=== PATIENT | female | born 1945 | race Caucasian/White ===

== ENCOUNTER 2021-10-28 10:14 | Emergency (ER) | payer MEDICARE, SELFPAY ==
[2021-10-28] VITALS (8 sets, daily range): BP systolic 158–197; BP diastolic 69–95; PULSE 65–74; RESP 10–20; TEMP 36.6; O2SAT 95–100
--- NOTE | ~2021-10-28 | XR_ITS ---
EXAMINATION: XR chest 2V DATE: 10/28/2021 11:00 INDICATION: Lower limb edema TECHNIQUE: AP and lateral views of the chest are obtained. COMPARISON: 07/24/2018 FINDINGS: There are possible nodules in the right mid and upper lung zones. There is no pleural effus ion or pneumothorax. The cardiomediastinal silhouette is normal. There is moderate thoracic spondylos is. Surgical clips in the right upper quadrant are likely from prior cholecystectomy. There are parti ally imaged changes of anterior fusion in the cervical spine as well as surgical clips noted in the l eft neck. IMPRESSION: 1. Possible nodules of the right mid and upper lung zones. Follow-up with nonemergent CT of the chest is recommended. Reviewed, dictated and finalized at location A. IMPRESSION: 1. Possible nodules of the right mid and upper lung zones. Follow-up with nonem ergent CT of the chest is recommended.
--- NOTE | ~2021-10-28 | US_ITS ---
EXAMINATION: US venous doppler [facility] DATE: 10/28/2021 12:26 INDICATION: Bilateral lower limb edema TECHNIQUE: Gomes scale images without and with compression and Doppler images of the bilateral lower e xtremity veins were obtained. COMPARISON: None FINDINGS: The right common femoral vein, profunda femoral vein, femoral vein, popliteal vein, peroneal trunk, p osterior tibial veins, and greater saphenous vein are patent. The left common femoral vein, profunda femoral vein, femoral vein, popliteal vein, peroneal trunk, po sterior tibial veins, and greater saphenous vein are patent. IMPRESSION: 1. Patent bilateral lower extremity veins. No evidence of deep venous thrombosis. Reviewed, dictated and finalized at location A. IMPRESSION: 1. Patent bilateral lower extremity veins. No evidence of deep venous thrombosi s.
--- NOTE | 2021-10-28 10:34 | ECG_ITS ---
Measurements Intervals [place] Rate: 67 P: 22 IL: 172 QRS: 20 QRSD: 81 T: 36 QT: 405 QTc: 430 Interpretive Statements SINUS RHYTHM BASELINE ARTIFACT NOTED POOR R-WAVE PROGRESSION NONDIAGNOSTIC INFERIOR Q-WAVES COMPARED TO ECG 07/24/2018 20:25:44 NO SIGNIFICANT CHANGES Electronically Signed On 10-29-2021 7:12:21 CDT by Kt Beckett M.D.
--- NOTE | 2021-10-28 10:36 | ED.GENADULT ---
HPI - General Adult General Chief complaint: Extremity Injury, Lower <BING Bhakta Last Filed: 10/28/21 19:38> Stated complaint: bilateral lower extremity swelling <BING Bhakta Last Filed: 10/28/21 19:38> Time Seen by Provider: 10/28/21 10:23 <BING Bhakta Last Filed: 10/28/21 19:38> Source: patient <BING Bhakta Last Filed: 10/28/21 19:38> Mode of arrival: EMS <BING Bhakta Last Filed: 10/28/21 19:38> Limitations: no limitations <BING Bhakta Last Filed: 10/28/21 19:38> History of Present Illness HPI narrative: Patient is a 76 y/o female who presents to the ED via EMS with c/o lower extremity swelling. Patient reports she has had increased swelling in her BLE and feet for the past 1 week. Her granddaughter lives with her and thought she needed to come to the ED today. Patient does report diffuse nonspecific pain in her lower extremities associated with the swelling. She does take Lasix 20 mg. She is supposed to take this twice daily, but states she often only takes it once a day because it causes her to urinate frequently. She has missed several second doses over the last week and has not taken anything Lasix today. Patient denies any known history of heart failure. 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 Patient does have chronic WALLACE, but she denies any worsening of this over the last week. She denies any recent fevers, chills, cough, congestion, rhinorrhea, chest pain, abdominal pain, N/V, dysuria, hematuria. <BING Bhakta Last Filed: 10/28/21 19:38> Related Data Allergies/adverse reactions: Allergies Allergy/AdvReac Type Severity Reaction Status Date / Time gabapentin AdvReac Unknown Verified 10/28/21 10:28 latex AdvReac Hives Verified 10/28/21 10:28 <BING Bhakta Last Filed: 10/28/21 19:38> Review of Systems Review of Systems: CONSTITUTIONAL: Denies fever, chills. CARDIOVASCULAR: Reports BLE edema. Denies chest pain. RESPIRATORY: Reports chronic WALLACE. Denies cough. GASTROINTESTINAL: Denies abdominal pain, nausea, vomiting. GENITOURINARY: Denies dysuria or hematuria. SKIN: Denies rash or itching. MUSCULOSKELETAL: Reports diffuse BLE pain. Denies back pain. NEUROLOGIC: Denies numbness, tingling, or weakness. fevers, chills, cough, congestion, rhinorrhea, chest pain, abdominal pain, N/V, dysuria, hematuria. <Fátima Gore PA-C - Last Filed: 10/28/21 19:38> All systems reviewed & are unremarkable except as noted in HPI and below <Fátima Gore PA-C - Last Filed: 10/28/21 19:38> [facility] Past Medical History Medical History: Medical History (Updated 10/29/21 @ 00:00 by Kerri Stephen) Anxiety Arthritis Diabetes mellitus GERD (gastroesophageal reflux disease) Gout Hyperlipidemia Hypertension <Fátima Gore PA-C - Last Filed: 10/28/21 19:38> Surgical History Surgical History: Surgical History (Updated 10/28/21 @ 19:29 by Fátima Gore PA-C) Hx of cholecystectomy <Fátima Gore PA-C - Last Filed: 10/28/21 19:38> Social History Social History: Social History (Updated 10/28/21 @ 19:29 by Fátima Gore PA-C) Smoking status: Never smoker <Fátima Gore PA-C - Last Filed: 10/28/21 19:38> Exam Narrative: GENERAL: Well appearing, obese, non-toxic, in no acute distress. HEAD: Normocephalic, atraumatic. NECK: Supple. No adenopathy, no masses. RESPIRATORY: Airway patent, respirations nonlabored. Clear to auscultation bilaterally, no rales, rhonchi, wheezing. CARDIOVASCULAR: Regular rate and rhythm without murmurs, rubs, or gallops. Peripheral pulses 2+ and equal bilaterally, easily palpable. ABDOMINAL: Soft, nontender, nondistended, no hepatosplenomegaly. Normoactive BS. MUSCULOSKELETAL: Moves all extremities. Strength/ROM intact without gross deformities. 1+ pitting edema to bilateral lower extremities. Does appear equal in nature. Nonspecific tenderness to pa
[2021-10-28 10:44] LABS: Basophils Percent Auto 0.4 % (0.2-1.2); Eosinophils Absolute Auto 0.1 K/mm3 (0-0.3); Eosinophils Percent Auto 0.9 % (0-4.4); Hematocrit 36.4 % (37.0-47.0); Hemoglobin 10.9 g/dL (12.0-15.0); Immature Granulocyte Absolute 0.03 K/mm3 (0.00-0.031); Immature Granulocyte Percent A 0.3 % (0-0.5); Lymphocytes Absolute Auto 3.93 K/mm3 (0.9-3.2); Lymphocytes Percent Auto 42.6 % (18.3-44.2); Mean Corpuscular HGB Conc 29.9 g/dl (32-36); Mean Corpuscular Hemoglobin 26.7 pg (26-34); Mean Platelet Volume 10.1 fl (7.4-10.4); Monocytes Absolute Auto 0.6 K/mm3 (0.1-0.6); Monocytes Percent Auto 6.7 % (2.6-8.5); Neutrophils Absolute Auto 4.5 K/mm3 (1.3-6.7); Neutrophils Percent Auto 49.1 % (45.5-73.1); Platelet Count Result 292 k/mm3 (150-375); Red Blood Count 4.09 M/mm3 (4.2-5.4); Red Cell Distribution Width 17.2 % (11.5-14.5); White Blood Count 9.2 K/mm3 (4.5-10.0)
[2021-10-28 10:57] LABS: Alanine Aminotransferase 32 U/L (6-35); Albumin Level 3.8 g/dL (3.5-5.1); Alkaline Phosphatase 81 U/L (38-126); Anion Gap 5 mmol/L (8-16); Aspartate Amino Transferase 26 U/L (14-36); Bilirubin,Total 0.2 mg/dL (0.2-1.3); Blood Urea Nitrogen 18 mg/dL (7-17); Calcium 8.9 mg/dL (8.4-10.2); Carbon Dioxide 29 mmol/L (22-30); Chloride 104 mmol/L (98-107); Estimated CRCL calculation 78 ml/min; Estimated Glomerular Filt Rate > 60; Glucose 173 mg/dL (65-110); Potassium 4.1 mmol/L (3.4-5.0); Sodium 138 mmol/L (137-145)
[2021-10-28 11:03] LABS: Anisocytosis 1+ (NORMAL); Ovalocytes 1+ (NORMAL); Platelet Estimate Adequate (Adequate)
[2021-10-28 11:10] LABS: NT Pro B Type Natriuretic Pept 176 pg/mL (5-100); Troponin I < 0.012 ng/mL (0.000-0.034)
[2021-10-28 11:51] LABS: Appearance Urine Clear (Clear); Bilirubin Urine Negative (Negative); Blood Urine Negative (Negative); Color Urine Yellow (Yellow); Glucose Urine UA Trace mg/dL (Negative); Ketones Urine Negative (Negative); Leukocyte Esterase Ur Trace LEU/UL (Negative); Nitrate Urine Negative (Negative); Protein Urine Negative (Negative); Specific Grav Ur >= 1.030 (1.001-1.035); Urobilinogen Urine 0.2 mg/dL (<2.0); pH Urine 5.5 (5.0-9.0)
[2021-10-28 12:10] LABS: Mucus Urine Rare /lpf; RBC Urine 0-2 /hpf (0-2); Squamous Epithelial Cell Urine Rare /hpf (Few); WBC Urine 0-3 /hpf
[2021-10-28 12:34] LABS: Add Urine Microscopic? YES
== END 2021-10-28 13:57 | disposition home or self-care (01) ==
PROVIDERS: Physician Assistant; Emergency Provider Emergency Medicine
DX: R60.0 Localized edema (principal); R91.8 Other nonspecific abnormal finding of lung field; E11.9 Type 2 diabetes mellitus without complications; K21.9 Gastro-esophageal reflux disease without esophagitis; E78.5 Hyperlipidemia, unspecified; I10 Essential (primary) hypertension; M19.90 Unspecified osteoarthritis, unspecified site; M10.9 Gout, unspecified; R06.00 Dyspnea, unspecified; T50.1X6A Underdosing of loop [high-ceiling] diuretics, initial encounter; Z91.128 Patient's intentional underdosing of medication regimen for other reason
CPT/HCPCS: 36415; 71046; 80053; 81001; 83880; 84484; 85025; 93005; 93970; 99284

== ENCOUNTER 2023-04-19 17:11 | Observation (INO) | payer MEDICARE, SELFPAY ==
[2023-04-19] VITALS (7 sets, daily range): BP systolic 133–180; BP diastolic 60–94; PULSE 83–97; RESP 14–20; TEMP 36.7–36.9; O2SAT 89–100; BMI 27.4
--- NOTE | ~2023-04-19 | CT_ITS ---
EXAMINATION: CT cervical spine wo con DATE: 04/19/2023 19:38 INDICATION: fall, hit head TECHNIQUE: Computed tomography (CT) of the cervical spine was performed without intravenous contrast. Automated exposure control and iterative reconstruction technique were employed. The dose-length pro duct was 496.11 mGy-cm. COMPARISON: 07/24/2018. FINDINGS: Vertebral Body Alignment: Intact. 4 mm, grade 2 anterolisthesis at C7-T1. Craniocervical and atlantoaxial alignment: Moderate degenerative change. Alignment intact. Osseous structures/fracture: No evidence of a lytic or blastic process in the visualized spine. No e vidence of acute fracture. Uncomplicated appearing ACDF with interbody fusions spanning C3-C7. Cervical soft tissues: The paraspinal soft tissues planes are maintained. Degenerative changes: Multilevel facet arthropathy. Severe right neural foraminal narrowing at C7-T1. IMPRESSION: No acute fracture in the cervical spine. New 4 mm grade 2 anterolisthesis at C7-T1. This could be explained by degenerative changes, however t his region would be vulnerable to injury (just below the inferior aspect of the cervical hardware). C onsider conservative management and MRI of the cervical spine to exclude ligamentous/soft tissue inju ry. Reviewed, dictated and finalized at location K. ICAL PROCESS ENGINEER IMPRESSION: No acute fracture in the cervical spine. New 4 mm grade 2 anterolisthesis at C7-T1. This could be explained by degenerat maria esther changes, however this region would be vulnerable to injury (just below the inferior aspect of the cervical hardware). Consider conservative management and MRI of the cervical spine to exclude ligamentous/soft tissue injury.
--- NOTE | ~2023-04-19 | CT_ITS ---
EXAMINATION: CT brain wo con DATE: 04/19/2023 19:37 INDICATION: fall, hit head . TECHNIQUE: Computed tomography (CT) of the head was performed without intravenous contrast. The mA wa s adjusted according to patient size. Iterative reconstruction technique was employed. The dose-lengt h product was 681.00 mGy-cm. COMPARISON: 07/24/2018. FINDINGS: No acute intracranial hemorrhage or extra-axial fluid collection. No hydrocephalus, mass, or herniation. No acute ischemic infarct. Unremarkable dural venous sinus attenuation. No acute osseous abnormality. Mild left frontal mucosal thickening, the remaining aerated spaces are clear. Mild atrophy and chronic white matter change. Atherosclerotic intracranial calcification. Bilateral l ens replacements. IMPRESSION: No acute intracranial process. Reviewed, dictated and finalized at location K. RDS MANAGEMENT SPECIALIST
--- NOTE | ~2023-04-19 | CT_ITS ---
EXAMINATION: CT chest abdomen pelvis w con DATE: 04/19/2023 19:39 INDICATION: fall, pain to L ribs and L abdomen . TECHNIQUE: Computed tomography (CT) of the chest, abdomen, and pelvis was performed with 100 mL Omnip aque-350 intravenous contrast. Automated exposure control and iterative reconstruction technique were employed. The dose-length product was 1528.21 mGy-cm. COMPARISON: CT abdomen pelvis 07/24/2018 FINDINGS: CHEST: No thoracic aortic injury. Mild arch calcification. No mediastinal hematoma. No pericardial effusion. Mild coronary artery calcification. No acute lung injury. Senescent change and granulomatous calcifications. Minimal dependent atelectasi s. No pleural effusion or pneumothorax. ABDOMEN/PELVIS: No solid organ injury. No evidence of bowel or mesenteric injury. Moderate distal esophageal and gastric wall edema. Status post cholecystectomy. No free fluid or free air. No retroperitoneal hematoma. Pelvic contents are atraumatic. Mild bladder wall thickening and surrounding inflammatory change. Juan Miguel cified uterine fibroids. MUSCULOSKELETAL: Acute appearing fracture at the tip of the right 12th posterior rib. Angular deformities of the left anterolateral eighth and ninth ribs at the costochondral junction. Bilateral calcified breast implant s with evidence of intracapsular rupture. Mild acute-appearing anterior wedge deformity and superior endplate deformity at T3 and T4. Chronic a ppearing severe T12 and moderate L1 compression deformities, with vertebroplasty cement. IMPRESSION: Acute minimally displaced fracture at the tip of the right 12th posterior rib. Angular deformities of the left anterolateral eighth and ninth ribs at the costochondral junction, may also represent acute injury, correlate for point tenderness. Acute-appearing mild compression fractures at T3 and T4. Chronic appearing severe and moderate compression deformities at T12 and L1 respectively, with verteb roplasty cement. Given the lack of recent comparison studies, acute change cannot be excluded. Correl ate for pain/point tenderness. Bilateral calcified breast implants with intracapsular rupture. Moderate esophagitis/gastritis. Possible cystitis. Reviewed, dictated and finalized at location [facility] [employer] IMPRESSION: Acute minimally displaced fracture at the tip of the right 12th posterior rib. Angular deformities of the left anterolateral eighth and ninth ribs at the cost ochondral junction, may also represent acute injury, correlate for point tender ness. Acute-appearing mild compression fractures at T3 and T4. Chronic appearing severe and moderate compression deformities at T12 and L1 res pectively, with vertebroplasty cement. Given the lack of recent comparison stud ies, acute change cannot be excluded. Correlate for pain/point tenderness. Bilateral calcified breast implants with intracapsular rupture. Moderate esophagitis/gastritis. Possible cystitis.
--- NOTE | 2023-04-19 18:16 | ECG_ITS ---
Measurements Intervals [place] Rate: 78 P: 52 [place]: 155 QRS: 7 QRSD: 91 T: 19 QT: 399 QTc: 456 Interpretive Statements SINUS RHYTHM POOR R-WAVE PROGRESSION BORDERLINE ECG COMPARED TO ECG 10/28/2021 10:43:31 NO CHANGE Electronically Signed On 04-20-2023 9:00:20 PRODUCT DEVELOPMENT ECOLOGIST by Kt Beckett M.D.
--- NOTE | 2023-04-19 18:18 | ED.FALL ---
HPI - Fall General Chief Complaint: Fall Stated Complaint: L side pain s/p fall 4-5 days ago Time Seen by Provider: 04/19/23 17:39 History of Present Illness HPI Narrative: 77-year-old female with a history of diabetes, hypertension, hyperlipidemia, reports via EMS from home with her granddaughter at bedside with complaints of left-sided rib pain after fall that occurred 4 days ago. Patient states she was trying to transfer herself from her bed to her wheelchair when she slipped on the carpet and fell to the ground, landing on her left side. She is unsure if she hit her head or lost consciousness, however the granddaughter states that she the patient called for the granddaughter right after the fall and the patient was alert and oriented. The patient states she is having residual left-sided chest pain that hurts worse with laying flat and deep inspiration. She also reports associated dyspnea. Patient states she has acute on chronic neck pain since the fall. She took hydrocodone earlier today with some improvement in her pain. The patient lives at home with her granddaughter who is currently her arts manager, however they are working on getting the patient placed in a correction. She is wheelchair bound. Denies cough, congestion, fevers, nausea, vomiting or diarrhea, dysuria or hematuria. She does report urinary frequency and feels like she has to go to the bathroom but it is not able to empty her bladder. Related Data Allergies Allergy/AdvReac Type Severity Reaction Status Date / Time gabapentin AdvReac Shakiness Verified 04/19/23 17:24 Review of Systems Review of Systems: CONSTITUTIONAL: Denies fever, chills, or sweats. EYES: Denies visual changes, redness, or discharge. ENT: Denies rhinorrhea, congestion, sore throat, or otalgia. CARDIOVASCULAR: See HPI RESPIRATORY: See HPI GASTROINTESTINAL: Denies abdominal pain, nausea, vomiting, or diarrhea. GENITOURINARY: Denies dysuria or hematuria. SKIN: Denies rash or itching. MUSCULOSKELETAL: See HPI NEUROLOGIC: See HPI PSYCHIATRIC: Denies anxiety or depression. [facility] Past Medical History Medical History Anxiety Arthritis Diabetes mellitus GERD (gastroesophageal reflux disease) Gout Hyperlipidemia Hypertension Surgical History Surgical History Hx of cholecystectomy Social History Social History Smoking status: Never smoker Exam Narrative: GENERAL: Well-appearing, well-nourished, and in no acute distress. HEAD: Normocephalic, atraumatic. EYES: PERRLA and EOMI. ENT: Nares clear, no rhinorrhea or epistaxis. Mucous membranes moist. Bilateral TMs are ford nonbulging. No hemotympanum is. NECK: Midline cervical spinous tenderness without step-offs or deformities. No overlying skin changes. No nuchal rigidity. BACK: Generalized thoracic and lumbar spinous tenderness without step-offs or deformities, no overlying skin changes. CHEST: Clear to auscultation. No respiratory distress. Tenderness to the left lateral chest wall under the breast without crepitus, step-offs or deformities. No overlying ecchymosis rash. HEART: Regular rate and rhythm. No murmur heard. Normal peripheral pulses. ABDOMEN: Normoactive bowel sounds. Abdomen soft with tenderness in the left lower quadrant and suprapubic region. No guarding, rebound or rigidity. No overlying skin changes. No CVA tenderness. EXTREMITIES: Radial and DP pulses 2+. Full active and passive range of motion of all extremities without tenderness. 1+ pitting edema bilaterally. SKIN: Warm, dry, no rash. NEURO: No focal deficits. Alert and oriented x3. Patient moving all extremities spontaneously. No gross deficits. Course Vital Signs Vital signs: Vital Signs Temperature 98.1 F 04/19/23 17:13 Pulse Rate 88 04/19/23 17:13 Respirat
[2023-04-19] MEDS: MORPHINE SULFATE (*CRX) 2 MG/ML INJ IV PUSH ×2 (18:23→19:44)
[2023-04-19 18:38] LABS: Basophils Percent Auto 0.3 % (0.2-1.2); Eosinophils Absolute Auto 0.2 K/mm3 (0-0.3); Eosinophils Percent Auto 1.8 % (0-4.4); Hematocrit 34.5 % (37.0-47.0); Hemoglobin 10.4 g/dL (12.0-15.0); Immature Granulocyte Absolute 0.03 K/mm3 (0.00-0.031); Immature Granulocyte Percent A 0.3 % (0-0.5); Lymphocytes Absolute Auto 1.85 K/mm3 (0.9-3.2); Lymphocytes Percent Auto 15.9 % (18.3-44.2); Mean Corpuscular HGB Conc 30.1 g/dl (32-36); Mean Corpuscular Hemoglobin 26.3 pg (26-34); Mean Corpuscular Volume 87.1 fl (80-100); Mean Platelet Volume 9.9 fl (7.4-10.4); Monocytes Absolute Auto 0.9 K/mm3 (0.1-0.6); Monocytes Percent Auto 8.1 % (2.6-8.5); Neutrophils Absolute Auto 8.6 K/mm3 (1.3-6.7); Neutrophils Percent Auto 73.6 % (45.5-73.1); Platelet Count Result 247 k/mm3 (150-375); Red Blood Count 3.96 M/mm3 (4.2-5.4); White Blood Count 11.6 K/mm3 (4.5-10.0)
[2023-04-19 18:49] LABS: Prothrombin Time 13.4 Seconds (11.1-14.7)
[2023-04-19 18:50] LABS: Alanine Aminotransferase 19 U/L (6-35); Albumin Level 3.7 g/dL (3.5-5.1); Alkaline Phosphatase 81 U/L (38-126); Anion Gap 7 mmol/L (8-16); Aspartate Amino Transferase 41 U/L (14-36); Bilirubin,Total 0.4 mg/dL (0.2-1.3); Blood Urea Nitrogen 11 mg/dL (7-17); Carbon Dioxide 29 mmol/L (22-30); Chloride 103 mmol/L (98-107); Estimated CRCL calculation 74 ml/min; Estimated Glomerular Filt Rate > 60; Glucose 68 mg/dL (65-110); Lipase 30 U/L (23-300); Potassium 3.7 mmol/L (3.4-5.0); Sodium 139 mmol/L (137-145)
[2023-04-19 18:57] LABS: Appearance Urine Clear (Clear); Bacteria Urine None Seen /hpf; Bilirubin Urine Negative (Negative); Blood Urine Negative (Negative); Color Urine Yellow (Yellow); Glucose Urine UA Negative (Negative); Ketones Urine Trace mg/dL (Negative); Leukocyte Esterase Ur 1+ LEU/UL (Negative); Nitrate Urine Negative (Negative); Non Pathogenic Casts 0-2; Protein Urine Trace mg/dL (Negative); RBC Urine 0-2 /hpf (0-2); Specific Grav Ur 1.023 (1.001-1.035); Squamous Epithelial Cell Urine None seen /hpf (Few); WBC Urine 21-50 /hpf
[2023-04-19 18:59] LABS: NT Pro B Type Natriuretic Pept 153 pg/mL (19.9-100)
[2023-04-19 19:08] LABS: Add Urine Microscopic? YES
[2023-04-19 19:24] LABS: Troponin I < 0.012 ng/mL (0.000-0.034)
[2023-04-19] MEDS: HYDROmorphone HCL INJ (*CRX) 1 MG/ML SYR 0.5 MG IV PUSH (21:08)
--- NOTE | 2023-04-19 21:52 | ECG_ITS ---
Measurements Intervals [place] Rate: 93 P: 11 NJ: 169 QRS: -4 QRSD: 93 T: 5 QT: 376 QTc: 468 Interpretive Statements SINUS RHYTHM MODERATE VOLTAGE CRITERIA FOR LVH, CONSIDER NORMAL VARIANT [MEETS CRITERIA IN ONE OF: R(aVL), S(V1), R(V5), R(V5/V6)+S(V1)] CANNOT RULE OUT PREVIOUS iNFERIOR MYOCARDIAL INFARCTION , ABNORMAL ECG COMPARED TO ECG 04/19/2023 18:25:30 NO DIFFERENCE Electronically Signed On 04-20-2023 9:03:59 DITCH TENDER by Kt Beckett M.D.
[2023-04-19 22:14] LABS: Troponin I < 0.012 ng/mL (0.000-0.034)
--- NOTE | 2023-04-19 22:49 | PM.IMHP ---
H&P: HPI History of Present Illness Date/Time: 04/19/23 22:49 Chief Complaint: Left side pain after fall Narrative: 77-year-old female with a past medical history hyperlipidemia, gout, hypertension, insulin-dependent diabetes mellitus, chronic neck pain and GERD who presented to the ER with left side pain after fall 4-5 days ago. Pain has not improved despite taking Hitchcock at home. The patient reports that she has chronic pain. She reports that her pain in her back and hips and legs is always around 8/10 out of intensity. She reports that for 5 days ago she went to get up and transfer to her wheelchair and her bed is quite tall. She states that her feet slipped out from under when she was trying to put her shoes on. She some a landed between the wheelchair and her bed. She struck the back of her neck on the bed and she thinks that she struck her anterior chest on her wheelchair. The patient has chronic back pain and had a vertebroplasty in approximately January of T12 and L1. She reports that her biggest complaint now is chest discomfort that is reproducible to palpation. CT in the ER demonstrated right 12th posterior rib fracture and angular deformities of the anterior lateral 8th and 9th rib at the costochondral junction. On exam patient does have reproducible pain anterior the at the left 8 the night with ribs. She reports that this is the majority of her chest discomfort. Is worse with moving and deep breathing. She denies having significant cough. She does not use oxygen at home but does have a history of obstructive sleep apnea and is noncompliant with CPAP.. In the ER patient was reporting shortness of breath. Pulse ox when patient was reclined did drop to 89 %. She denies any significant cough or congestion. She has not had any change in bowel or bladder habits. She denies dysuria or hematuria. In the ER UA demonstrated 1+ esterase and 21-50 wbc's. He has chronic urinary frequency and urgency. She has some component of functional incontinence and has to wear pads home due to decreased mobility. She has history chronic constipation due to chronic narcotic use. She reports that she has been having difficulty getting to a lot of her doctor's appointment and has missed followups regarding her yearly eye exams and ancillary appointments. She has been following with her pain management doctor regularly to get her pain medications. The patient is noted to have significant tremor on exam. She states that her doctor has mention the possibility of Parkinson the past but states she has never had a full workup. The patient denies being on any antipsychotic medications but on review of her home med rec patient is on antipsychotics. Review of Systems Review of Systems: 12 systems were reviewed with pertinent positives and negatives per HPI. Except as documented in the HPI, all other systems were reviewed and are negative. [facility] Past Medical History Medical History (Updated 04/20/23 @ 04:07 by Marina Aparicio DO) Anxiety Arthritis Chronic neck pain with history of cervical spinal surgery Chronic pain disorder Diabetes mellitus Insulin-dependent Diabetic peripheral neuropathy GERD (gastroesophageal reflux disease) Gout Hepatitis C Hyperlipidemia Hypertension Obstructive sleep apnea Refuses CPAP TIA (transient ischemic attack) Surgical History Surgical History (Updated 04/20/23 @ 03:16 by Marina Aparicio DO) History of kyphoplasty (~12/2022) Hx of cholecystectomy Family History Family History Grandparent Acute myocardial infarction Father Acute myocardial infarction Parkinson disease Diabetes mellitus Mother Diabetes mellitus Lung cancer Sibling Diabetes mellitus Cirrhosis Social History Social History (Updated 04/20/23 @ 03:20 by Marina Aparicio DO) Social History: She lives in her own home. Her granddaughter lives with her and hel
--- NOTE | 2023-04-19 23:21 | ADMGEN ---
This patient, Oralia Epps, was admitted to Medical Room 342-01. Patient/family oriented to hospital policies and general routines including ID bracelet, bed and alarms, visiting hours, pain management, procedures, bathroom and other care routines, personal items, smoking policy, room service/diet, and visiting hours. Information on how to activate the Rapid Response Team has been discussed. Patient/Family are encouraged to report perceived risks to care and to ask questions if they do not understand what they are told or what they should do.
[2023-04-20] VITALS (13 sets, daily range): BP systolic 141–164; BP diastolic 55–85; PULSE 76–97; RESP 16; TEMP 36.2–37; O2SAT 93–99
[2023-04-20] MEDS: HYDROmorphone HCL INJ (*CRX) 1 MG/ML SYR 0.5 MG IV PUSH ×2 (01:33→08:52)
[2023-04-20] MEDS: oxyCODONE HCL (*CRX) 5 MG TAB IR PO ×3 (05:50→19:44)
[2023-04-20] MEDS: DEXTROSE 50% 25 GM/50 ML SYRINGE IV PUSH (08:48)
[2023-04-20 08:51] LABS: Glucose Point of Care 54 mg/dl (65-105)
[2023-04-20] MEDS: HYDROXYCHLOROQUINE SULFATE 200 MG TABLET PO ×2 (08:54→17:04)
[2023-04-20] MEDS: DULoxetine HCL 20 MG CAPSULE.DR 40 MG PO (08:54)
[2023-04-20] MEDS: CITALOPRAM HYDROBROMIDE 20 MG TABLET PO (08:54)
[2023-04-20] MEDS: CYANOCOBALAMIN 500 MCG TABLET BY MOUTH (08:54)
[2023-04-20] MEDS: ARIPiprazole 5 MG TABLET PO (08:55)
[2023-04-20] MEDS: MELOXICAM 7.5 MG TABLET PO (08:55)
[2023-04-20] MEDS: PRIMIDONE 50 MG TABLET PO ×3 (08:55→17:04)
[2023-04-20] MEDS: calcitrioL 0.25 MCG CAPSULE 0.5 MCG PO ×3 (08:55→17:05)
[2023-04-20] MEDS: lisinopriL 20 MG TABLET 40 MG PO ×2 (08:56→17:04)
[2023-04-20] MEDS: FOLIC ACID 1 MG TABLET PO (08:56)
[2023-04-20] MEDS: FUROSEMIDE 40 MG TABLET PO (08:56)
[2023-04-20] MEDS: PANTOPRAZOLE 40 MG TABLET PO ×2 (08:56→17:04)
[2023-04-20] MEDS: DICYCLOMINE HCL 10 MG CAPSULE PO ×3 (08:56→17:04)
[2023-04-20] MEDS: METOPROLOL TARTRATE 50 MG TAB PO ×2 (08:57→20:17)
[2023-04-20] MEDS: CALCITONIN NASAL 200 UNITS/SPRAY 3.7 ML BOTTLE 1 SPRAY NASAL (08:58)
[2023-04-20] MEDS: allopurinoL 300 MG TABLET PO (09:06)
[2023-04-20] MEDS: SUCRALFATE 1 GM TABLET PO ×3 (09:06→17:04)
[2023-04-20] MEDS: predniSONE 5 MG TABLET PO (09:06)
[2023-04-20 09:17] LABS: Glucose Point of Care 113 mg/dl (65-105)
--- NOTE | 2023-04-20 09:37 | PCOTNOTE ---
Attempted OT evaluation. Patient refuses at this time stating nausea and fatigue. Will follow.
--- NOTE | 2023-04-20 10:31 | PM.IMPN ---
Progress Note: A&P Assessment and Plan (1) Uncontrolled pain: Code(s): R52 - Pain, unspecified Status: Acute Assessment and Plan: Secondary to multiple rib fracture status post fall as well as acute compression fractures at T3 and T4 Pain management in place with oxycodone and Dilaudid as needed, will attempt to avoid IV pain medications and get patient on a regimen for discharge PT/OT (2) Fall: Qualifiers: Encounter type: initial encounter Qualified Code(s): W19.XXXA - Unspecified fall, initial encounter Code(s): W19.XXXA - Unspecified fall, initial encounter Status: Acute (3) Compression fracture: Status: Acute (4) Chronic pain disorder: Code(s): G89.4 - Chronic pain syndrome Status: Acute (5) Neck pain: Code(s): M54.2 - Cervicalgia Status: Acute (6) Dehydration: Code(s): E86.0 - Dehydration Status: Acute Assessment and Plan: Decrease Lasix, monitor fluid status closely (7) Fracture, ribs: Qualifiers: Encounter type: initial encounter Fracture type: closed Laterality: bilateral Qualified Code(s): S22.43XA - Multiple fractures of ribs, bilateral, initial encounter for closed fracture Code(s): S22.49XA - Multiple fractures of ribs, unspecified side, initial encounter for closed fracture Status: Acute (8) Abnormal urinalysis: Code(s): R82.90 - Unspecified abnormal findings in urine Status: Acute Assessment and Plan: Rocephin initiated 04/19, follow-up urine culture Plan DVT prophylaxis with SCDs GI prophylaxis not indicated Code status DNR Subjective Date/time seen: 04/20/23 10:31 Interval history: 77-year-old female with a past medical history hyperlipidemia, gout, hypertension, insulin-dependent diabetes mellitus, chronic neck pain and GERD who presented to the ER with left side pain after fall 4-5 days ago. No overnight events noted. No chest pain or shortness of breath. No nausea, vomiting or diarrhea. No fevers or chills. Still with rib pain. Review of Systems Review of Systems: 12 point review of systems was assessed and was negative except as noted in the HPI Exam Narrative: General: No acute distress, alert and oriented per baseline HEENT: Atraumatic, normocephalic, mucous membranes moist CV: Regular rate and rhythm, S1, S2 Lungs: Clear to auscultation bilaterally, no rales or crackles noted, no wheezes, good air entry Abdomen: Soft, nontender, nondistended Extremities: Normal to inspection Skin: No rashes noted, no lesions or wounds seen Psych: Euthymic, normal affect Objective Data Vital Signs Vital Signs: Vital Signs - 24 hr 04/19/23 17:13 04/19/23 17:36 04/19/23 19:05 Temperature 98.1 F Pulse Rate 88 83 Respiratory Rate 18 20 Blood Pressure 180/80 H 172/60 H Pulse Oximetry 100 98 95 Oxygen Delivery Room Air Room Air Oxygen Flow Rate 04/19/23 21:13 04/19/23 22:44 04/19/23 22:45 Temperature Pulse Rate 97 Respiratory Rate 14 Blood Pressure 178/94 H Pulse Oximetry 97 89 L 96 Oxygen Delivery Room Air Nasal Cannula Oxygen Flow Rate 2 04/19/23 22:45 04/20/23 00:11 04/19/23 23:30 Temperature 98.5 F Pulse Rate 89 87 Respiratory Rate 18 18 Blood Pressure 151/63 H 133/93 H Pulse Oximetry 95 97 96 Oxygen Delivery Nasal Cannula Oxygen Flow Rate 2 04/20/23 00:00 04/20/23 04:00 04/20/23 05:47 Temperature 98.6 F Pulse Rate 87 76 82 Respiratory Rate 16 Blood Pressure 164/55 H Pulse Oximetry 99 Oxygen Delivery Oxygen Flow Rate 04/20/23 08:47 04/20/23 08:57 Temperature Pulse Rate 94 Respiratory Rate Blood Pressure 153/57 H Pulse Oximetry Oxygen Delivery Oxygen Flow Rate Intake/Output Intake/Output: Intake & Output 04/17/23 04/18/23 04/19/23 04/20/23 23:59 23:59 23:59 23:59 Intake Total 50 200 Output Total 75 350
[2023-04-20 12:04] LABS: Glucose Point of Care 174 mg/dl (65-105)
[2023-04-20] MEDS: ONDANSETRON INJ 4 MG/2 ML VIAL IV PUSH ×2 (14:12→19:44)
[2023-04-20] MEDS: ATORVASTATIN 20 MG TABLET PO (17:09)
[2023-04-20 17:16] LABS: Glucose Point of Care 204 mg/dl (65-105)
[2023-04-20] MEDS: INSULIN ASPART (*BKC) 100 UNITS/ML SUB-Q ×2 (17:59→20:19)
[2023-04-20] MEDS: clonazePAM (*CRX) 0.5 MG TABLET PO (20:17)
[2023-04-21] VITALS (12 sets, daily range): BP systolic 121–151; BP diastolic 43–62; PULSE 70–91; RESP 16–18; TEMP 36.4–37; O2SAT 91–97
[2023-04-21] MEDS: oxyCODONE HCL (*CRX) 5 MG TAB IR PO ×4 (00:22→13:23)
[2023-04-21 05:54] LABS: Basophils Percent Auto 0.4 % (0.2-1.2); Eosinophils Absolute Auto 0.2 K/mm3 (0-0.3); Eosinophils Percent Auto 2.5 % (0-4.4); Hematocrit 32.4 % (37.0-47.0); Hemoglobin 9.7 g/dL (12.0-15.0); Immature Granulocyte Absolute 0.02 K/mm3 (0.00-0.031); Immature Granulocyte Percent A 0.3 % (0-0.5); Lymphocytes Absolute Auto 2.48 K/mm3 (0.9-3.2); Lymphocytes Percent Auto 36.8 % (18.3-44.2); Mean Corpuscular HGB Conc 29.9 g/dl (32-36); Mean Corpuscular Hemoglobin 26.4 pg (26-34); Mean Platelet Volume 10.7 fl (7.4-10.4); Monocytes Absolute Auto 0.8 K/mm3 (0.1-0.6); Monocytes Percent Auto 11.9 % (2.6-8.5); Neutrophils Absolute Auto 3.2 K/mm3 (1.3-6.7); Neutrophils Percent Auto 48.1 % (45.5-73.1); Platelet Count Result 244 k/mm3 (150-375); Red Blood Count 3.68 M/mm3 (4.2-5.4); Red Cell Distribution Width 17.2 % (11.5-14.5); White Blood Count 6.7 K/mm3 (4.5-10.0)
[2023-04-21 06:19] LABS: Glucose Point of Care 209 mg/dl (65-105)
[2023-04-21 06:33] LABS: Alanine Aminotransferase 14 U/L (6-35); Albumin Level 3.3 g/dL (3.5-5.1); Alkaline Phosphatase 71 U/L (38-126); Anion Gap 5 mmol/L (8-16); Aspartate Amino Transferase 24 U/L (14-36); Bilirubin,Total 0.3 mg/dL (0.2-1.3); Blood Urea Nitrogen 14 mg/dL (7-17); Carbon Dioxide 31 mmol/L (22-30); Chloride 99 mmol/L (98-107); Estimated CRCL calculation 50 ml/min; Estimated Glomerular Filt Rate > 60; Glucose 159 mg/dL (65-110); Potassium 3.2 mmol/L (3.4-5.0); Sodium 135 mmol/L (137-145)
[2023-04-21 09:19] LABS: Glucose Point of Care 154 mg/dl (65-105)
[2023-04-21] MEDS: calcitrioL 0.25 MCG CAPSULE 0.5 MCG PO ×3 (09:38→18:04)
[2023-04-21] MEDS: CYANOCOBALAMIN 500 MCG TABLET BY MOUTH (09:38)
[2023-04-21] MEDS: HYDROXYCHLOROQUINE SULFATE 200 MG TABLET PO ×2 (09:38→18:05)
[2023-04-21] MEDS: CITALOPRAM HYDROBROMIDE 20 MG TABLET PO (09:38)
[2023-04-21] MEDS: MELOXICAM 7.5 MG TABLET PO (09:38)
[2023-04-21] MEDS: predniSONE 5 MG TABLET PO (09:38)
[2023-04-21] MEDS: ARIPiprazole 5 MG TABLET PO (09:38)
[2023-04-21] MEDS: FOLIC ACID 1 MG TABLET PO (09:38)
[2023-04-21] MEDS: lisinopriL 20 MG TABLET 40 MG PO ×2 (09:38→18:05)
[2023-04-21] MEDS: DULoxetine HCL 20 MG CAPSULE.DR 40 MG PO (09:38)
[2023-04-21] MEDS: PANTOPRAZOLE 40 MG TABLET PO ×2 (09:38→18:05)
[2023-04-21] MEDS: DICYCLOMINE HCL 10 MG CAPSULE PO ×3 (09:38→18:05)
[2023-04-21] MEDS: allopurinoL 300 MG TABLET PO (09:39)
[2023-04-21] MEDS: METOPROLOL TARTRATE 50 MG TAB PO ×2 (09:39→21:11)
[2023-04-21] MEDS: CALCITONIN NASAL 200 UNITS/SPRAY 3.7 ML BOTTLE 1 SPRAY NASAL (09:39)
[2023-04-21] MEDS: SUCRALFATE 1 GM TABLET PO ×3 (09:39→18:05)
[2023-04-21] MEDS: PRIMIDONE 50 MG TABLET PO ×3 (09:39→18:05)
[2023-04-21] MEDS: FUROSEMIDE 40 MG TABLET PO (09:39)
[2023-04-21] MEDS: ONDANSETRON INJ 4 MG/2 ML VIAL IV PUSH ×2 (09:46→19:47)
[2023-04-21] MEDS: INSULIN GLARGINE (*BKC) 100 UNITS/ML 15 UNITS SUB-Q (09:47)
[2023-04-21 12:06] LABS: Glucose Point of Care 238 mg/dl (65-105)
[2023-04-21] MEDS: INSULIN ASPART (*BKC) 100 UNITS/ML SUB-Q (13:24)
--- NOTE | 2023-04-21 14:23 | PM.IMPN ---
Progress Note: A&P Assessment and Plan (1) Uncontrolled pain: Code(s): R52 - Pain, unspecified Status: Acute Assessment and Plan: Secondary to multiple rib fracture status post fall as well as acute compression fractures at T3 and T4 Pain management in place with oxycodone and Dilaudid as needed, will attempt to avoid IV pain medications and get patient on a regimen for discharge PT/OT 04/21: stable on oral oxycodone, d/c planning rehab soon (2) Fracture, ribs: Qualifiers: Encounter type: initial encounter Fracture type: closed Laterality: bilateral Qualified Code(s): S22.43XA - Multiple fractures of ribs, bilateral, initial encounter for closed fracture Code(s): S22.49XA - Multiple fractures of ribs, unspecified side, initial encounter for closed fracture Status: Acute Assessment and Plan: Pain controlled (3) Dehydration: Code(s): E86.0 - Dehydration Status: Acute Assessment and Plan: Decrease Lasix, monitor fluid status closely (4) Abnormal urinalysis: Code(s): R82.90 - Unspecified abnormal findings in urine Status: Acute Assessment and Plan: Rocephin initiated 04/19, follow-up urine culture 04/21: urine culture negative, abx d/c (5) Fall: Qualifiers: Encounter type: initial encounter Qualified Code(s): W19.XXXA - Unspecified fall, initial encounter Code(s): W19.XXXA - Unspecified fall, initial encounter Status: Acute (6) Compression fracture: Status: Acute (7) Chronic pain disorder: Code(s): G89.4 - Chronic pain syndrome Status: Acute (8) Neck pain: Code(s): M54.2 - Cervicalgia Status: Acute Plan DVT prophylaxis with SCDs GI prophylaxis not indicated Code status DNR Subjective Date/time seen: 04/21/23 14:23 Interval history: 77-year-old female with a past medical history hyperlipidemia, gout, hypertension, insulin-dependent diabetes mellitus, chronic neck pain and GERD who presented to the ER with left side pain after fall 4-5 days ago. No overnight events noted. No chest pain or shortness of breath. No nausea, vomiting or diarrhea. No fevers or chills. Still with rib pain, much improved. Admits to being constipated, requesting stool softener/laxative. Review of Systems Review of Systems: 12 point review of systems was assessed and was negative except as noted in the HPI Exam Narrative: General: No acute distress, alert and oriented per baseline HEENT: Atraumatic, normocephalic, mucous membranes moist CV: Regular rate and rhythm, S1, S2 Lungs: Clear to auscultation bilaterally, no rales or crackles noted, no wheezes, good air entry Abdomen: Soft, nontender, nondistended Extremities: Normal to inspection Skin: No rashes noted, no lesions or wounds seen Psych: Euthymic, normal affect Objective Data Vital Signs Vital Signs: Vital Signs - 24 hr 04/20/23 16:00 04/20/23 17:03 04/20/23 20:17 Temperature Pulse Rate 86 80 Respiratory Rate Blood Pressure Pulse Oximetry Oxygen Delivery Room Air Oxygen Flow Rate 04/20/23 22:00 04/20/23 20:00 04/20/23 20:00 Temperature 97.2 F L Pulse Rate 87 85 Respiratory Rate 16 Blood Pressure 153/72 H Pulse Oximetry 93 96 Oxygen Delivery Nasal Cannula Oxygen Flow Rate 1 04/21/23 00:00 04/21/23 04:00 04/21/23 06:00 Temperature 97.6 F Pulse Rate 79 73 70 Respiratory Rate 18 Blood Pressure 136/43 L Pulse Oximetry 97 Oxygen Delivery Oxygen Flow Rate 04/21/23 08:20 04/21/23 08:44 04/21/23 09:39 Temperature Pulse Rate 91 Respiratory Rate Blood Pressure 124/50 L Pulse Oximetry Oxygen Delivery Room Air Oxygen Flow Rate 04/21/23 08:00 Temperature Pulse Rate Respiratory Rate Blood Pressure Pulse Oximetry Oxygen Delivery Room Air Oxygen Flow Rate Intake/Output Intake/Output
[2023-04-21] MEDS: BISACODYL 5 MG TABLET EC 10 MG PO (14:26)
--- NOTE | 2023-04-21 14:28 | PM.DS ---
DS: Admitting Diagnosis Discharge Date 04/22/23 Admitting Diagnosis pain after fall DS: Discharge Diagnosis Discharge Diagnosis (1) Uncontrolled pain: Code(s): R52 - Pain, unspecified Status: Acute Assessment and Plan: Secondary to multiple rib fracture status post fall as well as acute compression fractures at T3 and T4 Pain management in place with oxycodone and Dilaudid as needed, will attempt to avoid IV pain medications and get patient on a regimen for discharge PT/OT 04/21: stable on oral oxycodone, d/c planning rehab soon (2) Fracture, ribs: Qualifiers: Encounter type: initial encounter Fracture type: closed Laterality: bilateral Qualified Code(s): S22.43XA - Multiple fractures of ribs, bilateral, initial encounter for closed fracture Code(s): S22.49XA - Multiple fractures of ribs, unspecified side, initial encounter for closed fracture Status: Acute Assessment and Plan: Pain controlled (3) Dehydration: Code(s): E86.0 - Dehydration Status: Acute Assessment and Plan: Decrease Lasix, monitor fluid status closely (4) Abnormal urinalysis: Code(s): R82.90 - Unspecified abnormal findings in urine Status: Acute Assessment and Plan: Rocephin initiated 04/19, follow-up urine culture 04/21: urine culture negative, abx d/c (5) Fall: Qualifiers: Encounter type: initial encounter Qualified Code(s): W19.XXXA - Unspecified fall, initial encounter Code(s): W19.XXXA - Unspecified fall, initial encounter Status: Acute (6) Compression fracture: Status: Acute (7) Chronic pain disorder: Code(s): G89.4 - Chronic pain syndrome Status: Acute (8) Neck pain: Code(s): M54.2 - Cervicalgia Status: Acute Plan DVT prophylaxis with SCDs GI prophylaxis not indicated Code status DNR DS: Summary Hospital Course Hospital Course: 77-year-old female with a past medical history hyperlipidemia, gout, hypertension, insulin-dependent diabetes mellitus, chronic neck pain and GERD who presented to the ER with left side pain after fall 4-5 days ago. Secondary to multiple rib fracture status post fall as well as acute compression fractures at T3 and T4 Pain management in place with oxycodone and Dilaudid as needed, will attempt to avoid IV pain medications and get patient on a regimen for discharge Patient also had difficulty with constipation, corrected with a bowel regimen. Please see above and med rec for details. Patient was discharged to rehab in stable condition with close outpatient follow-up. Time Spent with Patient Time attestation: Total time spent providing and/or coordinating discharge services: Exam Narrative: General: No acute distress, alert and oriented per baseline HEENT: Atraumatic, normocephalic, mucous membranes moist CV: Regular rate and rhythm, S1, S2 Lungs: Clear to auscultation bilaterally, no rales or crackles noted, no wheezes, good air entry Abdomen: Soft, nontender, nondistended Extremities: Normal to inspection Skin: No rashes noted, no lesions or wounds seen Psych: Euthymic, normal affect DS: Data Data Completed and Pending Labs on day of discharge: Labs from last 24 hours 04/21/23 04/21/23 04/21/23 12:01 09:11 05:20 WBC 6.7 RBC 3.68 L Hgb 9.7 L Hct 32.4 L MCV 88.0 MCH 26.4 MCHC 29.9 L RDW 17.2 H Plt Count 244 MPV 10.7 H Immature Gran % (Auto) 0.3 Neut % (Auto) 48.1 Lymph % (Auto) 36.8 Mchenry % (Auto) 11.9 H Eos % (Auto) 2.5 Baso % (Auto) 0.4 Lymph # (Auto) 2.48 Mchenry # (Auto) 0.8 H Eos # (Auto) 0.2 Baso # (Auto) 0.0 Abs Immat Gran (auto) 0.02 Absolute Neuts (auto) 3.2 Absolute Nucleated RBC 0.0 Nucleated RBC % 0.0 Sodium 135 L Potassium 3.2 L Chloride 99 Carbon Dioxide 31 H Anion Gap 5 L BUN 14 Creatinine 0.
[2023-04-21 17:00] LABS: Glucose Point of Care 174 mg/dl (65-105)
[2023-04-21] MEDS: ATORVASTATIN 20 MG TABLET PO (18:11)
[2023-04-21] MEDS: oxyCODONE HCL (*CRX) 5 MG TAB IR 10 MG PO (18:11)
[2023-04-21] MEDS: clonazePAM (*CRX) 0.5 MG TABLET PO (21:11)
[2023-04-21 21:27] LABS: Glucose Point of Care 197 mg/dl (65-105)
[2023-04-22] VITALS (7 sets, daily range): BP systolic 128–147; BP diastolic 47–60; PULSE 58–81; RESP 16; TEMP 36.7–37.1; O2SAT 93–99
[2023-04-22] MEDS: oxyCODONE HCL (*CRX) 5 MG TAB IR 10 MG PO ×3 (02:03→16:12)
[2023-04-22 05:57] LABS: Basophils Percent Auto 0.5 % (0.2-1.2); Eosinophils Absolute Auto 0.2 K/mm3 (0-0.3); Eosinophils Percent Auto 2.9 % (0-4.4); Hematocrit 33.7 % (37.0-47.0); Hemoglobin 10.1 g/dL (12.0-15.0); Immature Granulocyte Absolute 0.01 K/mm3 (0.00-0.031); Immature Granulocyte Percent A 0.2 % (0-0.5); Lymphocytes Absolute Auto 2.54 K/mm3 (0.9-3.2); Lymphocytes Percent Auto 40.8 % (18.3-44.2); Mean Corpuscular Hemoglobin 26.4 pg (26-34); Mean Platelet Volume 10.2 fl (7.4-10.4); Monocytes Absolute Auto 0.8 K/mm3 (0.1-0.6); Neutrophils Absolute Auto 2.7 K/mm3 (1.3-6.7); Neutrophils Percent Auto 43.6 % (45.5-73.1); Platelet Count Result 238 k/mm3 (150-375); Red Blood Count 3.83 M/mm3 (4.2-5.4); Red Cell Distribution Width 16.7 % (11.5-14.5); White Blood Count 6.2 K/mm3 (4.5-10.0)
[2023-04-22 06:02] LABS: Potassium 3.5 mmol/L (3.4-5.0)
[2023-04-22 06:05] LABS: Alanine Aminotransferase 14 U/L (6-35); Albumin Level 3.4 g/dL (3.5-5.1); Alkaline Phosphatase 68 U/L (38-126); Anion Gap 7 mmol/L (8-16); Aspartate Amino Transferase 24 U/L (14-36); Bilirubin,Total 0.3 mg/dL (0.2-1.3); Blood Urea Nitrogen 20 mg/dL (7-17); Calcium 10.2 mg/dL (8.4-10.2); Carbon Dioxide 29 mmol/L (22-30); Chloride 98 mmol/L (98-107); Estimated CRCL calculation 55 ml/min; Estimated Glomerular Filt Rate > 60; Glucose 142 mg/dL (65-110); Sodium 134 mmol/L (137-145)
[2023-04-22] MEDS: DULoxetine HCL 20 MG CAPSULE.DR 40 MG PO (08:10)
[2023-04-22] MEDS: ARIPiprazole 5 MG TABLET PO (08:11)
[2023-04-22] MEDS: HYDROXYCHLOROQUINE SULFATE 200 MG TABLET PO (08:11)
[2023-04-22] MEDS: PRIMIDONE 50 MG TABLET PO ×2 (08:11→12:05)
[2023-04-22] MEDS: PANTOPRAZOLE 40 MG TABLET PO (08:11)
[2023-04-22] MEDS: FUROSEMIDE 40 MG TABLET PO (08:11)
[2023-04-22] MEDS: allopurinoL 300 MG TABLET PO (08:11)
[2023-04-22] MEDS: calcitrioL 0.25 MCG CAPSULE 0.5 MCG PO ×2 (08:12→12:05)
[2023-04-22] MEDS: MELOXICAM 7.5 MG TABLET PO (08:12)
[2023-04-22] MEDS: SUCRALFATE 1 GM TABLET PO ×2 (08:12→12:05)
[2023-04-22] MEDS: FOLIC ACID 1 MG TABLET PO (08:12)
[2023-04-22] MEDS: DICYCLOMINE HCL 10 MG CAPSULE PO ×2 (08:12→12:05)
[2023-04-22] MEDS: CITALOPRAM HYDROBROMIDE 20 MG TABLET PO (08:12)
[2023-04-22] MEDS: CYANOCOBALAMIN 500 MCG TABLET BY MOUTH (08:12)
[2023-04-22] MEDS: lisinopriL 20 MG TABLET 40 MG PO (08:12)
[2023-04-22] MEDS: predniSONE 5 MG TABLET PO (08:12)
[2023-04-22] MEDS: METOPROLOL TARTRATE 50 MG TAB PO (08:13)
[2023-04-22] MEDS: CALCITONIN NASAL 200 UNITS/SPRAY 3.7 ML BOTTLE 1 SPRAY NASAL (08:13)
[2023-04-22] MEDS: DOCUSATE SODIUM 100 MG CAPSULE PO (08:23)
[2023-04-22 08:35] LABS: Glucose Point of Care 135 mg/dl (65-105)
[2023-04-22] MEDS: INSULIN GLARGINE (*BKC) 100 UNITS/ML 15 UNITS SUB-Q (09:41)
[2023-04-22] MEDS: BISACODYL 10 MG SUPPOSITORY RECTAL (11:30)
[2023-04-22] MEDS: polyethylene glycoL 3350 17 GM POWD.PACK PO (11:30)
[2023-04-22 11:52] LABS: Glucose Point of Care 230 mg/dl (65-105)
[2023-04-22] MEDS: INSULIN ASPART (*BKC) 100 UNITS/ML SUB-Q (12:07)
== END 2023-04-22 16:16 ==
LOC: ANHED 20:49 → ANH3MED 04-21 10:37
PROVIDERS: Admitting Provider Internal Medicine; Emergency Provider Physician Assistant; Visit Provider Student in an Organized Health Care Education/Training Program
DX: S22.43XA Multiple fractures of ribs, bilateral, initial encounter for closed fracture (principal); S22.030A Wedge compression fracture of third thoracic vertebra, initial encounter for closed fracture; S22.040A Wedge compression fracture of fourth thoracic vertebra, initial encounter for closed fracture; W19.XXXA Unspecified fall, initial encounter; Z99.3 Dependence on wheelchair; K59.00 Constipation, unspecified; R94.31 Abnormal electrocardiogram [ECG] [EKG]; R82.90 Unspecified abnormal findings in urine; G89.4 Chronic pain syndrome; M54.2 Cervicalgia; E86.0 Dehydration; E11.42 Type 2 diabetes mellitus with diabetic polyneuropathy; G47.33 Obstructive sleep apnea (adult) (pediatric); E11.9 Type 2 diabetes mellitus without complications; I10 Essential (primary) hypertension; K21.9 Gastro-esophageal reflux disease without esophagitis; M10.9 Gout, unspecified; E78.5 Hyperlipidemia, unspecified; F32.A Depression, unspecified; Z66 Do not resuscitate; Z86.19 Personal history of other infectious and parasitic diseases; Z86.73 Personal history of transient ischemic attack (TIA), and cerebral infarction without residual deficits; Z79.4 Long term (current) use of insulin; Z79.84 Long term (current) use of oral hypoglycemic drugs; Z79.82 Long term (current) use of aspirin; Z79.891 Long term (current) use of opiate analgesic; Z79.52 Long term (current) use of systemic steroids; Z79.899 Other long term (current) drug therapy
CPT/HCPCS: 36415; 70450; 71260; 72125; 74177; 80053; 81001; 82948; 83690; 83880; 84484; 85025; 85610; 85730; 87086; 93005; 96365; 96366; 96375; 96376; 97161; 97165; 97530; 99285; A9270; G0378; J0696; J1170; J1815; J2270; J2405; J7512; Q9967

== ENCOUNTER 2023-04-30 14:36 | Inpatient (IN) | payer MEDICARE, SELFPAY ==
[2023-04-30] VITALS (8 sets, daily range): BP systolic 108–175; BP diastolic 44–77; PULSE 61–68; RESP 16–20; TEMP 36.6–36.7; O2SAT 96–100; BMI 32.0
--- NOTE | ~2023-04-30 | CT_ITS ---
EXAMINATION: CT chest abdomen pelvis wo con DATE: 05/01/2023 11:25 INDICATION: Chest and abdominal pain, hypoxia, nausea and vomiting. TECHNIQUE: Computed tomography (CT) of the chest, abdomen, and pelvis was performed without intraveno us contrast. Automated exposure control and iterative reconstruction technique were employed. The dos e-length product was 1251.64 mGy-cm. COMPARISON: None FINDINGS: CHEST CT: Mild dependent atelectasis in both lungs. Calcified nodules in the right lower lobe along with calcif ied right hilar lymph nodes consistent with old granulomatous disease. No pneumonia, pulmonary edema, pleural effusion or pneumothorax. Heart size is normal. Small amount of atherosclerotic coronary art aaliyah calcific lesion. No pericardial effusion. Thoracic aorta is normal in caliber. No pathologically enlarged thoracic lymphadenopathy. Again seen are peripheral capsular calcifications associated bilat eral breast implants with bilateral intracapsular implant rupture. Partially visualized anterior plat e and screw fixation for cervical spinal fusion extending cephalad from C7 through the C5 and beyond the cephalad margin of the field of imaging. No interval change in a subacute appearing T3 and T4 com pression fractures, both with 20% anterior vertebral body height loss and sclerosis at the fracture l ine underlying the superior endplates of both vertebral bodies. There are multiple subacute and chron ic appearing left rib fractures. ABDOMEN/PELVIS CT: Numerous splenic calcific location consistent with old granulomatous disease. Cholecystectomy clips t he gallbladder fossa. Liver, bilateral adrenal glands and kidneys are normal. Mild fatty atrophy of t he pancreas with dystrophic calcification at the tail of the pancreas which could represent sequela o f chronic pancreatitis. There is mild scattered colonic diverticulosis without adjacent inflammatory change to suggest diverticulitis. Large amount stool scattered throughout the colon which could be s een with constipation. Small bowel and appendix are normal. Partially calcified uterine fibroid. Blad ene is normal. No pathologically enlarged abdominal or pelvic lymphadenopathy. Small focus of gas and fluid in the subcutaneous fat and second small focus of superficial subcutaneous fat in the anterior pelvic wall likely representing sites of recent subcutaneous injections. Stable appearance of T12 an d L1 burst fractures with change of prior vertebroplasty. IMPRESSION: 1. Mild dependent atelectasis in both lungs. No other acute cardiopulmonary disease. 2. Large amount of stool throughout the colon which could be seen with constipation. No other acute i ntra-abdominal/pelvic process. 3. Multiple subacute and chronic appearing left-sided rib fractures, subacute appearing T3 and T4 com pression fractures and vertebral plasties at chronic T12 and L1 burst fractures. 4. Bilateral breast implants, both with intracapsular rupture and peripheral capsular calcifications. 5. Calcified uterine fibroid. 6. Mild scattered diverticulosis. Reviewed, dictated and finalized at location A. E KID BUFFER IMPRESSION: 1. Mild dependent atelectasis in both lungs. No other acute cardiopulmonary dis ease. 2. Large amount of stool throughout the colon which could be seen with constipa tion. No other acute intra-abdominal/pelvic process. 3. Multiple subacute and chronic appearing left-sided rib fractures, subacute a ppearing T3 and T4 compression fractures and vertebral plasties at chronic T12 and L1 burst fractures. 4. Bilateral breast implants, both with intracapsular rupture and peripheral ca psular calcifications. 5. Calcified uterine fibroid. 6. Mild scattered diverticulosis.
--- NOTE | ~2023-04-30 | XR_ITS ---
EXAMINATION: XR chest 2V DATE: 04/30/2023 15:33 INDICATION: Shortness of breath TECHNIQUE: frontal and lateral views of the chest were obtained. COMPARISON: Chest radiograph dated 10/28/[address] dated 04/19/2023 FINDINGS: Patient is rotated slightly towards the left. Unchanged mild linear discoid atelectasis/scarring at t he lingula. No new airspace opacities, pulmonary edema, pleural effusion or pneumothorax. Heart size is within normal AP technique. OR calcifications at bilateral breast implants more prominent on the l eft. Instrumented anterior spinal fusion with anterior plate and screw fixation which appears to exte nd from C3 through C7. There are few tiny surgical clips at the left neck. IMPRESSION: 1. Mild linear discoid atelectasis/scarring at the lingula. No other acute cardiopulmonary disease. Reviewed, dictated and finalized at location A. TER IMPRESSION: 1. Mild linear discoid atelectasis/scarring at the lingula. No other acute card iopulmonary disease.
--- NOTE | ~2023-04-30 | CT_ITS ---
EXAMINATION: CT brain wo con DATE: 05/01/2023 11:24 INDICATION: Altered mentation. TECHNIQUE: Computed tomography (CT) of the head was performed without intravenous contrast. The mA wa s adjusted according to patient size. Iterative reconstruction technique was employed. The dose-lengt h product was 681.00 mGy-cm. COMPARISON: Head CT 04/19/2023 FINDINGS: There are scattered areas of low attenuation in the cerebral white matter. There is no intr acranial hemorrhage, acute infarction, or abnormal intracranial mass lesion. The ventricles are teo l in size. There is mild mucosal thickening in the paranasal sinuses. There are likely changes of ocu lar lens replacement surgeries. The mastoid air cells are normal. IMPRESSION: 1. Stable moderate nonspecific cerebral white matter disease, which likely represents chronic small v essel ischemic disease. Reviewed, dictated and finalized at location A. FORCED CONCRETE INSPECTOR IMPRESSION: 1. Stable moderate nonspecific cerebral white matter disease, which likely repr esents chronic small vessel ischemic disease.
--- NOTE | 2023-04-30 14:57 | ECG_ITS ---
Measurements Intervals [place] Rate: 68 P: 41 HI: 179 QRS: -1 QRSD: 110 T: -4 QT: 429 QTc: 457 Interpretive Statements SINUS RHYTHM WITH OCCASIONAL SUPRAVENTRICULAR PREMATURE COMPLEXES MODERATE VOLTAGE CRITERIA FOR LVH, CONSIDER NORMAL VARIANT [MEETS CRITERIA IN ONE OF: R(aVL), S(V1), R(V5), R(V5/V6)+S(V1)] INFERIOR MYOCARDIAL INFARCTION , PROBABLY OLD [40+ ms Q WAVE AND/OR ST/T ABNORMALITY IN II/aVF] COMPARED TO ECG 04/19/2023 22:00:17 NO SIGNIFICANT CHANGES Electronically Signed On 04-30-2023 21:08:34 DISPENSING LEAD by Reuben Chun M.D.
--- NOTE | 2023-04-30 15:02 | ED.GENADULT ---
HPI - General Adult General Chief complaint: Recheck/Abnormal Lab/Rx Stated complaint: AMS Time Seen by Provider: 04/30/23 14:44 History of Present Illness HPI narrative: Patient is a 77-year-old female who presents to the ER for evaluation from the [facility]. Patient has elevated calcium as well as the elevated bicarb level in the blood. Patient has been increasingly signs. She does awaken to minus stimuli and answer questions but does not seem to know much other than that she had abnormal lab values. She is currently rehabbing from a fall. Related Data Home Medications Medication Instructions Recorded Confirmed allopurinol 300 mg tablet 300 mg PO DAILY 04/19/23 04/30/23 alpha lipoic acid 200 mg capsule 200 mg PO DAILY 04/19/23 04/30/23 aripiprazole 5 mg tablet 5 mg PO DAILY 04/19/23 04/30/23 aspirin 325 mg tablet 325 mg PO Q4-6H PRN Pain 04/19/23 04/30/23 atorvastatin 20 mg tablet 20 mg PO DAILY 04/19/23 04/30/23 calcitonin (salmon) 200 1 spray intranasal (ALT) DAILY 04/19/23 04/30/23 unit/actuation nasal spray calcitriol 0.5 mcg capsule 0.5 mcg PO TID 04/19/23 04/30/23 cholestyramine-aspartame 4 gram 4 g PO DAILY 04/19/23 04/30/23 oral powder for susp in a packet citalopram 20 mg tablet 20 mg PO DAILY 04/19/23 04/30/23 clonazepam 0.5 mg tablet 0.5 mg PO HS 04/19/23 04/30/23 cyanocobalamin (vitamin B-12) 500 500 mcg sublingual DAILY 04/19/23 04/30/23 mcg sublingual tablet dicyclomine 10 mg capsule 10 mg PO TID 04/19/23 04/30/23 docusate sodium 100 mg capsule 100 mg PO DAILY PRN Constipation 04/19/23 04/30/23 duloxetine 20 mg capsule,delayed 40 mg PO DAILY 04/19/23 04/30/23 release folic acid 1 mg tablet 1 mg PO DAILY 04/19/23 04/30/23 furosemide 20 mg tablet 40 mg PO BID 04/19/23 04/30/23 hydroxychloroquine 200 mg tablet 200 mg PO BID 04/19/23 04/30/23 insulin degludec 100 unit/mL (3 18 unit subcut DAILY 04/19/23 04/30/23 mL) subcutaneous pen (Tresiba FlexTouch U-100 insulin) lisinopril 40 mg tablet 40 mg PO BID 04/19/23 04/30/23 meloxicam 7.5 mg tablet 7.5 mg PO DAILY 04/19/23 04/30/23 metformin 500 mg tablet,extended 500 mg PO BID 04/19/23 04/30/23 release 24 hr metoprolol tartrate 50 mg tablet 50 mg PO BID 04/19/23 04/30/23 omeprazole 40 mg capsule,delayed 40 mg PO DAILY 04/19/23 04/30/23 release prednisone 5 mg tablet 5 mg PO DAILY 04/19/23 04/30/23 primidone 50 mg tablet 50 mg PO TID 04/19/23 04/30/23 sucralfate 1 gram tablet 1 g PO TIDWM 04/19/23 04/30/23 ergocalciferol (vitamin D2) 1,250 1,250 mcg PO WEEKLY 04/20/23 04/30/23 mcg (50,000 unit) capsule Allergies Allergy/AdvReac Type Severity Reaction Status Date / Time gabapentin AdvReac Shakiness Verified 04/22/23 18:00 Review of Systems Review of Systems: ROS unobtainable: Yes unobtainable due to mental status PMFSH Past Medical History Medical History Anxiety Arthritis Chronic neck pain with history of cervical spinal surgery Chronic pain disorder Diabetes mellitus Insulin-dependent Diabetic peripheral neuropathy GERD (gastroesophageal reflux disease) Gout Hepatitis C Hyperlipidemia Hypertension Obstructive sleep apnea Refuses CPAP TIA (transient ischemic attack) Surgical History Surgical History History of augmentation of both breasts With bilateral ruptured implants noted on imaging 04/2023 History of kyphoplasty (~12/2022) Hx of cholecystectomy Family History Family History Grandparent Acute myocardial infarction Father Acute myocardial infarction Parkinson disease Diabetes mellitus Mother Diabetes mellitus Lung cancer Sibling Diabetes mellitus Cirrhosis Social History Social History Social History: She lives in her own home. Her granddaughter lives with her and helps provide c
[2023-04-30] MEDS: SODIUM CHLORIDE 0.9% IV 1,000 ML 999 ML IV CONT (15:07)
[2023-04-30 15:18] LABS: Basophils Absolute Auto 0.1 K/mm3 (0.0-0.1); Basophils Percent Auto 0.5 % (0.2-1.2); Eosinophils Absolute Auto 0.1 K/mm3 (0-0.3); Eosinophils Percent Auto 1.3 % (0-4.4); Hemoglobin 10.4 g/dL (12.0-15.0); Immature Granulocyte Absolute 0.04 K/mm3 (0.00-0.031); Immature Granulocyte Percent A 0.4 % (0-0.5); Lymphocytes Percent Auto 20.5 % (18.3-44.2); Mean Corpuscular HGB Conc 29.7 g/dl (32-36); Mean Corpuscular Hemoglobin 26.3 pg (26-34); Mean Corpuscular Volume 88.6 fl (80-100); Mean Platelet Volume 11.3 fl (7.4-10.4); Monocytes Percent Auto 9.2 % (2.6-8.5); Neutrophils Absolute Auto 7.3 K/mm3 (1.3-6.7); Neutrophils Percent Auto 68.1 % (45.5-73.1); Platelet Count Result 306 k/mm3 (150-375); Red Blood Count 3.95 M/mm3 (4.2-5.4); Red Cell Distribution Width 16.6 % (11.5-14.5); White Blood Count 10.7 K/mm3 (4.5-10.0)
--- NOTE | 2023-04-30 15:25 | PC.NURSE ---
Pt to XRAY via stretcher at this time.
[2023-04-30 15:26] LABS: Alveolar/Arterial O2 Gradient 36.4 mmHg; Base Excess ABG 7.4 mEq/l (+/-2.0); Carboxyhemoglobin 1.3 % THb (0-2.0); Fractional Inspired Oxygen 24 %; HCO3 ABG 32.4 mEq/l (22.0-26.0); Methemoglobin ABG 0.3 %THb (0-1.5); Oxygen Saturation ABG 95.9 % (95.0-100.0); Oxyhemoglobin 92.4 % THb (90.0-100.0); PCO2 ABG 47.7 mmHg (35.0-45.0); PO2 FiO2 Ratio Arterial Blood 3.25 %; Total Hemoglobin 10.7 g/dL (12.0-18.0)
[2023-04-30 15:28] LABS: Device NASAL CANNULA; Modified Allen's Test Pass; Site Drawn RIGHT RADIAL
[2023-04-30 15:28] LABS: Anisocytosis 1+ (NORMAL); Hypochromasia 1+ (NORMAL); Platelet Estimate Adequate (Adequate)
[2023-04-30 15:29] LABS: Ovalocytes 1+ (NORMAL); Schistocytes None Seen (NORMAL)
[2023-04-30 15:48] LABS: Alanine Aminotransferase 47 U/L (6-35); Alkaline Phosphatase 124 U/L (38-126); Anion Gap 10 mmol/L (8-16); Aspartate Amino Transferase 89 U/L (14-36); Bilirubin,Total 0.6 mg/dL (0.2-1.3); Blood Urea Nitrogen 54 mg/dL (7-17); Calcium 13.9 mg/dL (8.4-10.2); Carbon Dioxide 35 mmol/L (22-30); Chloride 88 mmol/L (98-107); Estimated CRCL calculation 23 ml/min; Estimated Glomerular Filt Rate 26; Glucose 118 mg/dL (65-110); Magnesium 1.5 mg/dL (1.6-2.3); Potassium 4.9 mmol/L (3.4-5.0); Sodium 133 mmol/L (137-145)
[2023-04-30 15:51] LABS: Prothrombin Time 13.4 Seconds (11.1-14.7)
[2023-04-30] MEDS: SODIUM CHLORIDE 0.9% IV 1,000 ML 125 ML IV CONT (17:30)
--- NOTE | 2023-04-30 18:49 | ECG_ITS ---
Measurements Intervals [place] Rate: 64 P: 155 VA: 192 QRS: 15 QRSD: 107 T: 3 QT: 311 QTc: 322 Interpretive Statements SINUS RHYTHM INFERIOR MYOCARDIAL INFARCTION , PROBABLY OLD [40+ ms Q WAVE AND/OR ST/T ABNORMALITY IN II/aVF] COMPARED TO ECG 04/30/2023 15:14:54 NO SIGNIFICANT CHANGES Electronically Signed On 04-30-2023 21:14:28 BURRING MACHINE OPERATOR by Reuben Chun M.D.
[2023-04-30] MEDS: ACETAMINOPHEN 325 MG TABLET 650 MG PO (19:02)
[2023-04-30] MEDS: CALCIUM CARBONATE (TUMS) 500 MG (200 MG ELEMENTAL) PO (19:02)
[2023-04-30 19:56] LABS: Troponin I < 0.012 ng/mL (0.000-0.034)
[2023-04-30] MEDS: PANTOPRAZOLE SODIUM IV 40 MG VIAL IV PUSH (22:06)
[2023-04-30] MEDS: HYDROcodone/acetaminophen (*CRX) 5-325 MG TABLET 1 TAB PO (22:13)
[2023-04-30 22:34] LABS: Troponin I < 0.012 ng/mL (0.000-0.034)
--- NOTE | 2023-04-30 22:47 | PM.IMHP ---
H&P: HPI History of Present Illness Date/Time: 04/30/23 22:47 Chief Complaint: nausea and vomiting Narrative: 77F w/ PMH TIA, sleep apnea refusing CPAP, HTN, HLD, NIDDM with neuropathy, GERD, hepatitis C, gout, anxiety, CKD presents with nausea, and altered mental status. She was recently admitted to [facility] on 04/19 with left sided pain after a fall. She was found to have right rib fractures. She was then transferred to [facility]. On the day of admission the patient noted to be nauseous, weak, and altered and transferred back to [facility]. In the ER she was found to have WBC of 10.7, metabolic alkalosis with an ROSALIND and calcium of 13.9. She was then admitted to the floor. The patient is a poor historian due to her current mental status. She reports nausea but no vomiting and generalized abdominal pain. She reports chest pain but cannot describe it. Review of Systems Review of Systems: All systems reviewed & are unremarkable except as noted in HPI and below (HPI) ROS unobtainable: Yes unobtainable due to mental status PMFSH Past Medical History Medical History Anxiety Arthritis Chronic neck pain with history of cervical spinal surgery Chronic pain disorder Diabetes mellitus Insulin-dependent Diabetic peripheral neuropathy GERD (gastroesophageal reflux disease) Gout Hepatitis C Hyperlipidemia Hypertension Obstructive sleep apnea Refuses CPAP TIA (transient ischemic attack) Surgical History Surgical History History of augmentation of both breasts With bilateral ruptured implants noted on imaging 04/2023 History of kyphoplasty (~12/2022) Hx of cholecystectomy Family History Family History Grandparent Acute myocardial infarction Father Acute myocardial infarction Parkinson disease Diabetes mellitus Mother Diabetes mellitus Lung cancer Sibling Diabetes mellitus Cirrhosis Social History Social History Social History: She lives in her own home. Her granddaughter lives with her and helps provide care. She had 2 sons but 1 is . The she ambulates via walker boot and stands to transfer. She denies any history of excessive alcohol use and only briefly smoked tobacco at a young age. She denies any drug history. Code status: DNR/DNI (per patient request) Surrogate decision maker: Son Years smoked: 3 Smoking status: Former smoker Alcohol intake: never Substance use: never Do You Feel Safe in your Home?: Yes Lack of Transportation: No Lack of Food: Sometimes True Current Housing: I Have Housing Concerned About Future Housing: No Difficulty Paying Gas/Electric Bills: No Difficulty Paying for Meds: No Currently Unemployed: No Education: High School Diploma/GED Difficulty w/ Childcare or Family Care: No Spiritual care concerns: No Meds Home Medications and Allergies Home Medications Medication Instructions Recorded Confirmed Type allopurinol 300 mg tablet 300 mg PO DAILY 04/19/23 04/30/23 History alpha lipoic acid 200 mg capsule 200 mg PO DAILY 04/19/23 04/30/23 History aripiprazole 5 mg tablet 5 mg PO DAILY 04/19/23 04/30/23 History aspirin 325 mg tablet 325 mg PO Q4-6H PRN Pain 04/19/23 04/30/23 History atorvastatin 20 mg tablet 20 mg PO DAILY 04/19/23 04/30/23 History calcitonin (salmon) 200 1 spray intranasal (ALT) DAILY 04/19/23 04/30/23 History unit/actuation nasal spray calcitriol 0.5 mcg capsule 0.5 mcg PO TID 04/19/23 04/30/23 History cholestyramine-aspartame 4 gram 4 g PO DAILY 04/19/23 04/30/23 History oral powder for susp in a packet citalopram 20 mg tablet 20 mg PO DAILY 04/19/23 04/30/23 History clonazepam 0.5 mg tablet 0.5 mg PO HS 04/19/23 04/30/23 History cyanocobalamin (vitamin B-12) 500 500 mcg sub
[2023-04-30 23:33] LABS: Basophils Percent Auto 0.5 % (0.2-1.2); Eosinophils Absolute Auto 0.2 K/mm3 (0-0.3); Eosinophils Percent Auto 1.8 % (0-4.4); Hemoglobin 8.2 g/dL (12.0-15.0); Immature Granulocyte Absolute 0.03 K/mm3 (0.00-0.031); Immature Granulocyte Percent A 0.3 % (0-0.5); Lymphocytes Percent Auto 29.3 % (18.3-44.2); Mean Corpuscular HGB Conc 30.4 g/dl (32-36); Mean Corpuscular Hemoglobin 26.5 pg (26-34); Mean Corpuscular Volume 87.4 fl (80-100); Mean Platelet Volume 11.2 fl (7.4-10.4); Monocytes Absolute Auto 0.8 K/mm3 (0.1-0.6); Monocytes Percent Auto 8.6 % (2.6-8.5); Neutrophils Absolute Auto 5.3 K/mm3 (1.3-6.7); Neutrophils Percent Auto 59.5 % (45.5-73.1); Platelet Count Result 246 k/mm3 (150-375); Red Blood Count 3.09 M/mm3 (4.2-5.4); Red Cell Distribution Width 16.4 % (11.5-14.5); White Blood Count 8.9 K/mm3 (4.5-10.0)
[2023-04-30 23:41] LABS: Lactic Acid Reflex 0.6 mmol/L (0.7-2.0)
[2023-04-30 23:42] LABS: Alanine Aminotransferase 45 U/L (6-35); Alkaline Phosphatase 111 U/L (38-126); Anion Gap 4 mmol/L (8-16); Aspartate Amino Transferase 74 U/L (14-36); Bilirubin,Total 0.4 mg/dL (0.2-1.3); Blood Urea Nitrogen 54 mg/dL (7-17); Calcium 12.2 mg/dL (8.4-10.2); Carbon Dioxide 33 mmol/L (22-30); Chloride 95 mmol/L (98-107); Estimated CRCL calculation 21 ml/min; Estimated Glomerular Filt Rate 23; Glucose 66 mg/dL (65-110); Lipase 28 U/L (23-300); Potassium 3.9 mmol/L (3.4-5.0); Sodium 132 mmol/L (137-145)
[2023-04-30 23:47] LABS: Acetaminophen 11 ug/mL (10-30); Ammonia < 9 umol/L (9-30); Ethanol < 10 mg/dL (<10)
[2023-04-30 23:49] LABS: Salicylate < 1.0 mg/dL (2-20)
[2023-04-30 23:51] LABS: NT Pro B Type Natriuretic Pept 52 pg/mL (19.9-100)
[2023-05-01] VITALS (12 sets, daily range): BP systolic 127–162; BP diastolic 45–56; PULSE 57–81; RESP 14–22; TEMP 36.2–37; O2SAT 93–99
[2023-05-01] MEDS: cefTRIAXone 2 GM/NS 100 ML 2 GM/100 ML BAG IVPB ×2 (00:25→23:04)
[2023-05-01 00:45] LABS: Procalcitonin 0.7 ng/mL
[2023-05-01 01:37] LABS: Glucose Point of Care 65 mg/dl (65-105)
[2023-05-01 01:37] LABS: Glucose Point of Care 75 mg/dl (65-105)
[2023-05-01] MEDS: SODIUM CHLORIDE 0.9% IV 1,000 ML 125 ML IV CONT ×3 (02:00→23:09)
[2023-05-01 02:44] LABS: Influenza A QL RT-PCR Negative (Negative); Influenza B QL RT-PCR Negative (Negative); RSV RNA, RT-PCR Negative (Negative); SARS-CoV-2 RNA PCR Negative (Negative)
[2023-05-01 06:02] LABS: Basophils Percent Auto 0.3 % (0.2-1.2); Eosinophils Absolute Auto 0.2 K/mm3 (0-0.3); Hematocrit 28.2 % (37.0-47.0); Hemoglobin 8.6 g/dL (12.0-15.0); Immature Granulocyte Absolute 0.02 K/mm3 (0.00-0.031); Immature Granulocyte Percent A 0.2 % (0-0.5); Lymphocytes Absolute Auto 2.38 K/mm3 (0.9-3.2); Lymphocytes Percent Auto 25.4 % (18.3-44.2); Mean Corpuscular HGB Conc 30.5 g/dl (32-36); Mean Corpuscular Hemoglobin 26.8 pg (26-34); Mean Corpuscular Volume 87.9 fl (80-100); Monocytes Absolute Auto 0.9 K/mm3 (0.1-0.6); Monocytes Percent Auto 9.4 % (2.6-8.5); Neutrophils Absolute Auto 5.9 K/mm3 (1.3-6.7); Neutrophils Percent Auto 62.7 % (45.5-73.1); Platelet Count Result 223 k/mm3 (150-375); Red Blood Count 3.21 M/mm3 (4.2-5.4); Red Cell Distribution Width 16.3 % (11.5-14.5); White Blood Count 9.4 K/mm3 (4.5-10.0)
[2023-05-01 06:19] LABS: Alanine Aminotransferase 61 U/L (6-35); Albumin Level 3.4 g/dL (3.5-5.1); Alkaline Phosphatase 119 U/L (38-126); Anion Gap 6 mmol/L (8-16); Aspartate Amino Transferase 103 U/L (14-36); Bilirubin,Total 0.6 mg/dL (0.2-1.3); Blood Urea Nitrogen 56 mg/dL (7-17); Calcium 11.6 mg/dL (8.4-10.2); Carbon Dioxide 32 mmol/L (22-30); Chloride 95 mmol/L (98-107); Estimated CRCL calculation 27 ml/min; Estimated Glomerular Filt Rate 31; Glucose 68 mg/dL (65-110); Magnesium 1.4 mg/dL (1.6-2.3); Potassium 4.1 mmol/L (3.4-5.0); Sodium 133 mmol/L (137-145)
[2023-05-01 08:10] LABS: Glucose Point of Care 64 mg/dl (65-105)
--- NOTE | 2023-05-01 08:16 | PM.IMPN ---
Progress Note: A&P Assessment and Plan (1) Hypercalcemia: Code(s): E83.52 - Hypercalcemia Status: Acute (2) Acute kidney injury: Code(s): N17.9 - Acute kidney failure, unspecified Status: Acute (3) Altered mental status: Code(s): R41.82 - Altered mental status, unspecified Status: Acute Plan 77F w/ PMH TIA, sleep apnea refusing CPAP, HTN, HLD, NIDDM with neuropathy, GERD, hepatitis C, gout, anxiety, CKD presents with nausea, and altered mental status. She was recently admitted to [facility] on 04/19 with left sided pain after a fall. She was found to have right rib fractures. She was then transferred to [facility]. On the day of admission the patient noted to be nauseous, weak, and altered and transferred back to [facility]. In the ER she was found to have WBC of 10.7, metabolic alkalosis with an ROSALIND and calcium of 13.9. She was then admitted to the floor. The patient is a poor historian due to her current mental status. She reports nausea but no vomiting and generalized abdominal pain. She reports chest pain but cannot describe it. Pt admitted on 04/30/23 # Altered mental status - CT head not done but recently was negative on 04/19, with worsening altered mental status and recent fall will recheck CT head which is pending. This came back as stable with no acute findings. Drugs of abuse screen pending, salicylates negative acetaminophen negative the thyroid alcohol negative ammonia negative UA negative for infection. Influenza RSV COVID negative. Hypercalcemia improving initial calcium was 13.9. Ongoing ROSALIND with creatinine up to 2.1 baseline around 0.6 also mildly hyperglycemic hold insulin. ABG with 7.45/47/78/32. Chest x-ray with mild linear discoid atelectasis/scarring at the lingula. No other acute cardiopulmonary disease. # nausea and abdominal pain - unclear etiology, viral PCR negative, lipase negative, CT abd and pelvis pending. protonix # hypoxia - documented to be on 2L nasal cannula but unclear if she actually desaturated. CXR w/o acute abnormalities. check CT chest which showed mild dependent atelectasis in both lungs with no acute cardiopulmonary disease. # Rosalind on CKD - likely due to dehydration. IVF, nephrology consulted. appreciate their notes. holding all home meds, restart as appropriate # hypercalcemia - could be causing her drowsiness. apparently bisphosphonates and calcitonin unavailable, recheck level now and re-assess treatment options continue IV hydration improving # chest pain - reported chest pain but could not describe it. EKG w/o acute ischemia and trop negative # leukocytosis - check pro adrián to help guide abx mgmt. UA is only mildly positive, treat with ceftriaxone prophylactically. check urine culture # constipation with large amount of stool throughout the colon with no acute intra abdominal or pelvic process. # metabolic alkalosis- likely 2/2 to acute nausea and vomiting? ctm. # full code # DVT prophylaxis: Scd's until CT head. Recent rib fracture with fall and compression fractures T3 and T4 CT chest abdomen pelvis on 04/19/2023 with acute minimally displaced fracture at the tip of her right 12th posterior rib. Angular deformities of the left anterolateral 8th and 9th ribs at the costochondral junction may also represent acute injury acute appearing mild compression fractures T3 at T4 chronic appearing severe and moderate compression deformities at T12 and L1 respectively with vertebroplasty cement. Given the lack of recent comparison studies acute change cannot be excluded. Correlate for pain/point tenderness. Bilateral calcified breast implants with intracapsular rupture. Subjective Date/time seen: 05/01/23 08:16 Interval history: Certified your female presents to the ER from [facility] we have due to elevated calcium and bicarb level and altered mental status. She was at [facility] really have after a fall for rehabilitation. Initial workup with WBC 10.7 metabolic laura
[2023-05-01 08:26] LABS: Glucose Point of Care 67 mg/dl (65-105)
[2023-05-01] MEDS: DEXTROSE 50% 25 GM/50 ML SYRINGE IV PUSH (08:31)
[2023-05-01 09:02] LABS: Glucose Point of Care 124 mg/dl (65-105)
[2023-05-01] MEDS: MAGNESIUM SULF 1 GM/D5W 100 ML 1 GM/100 ML BAG IVPB (09:54)
[2023-05-01] MEDS: PANTOPRAZOLE SODIUM IV 40 MG VIAL IV PUSH (09:54)
[2023-05-01 12:11] LABS: Glucose Point of Care 166 mg/dl (65-105)
[2023-05-01 14:24] LABS: Amphetamine Screen Urine Negative (Negative); Barbiturate Screen Urine Positive (Negative); Benzodiazepines Screen Urine Negative (Negative); Cannabinoid Screen Urine Negative (Negative); Cocaine Screen Urine Negative (Negative); Methadone Screen Urine Negative (Negative); Opiate Screen Urine Negative (Negative); Phencyclidine Screen Urine Negative (Negative)
[2023-05-01 14:26] LABS: Procalcitonin 0.6 ng/mL
[2023-05-01] MEDS: predniSONE 5 MG TABLET PO (14:33)
[2023-05-01] MEDS: ATORVASTATIN 20 MG TABLET PO (14:33)
[2023-05-01] MEDS: allopurinoL 300 MG TABLET PO (14:33)
[2023-05-01] MEDS: CYANOCOBALAMIN 500 MCG TABLET BY MOUTH (14:33)
[2023-05-01] MEDS: oxyCODONE HCL (*CRX) 5 MG TAB IR PO ×3 (14:33→23:05)
[2023-05-01] MEDS: CITALOPRAM HYDROBROMIDE 20 MG TABLET PO (14:33)
[2023-05-01] MEDS: CHOLESTYRAMINE LIGHT 4 GM POWD.PACK PO (14:34)
[2023-05-01] MEDS: FOLIC ACID 1 MG TABLET PO (14:34)
[2023-05-01 17:05] LABS: Glucose Point of Care 156 mg/dl (65-105)
[2023-05-01] MEDS: DULoxetine HCL 20 MG CAPSULE.DR 40 MG PO (17:58)
[2023-05-01] MEDS: HYDROXYCHLOROQUINE SULFATE 200 MG TABLET PO (17:59)
[2023-05-01] MEDS: DICYCLOMINE HCL 10 MG CAPSULE PO (17:59)
[2023-05-01] MEDS: ARIPiprazole 5 MG TABLET PO (17:59)
[2023-05-01] MEDS: METOPROLOL TARTRATE 50 MG TAB PO (17:59)
[2023-05-01] MEDS: SUCRALFATE 1 GM TABLET PO (17:59)
[2023-05-01] MEDS: PRIMIDONE 50 MG TABLET PO (17:59)
[2023-05-01] MEDS: polyethylene glycoL 3350 17 GM POWD.PACK PO (18:01)
[2023-05-01] MEDS: CALCITONIN NASAL 200 UNITS/SPRAY 3.7 ML BOTTLE 1 SPRAY NASAL (18:07)
[2023-05-01] MEDS: PANTOPRAZOLE 40 MG TABLET PO (20:36)
[2023-05-01] MEDS: ACETAMINOPHEN 325 MG TABLET 650 MG PO (20:36)
[2023-05-01] MEDS: INSULIN ASPART (*BKC) 100 UNITS/ML SUB-Q (20:36)
[2023-05-01 20:38] LABS: Glucose Point of Care 291 mg/dl (65-105)
[2023-05-02] VITALS (12 sets, daily range): BP systolic 135–145; BP diastolic 53–66; PULSE 57–69; RESP 16–24; TEMP 36.4–37.1; O2SAT 95–99
[2023-05-02 05:49] LABS: Basophils Percent Auto 0.4 % (0.2-1.2); Eosinophils Absolute Auto 0.2 K/mm3 (0-0.3); Eosinophils Percent Auto 3.1 % (0-4.4); Hematocrit 27.3 % (37.0-47.0); Hemoglobin 8.2 g/dL (12.0-15.0); Immature Granulocyte Absolute 0.02 K/mm3 (0.00-0.031); Immature Granulocyte Percent A 0.3 % (0-0.5); Lymphocytes Absolute Auto 1.99 K/mm3 (0.9-3.2); Lymphocytes Percent Auto 27.2 % (18.3-44.2); Mean Corpuscular Hemoglobin 26.8 pg (26-34); Mean Corpuscular Volume 89.2 fl (80-100); Mean Platelet Volume 11.8 fl (7.4-10.4); Monocytes Absolute Auto 0.7 K/mm3 (0.1-0.6); Monocytes Percent Auto 9.6 % (2.6-8.5); Neutrophils Absolute Auto 4.4 K/mm3 (1.3-6.7); Neutrophils Percent Auto 59.4 % (45.5-73.1); Platelet Count Result 225 k/mm3 (150-375); Red Blood Count 3.06 M/mm3 (4.2-5.4); Red Cell Distribution Width 16.6 % (11.5-14.5); White Blood Count 7.3 K/mm3 (4.5-10.0)
[2023-05-02 06:24] LABS: Alanine Aminotransferase 55 U/L (6-35); Alkaline Phosphatase 130 U/L (38-126); Anion Gap 1 mmol/L (8-16); Aspartate Amino Transferase 76 U/L (14-36); Bilirubin,Total 0.2 mg/dL (0.2-1.3); Blood Urea Nitrogen 27 mg/dL (7-17); Calcium 10.5 mg/dL (8.4-10.2); Carbon Dioxide 33 mmol/L (22-30); Chloride 104 mmol/L (98-107); Estimated CRCL calculation 46 ml/min; Estimated Glomerular Filt Rate > 60; Glucose 144 mg/dL (65-110); Magnesium 1.4 mg/dL (1.6-2.3); Potassium 4.2 mmol/L (3.4-5.0); Sodium 138 mmol/L (137-145)
[2023-05-02] MEDS: SUCRALFATE 1 GM TABLET PO ×3 (08:28→17:07)
[2023-05-02] MEDS: PANTOPRAZOLE 40 MG TABLET PO ×2 (08:28→20:57)
[2023-05-02] MEDS: oxyCODONE HCL (*CRX) 5 MG TAB IR PO ×2 (08:31→21:02)
[2023-05-02] MEDS: polyethylene glycoL 3350 17 GM POWD.PACK PO ×2 (08:35→17:07)
[2023-05-02] MEDS: predniSONE 5 MG TABLET PO (08:35)
[2023-05-02] MEDS: ATORVASTATIN 20 MG TABLET PO (08:36)
[2023-05-02] MEDS: allopurinoL 300 MG TABLET PO (08:36)
[2023-05-02] MEDS: CYANOCOBALAMIN 500 MCG TABLET BY MOUTH (08:36)
[2023-05-02] MEDS: CITALOPRAM HYDROBROMIDE 20 MG TABLET PO (08:36)
[2023-05-02] MEDS: CALCITONIN NASAL 200 UNITS/SPRAY 3.7 ML BOTTLE 1 SPRAY NASAL (08:36)
[2023-05-02] MEDS: DICYCLOMINE HCL 10 MG CAPSULE PO ×3 (08:36→19:04)
[2023-05-02] MEDS: HYDROXYCHLOROQUINE SULFATE 200 MG TABLET PO ×2 (08:36→17:07)
[2023-05-02] MEDS: DULoxetine HCL 20 MG CAPSULE.DR 40 MG PO (08:36)
[2023-05-02] MEDS: PRIMIDONE 50 MG TABLET PO ×3 (08:36→19:07)
[2023-05-02] MEDS: ARIPiprazole 5 MG TABLET PO (08:36)
[2023-05-02] MEDS: METOPROLOL TARTRATE 50 MG TAB PO ×2 (08:36→17:07)
[2023-05-02] MEDS: FOLIC ACID 1 MG TABLET PO (08:36)
[2023-05-02 08:51] LABS: Glucose Point of Care 101 mg/dl (65-105)
[2023-05-02 11:40] LABS: Glucose Point of Care 227 mg/dl (65-105)
[2023-05-02] MEDS: INSULIN ASPART (*BKC) 100 UNITS/ML SUB-Q ×2 (12:07→20:58)
--- NOTE | 2023-05-02 13:21 | PM.IMPN ---
Progress Note: A&P Assessment and Plan (1) Hypercalcemia: Code(s): E83.52 - Hypercalcemia Status: Acute (2) Acute kidney injury: Code(s): N17.9 - Acute kidney failure, unspecified Status: Acute (3) Altered mental status: Code(s): R41.82 - Altered mental status, unspecified Status: Acute Plan 77F w/ PMH TIA, sleep apnea refusing CPAP, HTN, HLD, NIDDM with neuropathy, GERD, hepatitis C, gout, anxiety, CKD presents with nausea, and altered mental status. She was recently admitted to [facility] on 04/19 with left sided pain after a fall. She was found to have right rib fractures. She was then transferred to [facility]. On the day of admission the patient noted to be nauseous, weak, and altered and transferred back to [facility]. In the ER she was found to have WBC of 10.7, metabolic alkalosis with an ROSALIND and calcium of 13.9. She was then admitted to the floor. The patient is a poor historian due to her current mental status. She reports nausea but no vomiting and generalized abdominal pain. She reports chest pain but cannot describe it. Pt admitted on 04/30/23 # Altered mental status - CT head not done but recently was negative on 04/19, with worsening altered mental status and recent fall will recheck CT head which came back as stable with no acute findings. Drugs of abuse screen pending, salicylates negative acetaminophen negative the thyroid alcohol negative ammonia negative UA negative for infection. Influenza RSV COVID negative. Hypercalcemia improving initial calcium was 13.9. Ongoing ROSALIND with creatinine up to 2.1 baseline around 0.6 also mildly hyperglycemic hold insulin. ABG with 7.45/47/78/32. Chest x-ray with mild linear discoid atelectasis/scarring at the lingula. No other acute cardiopulmonary disease. ROSALIND has resolved hypercalcemia resolving. # nausea and abdominal pain - unclear etiology, viral PCR negative, lipase negative, CT abd and pelvis reviewed. protonix # hypoxia - documented to be on 2L nasal cannula but unclear if she actually desaturated. CXR w/o acute abnormalities. check CT chest which showed mild dependent atelectasis in both lungs with no acute cardiopulmonary disease. # Rosalind on CKD - likely due to dehydration. IVF, nephrology consulted. appreciate their notes. holding all home meds, restart as appropriate # hypercalcemia - could be causing her drowsiness. apparently bisphosphonates and calcitonin unavailable, recheck level now and re-assess treatment options continue IV hydration improving. Will stop IV fluid today # chest pain - reported chest pain but could not describe it. EKG w/o acute ischemia and trop negative # leukocytosis -procalcitonin normal. UA is only mildly positive, treat with ceftriaxone prophylactically. Urine culture pending # constipation with large amount of stool throughout the colon with no acute intra abdominal or pelvic process. # metabolic alkalosis- likely 2/2 to acute nausea and vomiting? ctm. # full code # DVT prophylaxis: Scd's will switch to Lovenox Recent rib fracture with fall and compression fractures T3 and T4 CT chest abdomen pelvis on 04/19/2023 with acute minimally displaced fracture at the tip of her right 12th posterior rib. Angular deformities of the left anterolateral 8th and 9th ribs at the costochondral junction may also represent acute injury acute appearing mild compression fractures T3 at T4 chronic appearing severe and moderate compression deformities at T12 and L1 respectively with vertebroplasty cement. Given the lack of recent comparison studies acute change cannot be excluded. Correlate for pain/point tenderness. Bilateral calcified breast implants with intracapsular rupture. Subjective Date/time seen: 05/02/23 13:21 Interval history: More awake. Denies any new complaints. Labs reviewed. Review of Systems Review of Systems: All systems reviewed & are unremarkable except as noted in HPI and below (HPI) Exam Narrati
[2023-05-02 17:11] LABS: Glucose Point of Care 198 mg/dl (65-105)
[2023-05-02 19:51] LABS: Glucose Point of Care 234 mg/dl (65-105)
[2023-05-02] MEDS: cefTRIAXone 2 GM/NS 100 ML 2 GM/100 ML BAG IVPB (22:10)
[2023-05-03] VITALS (12 sets, daily range): BP systolic 141–160; BP diastolic 53–69; PULSE 58–68; RESP 15–18; TEMP 36.4–37; O2SAT 92–97
[2023-05-03] MEDS: oxyCODONE HCL (*CRX) 5 MG TAB IR PO ×5 (03:26→21:54)
[2023-05-03 05:55] LABS: Alanine Aminotransferase 64 U/L (6-35); Albumin Level 3.3 g/dL (3.5-5.1); Alkaline Phosphatase 181 U/L (38-126); Anion Gap 3 mmol/L (8-16); Aspartate Amino Transferase 92 U/L (14-36); Bilirubin,Total 0.2 mg/dL (0.2-1.3); Blood Urea Nitrogen 16 mg/dL (7-17); Calcium 10.3 mg/dL (8.4-10.2); Carbon Dioxide 33 mmol/L (22-30); Chloride 101 mmol/L (98-107); Estimated CRCL calculation 52 ml/min; Estimated Glomerular Filt Rate > 60; Glucose 146 mg/dL (65-110); Magnesium 1.1 mg/dL (1.6-2.3); Potassium 3.7 mmol/L (3.4-5.0); Sodium 137 mmol/L (137-145)
[2023-05-03 06:01] LABS: Basophils Percent Auto 0.5 % (0.2-1.2); Eosinophils Absolute Auto 0.2 K/mm3 (0-0.3); Eosinophils Percent Auto 2.6 % (0-4.4); Hematocrit 29.8 % (37.0-47.0); Hemoglobin 8.9 g/dL (12.0-15.0); Immature Granulocyte Absolute 0.02 K/mm3 (0.00-0.031); Immature Granulocyte Percent A 0.2 % (0-0.5); Lymphocytes Absolute Auto 2.94 K/mm3 (0.9-3.2); Lymphocytes Percent Auto 33.8 % (18.3-44.2); Mean Corpuscular HGB Conc 29.9 g/dl (32-36); Mean Corpuscular Hemoglobin 26.6 pg (26-34); Mean Platelet Volume 12.4 fl (7.4-10.4); Monocytes Absolute Auto 0.8 K/mm3 (0.1-0.6); Monocytes Percent Auto 9.1 % (2.6-8.5); Neutrophils Absolute Auto 4.7 K/mm3 (1.3-6.7); Neutrophils Percent Auto 53.8 % (45.5-73.1); Platelet Count Result 233 k/mm3 (150-375); Red Blood Count 3.35 M/mm3 (4.2-5.4); Red Cell Distribution Width 16.5 % (11.5-14.5); White Blood Count 8.7 K/mm3 (4.5-10.0)
[2023-05-03] MEDS: MAGNESIUM SULF 2 GM/WATER 50ML 2 GM/50 ML BAG IVPB (08:27)
[2023-05-03] MEDS: ENOXAPARIN 40 MG/0.4 ML SYRINGE SUB-Q (08:29)
[2023-05-03] MEDS: predniSONE 5 MG TABLET PO (08:29)
[2023-05-03] MEDS: allopurinoL 300 MG TABLET PO (08:29)
[2023-05-03] MEDS: SUCRALFATE 1 GM TABLET PO ×3 (08:29→17:32)
[2023-05-03] MEDS: ATORVASTATIN 20 MG TABLET PO (08:29)
[2023-05-03] MEDS: ARIPiprazole 5 MG TABLET PO (08:29)
[2023-05-03] MEDS: CITALOPRAM HYDROBROMIDE 20 MG TABLET PO (08:29)
[2023-05-03] MEDS: PANTOPRAZOLE 40 MG TABLET PO ×2 (08:29→21:54)
[2023-05-03] MEDS: DULoxetine HCL 20 MG CAPSULE.DR 40 MG PO (08:29)
[2023-05-03 08:30] LABS: Glucose Point of Care 155 mg/dl (65-105)
[2023-05-03] MEDS: CYANOCOBALAMIN 500 MCG TABLET BY MOUTH (08:30)
[2023-05-03] MEDS: HYDROXYCHLOROQUINE SULFATE 200 MG TABLET PO ×2 (08:30→17:32)
[2023-05-03] MEDS: DICYCLOMINE HCL 10 MG CAPSULE PO ×3 (08:30→17:32)
[2023-05-03] MEDS: PRIMIDONE 50 MG TABLET PO ×3 (08:30→17:33)
[2023-05-03] MEDS: FOLIC ACID 1 MG TABLET PO (08:30)
[2023-05-03] MEDS: CALCITONIN NASAL 200 UNITS/SPRAY 3.7 ML BOTTLE 1 SPRAY NASAL (08:33)
[2023-05-03] MEDS: METOPROLOL TARTRATE 50 MG TAB PO ×2 (08:33→17:33)
[2023-05-03 11:59] LABS: Glucose Point of Care 231 mg/dl (65-105)
[2023-05-03] MEDS: INSULIN ASPART (*BKC) 100 UNITS/ML SUB-Q ×2 (12:33→21:53)
--- NOTE | 2023-05-03 13:22 | PM.IMPN ---
Progress Note: A&P Assessment and Plan (1) Hypercalcemia: Code(s): E83.52 - Hypercalcemia Status: Acute (2) Acute kidney injury: Code(s): N17.9 - Acute kidney failure, unspecified Status: Acute (3) Altered mental status: Code(s): R41.82 - Altered mental status, unspecified Status: Acute Plan 77F w/ PMH TIA, sleep apnea refusing CPAP, HTN, HLD, NIDDM with neuropathy, GERD, hepatitis C, gout, anxiety, CKD presents with nausea, and altered mental status. She was recently admitted to [facility] on 04/19 with left sided pain after a fall. She was found to have right rib fractures. She was then transferred to [facility]. On the day of admission the patient noted to be nauseous, weak, and altered and transferred back to [facility]. In the ER she was found to have WBC of 10.7, metabolic alkalosis with an ROSALIND and calcium of 13.9. She was then admitted to the floor. The patient is a poor historian due to her current mental status. She reports nausea but no vomiting and generalized abdominal pain. She reports chest pain but cannot describe it. Pt admitted on 04/30/23 # Altered mental status - CT head not done but recently was negative on 04/19, with worsening altered mental status and recent fall will recheck CT head which came back as stable with no acute findings. Drugs of abuse screen pending, salicylates negative acetaminophen negative the thyroid alcohol negative ammonia negative UA negative for infection. Influenza RSV COVID negative. Hypercalcemia improving initial calcium was 13.9. Ongoing ROSALIND with creatinine up to 2.1 baseline around 0.6 also mildly hyperglycemic hold insulin. ABG with 7.45/47/78/32. Chest x-ray with mild linear discoid atelectasis/scarring at the lingula. No other acute cardiopulmonary disease. ROSALIND has resolved hypercalcemia resolving. # nausea and abdominal pain - unclear etiology, viral PCR negative, lipase negative, CT abd and pelvis reviewed. protonix # hypoxia - documented to be on 2L nasal cannula but unclear if she actually desaturated. CXR w/o acute abnormalities. check CT chest which showed mild dependent atelectasis in both lungs with no acute cardiopulmonary disease. # Rosalind on CKD - likely due to dehydration. IVF, nephrology consulted. appreciate their notes. holding all home meds, restart as appropriate # hypercalcemia - could be causing her drowsiness. apparently bisphosphonates and calcitonin unavailable, recheck level now and re-assess treatment options continue IV hydration improving. Will stop IV fluid today # chest pain - reported chest pain but could not describe it. EKG w/o acute ischemia and trop negative # leukocytosis -procalcitonin normal. UA is only mildly positive, treat with ceftriaxone prophylactically. Urine culture with mixed genital edelmira. Will stop ceftriaxone # constipation with large amount of stool throughout the colon with no acute intra abdominal or pelvic process. # metabolic alkalosis- likely 2/2 to acute nausea and vomiting? ctm. # full code # DVT prophylaxis: Scd's will switch to Lovenox Recent rib fracture with fall and compression fractures T3 and T4 CT chest abdomen pelvis on 04/19/2023 with acute minimally displaced fracture at the tip of her right 12th posterior rib. Angular deformities of the left anterolateral 8th and 9th ribs at the costochondral junction may also represent acute injury acute appearing mild compression fractures T3 at T4 chronic appearing severe and moderate compression deformities at T12 and L1 respectively with vertebroplasty cement. Given the lack of recent comparison studies acute change cannot be excluded. Correlate for pain/point tenderness. Bilateral calcified breast implants with intracapsular rupture. Subjective Date/time seen: 05/03/23 13:22 Interval history: No overnight events. Patient more alert and oriented. Work with therapy. Labs reviewed. Replace electrolytes. Review of Systems Review of Systems
[2023-05-03 17:03] LABS: Glucose Point of Care 178 mg/dl (65-105)
[2023-05-03 20:39] LABS: Glucose Point of Care 222 mg/dl (65-105)
[2023-05-04] VITALS (9 sets, daily range): BP systolic 118–152; BP diastolic 56–58; PULSE 60–70; RESP 12–18; TEMP 36.6–37.1; O2SAT 92–98
[2023-05-04] MEDS: oxyCODONE HCL (*CRX) 5 MG TAB IR PO ×4 (03:21→16:00)
[2023-05-04 06:09] LABS: Basophils Absolute Auto 0.1 K/mm3 (0.0-0.1); Basophils Percent Auto 0.6 % (0.2-1.2); Eosinophils Absolute Auto 0.2 K/mm3 (0-0.3); Eosinophils Percent Auto 2.2 % (0-4.4); Hematocrit 29.7 % (37.0-47.0); Hemoglobin 8.8 g/dL (12.0-15.0); Immature Granulocyte Absolute 0.03 K/mm3 (0.00-0.031); Immature Granulocyte Percent A 0.4 % (0-0.5); Lymphocytes Percent Auto 36.7 % (18.3-44.2); Mean Corpuscular HGB Conc 29.6 g/dl (32-36); Mean Corpuscular Volume 87.9 fl (80-100); Monocytes Absolute Auto 0.7 K/mm3 (0.1-0.6); Monocytes Percent Auto 8.3 % (2.6-8.5); Neutrophils Absolute Auto 4.2 K/mm3 (1.3-6.7); Neutrophils Percent Auto 51.8 % (45.5-73.1); Platelet Count Result 247 k/mm3 (150-375); Red Blood Count 3.38 M/mm3 (4.2-5.4); Red Cell Distribution Width 16.5 % (11.5-14.5); White Blood Count 8.2 K/mm3 (4.5-10.0)
[2023-05-04 06:21] LABS: Alanine Aminotransferase 74 U/L (6-35); Albumin Level 3.4 g/dL (3.5-5.1); Alkaline Phosphatase 198 U/L (38-126); Anion Gap 8 mmol/L (8-16); Aspartate Amino Transferase 86 U/L (14-36); Bilirubin,Total 0.2 mg/dL (0.2-1.3); Blood Urea Nitrogen 15 mg/dL (7-17); Carbon Dioxide 27 mmol/L (22-30); Chloride 101 mmol/L (98-107); Estimated CRCL calculation 58 ml/min; Estimated Glomerular Filt Rate > 60; Glucose 144 mg/dL (65-110); Magnesium 1.4 mg/dL (1.6-2.3); Potassium 3.4 mmol/L (3.4-5.0); Sodium 136 mmol/L (137-145)
[2023-05-04 07:59] LABS: Glucose Point of Care 156 mg/dl (65-105)
[2023-05-04] MEDS: predniSONE 5 MG TABLET PO (08:13)
[2023-05-04] MEDS: ENOXAPARIN 40 MG/0.4 ML SYRINGE SUB-Q (08:13)
[2023-05-04] MEDS: CITALOPRAM HYDROBROMIDE 20 MG TABLET PO (08:13)
[2023-05-04] MEDS: CYANOCOBALAMIN 500 MCG TABLET BY MOUTH (08:13)
[2023-05-04] MEDS: HYDROXYCHLOROQUINE SULFATE 200 MG TABLET PO ×2 (08:13→15:58)
[2023-05-04] MEDS: FOLIC ACID 1 MG TABLET PO (08:13)
[2023-05-04] MEDS: allopurinoL 300 MG TABLET PO (08:13)
[2023-05-04] MEDS: PRIMIDONE 50 MG TABLET PO ×3 (08:13→15:59)
[2023-05-04] MEDS: ATORVASTATIN 20 MG TABLET PO (08:13)
[2023-05-04] MEDS: SUCRALFATE 1 GM TABLET PO ×3 (08:14→15:58)
[2023-05-04] MEDS: PANTOPRAZOLE 40 MG TABLET PO (08:14)
[2023-05-04] MEDS: ARIPiprazole 5 MG TABLET PO (08:14)
[2023-05-04] MEDS: METOPROLOL TARTRATE 50 MG TAB PO ×2 (08:14→15:58)
[2023-05-04] MEDS: DICYCLOMINE HCL 10 MG CAPSULE PO ×3 (08:14→15:59)
[2023-05-04] MEDS: DULoxetine HCL 20 MG CAPSULE.DR 40 MG PO (08:14)
[2023-05-04] MEDS: MAGNESIUM SULF 2 GM/WATER 50ML 2 GM/50 ML BAG IVPB (09:48)
[2023-05-04] MEDS: CALCITONIN NASAL 200 UNITS/SPRAY 3.7 ML BOTTLE 1 SPRAY NASAL (09:48)
[2023-05-04] MEDS: POTASSIUM CHLORIDE 20 MEQ ER TABLET 40 MEQ PO (09:49)
[2023-05-04 11:51] LABS: Glucose Point of Care 349 mg/dl (65-105)
[2023-05-04] MEDS: INSULIN ASPART (*BKC) 100 UNITS/ML SUB-Q (12:16)
--- NOTE | 2023-05-04 13:28 | PM.DS ---
DS: Admitting Diagnosis Discharge Date 05/04/2023 Admitting Diagnosis Altered mental status DS: Discharge Diagnosis Discharge Diagnosis (1) Hypercalcemia: Code(s): E83.52 - Hypercalcemia Status: Acute (2) Acute kidney injury: Code(s): N17.9 - Acute kidney failure, unspecified Status: Acute (3) Altered mental status: Code(s): R41.82 - Altered mental status, unspecified Status: Acute DS: Summary Hospital Course Hospital Course: 77F w/ PMH TIA, sleep apnea refusing CPAP, HTN, HLD, NIDDM with neuropathy, GERD, hepatitis C, gout, anxiety, CKD presents with nausea, and altered mental status. She was recently admitted to [facility] on 04/19 with left sided pain after a fall. She was found to have right rib fractures. She was then transferred to [facility]. On the day of admission the patient noted to be nauseous, weak, and altered and transferred back to [facility]. In the ER she was found to have WBC of 10.7, metabolic alkalosis with an ROSALIND and calcium of 13.9. She was then admitted to the floor. The patient is a poor historian due to her current mental status. She reports nausea but no vomiting and generalized abdominal? pain. She reports chest pain but cannot describe it. Pt admitted on 04/30/23 # Altered mental status - CT head not done but recently was negative on 04/19, with worsening altered mental status and recent fall will recheck CT head which came back as stable with no acute findings.? Drugs of abuse screen positive for barbiturates, salicylates negative acetaminophen negative, alcohol negative ammonia negative UA negative for infection.? Influenza RSV COVID negative.? Hypercalcemia improving initial calcium was 13.9.? Ongoing ROSALIND with creatinine up to 2.1 baseline around 0.6 also mildly hypoglycemic hold insulin.? ABG with 7.45/47/78/32.? Chest x-ray with mild linear discoid atelectasis/scarring at the lingula.? No other acute cardiopulmonary disease.? ROSALIND resolved with hydration along with hypercalcemia. Improved mental status back to her baseline with treatment # nausea and abdominal pain - unclear etiology, viral PCR negative, lipase negative, CT abd and pelvis reviewed. protonix # hypoxia - documented to be on 2L nasal cannula but unclear if she actually desaturated. CXR w/o acute abnormalities. check CT chest which showed mild dependent atelectasis in both lungs with no acute cardiopulmonary disease. # Rosalind on CKD - likely due to dehydration. IVF.. holding all home meds, restart as appropriate. Will hold Lasix and lisinopril at discharge. Switch antihypertensive amlodipine. May plan to restart MARYAN inhibitor down the line # hypercalcemia - could be causing her drowsiness. apparently bisphosphonates and calcitonin unavailable, recheck level now and re-assess treatment options continue IV hydration improving.? Stop IV fluids. Lasix discontinued # chest pain - reported chest pain but could not describe it. EKG w/o acute ischemia and trop negative # leukocytosis -procalcitonin normal. UA is only mildly positive, treat with ceftriaxone prophylactically.? Urine culture with mixed genital edelmira.? Ceftriaxone. # constipation with large amount of stool throughout the colon with no acute intra abdominal or pelvic process. # metabolic alkalosis- likely 2/2 to acute nausea and vomiting? Continue to monitor this resolved # full code # DVT prophylaxis:? Scd's will switch to Lovenox Recent rib fracture with fall and compression fractures T3 and T4 CT chest abdomen pelvis on 04/19/2023 with acute minimally displaced fracture at the tip of her right 12th posterior rib.? Angular deformities of the left anterolateral 8th and 9th ribs at the costochondral junction may also represent acute injury acute appearing mild compression fractures T3 at T4 chronic appearing severe and moderate compression deformities at T12 and L1 respectively with vertebroplasty cement.? Given the lack of recent comparison studies acute change can
== END 2023-05-04 16:45 | DRG 683 ==
LOC: ANHED 18:10 → ANH2MED 18:16
PROVIDERS: General Practice; Student in an Organized Health Care Education/Training Program; Admitting Provider Family Medicine; Emergency Provider Emergency Medicine; Visit Provider Internal Medicine
DX: N17.9 Acute kidney failure, unspecified (principal); E87.3 Alkalosis; E83.52 Hypercalcemia; R09.02 Hypoxemia; Z20.822 Contact with and (suspected) exposure to COVID-19; E11.42 Type 2 diabetes mellitus with diabetic polyneuropathy; I12.9 Hypertensive chronic kidney disease with stage 1 through stage 4 chronic kidney disease, or unspecified chronic kidney disease; E11.22 Type 2 diabetes mellitus with diabetic chronic kidney disease; N18.9 Chronic kidney disease, unspecified; E78.5 Hyperlipidemia, unspecified; D72.829 Elevated white blood cell count, unspecified; R07.9 Chest pain, unspecified; G47.33 Obstructive sleep apnea (adult) (pediatric); K21.9 Gastro-esophageal reflux disease without esophagitis; K59.00 Constipation, unspecified; M19.90 Unspecified osteoarthritis, unspecified site; F41.8 Other specified anxiety disorders; Z86.73 Personal history of transient ischemic attack (TIA), and cerebral infarction without residual deficits; Z86.19 Personal history of other infectious and parasitic diseases; Z90.49 Acquired absence of other specified parts of digestive tract; Z98.82 Breast implant status; S22.42XG Multiple fractures of ribs, left side, subsequent encounter for fracture with delayed healing
CPT/HCPCS: 36415; 36600; 70450; 71046; 71250; 74176; 80053; 80307; 82140; 82375; 82805; 82948; 83050; 83605; 83690; 83735; 83880; 84145; 84484; 85025; 85610; 85730; 87086; 87088; 87637; 93005; 96361; 96374; 96375; 97110; 97116; 97161; 97165; 97530; 99285; A9270; C9113; G0378; J0696; J1650; J1815; J3475; J7030; J7512

== ENCOUNTER 2023-07-18 16:44 | Outpatient (CLI) | payer MEDICARE, SELFPAY ==
--- NOTE | ~2023-07-18 | MR_ITS ---
MRI of the cervical spine Clinical History: Osteoporosis, arm pain Technique: Axial T2-weighted and gradient images, and sagittal T1-weighted, T2-weighted, and STIR soy ges were acquired. Findings: No acute fracture seen. There is 5 mm anterolisthesis of C7 over T1. There is extensive ant erior fusion from C3 through C7. No suspicious bone marrow signal abnormality evident. At C2-C3, there is minimal disc bulge. No spinal canal stenosis, cord compression, or neural foramina l narrowing. At C3-C4, C4-C5, C5-C6, and C6-C7, there is no disc bulge or herniation. No spinal canal stenosis or cord compression at these levels. Neural foramina appear to be preserved. At C7-T1, listhesis and disc bulge/uncovering result in moderate spinal canal stenosis and cord compr ession focally at this level, with advanced bilateral neural foraminal narrowing at this level. No abnormal signal seen in the spinal cord. Paravertebral soft tissues are unremarkable. Impression: 5 mm anterolisthesis of C7 over T1. Listhesis and disc bulge/uncovering result in moderate spinal canal stenosis and cord compression at the C7-T1 level, with severe bilateral neural foraminal narrowing at this level. Extensive anterior fusion from C3 through C7. Reviewed, dictated and finalized at [facility]. Impression: 5 mm anterolisthesis of C7 over T1. Listhesis and disc bulge/uncovering result in moderate spinal canal stenosis an d cord compression at the C7-T1 level, with severe bilateral neural foraminal n arrowing at this level. Extensive anterior fusion from C3 through C7.
== END 2023-07-18 16:45 | disposition home or self-care (01) ==
LOC: ANHIMG 16:44
PROVIDERS: PCP Family Medicine
DX: M81.0 Age-related osteoporosis without current pathological fracture (principal); M43.13 Spondylolisthesis, cervicothoracic region; M48.02 Spinal stenosis, cervical region; M43.22 Fusion of spine, cervical region
CPT/HCPCS: 72141

== ENCOUNTER 2023-08-05 15:50 | Emergency (ER) | payer MEDICARE, SELFPAY ==
--- NOTE | ~2023-08-05 | XR_ITS ---
EXAM: XR shoulder RT min 2V DATE: 08/05/2023 18:27 HISTORY: right shoulder pain, fall in 2022 . COMPARISON: None available. FINDINGS: Decreased mineralization. No fracture or dislocation. No lytic or blastic lesion. Mild shin yarticular osteoarthritis. No erosion or periosteal change. Soft tissues within normal limits. IMPRESSION: No acute osseous finding in the right shoulder. Reviewed, dictated and finalized at location K.
[2023-08-05 15:51] VITALS: BP 149/76; PULSE 86; RESP 20; TEMP 36.9; O2SAT 97
--- NOTE | 2023-08-05 16:10 | ED.EXTPRO ---
HPI - Extremity Problem General Chief complaint: Extremity Injury, Upper Stated complaint: chronic neck and shoulder pain Related Data Home Medications Medication Instructions Recorded Confirmed allopurinol 300 mg tablet 300 mg PO DAILY 04/19/23 05/04/23 alpha lipoic acid 200 mg capsule 200 mg PO DAILY 04/19/23 05/04/23 aripiprazole 5 mg tablet 5 mg PO DAILY 04/19/23 05/04/23 atorvastatin 20 mg tablet 20 mg PO DAILY 04/19/23 05/04/23 calcitonin (salmon) 200 1 spray intranasal (ALT) DAILY 04/19/23 05/04/23 unit/actuation nasal spray cholestyramine-aspartame 4 gram 4 g PO DAILY 04/19/23 05/04/23 oral powder for susp in a packet citalopram 20 mg tablet 20 mg PO DAILY 04/19/23 05/04/23 clonazepam 0.5 mg tablet 0.5 mg PO HS 04/19/23 05/04/23 cyanocobalamin (vitamin B-12) 500 500 mcg sublingual DAILY 04/19/23 05/04/23 mcg sublingual tablet dicyclomine 10 mg capsule 10 mg PO TID 04/19/23 05/04/23 docusate sodium 100 mg capsule 100 mg PO DAILY PRN Constipation 04/19/23 05/04/23 duloxetine 20 mg capsule,delayed 40 mg PO DAILY 04/19/23 05/04/23 release folic acid 1 mg tablet 1 mg PO DAILY 04/19/23 05/04/23 hydroxychloroquine 200 mg tablet 200 mg PO BID 04/19/23 05/04/23 metformin 500 mg tablet,extended 500 mg PO BID 04/19/23 05/04/23 release 24 hr metoprolol tartrate 50 mg tablet 50 mg PO BID 04/19/23 05/04/23 omeprazole 40 mg capsule,delayed 40 mg PO DAILY 04/19/23 05/04/23 release primidone 50 mg tablet 50 mg PO TID 04/19/23 05/04/23 sucralfate 1 gram tablet 1 g PO TIDWM 04/19/23 05/04/23 ergocalciferol (vitamin D2) 1,250 1,250 mcg PO WEEKLY 04/20/23 05/04/23 mcg (50,000 unit) capsule Allergies Allergy/AdvReac Type Severity Reaction Status Date / Time gabapentin AdvReac Shakiness Verified 04/22/23 18:00 [facility] Past Medical History Medical History Anxiety Arthritis Chronic neck pain with history of cervical spinal surgery Chronic pain disorder Diabetes mellitus Insulin-dependent Diabetic peripheral neuropathy GERD (gastroesophageal reflux disease) Gout Hepatitis C Hyperlipidemia Hypertension Obstructive sleep apnea Refuses CPAP TIA (transient ischemic attack) Surgical History Surgical History History of augmentation of both breasts With bilateral ruptured implants noted on imaging 04/2023 History of kyphoplasty (~12/2022) Hx of cholecystectomy Family History Family History Grandparent Acute myocardial infarction Father Acute myocardial infarction Parkinson disease Diabetes mellitus Mother Diabetes mellitus Lung cancer Sibling Diabetes mellitus Cirrhosis Social History Social History Social History: She lives in her own home. Her granddaughter lives with her and helps provide care. She had 2 sons but 1 is . The she ambulates via walker boot and stands to transfer. She denies any history of excessive alcohol use and only briefly smoked tobacco at a young age. She denies any drug history. Code status: DNR/DNI (per patient request) Surrogate decision maker: Son Years smoked: 3 Smoking status: Former smoker Alcohol intake: never Substance use: never Substance use type: does not use Do You Feel Safe in your Home?: Yes Lack of Transportation: No Lack of Food: Sometimes True Current Housing: I Have Housing Concerned About Future Housing: No Difficulty Paying Gas/Electric Bills: No Difficulty Paying for Meds: No Currently Unemployed: No Education: High School Diploma/GED Difficulty w/ Childcare or Family Care: No Spiritual care concerns: No Course Vital Signs Vital signs: Vital Signs Temperature 36.9 C 08/05/23 15:51 Pulse Rate 86 08/05/23 15:51 Respiratory Rate 20 08/05/23 15:51 Blood
--- NOTE | 2023-08-05 18:00 | ED.UPPEXIN ---
HPI - Extremity Injury (Upper) General Chief Complaint: Extremity Injury, Upper Stated Complaint: chronic neck and shoulder pain Time Seen by Provider: 08/05/23 17:13 Source: patient Mode of arrival: ambulatory Limitations: no limitations History of Present Illness HPI narrative: This is a 77 year old female that presents to the ER for right shoulder and neck pain. Ongoing for several months. Reports worsening recently. No recent injuries. She had an MRI of her cervical spine for further evaluation ordered by her PCP. She is trying to get scheduled to see neurosurgery. Reports the pain radiates from her neck down into her hand. Reports decreased ROM due to pain. Denies weakness or numbness. Related Data Home Medications Medication Instructions Recorded Confirmed allopurinol 300 mg tablet 300 mg PO DAILY 04/19/23 05/04/23 alpha lipoic acid 200 mg capsule 200 mg PO DAILY 04/19/23 05/04/23 aripiprazole 5 mg tablet 5 mg PO DAILY 04/19/23 05/04/23 atorvastatin 20 mg tablet 20 mg PO DAILY 04/19/23 05/04/23 calcitonin (salmon) 200 1 spray intranasal (ALT) DAILY 04/19/23 05/04/23 unit/actuation nasal spray cholestyramine-aspartame 4 gram 4 g PO DAILY 04/19/23 05/04/23 oral powder for susp in a packet citalopram 20 mg tablet 20 mg PO DAILY 04/19/23 05/04/23 clonazepam 0.5 mg tablet 0.5 mg PO HS 04/19/23 05/04/23 cyanocobalamin (vitamin B-12) 500 500 mcg sublingual DAILY 04/19/23 05/04/23 mcg sublingual tablet dicyclomine 10 mg capsule 10 mg PO TID 04/19/23 05/04/23 docusate sodium 100 mg capsule 100 mg PO DAILY PRN Constipation 04/19/23 05/04/23 duloxetine 20 mg capsule,delayed 40 mg PO DAILY 04/19/23 05/04/23 release folic acid 1 mg tablet 1 mg PO DAILY 04/19/23 05/04/23 hydroxychloroquine 200 mg tablet 200 mg PO BID 04/19/23 05/04/23 metformin 500 mg tablet,extended 500 mg PO BID 04/19/23 05/04/23 release 24 hr metoprolol tartrate 50 mg tablet 50 mg PO BID 04/19/23 05/04/23 omeprazole 40 mg capsule,delayed 40 mg PO DAILY 04/19/23 05/04/23 release primidone 50 mg tablet 50 mg PO TID 04/19/23 05/04/23 sucralfate 1 gram tablet 1 g PO TIDWM 04/19/23 05/04/23 ergocalciferol (vitamin D2) 1,250 1,250 mcg PO WEEKLY 04/20/23 05/04/23 mcg (50,000 unit) capsule Allergies Allergy/AdvReac Type Severity Reaction Status Date / Time gabapentin AdvReac Shakiness Verified 04/22/23 18:00 Review of Systems Review of Systems: CONSTITUTIONAL: Denies fever SKIN: Denies rash MUSCULOSKELETAL: Reports joint pain, and myalgia. NEUROLOGIC: Denies numbness, or weakness. All systems reviewed & are unremarkable except as noted in HPI and below PMFSH Past Medical History Medical History Anxiety Arthritis Chronic neck pain with history of cervical spinal surgery Chronic pain disorder Diabetes mellitus Insulin-dependent Diabetic peripheral neuropathy GERD (gastroesophageal reflux disease) Gout Hepatitis C Hyperlipidemia Hypertension Obstructive sleep apnea Refuses CPAP TIA (transient ischemic attack) Surgical History Surgical History History of augmentation of both breasts With bilateral ruptured implants noted on imaging 04/2023 History of kyphoplasty (~12/2022) Hx of cholecystectomy Family History Family History Grandparent Acute myocardial infarction Father Acute myocardial infarction Parkinson disease Diabetes mellitus Mother Diabetes mellitus Lung cancer Sibling Diabetes mellitus Cirrhosis Social History Social History Social History: She lives in her own home. Her granddaughter lives with her and helps provide care. She had 2 sons but 1 is . The she ambulates via walker boot and stands to transfer. She denies any history of excessive alcohol use and only briefly sm
[2023-08-05] MEDS: HYDROcodone/acetaminophen (*CRX) 10-325 MG TABLET 1 TAB PO (18:07)
[2023-08-05] MEDS: ACETAMINOPHEN 325 MG TABLET 650 MG PO (18:07)
[2023-08-05] MEDS: KETOROLAC 30 MG/ML VIAL (*BKC) IM (18:08)
--- NOTE | 2023-08-05 19:09 | PC.NURSE ---
Report received from WILDER Kiser. Assumed care of patient at this time.
[2023-08-05 19:53] VITALS: BP 169/94; PULSE 86; RESP 17; TEMP 36.6; O2SAT 97
== END 2023-08-05 19:55 ==
PROVIDERS: Emergency Provider Physician Assistant; PCP Family Medicine
DX: M54.2 Cervicalgia (principal); M25.511 Pain in right shoulder; G89.29 Other chronic pain; I10 Essential (primary) hypertension; E11.42 Type 2 diabetes mellitus with diabetic polyneuropathy; E78.5 Hyperlipidemia, unspecified; K21.9 Gastro-esophageal reflux disease without esophagitis; G47.33 Obstructive sleep apnea (adult) (pediatric); M10.9 Gout, unspecified; M19.90 Unspecified osteoarthritis, unspecified site; F41.9 Anxiety disorder, unspecified; Z66 Do not resuscitate; Z86.73 Personal history of transient ischemic attack (TIA), and cerebral infarction without residual deficits; Z79.84 Long term (current) use of oral hypoglycemic drugs
CPT/HCPCS: 73030; 96372; 99283; A9270; J1885

== ENCOUNTER 2023-09-10 13:18 | Outpatient (CLI) | payer MEDICARE, SELFPAY ==
--- NOTE | ~2023-09-10 | CT_ITS ---
EXAMINATION: CT cervical spine wo con DATE: 09/10/2023 14:26 INDICATION: Cervical radiculopathy. TECHNIQUE: Computed tomography (CT) of the cervical spine was performed without intravenous contrast. Automated exposure control and iterative reconstruction technique were employed. The dose-length pro duct was 582.62 mGy-cm. COMPARISON: CT cervical spine 04/19/2023 FINDINGS: There is 4 mm anterolisthesis of C7 on T1. There are chronic compression fractures of T3 an d T4 vertebral bodies. There are changes of anterior fusion procedure from C3 to C7 with discectomies , healed interbody bone graft, and anterior plate and screws. There is severely decreased disc height at C7-T1. The following disc levels are specifically discussed: C2-C3: There is mild bilateral uncovertebral joint osteoarthritis. There is severe bilateral facet batsheva int osteoarthritis. There is mild bilateral neural foraminal stenosis. There is no central canal sten osis. C3-C4: There is mild left uncovertebral joint hypertrophy. There is no facet joint hypertrophy. There is no neural foraminal stenosis. There is no central canal stenosis. C4-C5: There is no uncovertebral joint hypertrophy. There is no facet joint hypertrophy. There is no neural foraminal stenosis. There is mild central canal stenosis. C5-C6: There is no uncovertebral joint hypertrophy. There is mild bilateral facet joint hypertrophy. There is mild bilateral neural foraminal stenosis. There is mild central canal stenosis. C6-C7: There is no uncovertebral joint hypertrophy. There is no facet joint hypertrophy. There is no neural foraminal stenosis. There is no central canal stenosis. C7-T1: There is no uncovertebral joint osteoarthritis. There is severe bilateral facet joint osteoart hritis. There is mild lateral neural foraminal stenosis. There is mild central canal stenosis. IMPRESSION: 1. Anterior fusion procedure from C3 to C7. 2. Moderate cervical spondylosis. Reviewed, dictated and finalized at location A.
== END 2023-09-10 13:19 | disposition home or self-care (01) ==
PROVIDERS: PCP Family Medicine
DX: M47.22 Other spondylosis with radiculopathy, cervical region (principal); Z98.1 Arthrodesis status
CPT/HCPCS: 72125

== ENCOUNTER 2023-09-24 10:33 | Outpatient (CLI) | payer MEDICARE, SELFPAY ==
--- NOTE | ~2023-09-24 | XR_ITS ---
XR cervical spine 4-5V DATE: 09/24/2023 11:23 INDICATION: Cervical radiculopathy TECHNIQUE: AP, open-mouth views. Lateral views in neutral, flexion and extension. COMPARISON: 09/10/2023 CT cervical spine FINDINGS: C1 and C2 are normally aligned and the odontoid process is intact. Status post anterior surgical fusion from C3 through C7 with anterior plate and AP directed screws th rough C3, C5, C6 and C7. No interval fracture or dislocation is evident. The 4 mm anterolisthesis demonstrated at C7-T1 on 09/10/2023 CT examination is not optimally demonstrat ed on this plain radiographic examination due to overlying shoulders. IMPRESSION: Status post anterior surgical fusion at C3-C7 Reviewed, dictated and finalized at location B.
== END 2023-09-24 10:34 | disposition home or self-care (01) ==
PROVIDERS: PCP Family Medicine
DX: M54.12 Radiculopathy, cervical region (principal); Z98.1 Arthrodesis status
CPT/HCPCS: 72050

== ENCOUNTER 2024-11-21 00:23 | Emergency (ER) | payer OTHER, SELFPAY ==
--- NOTE | ~2024-11-21 | CT_ITS ---
CT head without contrast Indication: Multiple falls COMPARISON: 05/01/2023 Technique: Serial scans were obtained through the brain without the administration of contrast. Dose reduction technique was used on this scan by utilizing automated exposure control and iterative recon struction technique. The dose-length product (DLP) was 681.00 mGy-cm. Findings: There is no evidence of intracranial hemorrhage, mass lesion, or acute infarct. The ventri cles and subarachnoid spaces are dilated, consistent with mild atrophy. Low attenuation regions are seen within the periventricular white matter bilaterally, likely representing changes from chronic mi crovascular ischemic disease. There is no evidence of edema, mass effect or midline shift. The visu alized paranasal sinuses and mastoid air cells are clear. Impression: No intracranial hemorrhage, mass, or acute infarct. Atrophy and chronic white matter changes, as above. Reviewed, dictated and finalized at location . Impression: No intracranial hemorrhage, mass, or acute infarct. Atrophy and chronic white matter changes, as above.
--- NOTE | ~2024-11-21 | XR_ITS ---
Left Knee Technique: AP, lateral, and sunrise views were obtained. Clinical History: Pain Findings: No fracture or dislocation is seen. Medial compartment hemiarthroplasty in place. Probable enchondroma the proximal tibia.. Soft tissues are unremarkable. No joint effusion is seen. Impression: No acute abnormality. Medial compartment arthroplasty. Probable proximal tibial enchondroma. Reviewed, dictated and finalized at location . Impression: No acute abnormality. Medial compartment arthroplasty. Probable proximal tibial enchondroma.
--- NOTE | ~2024-11-21 | XR_ITS ---
Right Knee Technique: AP, lateral, and oblique views were obtained. Clinical History: Pain Findings: No fracture or dislocation is seen. Osseous alignment is anatomic. There is moderate to adv anced degenerative change of the patellofemoral compartment. There is mild to moderate degenerative c hange of the lateral compartment. There is mild degenerative change of the medial compartment.. Soft tissues are unremarkable. No joint effusion is seen. Impression: Tricompartmental degenerative change, as detailed above. Reviewed, dictated and finalized at location M. Impression: Tricompartmental degenerative change, as detailed above.
[2024-11-21 00:26] VITALS: BP 152/100; PULSE 66; RESP 20; TEMP 36.6; O2SAT 98
--- OUTSIDE RECORDS SUMMARY | 2024-11-21 00:26 | XMS_ITS | Encounter Summary ---
Author Organization [facility] Address [address] [place] [address] Care Team Providers Care [employer] Teacher Name Role Phone Abhishek Chambers MD Primary Care Provider [phone] Reason for Visit * Reason Onset Date Comments Dizziness and syncope 10/02/2020 Spoke w/De nise at Dr. Rosendo Turner's ex./Going to Dr. Herson Turner Encounter Details Date Type Department Care Team (Late st Contact Info) Description 10/02/2020 Telephone [facility] Admitting [address] [place] [address] [place] [address] [address] Dizziness and syncope (Spoke w/Romina at Dr. Rosendo Turner's ex./Going to Dr. Herson Turner) Social History Tobacco Use Types Packs/Day Years Used Date Smoking Tobacco: Former Cigarettes Q uit: 1989 Smokeless Tobacco: Never Comments:quit in 1989 Alcohol Use Standard Drinks/Week Comments Not Currently 0 (1 standard drink = 0.6 oz pur e alcohol) Comments No Sex and Gender Information Value Date Recorded Sex Assigned at Not on file Legal Sex Female 11:01 PM CDT Gender Identity Not on file Sexual Orientation Not on file COVID-19 Exposure Response Date Recorded In the last month, have you been in contact with someone who was confirmed or suspected to have Coronavirus / COVID-19? No / Unsure 09/28/2020 9:58 AM CDT documented as of this encounter Plan of Treatment Upcoming Encounters Date Type Department Care Team (Late st Contact Info) Description 01/21/2025 10:50 AM CDT Office Visit [facility] - [id number] [place] [id number] [place] [address] [address] [place] [address] [place] [address] [facility] [address] [place] [address] documented as of this encounter Visit Diagnoses Not on filedocumented in this encounter Additional Health Concerns Infection Onset Date Last Indicated Resolved Time R/O GI Pathogen 01/27/2023 01/27/2023 01/29/2023 1 0:11 AM CDT documented as of this encounter Care Teams [employer] Teacher Relationship Specialty Start Date End Date Abhishek Chambers MD [address] [place] [address] PCP - General Family Practice 12/11/23 documented as of this encounter
--- OUTSIDE RECORDS SUMMARY | 2024-11-21 00:26 | XMS_ITS | Encounter Summary ---
Author Organization [facility] Address [address] [place] [address] Care Team Providers Care Endodontist Name Role Phone Abhishek Chambers MD Primary Care Provider [phone] Reason for Visit * Reason Onset Date Comments Dizziness and syncope 10/02/2020 Spoke w/De nise at Dr. hicks's ex./Going to dr. Weiss Encounter Details Date Type Department Care Team ([facility] Contact Info) Description 10/02/2020 [facility]phone [facility] Admitting [address] [place] [address] [place] [address] [facility] [address] [place] [address] Dizziness and syncope (Spoke w/Romina at Dr. bullock ex./Going to dr. Weiss) Social History Tobacco Use Types Packs/Day Years [...] Upcoming Encounters Date Type Department Care Team ([facility] Contact Info) Description 01/21/2025 10:50 AM CDT Office Visit [facility] - [address] [place] [address] [facility] [address] [place] [address] [place] [address] [facility] [address] [place] [address] documented as of this encounter Visit Diagnoses Not on filedocumented in this encounter Additional Health Concerns Infection Onset Date Last Indicated Resolved Time R/O GI Pathogen 01/27/2023 01/27/2023 01/29/2023 1 0:11 AM CDT documented as of this encounter Care Teams Endodontist Relationship Specialty Start Date End Date Abhishek Chambers MD [address] [place] [address] PCP - General Family Practice 12/11/23 documented as of this encounter
--- OUTSIDE RECORDS SUMMARY | 2024-11-21 00:26 | XMS_ITS ---
Author Organization [facility] Address [address] [place] [address] Care Team Providers Care Animal Killer Name Role Phone Mikie Hidalgo Primary Care Provider Laura Adames MD, Oralia Unavailable Unavailable Perez Cabezas Unavailable [phone] REASON FOR VISIT BACK PAIN Encounters Encounter Location Date Provider Diagnosis [facility] [address] [place] [address] 02/11/2024 Perez Cabezas Plan Of Treatment No Information Progress Notes * Oralia MORELAND LDOB:[birth year] (79 yo F)Acc No.[id number]:02/11/2024 Medication Refill Patient: Oralia FLANNERY Provider: Jose Cabezas MD :1945 A ge:78 Y S ex:Female Date:02/11/2024 Address:[address], [place], [place] Pcp:Mikie Hidalgo Subjective: * Chief Complaints: * 1 . BACK PAIN. * Medical History: Objective: * Vitals: Assessment: Plan: * Treatment: * * Electronic signature of Fabian Cabezas MD on 11/21/2024 at 12:25 AM CDT Sign off status: Pending * Provider: Jose Cabezas MD Date: 1 Generated for Livieri ng/Faxing/eTransmitting on: 0 11/21/2024 12:25 AM CDT
--- OUTSIDE RECORDS SUMMARY | 2024-11-21 00:26 | XMS_ITS | Encounter Summary ---
Author Organization [facility] Address [address] [place] [address] Care Team Providers Care Wide Area Network Systems Administrator Name Role Phone Abhishek Chambers MD Primary Care Provider [phone] Encounter Details Date Type Department Care Team (Late st Contact Info) Description 01/23/2024 Hospital Encounter [address] [address] Shahzad Ramirez MD [address] [place] [id number] Social History Tobacco Use Types Packs/Day Years [...] on file Sexual Orientation Not on file documented as of this encounter Plan of Treatment Upcoming Encounters Date Type Department Care Team (Late st Contact Info) Description 01/21/2025 10:50 AM CDT Office Visit [facility] - [id number] [place] [id number] [place] [address] [facility] [address] [place] [address] documented as of this encounter Visit Diagnoses Not on filedocumented in this encounter Additional Health Concerns Assessment Noted Time PHQ-9 Depression Total Score: 2 05/19/19 24 10:20 AM BUS CLEANER documented as of this encounter Care Teams Wide Area Network Systems Administrator Relationship Specialty Start Date End Date Abhishek Chambers MD [address] [place] [id number] PCP - General Family Practice 12/11/23 documented as of this encounter
--- OUTSIDE RECORDS SUMMARY | 2024-11-21 00:26 | XMS_ITS | Encounter Summary ---
Author Organization [facility] Address [address] [place] [address] Care Team Providers Care Circular Shear Operator Name Role Phone Abhishek Chambers MD Primary Care Provider [phone] Reason for Visit * Reason Onset Date Comments Hypoglycemia, Uncontrolled Diabetes 10/04/2020 Spoke w/ Dr. Salazar Encounter Details Date Type Department Care Team ([facility] Contact Info) Description 10/04/2020 [facility] [address] [place] [address] [place] [address] [address] Hypoglycemia, Uncontrolled Diabetes (Spoke w/ Dr. Salazar) Social History Tobacco Use Types Packs/Day Years [...] Encounters Date Type Department Care Team (Late Contact Info) Description 01/21/2025 10:50 AM CDT Office Visit [facility] Neurosurgery - [address] [facility] [address] [facility] [address] [place] [address] [place] [address] [facility] [address] [place] [address] documented as of this encounter Visit Diagnoses Not on filedocumented in this encounter Additional Health Concerns Infection Onset Date Last Indicated Resolved Time R/O GI Pathogen 01/27/2023 01/27/2023 01/29/2023 1 0:11 AM CDT documented as of this encounter Care Teams Circular Shear Operator Relationship Specialty Start Date End Date Abhishek Chambers MD [address] [place] [id number] PCP - General Family Practice 12/11/23 documented as of this encounter
--- OUTSIDE RECORDS SUMMARY | 2024-11-21 00:27 | XMS_ITS | Clinical Summary ---
Author Organization [facility] Address [address] [place] [address] Care Team Providers Care Growth Hacker Name Role Phone Abhishek Chambers MD Primary Care Provider [phone] Allergies Active Allergy Reactions Criticality Noted Date Comments Ezetimibe Other (See Comments) 01/14/2018 BP increased Gabapentin Confusion Low 01/14/2018 Medications Cholestyramine-Suc gage 4 gram Powder Take 4 Grams by mouth daily. Active aspirin (DESHAUN) 325 mg tablet Take 325 mg by mouth daily. Active ergocalciferol (VITAMIN D2) 50,000 unit capsule Take 50,000 Units by mouth every Friday. 08/01/19 22 Active metFORMIN (GLUCOPHAGE XR) 500 mg Extended Release 24 hour tablet Take 500 mg by mouth 2 times daily. 06/19/19 22 Active alpha lipoic acid 200 mg tablet Take 200 mg by mouth daily. Active ARIPiprazole 5 mg tablet Take 5 mg by mouth daily. Active sennosides-docusat e sodium (SENNA-S) 8.6-50 mg tablet Take 1 Tablet by mouth 2 times daily. 09/13/19 23 Active calcitRIOL (ROCALTROL) 0.5 mcg capsule Take 0.5 mcg by mouth daily. Active sucralfate (CARAFATE) 1 gram tablet Take 1 Tablet (1 Gram) by mouth 3 times daily before meals. 270 Tablet 11/22/19 23 Active hydrOXYchloroQUINE (PLAQUENIL) 200 mg tablet Take 1 Tablet (200 mg) by mouth 2 times daily. 180 Tablet 1 11/22/19 23 Active folic acid (FOLVITE) 1 mg tablet Take 1 Tablet (1 mg) by mouth daily. TAKE 1 TABLET BY MOUTH EVERY DAY 90 Tablet 1 11/22/19 23 Active insulin degludec (Tresiba FlexTouch U-100) 100 unit/mL pen syringe Inject 26 Units by subcutaneous injection daily in the morning. 3 mL 01/30/20 Active Additional Information Patient taking differently: 18 UnitssubCUT DAILY EARLY, Informant: Medical Record, Reported on 07/22/2024 allopurinoL (ZYLOPRIM) 300 mg tablet take 1 tablet by mouth every day 90 Tablet 1 04/07/20 23 Active DULoxetine (CYMBALTA) 20 mg Capsule, Delayed Release(E.C.) take 2 capsules by mouth every day 180 Capsule 1 04/07/20 23 Active acetaminophen (TYLENOL) 325 mg tablet Take 650 mg by mouth every 6 hours as needed. Active polyethylene glycol (MIRALAX) 17 gram Powder in Packet Take 17 Grams by mouth 2 times daily. Active citalopram (CeleXA) 20 mg tablet take 1 tablet by mouth every day 90 Tablet 1 08/07/19 24 Active dicyclomine (BENTYL) 10 mg capsule TAKE 1 CAPSULE BY MOUTH 3 TIMES DAILY. 270 Capsule 1 08/07/19 24 Active Additional Information Patient taking differently: 10 mg Oral THREE TIMES DAILY, Informant: Medical Record, Reported on 07/22/2024 atorvastatin (LIPITOR) 20 mg tablet TAKE 1 TABLET BY MOUTH DAILY WITH SUPPER. 100 Tablet 3 08/08/19 24 Active omeprazole (PriLOSEC) 40 mg Capsule, Delayed Release(E.C.) take 1 capsule by mouth every day 90 Capsule 1 08/17/19 24 Active metoprolol tartrate (LOPRESSOR) 50 mg tablet take 1 tablet by mouth twice a day 180 Tablet 1 08/17/19 24 Active docusate sodium (COLACE) 100 mg capsule Take 100 mg by mouth 1 time daily as needed. 09/25/19 24 Active Jardiance 10 mg tablet Take 10 mg by mouth daily in the morning. 10/23/19 24 Active FeroSuL 325 mg (65 mg iron) tablet Take 325 mg by mouth daily. 10/23/19 24 Active BD AutoShield Duo Pen Needle 30 gauge x 3/16 Needle 09/23/19 24 Active pregabalin (LYRICA) 50 mg Capsule TAKE 1 CAPSULE BY MOUTH IN THE MORNING AND AT BEDTIME 60 Capsule 12/15/19 24 Active Additional Information Patient taking differently: 50 mg Oral EVERY 12 HOURS (BlD), Informant: Medical Record, Reported on 12/30/2023 HYDROcodone-acetam inophen (NORCO) 10-325 mg TabletIndications: S/P cervical spinal fusion Take 2 Tablets by mouth every 4 hours as needed for Pain. Max Daily Amount: 12 Tablets 20 Tablet 01/26/20 24 Active naloxone (NARCAN) 4 mg/spray [place], Non-Aerosol EMERGENCY USE ONLY: Administer 1 spray (4 mg) in one nostril one time. May repeat in alternating nostrils every 2-3 min until responsive or EMS arrives. 2 Each 3 01/26/20 24 Active Easy Touch Safety Pen Needle 30 gauge x 16 Needle 01/26/20 24 Active Shingrix, PF, 50 mcg/0.5 mL Suspension for Reconstitution Inject 0.5 mL by intramuscular injection one time only. 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 Follow for clinical complications. Managed by rheumatology. Every Word Counts - Immunodeficiency Disorders (Sudha) Use of cane as ambulatory aid 05/31/2022 Recurrent major depressive disorder, in partial remission 05/31/2022 Assessment & Plan (08/22/2022 12:00 PM CDT): Stable. Continue current treatment. Every Word Counts - Depression (Sudha) Stage 3a chronic kidney disease 05/31/2022 History of falling 05/31/2022 Frail elderly 04/18/2022 Assessment & Plan (05/26/2023 10:56 PM SENIOR STORAGE ADMINISTRATOR): Safety reviewed Non-compliant patient 04/04/2022 Assessment & Plan (04/04/2022 12:20 PM SENIOR STORAGE ADMINISTRATOR): Worsening. Extensive discussion with patient and her granddaughter Leela who lives with her. After very long discussion she agreed to let Leela manage her medications. She said that she will give it a try and see if it works out. Leela said that she is willing to do whatever it takes to help for her grandmother out. We made an urgent appointment for her to see Dr. Salazar today at 130 and she will take her there. She will also make sure that she gets the blood test and the bone density in the arterial studies as recommended. Reduced mobility 04/04/2022 Assessment & Plan (05/26/2023 10:56 PM SENIOR STORAGE ADMINISTRATOR): At baseline Anemia 04/04/2022 Physical deconditioning 09/28/2020 Assessment & Plan (05/26/2023 10:57 PM SENIOR STORAGE ADMINISTRATOR): Recommended more activity which she says she just too afraid to do anything right now. She thinks she may enroll into an exercise program when she settles down at her new place Chronic fatigue, unspecified 05/25/2018 Fibromyalgia 05/25/2018 Mixed hyperlipidemia 05/25/2018 Assessment & Plan (08/22/2022 12:01 PM CDT): Patient is taking the recommended statins. Has not had any side effects. Will check labs per protocol. Essential (primary) hypertension 05/25/2018 Assessment & Plan (08/22/2022 12:01 PM CDT): Blood pressure has been stable. He has not had any side effects from the medications. We will continue current treatment Rheumatoid arthritis involvi ng multiple sites with positive rheumatoid factor 05/25/2018 Depression with anxiety 05/25/2018 Diverticulosis 05/25/2018 Type 2 diabetes mellitus wit h diabetic neuropathy, unspecified 05/25/2018 Gastroesophageal reflux disease without esophagi tis 05/25/2018 Obesity (BMI 30-39.9) 05/25/2018 Assessment & Plan (08/22/2022 12:02 PM CDT): Trying to watch diet Gout 05/25/2018 Cervical radiculopathy 05/25/2018 Vitamin D deficiency 05/25/2018 Irritable bowel syndrome wit h both constipation and diarrhea 05/25/2018 Osteoarthritis involving mul tiple joints on both sides of body 05/25/2018 Resolved Problems Problem Noted Date Diagnosed Date Resolved Date Acute diarrhea 01/27/2023 01/19/2024 Abdominal pain 01/27/2023 01/19/2024 ROSALIND (acute kidney injury) 09/09/2022 High anion gap metabolic acidosis 09/09/2022 09/24/2022 Closed traumatic compression fracture of thoracic vertebra 05/16/2022 05/16/2022 Compression fracture of T12 vertebra with routine healing 05/16/2022 01/19/2024 Encounter for counseling for care management of patient with chronic conditions and complex health needs using nurse-based model 04/04/2022 01/19/2024 Nausea vomiting and diarrhea 09/28/2020 10/29/2020 Fall 09/28/2020 01/19/2024 Syncope 09/28/2020 10/29/2020 Inflammation of right sacroiliac joint 07/20/2019 09/28/2020 Generalized anxiety disorder 11/27/2018 09/28/2020 Type 2 diabetes mellitus wit h diabetic polyneuropathy 05/25/2018 09/28/2020 Encounter for other screenin g for malignant neoplasm of breast 05/25/2018 09/28/2020 Screening for osteoporosis 05/25/2018 0 09/28/2020 Other specified counseling 05/25/2018 0 09/28/2020 Family history of uterine cancer 05/25/2018 09/28/2020 History of torn meniscus of right knee 05/25/2018 09/28/2020 Hair loss 05/25/2018 09/28/2020 Osteopenia 05/25/2018 09/28/2020 Encounter for immunization 05/25/2018 0 09/28/2020 Body mass index (BMI) of 38.0-38.9 in adult 05/25/2018 09/28/2020 Type 2 diabetes mellitus with hyperglycemia 05/25/2018 09/28/2020 Encounter for examination an d observation for other specified reasons 05/25/2018 09/28/2020 Absence of bladder continence 05/25/2018 09/28/2020 Non-healing skin lesion 05/25/2018 05/11/2020 Morbid obesity, unspecified obesity type 05/25/2018 09/28/2020 residential current use of insulin 05/25/2018 09/28/2020 Skin lesion 05/25/2018 09/28/2020 Stress 05/25/2018 09/28/2020 Body mass index (bmi) 37.0-37.9, adult 05/25/2018 09/28/2020 Dehydration 02/26/2013 09/24/2022 Bilateral lower extremity edema 09/28/2020 Diabetes mellitus due to und erlying condition with diabetic peripheral angiopathy without gangrene, with long-term current use of insulin 01/19/2024 Lumbosacral spondylosis with radiculopathy 09/28/2020 Encounters Date Type Department Care Team Description 09/14/2024 External Device Data ST[facility] ABSTRACTION Provider, Abstract from Last 3 Months Immunizations Immunization Administration Dates Next Due (JAYLAN) COVID-19 VACCINE - EMERGENCY USE AUTHORIZATION, AD26,COV2S(PF) 0.5 ML IM SUSP 07/16/2020 (PREVNAR 13)(6 WKS UP) PNEUM OCOCCAL CONJUGATE (PCV13) 0.5 ML, IM 06/01/2015,08/26/2014 (TENIVAC)(7 YRS UP) TETANUS AND DIPHTHERIA TOXOIDS, ADSORBED (5 LF OF TETANUS TOXOID AND 2 LF OF DIPHTHERIA TOXOID), 0.5ML (PF), IM 05/07/2004,05/05/2003 INFLUENZA VACCINE HIGH DOSE QUADRIVALENT 65 YR UP PF IM 02/14/2023,04/04/2022 Influenza Seasonal Unspecifi ed Formulation IM 02/02/2021 Influenza Vaccine High Dose 65+ Yrs IM 0 05/24/2019,03/12/2016,02/02/2015,03/10,02/26/2013 Influenza Vaccine Tri Split 4+ Im 2011,03/14/2011,01/24/2010,01/03 Pneumococcal Polysaccharide Vacc 23-sudeep IM SCHIP 09/10/2016,04/01/2008 Typhoid Vaccine IM 09/02/1994 Family History Medical History Relation Name Comments Liver Disease Brother Diabetes Father Heart Disease Father Heart Failure Father Hypertension Father Other Father Diabetes Mother Heart Disease Mother Hypertension Mother Lung Cancer Mother Other Mother Uterine Cancer Sister 1 Relation Name Status Comments Brother Father Mother Sister 1 Alive Sister 2 Alive Sister 3 Alive Social History Tobacco Use Types Packs/Day Years Used Date Smoking Tobacco: Former Cigarettes Q uit: 1989 Smokeless Tobacco: Never Tobacco Cessation:Counseling Given: Not Answered Comments:quit in 1989 Alcohol Use Standard Drinks/Week Comments Not Currently 0 (1 standard drink = 0.6 oz pur e alcohol) Comments No Sex and Gender Information Value Date Recorded Sex Assigned at Not on file Legal Sex Female 11:01 PM CDT Gender Identity Not on file Sexual Orientation Not on file Last Filed Vital Signs Vital Sign Reading Time Taken Comments Blood Pressure 124/78 03/02/2024 1:18 PM CDT man ual Pulse 75 01/26/2024 9:13 AM CDT Temperature 36.7 C (98 F) 01/26/2024 7:37 AM CDT Respiratory Rate 18 01/26/2024 9:17 AM CDT Oxygen Saturation 95% 01/26/2024 9:17 AM CDT Inhaled Oxygen Concentration - - Weight 73 kg (161 lb) 08/18/2024 11:35 AM CDT Height 167.6 cm (5' 6) 08/18/2024 11:35 AM CDT Body Mass Index 25.99 08/18/2024 11:35 AM CDT Plan of Treatment Upcoming Encounters Date Type Department Care Team (Late st Contact Info) Description 01/21/2025 10:50 AM CDT Office Visit [facility] Neurosurgery - [address] [place] [id number] [place] [address] [address] [place] [address] Health Maintenance Due Date Last Done Comments ZOSTER VACCINE (1 of 2) 09/30/1966 DTAP/TDAP/TD VACCINES (1 - Tdap) 05/08/2004 05/07/19 05, 05/05/2003 COVID-19 Vaccine (2 - Jansse n risk series) 08/13/2020 07/16/2020 DIABETES ANNUAL RETINAL EXAM 08/13/202203/2022, 08/13/2021, 02/29/2020, Additional history exists RSV VACCINE (60+ or ) (1 - 1-dose 75+ series) 09/30/2022 DIABETES MICROALBUMIN ANNUAL SCREEN 11/02/2022 11/02/2021, 09/04/2018 LDL CHOLESTEROL ANNUAL 11/02/2022 2, 06/15/2019, 09/03/2018 DIABETES ANNUAL FOOT EXAM 04/04/2023 04/04/2022 DIABETES HBA1C Q 6 MONTHS 05/13/20242023, 07/09/2023, 03/25/2023, Additional history exists INFLUENZA VACCINE (#1) 2024 3, 04/04/2022, 02/02/2021, Additional history exists OSTEOPOROSIS SCREENING 05/09/2027 3, 04/02/2018, 04/02/2018, Additional history exists COLORECTAL SCREENING Discontinued 07/05/2011 PNEUMOCOCCAL VACCINE 50+ YEARS Completed 0 09/10/2016, 06/01/2015, 08/26/2014, Additional history exists Colorectal Cancer Screening Discontinued FIT-DNA Q 3 years Discontinued 11/26/2022 FIT/FOBT Q 1 year Discontinued Flex Sig/CT Colonography Q 5 years Discontinued Medical Devices Implanted Type Area Physical Chemistry Professor Device Identifier Shelf Expiration Date Model / Serial / Lot Karri Infinity 3.5x70mm Pre-Cut [id number] - [id number] Implanted:Qt y: 2 on 01/19/2024 by Ritesh Meraz MD at [facility] Karri N/A: Spine Cervical Posterior [employer]AM[employer]ANEK [id number] / / Description:STERILIZED DATE: 01/06/2024 LOAD # [id number] Screw Infinity 4.5x26mm Mas [id number] - [id number] Implanted:Qt y: 2 on 01/19/2024 by Ritesh Meraz MD at [facility] Screw N/A: Spine Cervical Posterior [employer] [id number] / / Description:STERLIZED DATE: 01/06/2024 LOAD # 247 704 Screw Infinity 3.5x18mm Mas [id number] - [id number] Implanted:Qt y: 4 on 01/19/2024 by Ritesh Meraz MD at [facility] Screw N/A: Spine Cervical Posterior [employer] [id number] / / Description:STERILIZED DATE: 01/06/2024 LOAD # 247 502 Screw Infinity 3.5x20mm Mas [id number] - [id number] Implanted:Qt y: 1 on 01/19/2024 by Ritesh Meraz MD at [facility] Screw N/A: Spine Cervical Posterior [employer] [id number] / / Description:STERILIZED DATE: 01/06/2024 LOAD # 247 502 Screw Infinity 4.0x20mm Mas [id number] - [id number] Implanted:Qt y: 1 on 01/19/2024 by Ritesh Meraz MD at [facility] Screw N/A: Spine Cervical Posterior [employer] [id number] / / Description:STERILIZED DATE: 01/06/2024 LOAD # 247 502 Set Screw Infinity Oc M6 [id number] - [id number] Implanted:Qt y: 8 on 01/19/2024 by Ritesh Meraz MD at [facility] Screw N/A: Spine Cervical Posterior [employer] [id number] / / Description:STERILIZED DATE: 01/06/2024 LOAD # 247 502 Allograft [employer] [id number] - [id number] Implanted:Qt y: 1 on 01/19/2024 by Ritesh Meraz MD at [facility] Tissue N/A: Spine Cervical Posterior [employer] [id number] 06/25/2025 [id number] / [id number] Description:REQ#[id number] 07/22/2022 Implanted: by Dino Cox MD (Quantity not on file) 04/03/2025 / / [id number] Description:1CC BILAT T12 FO R TOTAL OF 2CC 1.5CC BILAT L1 FOR TOTAL OF 3CC Procedures Procedure Name Priority Date/Time Associated Diagnosis Comments HEMOGLOBIN A1C Routine 03/25/2023 1:48 PM SENIOR STORAGE ADMINISTRATOR COLON CANCER SCREEN, STOOL DNA Routine 11/26/2022 6:30 PM CDT Screening for colorectal cancer XR DEXA BONE DENSITY AXIAL 1 OR MORE SITES Routine 05/09/2022 2:57 PM SENIOR STORAGE ADMINISTRATOR Osteopenia of multiple sites MICROALBUMIN/CREATI NINE RATIO, RANDOM UR Routine 11/02/2021 12:10 PM CDT Type 2 diabetes mellitus with diabetic polyneuropathy, with long-term current use of insulin ([facility]/HCC) LIPID PANEL Routine 11/02/2021 11:59 AM CDT Type 2 diabetes mellitus with diabetic polyneuropathy, with long-term current use of insulin ([facility]) Mixed hyperlipidemia ENDOSCOPY, COLON, DIAGNOSTIC Routine 07/05/2011 from Last 3 Months or Most Recently Relevant to Health Maintenance Results * HEMOGLOBIN A1C (03/25/2023 1:48 PM SENIOR STORAGE ADMINISTRATOR) ABSTRACTED HGB A1C 6.3 [facility] Blood us Abstract Provider CHEMISTRY ORDERABLES Edited Re sult - Final [facility] CLIA# [id number] [address] [address] * COLON CANCER SCREEN, STOOL DNA (11/26/2022 6:30 PM CDT) COLOGUARD RESULT Negative Negative [facility] Comment: NEGATIVE TEST RESULT. A negative Cologuard result indicates a low likelihood that a colorectal cancer (CRC) or advanced adenoma (adenomatous polyps with more advanced pre-malignant features) is present. The chance that a person with a negative Cologuard test has a colorectal cancer is less than 1 in 1500 (negative predictive value >99.9%) or has an advanced adenoma is less than 5.3% (negative predictive value 94.7%). These data are based on a prospective cross-sectional study of 10,000 individuals at average risk for colorectal cancer who were screened with both Cologuard and colonoscopy. (Philippe Holden al, N Engl J Med 2014;370(14):0082-5514) The normal value (reference range) for this assay is negative. COLOGUARD RE-SCREENING RECOMMENDATION: Periodic colorectal cancer screening is an important part of preventive healthcare for asymptomatic individuals at average risk for colorectal cancer. Following a negative Cologuard result, the [employer] [place] [employer] and U.S. Multi-Society Task Force screening guidelines recommend a Cologuard re-screening interval of 3 years. References: [employer] [place] [employer] Guideline for Colorectal Cancer Screening: https://www.cancer.org/cancer/gbsbn-lpdkyg-svytft/nxdyijofl-otbgitpod-naumtcf/ac s-rec ommendations.html.; Neil DK, Loretta SAHNI, Bhavna ElK, Colorectal Cancer Screening: Recommendations for Physicians and Patients from the U.S. Multi-Society Task Force on Colorectal Cancer Screening , Am J Gastroenterology 2017; 112:9620-6165. TEST DESCRIPTION: Composite algorithmic analysis of stool DNA-biomarkers with hemoglobin immunoassay. Quantitative values of individual biomarkers are not reportable and are not associated with individual biomarker result reference ranges. Cologuard is intended for colorectal cancer screening of adults of either sex, 45 years or older, who are at average-risk for colorectal cancer (CRC). Cologuard has been approved for use by the U.S. FDA. The performance of Cologuard was established in a cross sectional study of average-risk adults aged 50-84. Cologuard performance in patients ages 45 to 49 years was estimated by sub-group analysis of near-age groups. Colonoscopies performed for a positive result may find as the most clinically significant lesion: colorectal cancer [4.0%], advanced adenoma (including sessile serrated polyps greater than or equal to 1cm diameter) [20%] or non- advanced adenoma [31%]; or no colorectal neoplasia [45%]. These estimates are derived from a prospective cross-sectional screening study of 10,000 individuals at average risk for colorectal cancer who were screened with both Cologuard and colonoscopy. (Philippe Holden al, N Engl J Med 2014;370(14):9221-4666.) Cologuard may produce a false negative or false positive result (no colorectal cancer or precancerous polyp present at colonoscopy follow up). A negative Cologuard test result does not guarantee the absence of CRC or advanced adenoma (pre-cancer). The current Cologuard screening interval is every 3 years. ([employer] [place] [employer] and U.S. Multi-Society Task Force). Cologuard performance data in a 10,000 patient pivotal study using colonoscopy as the reference method can be accessed at the following location: www.Playdom.ParStream/results. Additional description of the Cologuard test process, warnings and precautions can be found at www.[email or web address].ParStream. Stool STOOL SPECIMEN / Unknown 11/26/2022 6:30 PM CDT 11/29/2022 5:06 AM CDT us Mikie Hidalgo MD BODY FLUIDS AND STOOLS Final Res ult [facility] CLIA # [id number] [address], [address] [place] [address] * XR DEXA BONE DENSITY AXIAL 1 OR MORE SITES (05/09/2022 2:57 PM SENIOR STORAGE ADMINISTRATOR) Anatomical Region Laterality Modality Computed Radiogr aphy 05/09/2022 2:58 PM SENIOR STORAGE ADMINISTRATOR Impressions 05/09/2022 3:02 PM SENIOR STORAGE ADMINISTRATOR FINDINGS/IMPRESSION: Osteopenia with a lowest T score of -2.3. Fracture risk is moderate. The lowest T score on the previous study was -1.9. FRAX: 10 year probability of major osteoporotic fracture is 21.9 %. 10 year probability of hip fracture is 5.9 %. Please refer to the full report available in [facility] under the PACS Images tab. If a faxed copy is needed, please call [phone]. DICTATION LOCATION: [facility] Narrative 05/09/2022 3:02 PM SENIOR STORAGE ADMINISTRATOR SUMMARY DEXA REPORT DATE: 05/09/2022 2:57 PM INDICATION: Postmenopausal Procedure Note Den Brown MD - 05/09/2022 SUMMARY DEXA REPORT DATE: 05/09/2022 2:57 PM INDICATION: Postmenopausal FINDINGS/IMPRESSION: Osteopenia with a lowest T score of -2.3. Fracture risk is moderate. The lowest T score on the previous study was -1.9. FRAX: 10 year probability of major osteoporotic fracture is 21.9 %. 10 year probability of hip fracture is 5.9 %. Please refer to the full report available in [facility] under the PACS Images tab. If a faxed copy is needed, please call [phone]. DICTATION LOCATION: [facility] Mikie Hidalgo MD DIAGNOSTIC IMAGING ORDERABLES Fi nal Result * MICROALBUMIN/CREATININE RATIO, RANDOM UR (11/02/2021 12:10 PM CDT) Creatinine, Urine 134 20 - 275 mg/dL [facility] MICROALBUMIN, URINE 0.9 See Note: mg/dL [facility] Comment: Reference Range: Reference Range Not established MICROALBUMIN/CREAT RATIO, UR 7 <30 mcg/mg creat [facility] Comment: The ADA defines abnormalities in albumin excretion as follows: Albuminuria Category Result (mcg/mg creatinine) Normal to Mildly increased <30 Moderately increased 30-299 Severely increased > OR = 300 The ADA recommends that at least two of three specimens collected within a 3-6 month period be abnormal before considering a patient to be within a diagnostic category. Test Performed at: [facility] [id number] [address] [id number] Tommy Cruz D.O., MPH Urine URINE SPECIMEN OBTAINED BY CLEAN CATCH PROCEDURE / Unknown 11/02/2021 12:10 PM CDT 11/02/2021 12:11 PM CDT Mikie Hidalgo MD URINE ORDERABLES Final Result [facility] [phone] [facility] [address] [address] [phone] * (ABNORMAL) LIPID PANEL (11/02/2021 11:59 AM CDT) CHOLESTEROL 161 <200 mg/dL [facility] HDL 87 > OR = 50 mg/dL [facility] TRIGLYCERIDE 155(H) <150 mg/dL [facility] LDL CALCULATED 51 mg/dL (calc) [facility] Comment: Reference range: <100 Desirable range <100 mg/dL for primary prevention; <70 mg/dL for patients with CHD or diabetic patients with > or = 2 CHD risk factors. LDL-C is now calculated using the Romeo calculation, which is a validated novel method providing better accuracy than the Friedewald equation in the estimation of LDL-C. Luis Antonio SS et al. CLAY. 2013;310(19): 6402-3983 (http://education.BrightQube/faq/JJF925) CHOL/HDL RATIO 1.9 <5.0 (calc) [facility] TOTAL NON-HDL CHOL(LDL+VLDL) 74 <130 mg/dL (calc) [facility] [place] Comment: For patients with diabetes plus 1 major ASCVD risk factor, treating to a non-HDL-C goal of <100 mg/dL (LDL-C of <70 mg/dL) is considered a therapeutic option. Test Performed at: [facility] [address] [address] [place] [id number] Jason Milton Blood 11/02/2021 11:5 9 AM CDT 11/02/2021 12:01 PM CDT Mikie Hidalgo MD CHEMISTRY ORDERABLES Final Resul t [facility] [phone] [facility] [place] [address] Administration [place] [address] * (ABNORMAL) ENDOSCOPY, COLON, DIAGNOSTIC (07/05/2011) Abstract Provider GI PROCEDURE ORDERABLES Edited Result - Final from Last 3 Months or Most Recently Relevant to Health Maintenance Insurance [facility] [place] MMAI RX [facility] Medicare Part D [facility] MMAI Advance Directives For more information, please contact: [phone] * Full Code (Latest Code Status on File) Date Activated Date Inactivated Comments 01/19/2024 5:56 PM 01/26/2024 6:26 PM * Full Code Date Activated Date Inactivated Comments 01/29/2023 6:47 PM 02/09/2023 2:55 PM * Full Code Date Activated Date Inactivated Comments 01/27/2023 8:14 AM 01/29/2023 6:32 PM * Full Code Date Activated Date Inactivated Comments 09/09/2022 6:26 PM 09/12/2022 8:28 PM * Default Full Code - Needs Discussion Date Activated Date Inactivated Comments 09/09/2022 9:22 AM 09/09/2022 6:26 PM Care Teams Growth Hacker Relationship Specialty Start Date End Date Abhishek Chambers MD [address] [place] [address] PCP - General Family Practice 12/11/23
--- OUTSIDE RECORDS SUMMARY | 2024-11-21 00:27 | XMS_ITS | Patient Health Record ---
Author Organization [facility] Address [address] [place] [address] Care Team Providers Care Clinical Scientist Name Role Phone Gwen Mikie Primary Care Provider Laura Adames MD, Oralia Unavailable Unavailable Deep Barnes Unavailable [phone] Perez Cabezas Unavailable [phone] Allergies Allergen (clinical drug ingredient) Drug/Non Drug Allergy documented on EMR Reaction Allergy Type Onset Date Status gabapentin Gabapentin Unknown Drug Allergy Activ e Reason For Referral No Information Medications Medication SIG (Take, Route, Frequency, Duration) Notes Start Date End Date Status Probiotic Active Calcium Active Vitamin B12 Active Atorvastatin Calcium 20 MG Active Tresiba Active Atenolol 50 MG Activ e Sucralfate 1 GM/10ML Active Remicade 100 MG Intravenous Ac tive Cymbalta 30 MG bid Activ e clonazePAM 1 MG Acti ve Citalopram Hydrobromide 40 MG Active Cholestyramine 4 GM Active Vitamin D3 Active Furosemide 20 MG Act maria esther Folic Acid 1 MG Acti ve Dicyclomine HCl 20 MG Active Lisinopril 20 MG Act maria esther Hydroxyurea Active Hydroxychloroquine Sulfate 2 00 MG Active Glimepiride 4 MG Act maria esther Calcitriol 10/07/2022 Active Omeprazole 20 MG Act maria esther Mobic 7.5 MG Active Multivitamin Adults 50+ Active Lyrica Active Aspirin 325 mg Activ e amLODIPine Besylate 5 MG Active ALPRAZolam 0.25 MG A ctive Primidone 50 MG Acti ve Allopurinol 300 MG A ctive predniSONE 10 MG Act maria esther Social History Tobacco Use: Social History Observation Description Date Details (start date - stop date) Never Smoker NA - NA Tobacco Use/Smoking Question Answer Notes Are you a nonsmoker Alcohol Screen (Audit-C) Question Answer Notes Did you have a drink containing alcohol in the p ast year? No Points 0 Interpretation Negative Problems Problem Type SNOMED Code ICD Code Onset Dates Problem Status W/U Status Risk Notes Problem Fear of medical treatment (275977281) Fear of injections and transfusions (F40.231) Active confirmed Problem Essential hypertension (55757944) Essential (primary) hypertension (I10) Active confirmed Problem Rheumatoid arthritis (13746556) Rheumatoid arthritis with rheumatoid factor of multiple sites without organ or systems involvement (M05.79) Active confirmed Problem Localized, primary osteoarthritis of the shoulder region () Primary osteoarthritis, right shoulder (M19.011) Active confirmed Problem Localized, primary osteoarthritis of the shoulder region () Primary osteoarthritis, left shoulder (M19.012) Active confirmed Problem Sacroiliitis, no t elsewhere classified (M46.1) Active confirmed Problem Lumbosacral spondylosis without myelopathy (55168105) Other spondylosis with radiculopathy, lumbar region (M47.26) Active confirmed Problem Lumbosacral spondylosis without myelopathy (80457754) Other spondylosis with radiculopathy, lumbosacral region (M47.27) Active confirmed Problem Cervical spondylosis without myelopathy (965669635) Spondylosis without myelopathy or radiculopathy, cervical region (M47.812) Active confirmed Problem Lumbosacral spondylosis without myelopathy (95807351) Spondylosis without myelopathy or radiculopathy, lumbar region (M47.816) Active confirmed Problem Degeneration of cervical intervertebral disc (50703917) Other cervical disc degeneration, 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) Active confirmed Problem Degeneration of lumbar intervertebral disc (23709529) Other intervertebral disc degeneration, lumbar region (M51.36) Active confirmed Problem Cervical radiculopathy (60453581) Radiculopathy, cervical region (M54.12) Active confirmed Problem Lumbar radiculopathy (892603536) Radiculopathy, lumbar region (M54.16) Active confirmed Problem Cervical facet joint pain (931650967) Cervicalgia (M54.2) Active confirmed Problem Myositis (44430746) Other myositis, 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) Active confirmed Problem Fibromyalgia (649739377) Fibromyalgia (M79.7) Active confirmed Problem Spinal stenosis of lumbar region (83550309) Intervertebral disc stenosis of neural canal of lumbar region (M99.53) Active confirmed Vital Signs Heart Rate 60 /min 01/14/2024 Temperature 97.2 degrees Fahrenheit 01/14/2024 Respiratory Rate 20 /min 01/14/2024 Blood pressure diastolic 64 mm Hg 01/14/2024 Height 66 in 01/14/2024 Blood pressure systolic 125 mm Hg 01/14/2024 Weight 184 lbs 01/14/2024 BMI 29.7 kg/m2 01/14/2024 Encounters Encounter Location Date Provider Diagnosis [facility] [id number] [place] [phone] 12/16/2023 Perez Cabezas Radiculopathy, cervi adrián region M54.12 and Other cervical disc degeneration, cervicothoracic region M50.33 [facility] [address] [address] 01/14/2024 Deep Barnes Radiculopathy, lumba r region M54.16 ; Radiculopathy, cervical region M54.12 ; Other spondylosis with radiculopathy, lumbosacral region M47.27 and Rheumatoid arthritis with rheumatoid factor of multiple sites without organ or systems involvement M05.79 Assessments Encounter Date Diagnosis (ICD Code) Assessment Notes Treatment Notes Treatment Clinical Notes Section Notes 01/14/2024 Radiculopathy, cervical region (ICD-10 - M54.12) 01/14/2024 Radiculopathy, lumbar region (ICD-10 - M54.16) 1. Treatment plan for her includes continuing a compliant medication regimen and interventional injections with Dr. Cabezas when clinically indicated. -Goals for her treatment plan include pain control and ability to perform activities of daily living. These goals are being met so her condition is considered stable. -She is at moderate risk of morbidity and mortality from her continued treatment plan. Risk level is determined by the following: Opioid use. 2. I am managing the prescription of hydrocodone/acetam inophen 10/325 mg tablets to be taken every 4-6 hours as needed with a maximum of 5.5 tablets per day for chronic pain management. Side effects include but are not limited to the following: drowsiness, confusion, nausea, constipation, euphoria, and slowed breathing. 3. Continue medication regimen; no changes are made today. 4. A random drug screen was collected at today's appointment to confirm medication compliance. 5. Return to the clinic in 30 days for medication management and re-evaluation. The patient and I reviewed any opioid and non-opioid medication being taken at this time. The patient has been taking the medication as prescribed. The patient has not been having any adverse effects or side effects with use of the medication. Risks and benefits of chronic opioid use were discussed, and the patient knows to contact our office with any questions or concerns. The medication is providing the patient enough pain relief for continuation of treatment. The patient states that the medication allows increased functionality to live their life. Conservative measures have been unsuccessful in the past, but the patient is aware that alternative treatments are available. Please see a record of any medication refills under the treatment section of this note. The patient will call with any questions or concerns. Current MME/day is 55 12/16/2023 Other cervical disc degeneration, cervicothoracic region (ICD-10 - M50.33) 12/16/2023 Radiculopathy, cervical region (ICD-10 - M54.12) 1. Proceed with a right C8 selective nerve root block.2. Continue medication regimen.3. Return to clinic in 1 month for medication management. Of note is patient is having cervical posterior decompression and fusion on January 11. We will manage her medications perioperatively at that time. 01/14/2024 Other spondylosis with radiculopathy, lumbosacral region (ICD-10 - M47.27) 01/14/2024 Rheumatoid arthritis with rheumatoid factor of multiple sites without organ or systems involvement (ICD-10 - M05.79) Plan Of Treatment Pending Test Test Name Order Date MRI : Lumbar without contrast 02/12/2022 Knee brace 05/23/2015 Medical (General) History Medical History History ICD Code high blood pressure fibromyalgia urinary incontinence osteoarthritis anemia rheumatoid arthritis headaches nerve damage irritable bowel syndrome diverticulosis reflux esphagitis hepatitis C depression anxiety Panic attacks osteoporosis Surgical History Surgery Date(Month/Year) tonsillectomy 1965 tumor Lt thigh removal 1966 tubal ligation 1973 breast implants 1974 hemorrhoidectomy 1980 left knee arthroscopy 1999 left knee replacement 2000 cervical fusion 1990,95,2000,2002 hernia 2002 carpal tunnel release Cataract surgery 2019 Hospitalization History Reason Date(Month/Year) kidney failure 2023 broken ribs 2022 fell and hurt back with 2 fractures 04/04 over heated and high sugar level 10/2019 fell hurt shoulder, back, neck, and knee 09/2018 fell hurt ankle 09/2015
--- NOTE | 2024-11-21 02:32 | ECG_ITS ---
Test Date: 2024-11-21 02:44:29 Measurements Intervals [place] Rate: 66 P: 54 MN: 191 QRS: 23 QRSD: 102 T: 47 QT: 430 QTc: 452 Interpretive Statements SINUS RHYTHM POOR R-WAVE PROGRESSION LOW QRS VOLTAGE BORDERLINE ECG No previous ECG available for comparison Electronically Signed On 11-21-2024 08:17:18 CDT by Kt Beckett M.D.
[2024-11-21 02:52] LABS: Hematocrit 39.5 % (37.0-47.0); Hemoglobin 12.8 g/dL (12.0-15.0); Immature Granulocyte Percent A 0.3 % (0-0.5); Lymphocytes Absolute Auto 2.66 K/mm3 (0.9-3.2); Mean Corpuscular HGB Conc 32.4 g/dl (32-36); Mean Corpuscular Hemoglobin 34.3 pg (26-34); Mean Corpuscular Volume 105.9 fl (80-100); Nucleated Red Blood Cells Absolute Auto 0.000 K/mm3 (0.0-0.012); Nucleated Red Blood Cells Perc 0.0 % (0.0-0.2); Platelet Count Result 182 k/mm3 (150-375); Red Blood Count 3.73 M/mm3 (4.2-5.4); White Blood Count 9.3 K/mm3 (4.5-10.0)
--- OUTSIDE RECORDS SUMMARY | 2024-11-21 02:56 | XMS_ITS | Clinical Summary ---
Author Organization [facility] Address [address] [place] [address] Care Team Providers Care Foil Cutter Name Role Phone Abhishek Chambers MD Primary Care Provider [phone] [phone] Allergies Active Allergy Reactions Criticality Noted Date [...] 01/26/20 24 Active naloxone (NARCAN) 4 mg/spray Calvin, Non-Aerosol EMERGENCY USE ONLY: Administer 1 spray [...] 04/18/2022 Assessment & Plan (05/26/2023 10:56 PM PRODUCTION LINE): Safety reviewed Non-compliant patient 04/04/2022 Assessment & Plan (04/04/2022 12:20 PM PRODUCTION LINE): Worsening. Extensive discussion with patient and her [...] 04/04/2022 Assessment & Plan (05/26/2023 10:56 PM PRODUCTION LINE): At baseline Anemia 04/04/2022 Physical deconditioning 09/28/2020 Assessment & Plan (05/26/2023 10:57 PM PRODUCTION LINE): Recommended more activity which she says she [...] Morbid obesity, unspecified obesity type 05/25/2018 09/28/2020 care home current use of insulin 05/25/2018 09/28/2020 Skin [...] Description 01/21/2025 10:50 AM CDT Office Visit [facility] - [address] [place] [address] [place] [address] [facility] [address] [place] [address] Health Maintenance Due Date Last [...] years Discontinued Medical Devices Implanted Type Area Manager University Device Identifier Shelf Expiration Date Model / Serial / Lot Karri Infinity 3.5x70mm Pre-Cut [id number] - [id number] Implanted:Qt y: 2 on 01/19/2024 by Ritesh Meraz MD at [facility] Karri N/A: Spine Cervical Posterior [employer] [id number] / / Description:STERILIZED DATE: 01/06/2024 LOAD # [id number] 502 Screw Infinity 4.5x26mm Mas [id number] - [id number] Implanted:Qt y: 2 on 01/19/2024 by Ritesh Meraz MD at [facility] Screw N/A: Spine Cervical Posterior [employer] [id number] / / Description:STERLIZED DATE: 01/06/2024 LOAD # 247 704 Screw Infinity 3.5x18mm Mas [id number] - [id number] Implanted:Qt y: 4 on 01/19/2024 by Ritesh Meraz MD at [facility] Screw N/A: Spine Cervical Posterior [employer] [id number] / / Description:STERILIZED DATE: 01/06/2024 LOAD # 247 502 Screw Infinity 3.5x20mm Mas [id number] - [id number] Implanted:Qt y: 1 on 01/19/2024 by Ritesh Meraz MD at [facility] Screw N/A: Spine Cervical Posterior [employer] [id number] / / Description:STERILIZED DATE: 01/06/2024 LOAD # 247 502 Screw Infinity 4.0x20mm Mas [id number] - [id number] Implanted:Qt y: 1 on 01/19/2024 by Ritesh Meraz MD at [facility] Screw N/A: Spine Cervical Posterior [employer] [id number] / / Description:STERILIZED DATE: 01/06/2024 LOAD # 247 502 Set Screw Infinity Oc M6 [id number] - [id number] Implanted:Qt y: 8 on 01/19/2024 by Ritesh Meraz MD at [facility] Screw N/A: Spine Cervical Posterior [employer] [id number] / / Description:STERILIZED DATE: 01/06/2024 LOAD # 247 502 Allograft [employer] [id number] - [id number] Implanted:Qt y: 1 on 01/19/2024 by Ritesh Meraz MD at [facility] Tissue N/A: Spine Cervical Posterior [employer] [id number] 06/25/2025 [id number] / [id number] Description:REQ#[id number] 07/22/2022 Implanted: by Dino Cox MD (Quantity not on file) 04/03/2025 / / [id number] Description:1CC BILAT T12 FO R TOTAL OF 2CC 1.5CC BILAT L1 FOR TOTAL OF 3CC Procedures Procedure Name Priority Date/Time Associated Diagnosis Comments HEMOGLOBIN A1C Routine 03/25/2023 1:48 PM PRODUCTION LINE COLON CANCER SCREEN, STOOL DNA Routine 11/26/2022 6:30 PM CDT Screening for colorectal cancer XR DEXA BONE DENSITY AXIAL 1 OR MORE SITES Routine 05/09/2022 2:57 PM PRODUCTION LINE Osteopenia of multiple sites MICROALBUMIN/CREATI NINE RATIO, RANDOM UR Routine 11/02/2021 12:10 PM CDT Type 2 diabetes mellitus with diabetic polyneuropathy, with long-term current use of insulin ([facility]/HCC) LIPID PANEL Routine 11/02/2021 11:59 AM CDT Type 2 diabetes mellitus with diabetic polyneuropathy, with long-term current use of insulin ([facility]) Mixed hyperlipidemia ENDOSCOPY, COLON, DIAGNOSTIC Routine 07/05/2011 from Last 3 Months or Most Recently Relevant to Health Maintenance Results * HEMOGLOBIN A1C (03/25/2023 1:48 PM PRODUCTION LINE) ABSTRACTED HGB A1C 6.3 [facility] Blood us Abstract Provider CHEMISTRY ORDERABLES Edited Re sult - Final [facility] CLIA# [id number] [address] [address] * COLON CANCER SCREEN, STOOL DNA (11/26/2022 6:30 PM CDT) COLOGUARD RESULT Negative Negative [facility] Comment: NEGATIVE TEST RESULT. A [...] (Philippe Holden al, N Engl J Med 2014;370(14):9159-1780) The normal value (reference range) for this assay is negative. COLOGUARD RE-SCREENING RECOMMENDATION: Periodic colorectal cancer screening is an important part of preventive healthcare for asymptomatic individuals at average risk for colorectal cancer. Following a negative Cologuard result, the [place] Cancer Society and U.S. Multi-Society Task Force screening guidelines recommend a Cologuard re-screening interval of 3 years. References: [place] Cancer Society Guideline for Colorectal Cancer Screening: https://www.cancer.org/cancer/xebzu-ukswka-qjvycx/xwldigfwe-njtlwazam-iftbbiw/ac s-rec ommendations.html.; Neil DK, Loretta SAHNI, Bhavna ElK, Colorectal Cancer Screening: Recommendations for Physicians and Patients from the U.S. Multi-Society Task Force on Colorectal Cancer Screening , Am J Gastroenterology 2017; 112:6987-2811. TEST DESCRIPTION: Composite algorithmic analysis of stool [...] (Philippe Holden al, N Engl J Med 2014;370(14):2476-4951.) Cologuard may produce a false negative or false positive result (no colorectal cancer or precancerous polyp present at colonoscopy follow up). A negative Cologuard test result does not guarantee the absence of CRC or advanced adenoma (pre-cancer). The current Cologuard screening interval is every 3 years. ([place] Cancer Society and U.S. Multi-Society Task Force). Cologuard performance data in a 10,000 patient pivotal study using colonoscopy as the reference method can be accessed at the following location: www.Captalis.Sayah/results. Additional description of the Cologuard test process, warnings and precautions can be found at www.MacawogAsk.comrd.Sayah. Stool STOOL SPECIMEN / Unknown 11/26/2022 6:30 PM CDT 11/29/2022 5:06 AM CDT us Mikie Hidalgo MD BODY FLUIDS AND STOOLS Final Res ult [facility] CLIA # [id number] [address] [facility] [place] [address] * XR DEXA BONE DENSITY AXIAL 1 OR MORE SITES (05/09/2022 2:57 PM PRODUCTION LINE) Anatomical Region Laterality Modality Computed Radiogr aphy 05/09/2022 2:58 PM PRODUCTION LINE Impressions 05/09/2022 3:02 PM PRODUCTION LINE FINDINGS/IMPRESSION: Osteopenia with a lowest T score of -2.3. Fracture risk is moderate. The lowest T score on the previous study was -1.9. FRAX: 10 year probability of major osteoporotic fracture is 21.9 %. 10 year probability of hip fracture is 5.9 %. Please refer to the full report available in [facility] under the PACS Images tab. If a faxed copy is needed, please call [phone]. DICTATION LOCATION: [facility] Narrative 05/09/2022 3:02 PM PRODUCTION LINE SUMMARY DEXA REPORT DATE: 05/09/2022 2:57 PM [...] refer to the full report available in [facility] under the PACS Images tab. If a faxed copy is needed, please call [phone]. DICTATION LOCATION: [facility] Mikie Hidalgo MD DIAGNOSTIC IMAGING ORDERABLES Fi nal Result * MICROALBUMIN/CREATININE RATIO, RANDOM UR (11/02/2021 12:10 PM CDT) Creatinine, Urine 134 20 - 275 mg/dL [facility] MICROALBUMIN, URINE 0.9 See Note: mg/dL [facility] Comment: Reference Range: Reference Range [...] within a diagnostic category. Test Performed at: [place] [id number] [address] Tommy Cruz D.O., MPH Urine URINE SPECIMEN OBTAINED BY CLEAN CATCH PROCEDURE / Unknown 11/02/2021 12:10 PM CDT 11/02/2021 12:11 PM CDT Mikie Hidalgo MD URINE ORDERABLES Final Result [facility] [phone] [facility] [place] [address] [address] [address] * (ABNORMAL) LIPID PANEL (11/02/2021 11:59 AM CDT) CHOLESTEROL 161 <200 mg/dL [facility] HDL 87 > OR = 50 mg/dL [facility] TRIGLYCERIDE 155(H) <150 mg/dL [facility] LDL CALCULATED 51 mg/dL (calc) [facility] Comment: Reference range: <100 Desirable range <100 mg/dL for primary prevention; <70 mg/dL for patients with CHD or diabetic patients with > or = 2 CHD risk factors. LDL-C is now calculated using the Romeo calculation, which is a validated novel method providing better accuracy than the Friedewald equation in the estimation of LDL-C. Luis Antonio SS et al. CLAY. 2013;310(19): 9874-4791 (http://education.Happy Industry/faq/LQR716) CHOL/HDL RATIO 1.9 <5.0 (calc) [facility] TOTAL NON-HDL CHOL(LDL+VLDL) 74 <130 mg/dL (calc) [facility] [place] Comment: For patients with diabetes plus 1 major ASCVD risk factor, treating to a non-HDL-C goal of <100 mg/dL (LDL-C of <70 mg/dL) is considered a therapeutic option. Test Performed at: [place] [address] [address] [place] [address] Jason Milton Blood 11/02/2021 11:5 9 AM CDT 11/02/2021 12:01 PM CDT Mikie Hidalgo MD CHEMISTRY ORDERABLES Final Resul t [facility] [phone] [facility] [place] [address] [address] [place] [address] * (ABNORMAL) ENDOSCOPY, COLON, DIAGNOSTIC (07/05/2011) Abstract Provider GI PROCEDURE ORDERABLES Edited Result - Final from Last 3 Months or Most Recently Relevant to Health Maintenance [facility] [place] [facility] Medicare Part D [facility] MMAI Advance Directives For more information, please contact: [phone] * Full Code (Latest Code Status on [...] 9:22 AM 09/09/2022 6:26 PM Care Teams Foil Cutter Relationship Specialty Start Date End Date Abhishek Chambers MD [address] [place] [address] PCP - General Family Practice 12/11/23
--- OUTSIDE RECORDS SUMMARY | 2024-11-21 02:56 | XMS_ITS | Encounter Summary ---
Author Organization [facility] Address [address] [place] [address] Care Team Providers Care Jewelry Technician Name Role Phone Abhishek Chambers MD Primary Care Provider [phone] Reason for Visit * Reason Onset Date Comments Dizziness and syncope 10/02/2020 Spoke w/De nise at Dr. Rosendo Turner's ex./Going to Dr. Herson Turner Encounter Details Date Type Department Care Team (Late st Contact Info) Description 10/02/2020 Telephone [facility] Admitting [address] [place] [address] [place] [id number] [address] Dizziness and syncope (Spoke w/Romina [...] Description 01/21/2025 10:50 AM CDT Office Visit [facility] - [id number] [place] [id number] [place] [address] [address] [place] [address] [place] [address] [facility] [address] [place] [address] documented as of this encounter Visit Diagnoses Not on filedocumented in this encounter Additional Health Concerns Infection Onset Date Last Indicated Resolved Time R/O GI Pathogen 01/27/2023 01/27/2023 01/29/2023 1 0:11 AM CDT documented as of this encounter Care Teams Jewelry Technician Relationship Specialty Start Date End Date Abhishek Chambers MD [address] [place] [address] PCP - General Family Practice 12/11/23 documented as of this encounter
--- OUTSIDE RECORDS SUMMARY | 2024-11-21 02:56 | XMS_ITS | Encounter Summary ---
Author Organization [facility] Address [address] [place] [address] Care Team Providers Care Facility Service Associate Name Role Phone Abhishek Chambers MD Primary Care Provider [phone] [phone] Reason for Visit * Reason Onset Date Comments Dizziness and syncope 10/02/2020 Spoke w/De nise at Dr. hicks's ex./Going to dr. Weiss Encounter Details Date Type Department Care Team ([facility] Contact Info) Description 10/02/2020 Telephone [facility] Admitting [address] [place] [address] [place] [address] [facility] [address] [place] [address] Dizziness and syncope (Spoke w/Romina [...] Upcoming Encounters Date Type Department Care Team ([facility] Contact Info) Description 01/21/2025 10:50 AM CDT Office Visit [facility] - [address] [place] [address] [facility] [address] [place] [address] [place] [address] [facility] [address] [place] [address] documented as of this encounter Visit Diagnoses Not on filedocumented in this encounter Additional Health Concerns Infection Onset Date Last Indicated Resolved Time R/O GI Pathogen 01/27/2023 01/27/2023 01/29/2023 1 0:11 AM CDT documented as of this encounter Care Teams Facility Service Associate Relationship Specialty Start Date End Date Abhishek Chambers MD [address] [place] [address] PCP - General Family Practice 12/11/23 documented as of this encounter
--- OUTSIDE RECORDS SUMMARY | 2024-11-21 02:56 | XMS_ITS | Encounter Summary ---
Author Organization [facility] Address [address] [place] [address] Care Team Providers Care Solid Propellant Processor Name Role Phone Abhishek Chambers MD Primary Care Provider [phone] [phone] Encounter Details Date Type Department Care Team (Late st Contact Info) Description 01/23/2024 Hospital Encounter [address] [address] Shahzad Ramirez MD [address] [place] [address] Social History Tobacco Use Types Packs/Day [...] Description 01/21/2025 10:50 AM CDT Office Visit [facility] - [id number] [place] [address] [place] [address] [facility] [address] [place] [address] documented as of this encounter Visit Diagnoses Not on filedocumented in this encounter Additional Health Concerns Assessment Noted Time PHQ-9 Depression Total Score: 2 05/19/19 24 10:20 AM NEON MOLDER documented as of this encounter Care Teams Solid Propellant Processor Relationship Specialty Start Date End Date Abhishek Chambers MD [address] [place] [address] PCP - General Family Practice 12/11/23 documented as of this encounter
--- OUTSIDE RECORDS SUMMARY | 2024-11-21 02:56 | XMS_ITS | Encounter Summary ---
Author Organization [facility] Address [address] [place] [address] Care Team Providers Care Manager Corporate Name Role Phone Abihshek Chambers MD Primary Care Provider [phone] [phone] Reason for Visit * Reason Onset Date Comments Hypoglycemia, Uncontrolled Diabetes 10/04/2020 Spoke w/ Dr. Salazar Encounter Details Date Type Department Care Team ([facility] Contact Info) Description 10/04/2020 Telephone [facility] Admitting [address] [place] [address] [place] [address] [address] Hypoglycemia, Uncontrolled Diabetes (Spoke w/ [...] Office Visit [facility] Neurosurgery - [address] [facility] [address] [facility] [address] [place] [address] [place] [address] [facility] [address] [place] [address] documented as of this encounter Visit Diagnoses Not on filedocumented in this encounter Additional Health Concerns Infection Onset Date Last Indicated Resolved Time R/O GI Pathogen 01/27/2023 01/27/2023 01/29/2023 1 0:11 AM CDT documented as of this encounter Care Teams Manager Corporate Relationship Specialty Start Date End Date Abhishek Chambers MD [address] [place] [address] PCP - General Family Practice 12/11/23 documented as of this encounter
[2024-11-21 03:10] LABS: Anisocytosis 1+; Macrocytosis 1+ (NORMAL); Schistocytes None Seen; Smudge Cells PRESENT
[2024-11-21 03:11] LABS: Alanine Aminotransferase 37 U/L (6-35); Albumin Level 3.7 g/dL (3.5-5.1); Alkaline Phosphatase 70 U/L (38-126); Anion Gap 4 mmol/L (4-12); Aspartate Amino Transferase 49 U/L (14-36); Bilirubin,Total 0.4 mg/dL (0.2-1.3); Blood Urea Nitrogen 27 mg/dL (7-17); Calcium 9.4 mg/dL (8.4-10.2); Carbon Dioxide 26 mmol/L (22-30); Chloride 103 mmol/L (98-107); Estimated CRCL calculation 61 ml/min; Estimated Glomerular Filt Rate > 60; Glucose 121 mg/dL (65-110); Magnesium 1.6 mg/dL (1.6-2.3); Potassium 4.2 mmol/L (3.4-5.0); Sodium 133 mmol/L (137-145); Total Protein 6.8 g/dL (6.3-8.2)
--- NOTE | 2024-11-21 03:14 | ED_ITS ---
HPI - Fall General Chief Complaint: Fall Stated Complaint: weakness and increased falls Time Seen by Provider: 11/21/24 02:32 History of Present Illness HPI Narrative: 79-year-old female with a past medical history including diabetes, diabetic peripheral neuropathy, hypertension, hyperlipidemia. She presents to the emergency department after several falls throughout the day today. She states that she normally gets around with a wheelchair and when she was trying to transition and stand up from wheelchair she ended up falling forward and hitting her knee. She had to crawl to her alarm button. She felt like her legs were weak and heavy. Endorses some carpet agustin to both her knees and sources knee pain. Endorses neuropathy in both her feet which is chronic. No head trauma or loss of consciousness. She was otherwise in her normal state of health. Has had some recent medication changes and with the direction of her primary care provider. No blood thinner use. She started Primidone this week and believes it could be side effects from that medication. Related Data Home Medications ?Medication ?Instructions ?Recorded ?Confirmed ?Last Taken ?Type duloxetine 20 mg capsule,delayed 40 mg PO DAILY 04/19/23 05/04/23 04/19/23 09:00 History release folic acid 1 mg tablet 1 mg PO DAILY 04/19/23 05/04/23 04/19/23 09:00 History ergocalciferol (vitamin D2) 1,250 1,250 mcg PO WEEKLY 04/20/23 05/04/23 04/19/23 09:00 History mcg (50,000 unit) capsule hydrocodone 10 mg-acetaminophen tablet PO 09/17/23 Unknown History 325 mg tablet polyethylene glycol 3350 17 g feeding tube 09/17/23 Unknown History gram/dose oral powder Allergies Allergy/AdvReac Type Severity Reaction Status Date / Time gabapentin AdvReac Shakiness Verified 03/10/24 14:02 Review of Systems 2 Review of Systems: As reviewed above in HPI [facility] Past Medical History Medical History Chronic pain disorder Diabetic peripheral neuropathy Hepatitis C Chronic neck pain with history of cervical spinal surgery Obstructive sleep apnea Refuses CPAP TIA (transient ischemic attack) Anxiety Hyperlipidemia Gout Arthritis GERD (gastroesophageal reflux disease) Hypertension Diabetes mellitus Insulin-dependent Surgical History Surgical History History of augmentation of both breasts With bilateral ruptured implants noted on imaging 04/2023 History of kyphoplasty (~12/2022) Hx of cholecystectomy Family History Family History Grandparent Acute myocardial infarction Father Acute myocardial infarction Parkinson disease Diabetes mellitus Hypertension Cerebrovascular accident Mother Diabetes mellitus Lung cancer Hypertension Depression Sibling Diabetes mellitus Cirrhosis Alcoholism Cervical cancer Hypertension Social History Social History Social History: She lives in her own home. Her granddaughter lives with her and helps provide care. She had 2 sons but 1 is . The she ambulates via walker boot and stands to transfer. She denies any history of excessive alcohol use and only briefly smoked tobacco at a young age. She denies any drug history. Code status: DNR/DNI (per patient request) Surrogate decision maker: Son Years smoked: 3 Smoking status: Former smoker Alcohol intake: never Substance use: never Substance use type: does not use Do You Feel Safe in your Home?: Yes Lack of Transportation: No Lack of Food: Sometimes True Current Housing: I Have Housing Concerned About Future Housing: No Difficulty Paying Gas/Electric Bills: No Difficulty Paying for Meds: No Currently Unemployed: No Education: High School Diploma/GED Difficulty w/ Childcare or Family Care: No Spiritual care concerns: No Exam 2 Narrative: GENERAL: [Well-appearing, well-nourished, and in no acute distress.] HEAD: [Normocephalic, atraumatic.] EYES: [PERRLA and EOMI.] ENT: Nares clear, no rhinorrhea or epistaxis. Mucous membranes moist. NECK: Supple. CHEST: [Clear to auscultation. No respiratory distress.] HEART: [Regular rate and rhythm]. No murmur heard. [Normal peripheral pulses.] ABDOMEN: [Soft, nondistended], [nontender], [No rigidity or guarding] EXTREMITIES: Bilateral lower extremity small abrasions without any obvious step-offs deformities. Full range of motion both lower extremities. Previous knee surgery in left-sided SKIN: Warm, dry, no rash. NEURO: [No focal deficits]. Alert and oriented [x3.] PSYCH: [Normal mood and affect.] Course Vital Signs Vital signs: Vital Signs Temperature 36.6 C 11/21/24 00:26 Pulse Rate 66 11/21/24 00:26 Respiratory Rate 20 11/21/24 00:26 Blood Pressure 152/100 H 11/21/24 00:26 Pulse Oximetry 98 11/21/24 00:26 Temperature 36.9 C 11/21/24 04:29 Pulse Rate 73 11/21/24 04:29 Respiratory Rate 18 11/21/24 04:29 Blood Pressure 116/71 11/21/24 04:29 Pulse Oximetry 99 11/21/24 04:29 MDM - Fall MDM Narrative Medical decision making narrative: 79-year-old female with a past medical history including diabetes, diabetic peripheral neuropathy, hypertension, hyperlipidemia. She presents to the emergency department after several falls throughout the day today. She states that she normally gets around with a wheelchair and when she was trying to transition and stand up from wheelchair she ended up falling forward and hitting her knee. She had to crawl to her alarm button. She felt like her legs were weak and heavy. Endorses some carpet agustin to both her knees and sources knee pain. Endorses neuropathy in both her feet which is chronic. No head trauma or loss of consciousness. She was otherwise in her normal state of health. Has had some recent medication changes and with the direction of her primary care provider. No blood thinner use. She started Primidone this week and believes it could be side effects from that medication. Patient is hemodynamically stable without any significant blood pressure elevations, no tachycardia, fever or hypoxia. Unremarkable neurological assessment at bedside, she is awake alert oriented has no complaints at this time aside from some pain in her knee. She is able to range the extremities without any obvious traumatic injuries. She had some small abrasions overlying the right knee more so than left. X-rays of both knees were obtained as well as a CT of the head and laboratory studies to evaluate for any other potential causes of her multiple falls today. Most likely it is the medication that she started this week causing some side effects. Will evaluate for electrolyte abnormalities, dehydration, intracranial process such as stroke, hemorrhage or mass. Patient CT of the head shows no intracranial hemorrhage, mass effect, midline shift or any skull fracture or infarct. No soft tissue traumatic abnormalities. X-ray showed no acute osseous traumatic abnormality or malalignment. Instantly found osteopenia consistent with her exam and age. Patient's laboratory studies are unremarkable and EKG is normal sinus without ectopy. Urine without infection. Patient is safe for discharge back to her facility at this time. Ambulance we will arrange secondary to her wheelchair-bound status. Medical Records Attestation: I reviewed the patient's medical records. Lab Data Attestation: I reviewed the patient's lab results. 11/21/24 02:45 11/21/24 02:45 Labs: Lab Results 11/21/24 11/21/24 Range/Units 02:45 03:22 WBC 9.3 (4.5-10.0) K/mm3 RBC 3.73 L (4.2-5.4) M/mm3 Hgb 12.8 D (12.0-15.0) g/dL Hct 39.5 (37.0-47.0) % MCV 105.9 H (80-100) fl MCH 34.3 H (26-34) pg MCHC 32.4 (32-36) g/dl RDW 13.8 (11.5-14.5) % Plt Count 182 (150-375) k/mm3 MPV 10.1 (7.4-10.4) fl Immature Gran % (Auto) 0.3 (0-0.5) % Neut % (Auto) 60.1 (45.5-73.1) % Lymph % (Auto) 28.6 (18.3-44.2) % Webb % (Auto) 8.1 (2.6-8.5) % Eos % (Auto) 2.5 (0-4.4) % Baso % (Auto) 0.4 (0.2-1.2) % Lymph # (Auto) 2.66 (0.9-3.2) K/mm3 Webb # (Auto) 0.8 H (0.1-0.6) K/mm3 Eos # (Auto) 0.2 (0-0.3) K/mm3 Baso # (Auto) 0.0 (0.0-0.1) K/mm3 Abs Immat Gran (auto) 0.03 (0.00-0.031) K/mm3 Absolute Neuts (auto) 5.6 (1.3-6.7) K/mm3 Absolute Nucleated RBC 0.000 (0.0-0.012) K/mm3 Band Neutrophils % Not Reportable Nucleated RBC % 0.0 (0.0-0.2) % Smudge Cells Present Platelet Estimate Adequate (Adequate) Anisocytosis 1+ Macrocytosis 1+ (NORMAL) Schistocytes None seen Sodium 133 L (137-145) mmol/L Potassium 4.2 (3.4-5.0) mmol/L Chloride 103 (98-107) mmol/L Carbon Dioxide 26 (22-30) mmol/L Anion Gap 4 (4-12) mmol/L BUN 27 H D (7-17) mg/dL Creatinine 0.70 (0.7-1.0) mg/dL Estim Creat Clear Calc 61 ml/min Estimated GFR > 60 (59 - ) Glucose 121 H (65-110) mg/dL Calcium 9.4 (8.4-10.2) mg/dL Magnesium 1.6 (1.6-2.3) mg/dL Total Bilirubin 0.4 (0.2-1.3) mg/dL AST 49 H (14-36) U/L ALT 37 H (6-35) U/L Alkaline Phosphatase 70 (38-126) U/L Total Protein 6.8 (6.3-8.2) g/dL Albumin 3.7 (3.5-5.1) g/dL Urine Color Yellow (Yellow) Urine Appearance Clear (Clear) Urine pH 5.5 (5.0-9.0) Ur Specific Steele 1.022 (1.001-1.035) Urine Protein Trace (Negative) mg/dL Urine Glucose (UA) 3+ H (Negative) mg/dL Urine Ketones Negative (Negative) mg/dL Ur Blood (Man) Negative (Negative) Urine Nitrate Negative (Negative) Urine Bilirubin Negative (Negative) Urine Urobilinogen 0.2 (<2.0) mg/dL Add Ur Microanalysis Reviewed Leukocyte Esterase Rfl Negative (Negative) CORTEZ/UL Urine RBC 0-2 (0-2) /hpf Urine WBC 0-5 (0-3) /hpf Ur Squamous Epith Cells None seen (Few) /hpf Urine Bacteria None seen /hpf Urine Casts 0-2 Imaging Data Attestation: I personally reviewed and interpreted this imaging study as follows: My impression: No acute traumatic malalignment or fractures of the knees, no intracranial abnormalities. Discharge Plan Discharge Clinical Impression: Accident due to mechanical fall without injury, Peripheral neuropathy Patient Disposition: Home Condition: Stable Instructions: Antibiotic Form, Fall Prevention (ED) Additional Instructions: Your imaging studies do not show any abnormalities or acute findings. No traumatic injuries. Your laboratory studies are all reassuring normal. No electrolyte problems, no dehydration. Your symptoms with falling more frequently are likely secondary to recent medication changes including primidone being started. Talk to your doctor about taking this medication and they might do some adjusting to help with symptom control. Return with any emergent concerns. Patient Language: Cuban Prescriptions: No Action hydrocodone-acetaminophen 10-325 mg tablet PO polyethylene glycol 3350 17 gram/dose powder feeding tube folic acid 1 mg tablet 1 mg PO DAILY duloxetine 20 mg capsule,delayed release(DR/EC) 40 mg PO DAILY ergocalciferol (vitamin D2) 1,250 mcg (50,000 unit) capsule 1,250 mcg PO WEEKLY Rx Instructions: Saturdays acetaminophen 325 mg tablet 650 mg PO Q6H PRN (Reason: Mild Pain (1-3) Or Fever) Qty: 30 0RF clonazepam 0.5 mg tablet 0.5 mg PO HS Qty: 90 0RF (DME) FreeStyle Leatha 3 Plus Sensor Device See Rx Instructions .Route Qty: 1 5RF Rx Instructions: Check glucose continuously As directed insulin degludec [Tresiba FlexTouch U-100] 100 unit/mL (3 mL) insulin pen See Rx Instructions .ROUTE .COMPLEX Qty: 15 0RF Dose Instruction: INJECT 18 UNITS SUBCUTANEOUSLY EVERY MORNING Rx Instructions: INJECT 18 UNITS SUBCUTANEOUSLY EVERY MORNING allopurinol 300 mg tablet 300 mg PO DAILY Qty: 90 1RF alpha lipoic acid 200 mg capsule 200 mg PO DAILY Qty: 90 1RF amlodipine 5 mg tablet 10 mg PO DAILY Qty: 180 1RF aripiprazole 5 mg tablet 5 mg PO DAILY Qty: 90 1RF aspirin 325 mg tablet 325 mg PO DAILY Qty: 90 1RF atorvastatin 20 mg tablet 20 mg PO DAILY Qty: 90 1RF calcitriol 0.5 mcg capsule 0.5 mcg PO DAILY Qty: 90 1RF cholestyramine-aspartame 4 gram powder in packet 4 g PO DAILY Qty: 60 6RF Rx Instructions: administer w/meal; avoid other meds within 1hr before or 4-6hr after dose citalopram 20 mg tablet 20 mg PO DAILY Qty: 90 1RF docusate sodium 100 mg capsule 100 mg PO DAILY PRN (Reason: Constipation) Qty: 90 1RF dicyclomine 10 mg capsule 10 mg PO TID Qty: 90 1RF ferrous sulfate 325 mg (65 mg iron) tablet 325 mg PO DAILY Qty: 90 1RF hydroxychloroquine 200 mg tablet 200 mg PO BID Qty: 180 0RF metformin 500 mg tablet extended release 24 hr 500 mg PO BID Qty: 90 1RF metoprolol tartrate 50 mg tablet 50 mg PO BID Qty: 90 1RF omeprazole 40 mg capsule,delayed release(DR/EC) 40 mg PO DAILY Qty: 90 1RF polyethylene glycol 3350 [Miralax] 17 gram powder in packet 17 g PO DAILY PRN (Reason: constipation) Qty: 100 1RF sucralfate 1 gram tablet 1 g PO TIDWM Qty: 90 1RF primidone 125 mg tablet 125 mg PO BID Qty: 180 1RF Jardiance 10 mg tablet 10 mg PO QAM Qty: 90 3RF (DME) BD AutoShield Duo Pen Needle 30 gauge x 3/16 needle See Rx Instructions .Route Qty: 100 0RF Rx Instructions: As directed oxycodone 5 mg Tablet 10 mg PO Q4H PRN (Reason: Pain Rated 7-10) Qty: 24 0RF Follow-up/Referrals: Yumiko,DOM Juarez [Primary Care Provider] - Time of Disposition: 04:02
[2024-11-21] MEDS: ACETAMINOPHEN 500 MG TABLET 1000 MG PO (03:33)
[2024-11-21 03:44] LABS: Add Urine Microscopic? YES; Appearance Urine Clear (Clear); Glucose Urine UA 3+ mg/dL (Negative); Leukocyte Esterase Ur Negative LEU/UL (Negative); Need Manual Microscopic Reviewed; Nitrate Urine Negative (Negative); Non Pathogenic Casts 0-2; Specific Grav Ur 1.022 (1.001-1.035)
[2024-11-21 04:29] VITALS: BP 116/71; PULSE 73; RESP 18; TEMP 36.9; O2SAT 99
== END 2024-11-21 04:30 | disposition home or self-care (01) ==
PROVIDERS: Emergency Provider Student in an Organized Health Care Education/Training Program; PCP Physician Assistant
DX: S80.212A Abrasion, left knee, initial encounter (principal); S80.211A Abrasion, right knee, initial encounter; E11.42 Type 2 diabetes mellitus with diabetic polyneuropathy; I10 Essential (primary) hypertension; E78.5 Hyperlipidemia, unspecified; M10.9 Gout, unspecified; M19.90 Unspecified osteoarthritis, unspecified site; K21.9 Gastro-esophageal reflux disease without esophagitis; G47.33 Obstructive sleep apnea (adult) (pediatric); Z66 Do not resuscitate; Z86.19 Personal history of other infectious and parasitic diseases; Z86.73 Personal history of transient ischemic attack (TIA), and cerebral infarction without residual deficits; Z87.891 Personal history of nicotine dependence; Z90.49 Acquired absence of other specified parts of digestive tract; Z79.899 Other long term (current) drug therapy; Z79.4 Long term (current) use of insulin; Z79.82 Long term (current) use of aspirin; Z79.84 Long term (current) use of oral hypoglycemic drugs; W18.39XA Other fall on same level, initial encounter
CPT/HCPCS: 36415; 70450; 73562; 80053; 81001; 83735; 85025; 93005; 99284; A9270

== ENCOUNTER 2024-11-29 19:45 | Inpatient (IN) | payer OTHER, MEDICARE, SELFPAY ==
--- NOTE | ~2024-11-29 | XR_ITS ---
HISTORY: fall COMPARISON: None TECHNIQUE: AP view of the pelvis was performed FINDINGS: Diffuse bony demineralization is noted. Significant degenerative disease within the visualized portion of the lumbar spine. Inferior medial joint space narrowing and sclerosis is identified within the bilateral femoral acetab ular joint spaces, consistent with osteoarthritis, femoral acetabular impingement or rheumatoid arthr itis. Irregular joint space narrowing and sclerosis is present within the pubic symphysis. No acute fracture or dislocation is appreciated. Fecal stasis is present within the pelvis. IMPRESSION: Significant degenerative disease, without acute fracture or dislocation, as detailed above. Reviewed, dictated and finalized at location A. IMPRESSION: Significant degenerative disease, without acute fracture or dislocation, as det shawna above.
--- NOTE | ~2024-11-29 | CT_ITS ---
EXAMINATION: CT brain wo con DATE: 11/29/2024 22:56 INDICATION: Unwitnessed fall TECHNIQUE: Computed tomography (CT) of the head was performed without intravenous contrast. Sagittal and coronal reconstructions were performed. The mA was adjusted according to patient size. Iterative reconstruction technique was employed. The dose-length product was 681.00 mGy-cm. COMPARISON: head CT dated 11/21/2024 FINDINGS: No fracture. 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 No acute in tracranial hemorrhage, acute infarction or abnormal extra axial fluid collection. There is mild scatt ered white matter hypoattenuation consistent with chronic small vessel ischemic disease. Symmetric pr ominence of the sulci and ventricles consistent with mild age-appropriate diffuse cerebral volume los s. No mass/mass effect. Changes of bilateral intraocular lens replacement. The orbits, paranasal sinu ses and mastoid air cells are normal. IMPRESSION: 1. Small old lacunar infarct at the anterior limb of the left internal capsule.. No fracture or acute intracranial process. 2. Age-related changes including mild diffuse volume loss and mild scattered white matter hypoattenua tion consistent with chronic small vessel ischemic disease. Reviewed, dictated and finalized at location A. IMPRESSION: 1. 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 . No fracture or acute intracranial process. 2. Age-related changes including mild diffuse volume loss and mild scattered wh ite matter hypoattenuation consistent with chronic small vessel ischemic diseas e.
--- NOTE | ~2024-11-29 | XR_ITS ---
EXAMINATION: XR chest 1V DATE: 11/29/2024 22:49 INDICATION: Fall TECHNIQUE: frontal view of the chest was obtained. COMPARISON: Chest radiograph dated also and CT dated 05/01/2023 FINDINGS: Small lung volumes. No focal airspace opacities, pulmonary edema, pleural effusion or pneumothorax. H eart size is normal. Calcified right hilar lymph nodes consistent with old granulomatous disease. OR calcifications at bilateral breast implants. Cholecystectomy clips in right upper quadrant. T12 and L 1 compression fractures with prior vertebroplasty. Instrumented anterior spinal fusion with anterior plate and screw fixation extending from C3 through C7. There is also a 4 level instrumented posterior spinal fusion centered at the cervicothoracic junction. IMPRESSION: 1. No acute cardiopulmonary disease. Reviewed, dictated and finalized at location A.
--- NOTE | ~2024-11-29 | MR_ITS ---
EXAMINATION: MR brain/brain stem wo/w con DATE: 11/30/2024 14:21 INDICATION: Frequent falls. Right lower extremity weakness. TECHNIQUE: Magnetic resonance imaging (MRI) of the brain and brainstem was performed without intraven ous contrast. Sequences included sagittal and axial T1-weighted SE, axial diffusion-weighted FS SE, a xial 3D SWAN, axial T2-weighted FLAIR, and axial T2-weighted FSE. Postcontrast axial and coronal T1-w eighted SE was obtained. Apparent diffusion coefficient (ADC) maps were created. COMPARISON: Head CT dated 11/29/2024 FINDINGS: There are no areas of restricted diffusion to suggest acute infarction. No intracranial hemorrhage or abnormal intracranial mass lesion. There are scattered areas of nonspecific increased T2-weighted si gnal intensity in the cerebral white matter, predominantly involving the deep and periventricular whi te matter. There are no intraparenchymal signal abnormalities seen on the other pulse sequences. Symm etric prominence of the sulci consistent with mild age-appropriate diffuse cerebral volume loss. The ventricles are symmetric and normal in size. There are no abnormal extra-axial fluid collections. Fl ow voids are seen in the cerebral arteries on the T2-weighted sequences consistent with their expecte d patency. Visualized orbits and soft tissues are unremarkable.. Mild mucosal thickening in the bilat eral ethmoid sinuses. There are no areas of abnormal enhancement on the post contrast images. IMPRESSION: 1. No acute intracranial process. 2. Age-related changes including mild diffuse volume loss and mild scattered nonspecific white matter T2 hyperintensity consistent with chronic small vessel ischemic disease. Reviewed, dictated and finalized at location A. IMPRESSION: 1. No acute intracranial process. 2. Age-related changes including mild diffuse volume loss and mild scattered no nspecific white matter T2 hyperintensity consistent with chronic small vessel i schemic disease.
--- NOTE | ~2024-11-29 | XR_ITS ---
HISTORY: fall COMPARISON: None TECHNIQUE: 3 views of the right ankle were performed FINDINGS: No acute fracture or dislocation. Prior fracture deformity within the distal right fibula. Significant medial and lateral soft tissue swelling. The ankle mortise is preserved. Bone mineralization is age-appropriate. Osteophyte formation is identified. IMPRESSION: Degenerative disease with prior fracture deformity within the distal right fibula. No acute fracture is appreciated. Significant soft tissue swelling within the medial and lateral right ankle. Reviewed, dictated and finalized at location A. IMPRESSION: Degenerative disease with prior fracture deformity within the dist al right fibula. No acute fracture is appreciated. Significant soft tissue swelling within the medial and lateral right ankle.
--- NOTE | ~2024-11-29 | CT_ITS ---
EXAMINATION: 1. CT facial & cervical spine wo DATE: 11/29/2024 22:58 INDICATION: Unwitnessed fall TECHNIQUE: 1. Computed tomography (CT) of the maxillofacial region and of the cervical spine were performed with out intravenous contrast. Sagittal and coronal reconstructions of both regions were obtained. Automat ed exposure control and iterative reconstruction technique were employed. The dose-length product was 633.79 mGy-cm. COMPARISON: Cervical spine CT dated 09/10/2023 FINDINGS: Maxillofacial CT: No maxillofacial fractures. Specifically the nasal bones, zygomatic arches, mandible and pineda of the orbits and paranasal sinuses are all intact. Changes of bilateral intraocular lens replacement. Mast oid air cells, middle ear cavities and paranasal sinuses are all clear. Patient is edematous with max illary and mandibular alveolar ridge resorptive changes. Atherosclerotic calcification is at the bila teral carotid bulbs. Cervical spine CT: Alignment is now normal. Interval reduction of the previously seen anterolisthesis of C7 on T1 with i nterval C7 laminectomy and partial C5 and C6 laminectomies and instrumented C6-T2 and symmetric poste rior spinal fusion with bilateral vertical boris and lateral mass/pedicle screw fixation. Stable appear ance of a C3--C7 anterior spinal fusion with anterior plate-screw fixation with anterior plate and sc rew fixation screws at C3, C5, C6 and C7. C4 corpectomy with well incorporated interbody bone strut g raft. Again noted are chronic T3 and T4 compression fractures. Remaining visualized upper thoracic ve rtebral body heights are normal. Moderate osteoarthritis at the atlantoaxial articulation. Mild disc height loss at C2-C3 and moderate disc height loss at C7-T1, T1-T2 and T4-T5. Hypertrophic changes re lated to the interspinal fusion contribute to mild central canal stenosis at C4-C5 and C5-C6. There i s multilevel severe bilateral facet osteoarthritis at the unfused cervical and upper thoracic levels. There is mild neural foraminal stenosis bilaterally at C2-C3 and C5-C6 and C7-T1. Dependent predomin ant groundglass opacities visualized upper lungs and favor atelectasis over pulmonary edema or pneumo johan. IMPRESSION: 1. No maxillofacial fractures. 2. Moderate cervical spondylosis with no change in a noncemented C3-C7 anterior spinal fusion and wit h new lower cervical posterior decompression with C6-T2 instrumented posterior spinal fusion. 2. Chronic T3 and T4 compression fractures. No acute osseous abnormality in the cervical or visualize d upper thoracic spine. Reviewed, dictated and finalized at location A. IMPRESSION: 1. No maxillofacial fractures. 2. Moderate cervical spondylosis with no change in a noncemented C3-C7 anterior spinal fusion and with new lower cervical posterior decompression with C6-T2 i nstrumented posterior spinal fusion. 2. Chronic T3 and T4 compression fractures. No acute osseous abnormality in the cervical or visualized upper thoracic spine.
--- NOTE | ~2024-11-29 | XR_ITS ---
HISTORY: fall COMPARISON: 11/21/2024 TECHNIQUE: 3 views of the right knee were performed FINDINGS: No acute or subacute fracture. Medial and lateral tibiofemoral joint space narrowing with sclerosis of the tibial plateau is identif ied. Osteophyte ridging is identified within the medial tibiofemoral joint space. Significant joint space narrowing within the patellofemoral joint space with osteophyte formation. No suprapatellar joint effusion is identified. The infrapatellar joint space is clear. IMPRESSION: Severe degenerative disease, without fracture Reviewed, dictated and finalized at location A.
--- OUTSIDE RECORDS SUMMARY | 2024-11-29 19:47 | XMS_ITS | Encounter Summary ---
Author Organization [facility] Address [address] [place] [address] Care Team Providers Care Distribution Systems Serviceperson Name Role Phone Abhishek Chambers MD Primary Care Provider [phone] [phone] Reason for Visit * Reason Onset Date Comments Hypoglycemia, Uncontrolled Diabetes 10/04/2020 Spoke w/ Dr. Salazar Encounter Details Date Type Department Care Team ([facility] Contact Info) Description 10/04/2020 Telephone [facility] Admitting [address] [place] [address] [place] [address] [address] Hypoglycemia, Uncontrolled Diabetes (Spoke w/ [...] Description 01/21/2025 10:50 AM CDT Office Visit [facility] Neurosurgery - [address] [facility] [address] [facility] [address] [place] [address] [place] [address] [facility] [address] [place] [address] documented as of this encounter Visit Diagnoses Not on filedocumented in this encounter Additional Health Concerns Infection Onset Date Last Indicated Resolved Time R/O GI Pathogen 01/27/2023 01/27/2023 01/29/2023 1 0:11 AM CDT documented as of this encounter Care Teams Distribution Systems Serviceperson Relationship Specialty Start Date End Date Abhishek Chambers MD [address] [place] [address] PCP - General Family Practice 12/11/23 documented as of this encounter
--- OUTSIDE RECORDS SUMMARY | 2024-11-29 19:47 | XMS_ITS | Patient Health Record ---
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) Active confirmed Problem Essential hypertension (39503236) Essential (primary) hypertension (I10) Active confirmed Problem Rheumatoid arthritis (18170811) Rheumatoid arthritis with rheumatoid factor of multiple sites without organ or systems involvement (M05.79) Active confirmed Problem Localized, primary osteoarthritis of the shoulder region () Primary osteoarthritis, right shoulder (M19.011) Active confirmed Problem Localized, primary osteoarthritis of the shoulder region () Primary osteoarthritis, left shoulder (M19.012) Active confirmed Problem Solitary sacroiliitis (490935361) Sacroiliitis, not elsewhere classified (M46.1) Active confirmed Problem Lumbosacral spondylosis without myelopathy (04796161) Other spondylosis with radiculopathy, lumbar region (M47.26) Active confirmed Problem Lumbosacral spondylosis without myelopathy (76453312) Other spondylosis with radiculopathy, lumbosacral region (M47.27) Active confirmed Problem Cervical spondylosis without myelopathy (054364345) Spondylosis without myelopathy or radiculopathy, cervical region (M47.812) Active confirmed Problem Lumbosacral spondylosis without myelopathy (88067498) Spondylosis without myelopathy or radiculopathy, lumbar region (M47.816) Active confirmed Problem Degeneration of cervical intervertebral disc (15728319) Other cervical disc degeneration, 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) Active confirmed Problem Degeneration of lumbar intervertebral disc (12471920) Other intervertebral disc degeneration, lumbar region (M51.36) Active confirmed Problem Cervical radiculopathy (36762713) Radiculopathy, cervical region (M54.12) Active confirmed Problem Lumbar radiculopathy (072890026) Radiculopathy, lumbar region (M54.16) Active confirmed Problem Cervical facet joint pain (869142736) Cervicalgia (M54.2) Active confirmed Problem Myositis (47675145) Other myositis, 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) Active confirmed Problem Fibromyalgia (140071103) Fibromyalgia (M79.7) Active confirmed Problem Spinal stenosis of lumbar region (60762192) Intervertebral disc stenosis of neural canal of lumbar region (M99.53) Active confirmed Vital Signs Heart Rate 60 /min 01/14/2024 Temperature 97.2 degrees Fahrenheit 01/14/2024 Respiratory Rate 20 /min 01/14/2024 Blood pressure diastolic 64 mm Hg 01/14/2024 Height 66 in 01/14/2024 Blood pressure systolic 125 mm Hg 01/14/2024 Weight 184 lbs 01/14/2024 BMI 29.7 kg/m2 01/14/2024 Encounters Encounter Location Date Provider Diagnosis [facility] [address] [address] 12/16/2023 Perez Cabezas Radiculopathy, cervi adrián region M54.12 and Other cervical disc degeneration, cervicothoracic region M50.33 [facility] [address] [address] 01/14/2024 Deep Barnes Radiculopathy, lumba r region [...] Date(Month/Year) tonsillectomy 1965 tumor Lt thigh removal 1965 tubal ligation 1972 breast implants 1974 hemorrhoidectomy 1981 left knee arthroscopy 1999 left knee replacement 2000 cervical fusion 1990,95,2000,2002 hernia 2002 carpal tunnel release Cataract surgery 2019 Hospitalization History Reason Date(Month/Year) kidney failure 2023 broken ribs 2022 fell and hurt back with 2 fractures 04/04 over heated and high sugar level 10/2019 fell hurt shoulder, back, neck, and knee 09/2018 fell hurt ankle 09/2015
--- OUTSIDE RECORDS SUMMARY | 2024-11-29 19:47 | XMS_ITS ---
Author Organization [facility] Irina gement Address [address] [place] [address] Care Team Providers Care Glass Technician Name Role Phone Mikie Hidalgo Primary Care Provider Laura Adames MD, Oralia Unavailable Unavailable Perez Cabezas Unavailable [phone] REASON FOR VISIT BACK PAIN Encounters Encounter Location Date Provider Diagnosis [facility] [address] [place] [address] 02/11/2024 Perez Cabezas Plan Of Treatment No Information Progress Notes * Oralia MORELAND LDOB:[birth year] (79 yo F)Acc No.[id number]:02/11/2024 Medication Refill Patient: Oralia FLANNERY Provider: Jose Cabezas MD :1945 A ge:78 Y S ex:Female Date:02/11/2024 Address:[address] [place] [address], [address], [place], [place] Pcp:Mikie Hidalgo Subjective: * Chief Complaints: * 1 . BACK PAIN. * Medical History: Objective: * Vitals: Assessment: Plan: * Treatment: * * Electronic signature of Fabian Cabezas MD on 11/29/2024 at 07:47 PM CDT Sign off status: Pending * Provider: Jose Cabezsa MD Date: 1 Generated for Printi ng/Faxing/eTransmitting on: 0 11/29/2024 07:47 PM CDT
--- OUTSIDE RECORDS SUMMARY | 2024-11-29 19:47 | XMS_ITS | Encounter Summary ---
Author Organization [facility] Address [address] [place] [address] Care Team Providers Care Justice Of The Peace Name Role Phone Abhishek Chambers MD Primary Care Provider +1 [phone] Encounter Details Date Type Department Care Team (Late st Contact Info) Description 01/23/2024 Hospital Encounter [address] [address] Shahzad Ramirez MD [address] [place] [address] Social History Tobacco Use Types Packs/Day [...] Description 01/21/2025 10:50 AM CDT Office Visit [facility] - [id number] [place] [address] [place] [address] [facility] [address] [place] [address] documented as of this encounter Visit Diagnoses Not on filedocumented in this encounter Additional Health Concerns Assessment Noted Time PHQ-9 Depression Total Score: 2 05/19/19 24 10:20 AM CUSTOMER CARE COORDINATOR documented as of this encounter Care Teams Justice Of The Peace Relationship Specialty Start Date End Date Abhishek Chambers MD [address] [place] [address] PCP - General Family Practice 12/11/23 documented as of this encounter
--- OUTSIDE RECORDS SUMMARY | 2024-11-29 19:47 | XMS_ITS | Encounter Summary ---
Author Organization [facility] Address [address] [place] [address] Care Team Providers Care Hr Administrator Name Role Phone Abhishek Chambers MD Primary Care Provider +1 [phone] Reason for Visit * Reason Onset Date Comments Dizziness and syncope 10/02/2020 Spoke w/De nise at Dr. Rosendo Turner's ex./Going to Dr. Herson Turner Encounter Details Date Type Department Care Team (Late st Contact Info) Description 10/02/2020 Telephone [facility] Admitting [address] [place] [address] [place] [address] [address] Dizziness and syncope (Spoke w/Romina [...] Description 01/21/2025 10:50 AM CDT Office Visit [facility] - [address] [place] [id number] [place] [address] [address] [place] [address] [place] [address] [facility] [address] [place] [address] documented as of this encounter Visit Diagnoses Not on filedocumented in this encounter Additional Health Concerns Infection Onset Date Last Indicated Resolved Time R/O GI Pathogen 01/27/2023 01/27/2023 01/29/2023 1 0:11 AM CDT documented as of this encounter Care Teams Hr Administrator Relationship Specialty Start Date End Date Abhishek Chambers MD [address] [place] [address] PCP - General Family Practice 12/11/23 documented as of this encounter
--- OUTSIDE RECORDS SUMMARY | 2024-11-29 19:47 | XMS_ITS | Encounter Summary ---
Author Organization [facility] Address [address] [place] [address] Care Team Providers Care Automatic Bandsaw Tender Name Role Phone Abhishek Chambers MD Primary Care Provider +1 [phone] Reason for Visit * Reason Onset Date Comments Dizziness and syncope 10/02/2020 Spoke w/De nise at Dr. hicks's ex./Going to dr. Weiss Encounter Details Date Type Department Care Team ([facility] Contact Info) Description 10/02/2020 Telephone [facility] Admitting [address] [place] [address] [place] [address] [facility] [address] [place] [address] Dizziness and syncope (Spoke w/Romina [...] Upcoming Encounters Date Type Department Care Team ([facility] Contact Info) Description 01/21/2025 10:50 AM CDT Office Visit [facility] - [address] [place] [address] [facility] [address] [place] [address] [place] [address] [facility] [address] [place] [address] documented as of this encounter Visit Diagnoses Not on filedocumented in this encounter Additional Health Concerns Infection Onset Date Last Indicated Resolved Time R/O GI Pathogen 01/27/2023 01/27/2023 01/29/2023 1 0:11 AM CDT documented as of this encounter Care Teams Automatic Bandsaw Tender Relationship Specialty Start Date End Date Abhishek Chambers MD [address] [place] [address] PCP - General Family Practice 12/11/23 documented as of this encounter
--- OUTSIDE RECORDS SUMMARY | 2024-11-29 19:47 | XMS_ITS | Clinical Summary ---
Author Organization [facility] Address [address] [place] [address] Care Team Providers Care Chemical Packager Name Role Phone Miscellaneous, Not In File Primary Care Provider Unavailable Allergies Active Allergy Reactions Criticality Noted Date Comments Gabapentin Other (See comments) 11/23/2024 Makes me feel weird Medications No known medications Encounters Date Type Department Care Team Description 11/23/2024 10:12 PM CDT - 11/23/2024 11:59 PM CDT Hospital Encounter [facility] Discharge Disposition: Discharge to home or self care 11/23/2024 7:22 PM CDT - 11/23/2024 9:50 PM CDT Emergency [facility] Emergency Department 1 [place] [address] Fall, initial encounter (Primary Dx); Contusion of multiple sites of right shoulder, initial encounter; Acute pain of right knee Discharge Disposition: Discharge to home or self care from Last 3 Months Social History Tobacco Use Types Packs/Day Years Used Date Smoking Tobacco: Never Assessed Personal Safety Answer Date Recorded Have you ever been in or are you currently in a harmful physical or emotional relationship or is someone making you feel afraid or unsafe? 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 Gender Identity Not on file Sexual Orientation Not on file Last Filed Vital Signs Vital Sign Reading Time Taken Comments Blood Pressure 148/71 11/23/2024 8:11 PM CDT Pulse 70 11/23/2024 8:11 PM CDT Temperature 36.4 C (97.5 F) 11/23/2024 5:04 PM CDT Respiratory Rate 16 11/23/2024 8:11 PM CDT Oxygen Saturation 96% 11/23/2024 8:11 PM CDT Inhaled Oxygen Concentration - - Weight 82.1 kg (181 lb) 11/23/2024 5:04 PM CDT Height 166.4 cm (5' 5.5) 11/23/2024 5:04 PM CDT Body Mass Index 29.66 11/23/2024 5:04 PM CDT Plan of Treatment Health Maintenance Due Date Last Done Comments Depression Screening 1945 Fall Risk Assessment 1945 Hepatitis C Screening 1945 Hepatitis B Screening 09/30/1965 Well Visit 65+ 09/30/2012 Covid-19 Vaccine (2 - 2023-2 5 season) 2024 07/11/2020 Osteoporosis Screening-Bone Density Scan 05/09/2024 05/09/2022, 05/09/2022, 04/02/2018 Influenza Vaccine (#1) 2025 , 02/14/2023, 04/04/2022, Additional history exists DTaP/Tdap/Td Vaccine (2 - Td or Tdap) 09/16/2033 09/17/2023, 05/07/2004, 05/05/2003 Pneumococcal vaccine 65+ Completed 017, 06/01/2015, 08/26/2014, Additional history exists Zoster Vaccine Completed 12/24/2023, 09/17/2023 Procedures Procedure Name Priority Date/Time Associated Diagnosis Comments POCT GLUCOSE DEVICE Routine 11/23/2024 7 :18 PM CDT XR SHOULDER RIGHT 2 OR MORE VIEWS ED 11/23/2024 5:42 PM CDT XR KNEE RIGHT 3 VIEWS ED 11/23/2024 5:42 PM CDT EGFR STAT 11/23/2024 5:15 PM CDT DIFFERENTIAL AUTO STAT 11/23/2024 5:1 5 PM CDT COMPREHENSIVE METABOLIC PANEL STAT 11/23/2024 5:15 PM CDT CBC WITH AUTO DIFFERENTIAL STAT 11/23/2024 5:15 PM CDT from Last 3 Months Results * POCT glucose (11/23/2024 7:18 PM CDT) Glucose, POC 95 70 - 199 mg/dL Comment:Glu2: RN/MD Notified Blood 11/23/2024 7:18 PM CDT 11/23/2024 7:18 PM CDT us Notinfile Unknown LAB POCT ORDERABLES - DEVICE F inal Result [facility] ([place]) [address] [facility] Department of Laboratories [place], [place] [id number] * XR Knee Right 3 Views (11/23/2024 5:42 PM CDT) Anatomical Region Laterality Modality Lower Extremities, Knee Right Computed Radiography 11/23/2024 5:54 PM CDT Narrative 11/23/2024 5:56 PM CDT EXAM DESCRIPTION: 1. XR KNEE RIGHT 3 VIEWS REASON FOR STUDY: Pain, Lower Extremity Injury or Trauma Right knee and shoulder pain FINDINGS: Three views right knee submitted without comparison. No acute fracture. Alignment is normal. Mild medial and lateral, and moderate to severe patellofemoral predominant tricompartmental right knee osteoarthritis. Small knee effusion. IMPRESSION: 1. No acute fracture. 2. Mild medial and lateral, and moderate to severe patellofemoral predominant tricompartmental right knee osteoarthritis with a small effusion. THIS IS AN ELECTRONICALLY VERIFIED FINAL REPORT 11/23/2024 5:56 PM - Electronically signed by Kt Proctor M.D. MF: VALE Report ID: [id number] Reading Location: [id number] Procedure Note Kt Proctor MD - 11/23/2024 EXAM DESCRIPTION: 1. XR KNEE RIGHT 3 VIEWS REASON FOR STUDY: Pain, Lower Extremity Injury or Trauma Right knee and shoulder pain FINDINGS: Three views right knee submitted without comparison. No acute fracture. Alignment is normal. Mild medial and lateral, and moderate to severe patellofemoral predominant tricompartmental right knee osteoarthritis. Small knee effusion. IMPRESSION: 1. No acute fracture. 2. Mild medial and lateral, and moderate to severe patellofemoral predominant tricompartmental right knee osteoarthritis with a smalleffusion. THIS IS AN ELECTRONICALLY VERIFIED FINAL REPORT 11/23/2024 5:56 PM - Electronically signed by Kt Proctor M.D. MF: VALE Report ID: [id number] Reading Location: [id number] Farshad Moulton MD IMG XR PROCEDURES Final Resu lt * XR Shoulder Right 2 or More Views (11/23/2024 5:42 PM CDT) Anatomical Region Laterality Modality Upper Extremities, Shoulder Right Comp uted Radiography 11/23/2024 6:00 PM CDT Narrative 11/23/2024 6:02 PM CDT EXAM DESCRIPTION: XR SHOULDER RIGHT 2 OR MORE VIEWS REASON FOR STUDY: Pain, Upper Extremity Injury or Trauma today TECHNIQUE: 4 radiographic view(s) of the right shoulder . COMPARISON: None FINDINGS: Four views of the right shoulder demonstrate no fracture or dislocation. There is degenerative change with osteophytic spurring about the humeral head and the glenoid and about the right acromioclavicular joint. There is narrowing of the glenohumeral joint. The bones are osteopenic. IMPRESSION: Degenerative change right shoulder. No acute abnormality. THIS IS AN ELECTRONICALLY VERIFIED FINAL REPORT 11/23/2024 6:02 PM - Electronically signed by Deep Yen M.D. KT: THAO Report ID: [id number] Reading Location: [id number] Procedure Note Deep Yen MD - 11/23/2024 EXAM DESCRIPTION: XR SHOULDER RIGHT 2 OR MORE VIEWS REASON FOR STUDY: Pain, Upper Extremity Injury or Trauma today TECHNIQUE: 4 radiographic view(s) of the right shoulder . COMPARISON: None FINDINGS: Four views of the right shoulder demonstrate no fracture or dislocation. There is degenerative change with osteophytic spurring about the humeralhead and the glenoid and about the right acromioclavicular joint. There is narrowing of the glenohumeral joint. The bones are osteopenic. IMPRESSION: Degenerative change right shoulder. No acute abnormality. THIS IS AN ELECTRONICALLY VERIFIED FINAL REPORT 11/23/2024 6:02 PM - Electronically signed by Deep Yen M.D. KT: KT Report ID: [id number] Reading Location: [place] [address] [place] Farshad Moulton MD IMG XR PROCEDURES Final Resu lt * eGFR (11/23/2024 5:15 PM CDT) eGFR 76 >=60 mL/min/1. 73 m2 Comment: Interpretive Data Reference Interval Normal >/= 90 mL/min/1.73m2 Mildly decreased* 60 - 89 mL/min/1.73m2 Mildly to moderately decreased 45 - 59 mL/min/1.73m2 Moderately to severely decreased 30 - 44 mL/min/1.73m2 Severely decreased 15 - 29 mL/min/1.73m2 Kidney Failure < 15 mL/min/1.73m2 *Relative to young adult level Estimated glomerular filtration rate is determined by the 2020 CKD-EPI equation recommended by the National Kidney Foundation (A Unifying Approach to GFR Estimation: Recommendations of the NKF-ASK Task Force on Reassessing the Inclusion of Race in Diagnosing Kidney Disease, JASN 202). The CKD-EPI equation should not be used for patients with unstable renal function and has not been validated in children and those over 70. Current interpretive data was last reviewed 2021. Blood 11/23/2024 5:15 PM CDT 11/23/2024 5:44 PM CDT us Farshad Moulton MD LAB BLOOD ORDERABLES Final R esult [facility] ([place]) [address] [facility] [place] [address] * Differential, auto (11/23/2024 5:15 PM CDT) Neutrophil abs 3.31 1.50 - 6.50 K/cumm Imm gran abs 0.02 0.00 - 0.10 K/cumm [facility] ([facility]) Lymphocyte abs 3.00 0.80 - 3.30 K/cumm [facility] ([facility]) Monocyte abs 0.50 0.20 - 0.80 K/cumm [facility] ([facility]) Eosinophil abs 0.22 0.00 - 0.50 K/cumm [facility] ([facility]) Basophil abs 0.03 0.00 - 0.10 K/cumm [facility] ([facility]) Neutrophil pct 46.7 % [facility] ([facility]) Comment: Interpretive Data Percent cell count reference ranges are not reported, since discordance with absolute values may lead to misinterpretation of CBC data. Current Interpretive Data was last revised on 2017. Imm gran pct 0.3 % [facility] ([facility]) Comment: Interpretive Data Percent cell count reference ranges are not reported, since discordance with absolute values may lead to misinterpretation of CBC data. Current Interpretive Data was last revised on 2017. Lymphocyte pct 42.4 % [facility] ([facility]) Comment: Interpretive Data Percent cell count reference ranges are not reported, since discordance with absolute values may lead to misinterpretation of CBC data. Current Interpretive Data was last revised on 2017. Monocyte pct 7.1 % [facility] ([facility]) Comment: Interpretive Data Percent cell count reference ranges are not reported, since discordance with absolute values may lead to misinterpretation of CBC data. Current Interpretive Data was last revised on 2017. Eosinophil pct 3.1 % [facility] ([facility]) Comment: Interpretive Data Percent cell count reference ranges are not reported, since discordance with absolute values may lead to misinterpretation of CBC data. Current Interpretive Data was last revised on 2017. Basophil pct 0.4 % [facility] ([facility]) Comment: Interpretive Data Percent cell count reference ranges are not reported, since discordance with absolute values may lead to misinterpretation of CBC data. Current Interpretive Data was last revised on 2017. Blood 11/23/2024 5:15 PM CDT 11/23/2024 5:44 PM CDT Farshad Moulton MD LAB BLOOD ORDERABLES Final R esult [facility] ([facility]) [address] [facility] [place] [address] * (ABNORMAL) CBC with auto differential (11/23/2024 5:15 PM CDT) WBC 7.08 3.80 - 9.90 K/cumm Hgb 13.5 11.9 - 15.5 g/dL [facility] ([facility]) Hct 41.1 35.6 - 45.5 % [facility] ([facility]) Plt 198 150 - 400 K/cumm [facility] ([facility]) MPV 10.7 9.1 - 12.3 fL [facility] ([facility]) RBC 3.95 3.90 - 5.20 M/cumm [facility] ([facility]) MCV 104.1(H) 81.3 - 96.4 fL [facility] ([facility]) MCH 34.2(H) 27.1 - 33.3 pg [facility] ([facility]) MCHC 32.8 32.3 - 35.7 g/dL [facility] ([facility]) RDW CV 13.5 11.1 - 14.9 % [facility] ([facility]) RDW SD 51.8(H) 35.7 - 48.1 fL [facility] ([facility]) NRBC abs 0.00 0.00 - 0.01 K/cumm [facility] ([facility]) Blood 11/23/2024 5:15 PM CDT 11/23/2024 5:44 PM CDT Farshad Moulton MD LAB BLOOD ORDERABLES Final R esult [facility] ([facility]) [address] [facility] [place] [address] * Comprehensive metabolic panel (11/23/2024 5:15 PM CDT) Sodium 141 135 - 145 mmol/L [facility] ([facility]) Potassium, pl 4.5 3.3 - 4.9 mmol/L [facility] ([facility]) Chloride 106 97 - 110 mmol/L [facility] ([facility]) CO2 23 22 - 32 mmol/L [facility] ([facility]) Anion gap 12 2 - 15 mmol/L [facility] ([facility]) BUN 24 6 - 25 mg/dL [facility] ([facility]) Creatinine 0.80 0.60 - 1.10 mg/dL [facility] ([facility]) Glucose 88 70 - 199 mg/dL [facility] ([facility]) Comment: Interpretive Data Fasting glucose >/= 126 mg/dl is diagnostic for diabetes. Fasting is defined as no caloric intake for at least 8 hours. Fasting glucose between 100 mg/dl to 125 mg/dl is diagnostic of prediabetes. In a patient with classic symptoms of hyperglycemia or hyperglycemic crisis, a random glucose >/= 200 mg/dl is diagnostic for diabetes. In the absence of unequivocal hyperglycemia, results should be confirmed by repeat testing. The classification and Diagnosis of Diabetes Diabetes Care 2021; 46: S19-S40. Current interpretive data was last revised 2022. Calcium 9.5 8.5 - 10.3 mg/dL [facility] ([facility]) Bilirubin, total 0.2 0.1 - 1.2 mg/dL [facility] ([facility]) Protein, pl 7.1 6.5 - 8.5 g/dL [facility] ([facility]) Albumin 3.8 3.5 - 5.0 g/dL [facility] ([facility]) Alk phos 98 40 - 130 Units/L [facility] ([facility]) ALT 31 7 - 45 Units/L [facility] ([facility]) AST 39 10 - 45 Units/L [facility] ([facility]) Blood 11/23/2024 5:15 PM CDT 11/23/2024 5:44 PM CDT us Farshad Moulton MD LAB BLOOD ORDERABLES Final R esult [facility] ([place]) [facility] [place] [address] from Last 3 Months Insurance [employer] [facility] Care Teams Chemical Packager Relationship Specialty Start Date End Date Miscellaneous, Not In File PCP - General 11/23/24
--- OUTSIDE RECORDS SUMMARY | 2024-11-29 19:47 | XMS_ITS | Referral Summary ---
Author Organization [facility] Address [address] [place] [address] Care Team Providers Care Packing House Laborer Name Role Phone Miscellaneous, Not In File Primary Care Provider Unavailable Encounters Date Type Department Care Team Description 11/23/2024 10:12 PM CDT - 11/23/2024 11:59 PM CDT Hospital Encounter [facility] Discharge Disposition: Discharge to home or self care 11/23/2024 7:22 PM CDT - 11/23/2024 9:50 PM CDT Emergency [facility] Emergency Department 1 [place] [address] Fall, initial encounter (Primary Dx); Contusion of multiple sites of right shoulder, initial encounter; Acute pain of right knee Discharge Disposition: Discharge to home or self care from Last 3 Months Allergies Active Allergy Reactions Criticality Noted Date Comments Gabapentin Other (See comments) 11/23/2024 Makes me feel weird Medications No known medications Social History Tobacco Use Types Packs/Day Years [...] on file 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 MF: VALE Report ID: [id number] Reading Location: [id number] Procedure Note Kt Proctor MD - 11/23/2024 [...] Kt Proctor M.D. MF: VALE Report ID: [id number] Reading Location: [id number] us Farshad Moulton MD IMG XR PROCEDURES [...] Deep Yen M.D. KT: THAO Report ID: [id number] Reading Location: [id number] Procedure Note Deep Yen MD - 11/23/2024 [...] Deep Yen M.D. KT: THAO Report ID: [id number] Reading Location: [id number] us Farshad Moulton MD IMG XR PROCEDURES [...] of Race in Diagnosing Kidney Disease, JASN 2020). The CKD-EPI equation should not be used for patients with unstable renal function and has not been validated in children and those over 70. Current interpretive data was last reviewed 2021. Blood 11/23/2024 5:15 PM CDT 11/23/2024 5:44 PM CDT us Farshad Moulton MD LAB BLOOD ORDERABLES Final R esult [facility] ([place]) 1 [facility] Department [place] [address] * Differential, auto (11/23/2024 5:15 PM CDT) [...] 0.03 0.00 - 0.10 K/cumm [facility] ([place]) Neutrophil pct 46.7 % [facility] ([facility]) Comment: Interpretive Data Percent cell count reference ranges are not reported, since discordance with absolute values may lead to misinterpretation of CBC data. Current Interpretive Data was last revised on 2017. Imm gran pct 0.3 % [facility] ([facility]) Comment: Interpretive Data Percent cell [...] revised on 2017. Monocyte pct 7.1 % [facility] ([facility]) Comment: Interpretive Data Percent cell count reference ranges are not reported, since discordance with absolute values may lead to misinterpretation of CBC data. Current Interpretive Data was last revised on 2017. Eosinophil pct 3.1 % [facility] ([facility]) Comment: Interpretive Data Percent cell count reference ranges are not reported, since discordance with absolute values may lead to misinterpretation of CBC data. Current Interpretive Data was last revised on 2017. Basophil pct 0.4 % [facility] ([facility]) Comment: Interpretive Data Percent cell count reference ranges are not reported, since discordance with absolute values may lead to misinterpretation of CBC data. Current Interpretive Data was last revised on 2017. Blood 11/23/2024 5:15 PM CDT 11/23/2024 5:44 PM CDT us Farshad Moulton MD LAB BLOOD ORDERABLES Final R esult [facility] ([facility]) 1 [facility] Department of Laboratories [place], [place] [id number] * (ABNORMAL) CBC with auto differential (11/23/2024 [...] Final R esult [facility] ([facility]) 1 [facility] [place] [address] * Comprehensive metabolic panel (11/23/2024 5:15 PM CDT) Sodium 141 135 - 145 mmol/L [facility] Potassium, pl 4.5 3.3 - [...] ([facility]) Glucose 88 70 - 199 mg/dL [facility] ([facility] Comment: Interpretive Data Fasting glucose [...] BLOOD ORDERABLES Final R esult [facility] ([facility]) 1 [facility] [place] [address] from Last 3 Months Insurance [facility] [employer] [place] Care Teams Packing House Laborer Relationship Specialty Start Date End Date Miscellaneous, Not In File PCP - General 11/23/24
--- OUTSIDE RECORDS SUMMARY | 2024-11-29 19:48 | XMS_ITS | Clinical Summary ---
Author Organization [facility] Address [address] [place] [address] Care Team Providers Care Hoof And Shoe Inspector Name Role Phone Abhishek Chambers MD Primary Care Provider [phone] [phone] Allergies Active Allergy Reactions Criticality Noted Date [...] 01/26/20 24 Active naloxone (NARCAN) 4 mg/spray [place], Non-Aerosol EMERGENCY USE ONLY: Administer 1 spray [...] 04/18/2022 Assessment & Plan (05/26/2023 10:56 PM RESTAURANT HOST/HOSTESS): Safety reviewed Non-compliant patient 04/04/2022 Assessment & Plan (04/04/2022 12:20 PM RESTAURANT HOST/HOSTESS): Worsening. Extensive discussion with patient and her [...] 04/04/2022 Assessment & Plan (05/26/2023 10:56 PM RESTAURANT HOST/HOSTESS): At baseline Anemia 04/04/2022 Physical deconditioning 09/28/2020 Assessment & Plan (05/26/2023 10:57 PM RESTAURANT HOST/HOSTESS): Recommended more activity which she says she [...] Morbid obesity, unspecified obesity type 05/25/2018 09/28/2020 alf current use of insulin 05/25/2018 09/28/2020 Skin [...] Months Immunizations Immunization Administration Dates Next Due (JAYLNA) COVID-19 VACCINE - EMERGENCY USE AUTHORIZATION, AD26,COV2S(PF) [...] Visit [facility] Neurosurgery - [address] [place] [address] [place] [address] [facility] [address] [place] [address] Health Maintenance Due Date Last [...] years Discontinued Medical Devices Implanted Type Area Rafter Cutting Machine Operator Device Identifier Shelf Expiration Date Model / Serial / Lot Karri Infinity 3.5x70mm Pre-Cut [id number] - [id number] Implanted:Qt y: 2 on 01/19/2024 by Ritesh Meraz MD at [facility] Karri N/A: Spine Cervical Posterior [employer] [id number] / / Description:STERILIZED DATE: 01/06/2024 LOAD # [id number] Screw Infinity 4.5x26mm Mas [id number] - [id number] Implanted:Qt y: 2 on 01/19/2024 by Ritesh Meraz MD at [facility] Screw N/A: Spine Cervical Posterior [employer] [id number] / / Description:STERLIZED DATE: 01/06/2024 LOAD # 247 704 Screw Infinity 3.5x18mm Mas [id number] - [id number] Implanted:Qt y: 4 on 01/19/2024 by Ritesh eMraz MD at [facility] Screw N/A: Spine Cervical Posterior [employer] [id number] / / Description:STERILIZED DATE: 01/06/2024 LOAD # 247 502 Screw Infinity 3.5x20mm Mas [id number] - [id number] Implanted:Qt y: 1 on 01/19/2024 by Ritesh Meraz MD at [facility] Screw N/A: Spine Cervical Posterior [employer] [id number] / / Description:STERILIZED DATE: 01/06/2024 LOAD # 247 502 Screw Infinity 4.0x20mm Mas [id number] - [id number] Implanted:Qt y: 1 on 01/19/2024 by Ritesh Meraz MD at [facility] Screw N/A: Spine Cervical Posterior [employer] [id number] / / Description:STERILIZED DATE: 01/06/2024 LOAD # 247 502 Set Screw Infinity Oc M6 [id number] - [id number] Implanted:Qt y: 8 on 01/19/2024 by Ritesh Meraz MD at [facility] Screw N/A: Spine Cervical Posterior [employer] [id number] / / Description:STERILIZED DATE: 01/06/2024 LOAD # 247 502 Allograft [employer] [id number] - [id number] Implanted:Qt y: 1 on 01/19/2024 by Rietsh Meraz MD at [facility] Tissue N/A: Spine Cervical Posterior [employer] [id number] 06/25/2025 [id number] / [id number] Description:[id number] 07/22/2022 Implanted: by Dino Cox MD (Quantity not on file) 04/03/2025 / / [id number] Description:1CC BILAT T12 FO R TOTAL OF 2CC 1.5CC BILAT L1 FOR TOTAL OF 3CC Procedures Procedure Name Priority Date/Time Associated Diagnosis Comments HEMOGLOBIN A1C Routine 03/25/2023 1:48 PM RESTAURANT HOST/HOSTESS COLON CANCER SCREEN, STOOL DNA Routine 11/26/2022 6:30 PM CDT Screening for colorectal cancer XR DEXA BONE DENSITY AXIAL 1 OR MORE SITES Routine 05/09/2022 2:57 PM RESTAURANT HOST/HOSTESS Osteopenia of multiple sites MICROALBUMIN/CREATI NINE RATIO, RANDOM UR Routine 11/02/2021 12:10 PM CDT Type 2 diabetes mellitus with diabetic polyneuropathy, with long-term current use of insulin ([facility]/HCC) LIPID PANEL Routine 11/02/2021 11:59 AM CDT Type 2 diabetes mellitus with diabetic polyneuropathy, with long-term current use of insulin ([facility]) Mixed hyperlipidemia ENDOSCOPY, COLON, DIAGNOSTIC Routine 07/05/2011 from Last 3 Months or Most Recently Relevant to Health Maintenance Results * HEMOGLOBIN A1C (03/25/2023 1:48 PM RESTAURANT HOST/HOSTESS) ABSTRACTED HGB A1C 6.3 [facility] Blood us Abstract Provider CHEMISTRY ORDERABLES Edited Re sult - Final [facility] CLIA# [id number] [address] * COLON CANCER SCREEN, STOOL DNA (11/26/2022 6:30 PM CDT) COLOGUARD RESULT Negative Negative [facility] [employer] [facility] Comment: NEGATIVE TEST RESULT. A [...] (Philippe Holden al, N Engl J Med 2014;370(14):1376-9067) The normal value (reference range) for this assay is negative. COLOGUARD RE-SCREENING RECOMMENDATION: Periodic colorectal cancer screening is an important part of preventive healthcare for asymptomatic individuals at average risk for colorectal cancer. Following a negative Cologuard result, the [place] Cancer Society and U.S. Multi-Society Task Force screening guidelines recommend a Cologuard re-screening interval of 3 years. References: [place] Cancer Society Guideline for Colorectal Cancer Screening: https://www.cancer.org/cancer/rphfp-csxvcb-fkyxim/rhzntxrya-hfmzhefrv-ylprhqn/ac s-rec ommendations.html.; Neil DK, Loretta SAHNI, Bhavna ElK, Colorectal Cancer Screening: Recommendations for Physicians and Patients from the U.S. Multi-Society Task Force on Colorectal Cancer Screening , Am J Gastroenterology 2017; 112:9690-6134. TEST DESCRIPTION: Composite algorithmic analysis of stool [...] (Philippe Holden al, N Engl J Med 2014;370(14):3434-2540.) Cologuard may produce a false negative or false positive result (no colorectal cancer or precancerous polyp present at colonoscopy follow up). A negative Cologuard test result does not guarantee the absence of CRC or advanced adenoma (pre-cancer). The current Cologuard screening interval is every 3 years. ([place] Cancer Society and U.S. Multi-Society Task Force). Cologuard performance data in a 10,000 patient pivotal study using colonoscopy as the reference method can be accessed at the following location: www.SpareTime.Waspit/results. Additional description of the Cologuard test process, warnings and precautions can be found at www.CortheraogImmuRxrd.Waspit. Stool STOOL SPECIMEN / Unknown 11/26/2022 6:30 PM CDT 11/29/2022 5:06 AM CDT us Mikie Hidalgo MD BODY FLUIDS AND STOOLS Final Res ult [facility] CLIA # [id number] [address] [facility], [address] [place] [address] * XR DEXA BONE DENSITY AXIAL 1 OR MORE SITES (05/09/2022 2:57 PM RESTAURANT HOST/HOSTESS) Anatomical Region Laterality Modality Computed Radiogr aphy 05/09/2022 2:58 PM RESTAURANT HOST/HOSTESS Impressions 05/09/2022 3:02 PM RESTAURANT HOST/HOSTESS FINDINGS/IMPRESSION: Osteopenia with a lowest T score of -2.3. Fracture risk is moderate. The lowest T score on the previous study was -1.9. FRAX: 10 year probability of major osteoporotic fracture is 21.9 %. 10 year probability of hip fracture is 5.9 %. Please refer to the full report available in [facility] under the PACS Images tab. If a faxed copy is needed, please call [phone]. DICTATION LOCATION: [facility] Narrative 05/09/2022 3:02 PM RESTAURANT HOST/HOSTESS SUMMARY DEXA REPORT DATE: 05/09/2022 2:57 PM [...] refer to the full report available in [facility] under the PACS Images tab. If a faxed copy is needed, please call [phone]. DICTATION LOCATION: [facility] Mikie Hidalgo MD DIAGNOSTIC IMAGING ORDERABLES Fi nal Result * MICROALBUMIN/CREATININE RATIO, RANDOM UR (11/02/2021 12:10 PM CDT) Creatinine, Urine 134 20 - 275 mg/dL [facility] MICROALBUMIN, URINE 0.9 See Note: mg/dL [facility] Comment: Reference Range: Reference Range [...] within a diagnostic category. Test Performed at: [facility] [address] [phone] Tommy Cruz D.O., MPH Urine URINE SPECIMEN OBTAINED BY CLEAN CATCH PROCEDURE / Unknown 11/02/2021 12:10 PM CDT 11/02/2021 12:11 PM CDT Mikie Hidalgo MD URINE ORDERABLES Final Result [facility] [phone] [facility] [address] [address] * (ABNORMAL) LIPID PANEL (11/02/2021 11:59 AM CDT) CHOLESTEROL 161 <200 mg/dL [facility] HDL 87 > OR = 50 mg/dL [facility] TRIGLYCERIDE 155(H) <150 mg/dL [facility] LDL CALCULATED 51 mg/dL (calc) [facility] Comment: Reference range: <100 Desirable range <100 mg/dL for primary prevention; <70 mg/dL for patients with CHD or diabetic patients with > or = 2 CHD risk factors. LDL-C is now calculated using the Romeo calculation, which is a validated novel method providing better accuracy than the Friedewald equation in the estimation of LDL-C. Luis Antonio SS et al. CLAY. 2013;310(19): 9891-9506 (http://education.MusicGremlin/faq/CTV030) CHOL/HDL RATIO 1.9 <5.0 (calc) [facility] TOTAL NON-HDL CHOL(LDL+VLDL) 74 <130 mg/dL (calc) [facility] [place] Comment: For patients with diabetes plus 1 major ASCVD risk factor, treating to a non-HDL-C goal of <100 mg/dL (LDL-C of <70 mg/dL) is considered a therapeutic option. Test Performed at: [place] [address] [address] [place] [address] Jason Milton Blood 11/02/2021 11:5 9 AM CDT 11/02/2021 12:01 PM CDT Mikie Hidalgo MD CHEMISTRY ORDERABLES Final Resul t [facility] [phone] [facility] [place] [address] [address] [place] [address] * (ABNORMAL) ENDOSCOPY, COLON, DIAGNOSTIC (07/05/2011) Abstract Provider GI PROCEDURE ORDERABLES Edited Result - Final from Last 3 Months or Most Recently Relevant to Health Maintenance Insurance [facility] [place] [employer]I [employer] [facility] Medicare Part D [facility] MMAI Advance Directives For more information, please contact: [phone] * Full Code (Latest Code Status on [...] 9:22 AM 09/09/2022 6:26 PM Care Teams Hoof And Shoe Inspector Relationship Specialty Start Date End Date Abhishek Chambers MD [address] [place] [id number] PCP - General Family Practice 12/11/23
[2024-11-29 19:51] VITALS: BP 159/74; PULSE 66; RESP 17; TEMP 36.7; O2SAT 95
[2024-11-29 23:00] VITALS: BP 178/91; PULSE 71; RESP 20; O2SAT 100
[2024-11-29 23:09] LABS: Hematocrit 36.1 % (37.0-47.0); Hemoglobin 11.2 g/dL (12.0-15.0); Immature Granulocyte Percent A 0.3 % (0-0.5); Lymphocytes Absolute Auto 3.16 K/mm3 (0.9-3.2); Mean Corpuscular HGB Conc 31.0 g/dl (32-36); Mean Corpuscular Hemoglobin 34.3 pg (26-34); Mean Corpuscular Volume 110.4 fl (80-100); Nucleated Red Blood Cells Absolute Auto 0.000 K/mm3 (0.0-0.012); Nucleated Red Blood Cells Perc 0.0 % (0.0-0.2); Platelet Count Result 149 k/mm3 (150-375); Red Blood Count 3.27 M/mm3 (4.2-5.4); White Blood Count 7.8 K/mm3 (4.5-10.0)
[2024-11-29 23:28] LABS: Macrocytosis 1+ (NORMAL); Schistocytes None Seen
--- OUTSIDE RECORDS SUMMARY | 2024-11-29 23:49 | XMS_ITS | Encounter Summary ---
Author Organization [facility] Address [address] [place] [address] Care Team Providers Care Bushel Girl Name Role Phone Abhishek Chambers MD Primary Care Provider +1 -[phone] Reason for Visit * Reason Onset Date Comments Dizziness and syncope 10/02/2020 Spoke w/De nise at Dr. Rosendo Turner's ex./Going to Dr. Herson Turner Encounter Details Date Type Department Care Team (Late st Contact Info) Description 10/02/2020 Telephone [facility] Admitting [address] [place] [address] [place] [address] [address] Dizziness and syncope (Spoke w/Romina [...] Description 01/21/2025 10:50 AM CDT Office Visit [facility] - [address] [place] [id number] [place] [address] [address] [place] [address] [place] [address] [facility] [address] [place] [address] documented as of this encounter Visit Diagnoses Not on filedocumented in this encounter Additional Health Concerns Infection Onset Date Last Indicated Resolved Time R/O GI Pathogen 01/27/2023 01/27/2023 01/29/2023 1 0:11 AM CDT documented as of this encounter Care Teams Bushel Girl Relationship Specialty Start Date End Date Abhishek Chambers MD [address] [place] [address] PCP - General Family Practice 12/11/23 documented as of this encounter
--- OUTSIDE RECORDS SUMMARY | 2024-11-29 23:49 | XMS_ITS | Encounter Summary ---
Author Organization [facility] Address [address] [place] [address] Care Team Providers Care Pelletizer Operator Name Role Phone Abhishek Chambers MD Primary Care Provider +1 -[phone] Encounter Details Date Type Department Care Team (Late st Contact Info) Description 01/23/2024 Hospital Encounter [address] [address] Shahzad Ramirez MD [address] [place] [address] Social History Tobacco Use Types Packs/Day [...] Description 01/21/2025 10:50 AM CDT Office Visit [facility] - [address] [place] [address] [place] [address] [facility] [address] [place] [address] documented as of this encounter Visit Diagnoses Not on filedocumented in this encounter Additional Health Concerns Assessment Noted Time PHQ-9 Depression Total Score: 2 05/19/19 24 10:20 AM ROTARY DRIER OPERATOR documented as of this encounter Care Teams Pelletizer Operator Relationship Specialty Start Date End Date Abhishek Chambers MD [address] [place] [phone] PCP - General Family Practice 12/11/23 documented as of this encounter
--- OUTSIDE RECORDS SUMMARY | 2024-11-29 23:49 | XMS_ITS | Encounter Summary ---
Author Organization [facility] Address [address] [place] [address] Care Team Providers Care Competitive Shopper Name Role Phone Abhishek Chambers MD Primary Care Provider +1 -[phone] Reason for Visit * Reason Onset Date Comments Dizziness and syncope 10/02/2020 Spoke w/De nise at Dr. hicks's ex./Going to dr. Weiss Encounter Details Date Type Department Care Team ([facility] Contact Info) Description 10/02/2020 Telephone [facility] Admitting [address] [place] [address] [place] [address] [facility] [address] [place] [address] Dizziness and syncope (Spoke w/Romina [...] Upcoming Encounters Date Type Department Care Team ([facility] Contact Info) Description 01/21/2025 10:50 AM CDT Office Visit [facility] - [address] [place] [address] [facility] [address] [place] [address] [place] [address] [facility] [address] [place] [address] documented as of this encounter Visit Diagnoses Not on filedocumented in this encounter Additional Health Concerns Infection Onset Date Last Indicated Resolved Time R/O GI Pathogen 01/27/2023 01/27/2023 01/29/2023 1 0:11 AM CDT documented as of this encounter Care Teams Competitive Shopper Relationship Specialty Start Date End Date Abhishek Chambers MD [address] [place] [address] PCP - General Family Practice 12/11/23 documented as of this encounter
--- OUTSIDE RECORDS SUMMARY | 2024-11-29 23:49 | XMS_ITS | Clinical Summary ---
Author Organization [facility] Address [address] [place] [address] Care Team Providers Care Mill Tender Second Operator Name Role Phone Abhishek Chambers MD Primary Care Provider [phone] Allergies Active Allergy Reactions Criticality Noted Date [...] 01/26/20 24 Active naloxone (NARCAN) 4 mg/spray [place], Non-Aerosol EMERGENCY USE ONLY: Administer 1 spray [...] 04/18/2022 Assessment & Plan (05/26/2023 10:56 PM WINDOW GLAZIER): Safety reviewed Non-compliant patient 04/04/2022 Assessment & Plan (04/04/2022 12:20 PM WINDOW GLAZIER): Worsening. Extensive discussion with patient and her [...] 04/04/2022 Assessment & Plan (05/26/2023 10:56 PM WINDOW GLAZIER): At baseline Anemia 04/04/2022 Physical deconditioning 09/28/2020 Assessment & Plan (05/26/2023 10:57 PM WINDOW GLAZIER): Recommended more activity which she says she [...] [facility] Neurosurgery - [address] [place] [address] [place] [address] [facility] [address] [place] [address] Health Maintenance Due Date Last [...] years Discontinued Medical Devices Implanted Type Area Fruit Harvest Worker Device Identifier Shelf Expiration Date Model / Serial / Lot Karri Infinity 3.5x70mm Pre-Cut [id number] - [id number] Implanted:Qt y: 2 on 01/19/2024 by Ritesh Meraz MD at [facility] Karri N/A: Spine Cervical Posterior [employer] SO[employer]AMOR DANEK [id number] / / Description:STERILIZED DATE: 01/06/2024 LOAD # 247 502 Screw Infinity 4.5x26mm Mas [id number] - [id number] Implanted:Qt y: 2 on 01/19/2024 by Ritesh Meraz MD at [facility] Screw N/A: Spine Cervical Posterior [employer] SOFAMOR DANEK [id number] / / Description:STERLIZED DATE: 01/06/2024 LOAD # 247 704 Screw Infinity 3.5x18mm Mas [id number] - [id number] Implanted:Qt y: 4 on 01/19/2024 by Ritesh Meraz MD at [facility] Screw N/A: Spine Cervical Posterior [employer] SOFAMOR DANEK [id number] / / Description:STERILIZED DATE: 01/06/2024 LOAD # 247 502 Screw Infinity 3.5x20mm Mas [id number] - [id number] Implanted:Qt y: 1 on 01/19/2024 by Ritehs Meraz MD at [facility] Screw N/A: Spine Cervical Posterior [employer]ANEK [id number] / / Description:STERILIZED DATE: 01/06/2024 LOAD # 247 502 Screw Infinity 4.0x20mm Mas [id number] - [id number] Implanted:Qt y: 1 on 01/19/2024 by Ritesh Meraz MD at [facility] Screw N/A: Spine Cervical Posterior [employer] [id number] / / Description:STERILIZED DATE: 01/06/2024 LOAD # 247 502 Set Screw Infinity Oc M6 [id number] - [id number] Implanted:Qt y: 8 on 01/19/2024 by Ritesh Meraz MD at [facility] Screw N/A: Spine Cervical Posterior [employer]ANEK [id number] / / Description:STERILIZED DATE: 01/06/2024 LOAD # 247 502 Allograft [employer] [id number] - [id number] Implanted:Qt y: 1 on 01/19/2024 by Ritesh Meraz MD at [facility] Tissue N/A: Spine Cervical Posterior [employer] [id number] 06/25/2025 [id number] / [id number] Description:[id number] 07/22/2022 Implanted: by Dino Cox MD (Quantity not on file) 04/03/2025 / / [id number] Description:1CC BILAT T12 FO R TOTAL OF 2CC 1.5CC BILAT L1 FOR TOTAL OF 3CC Procedures Procedure Name Priority Date/Time Associated Diagnosis Comments HEMOGLOBIN A1C Routine 03/25/2023 1:48 PM WINDOW GLAZIER COLON CANCER SCREEN, STOOL DNA Routine 11/26/2022 6:30 PM CDT Screening for colorectal cancer XR DEXA BONE DENSITY AXIAL 1 OR MORE SITES Routine 05/09/2022 2:57 PM WINDOW GLAZIER Osteopenia of multiple sites MICROALBUMIN/CREATI NINE RATIO, RANDOM UR Routine 11/02/2021 12:10 PM CDT Type 2 diabetes mellitus with diabetic polyneuropathy, with long-term current use of insulin ([facility]/HCC) LIPID PANEL Routine 11/02/2021 11:59 AM CDT Type 2 diabetes mellitus with diabetic polyneuropathy, with long-term current use of insulin ([facility]) Mixed hyperlipidemia ENDOSCOPY, COLON, DIAGNOSTIC Routine 07/05/2011 from Last 3 Months or Most Recently Relevant to Health Maintenance Results * HEMOGLOBIN A1C (03/25/2023 1:48 PM WINDOW GLAZIER) ABSTRACTED HGB A1C 6.3 [facility] Blood us Abstract Provider CHEMISTRY ORDERABLES Edited Re sult - Final [facility] CLIA# [id number] [address] [address] * COLON CANCER SCREEN, STOOL DNA (11/26/2022 6:30 PM CDT) COLOGUARD RESULT Negative Negative [facility] Comment: NEGATIVE TEST RESULT. A [...] (Philippe Holden al, N Engl J Med 2014;370(14):8251-6785) The normal value (reference range) for this assay is negative. COLOGUARD RE-SCREENING RECOMMENDATION: Periodic colorectal cancer screening is an important part of preventive healthcare for asymptomatic individuals at average risk for colorectal cancer. Following a negative Cologuard result, the [place] Cancer Society and U.S. Multi-Society Task Force screening guidelines recommend a Cologuard re-screening interval of 3 years. References: [place] [employer] Guideline for Colorectal Cancer Screening: https://www.cancer.org/cancer/ngdvu-ijwjjz-ymyxfo/fpoosngjr-pysobaphm-fmlyxum/ac s-rec ommendations.html.; Neil DK, Loretta SAHNI, Bhavna ElK, Colorectal Cancer Screening: Recommendations for Physicians and Patients from the U.S. Multi-Society Task Force on Colorectal Cancer Screening , Am J Gastroenterology 2017; 112:3338-6306. TEST DESCRIPTION: Composite algorithmic analysis of stool [...] (Philippe Holden al, N Engl J Med 2014;370(14):5499-6523.) Cologuard may produce a false negative or false positive result (no colorectal cancer or precancerous polyp present at colonoscopy follow up). A negative Cologuard test result does not guarantee the absence of CRC or advanced adenoma (pre-cancer). The current Cologuard screening interval is every 3 years. ([place] Cancer Society and U.S. Multi-Society Task Force). Cologuard performance data in a 10,000 patient pivotal study using colonoscopy as the reference method can be accessed at the following location: www.[employer].[facility]/results. Additional description of the Cologuard test process, warnings and precautions can be found at www.[employer] [facility]. Stool STOOL SPECIMEN / Unknown 11/26/2022 6:30 PM CDT 11/29/2022 5:06 AM CDT us Mikie Hidalgo MD BODY FLUIDS AND STOOLS Final Res ult [employer] CLIA # [id number] [address] [facility], [address] [place] [address] * XR DEXA BONE DENSITY AXIAL 1 OR MORE SITES (05/09/2022 2:57 PM WINDOW GLAZIER) Anatomical Region Laterality Modality Computed Radiogr aphy 05/09/2022 2:58 PM WINDOW GLAZIER Impressions 05/09/2022 3:02 PM WINDOW GLAZIER FINDINGS/IMPRESSION: Osteopenia with a lowest T score of -2.3. Fracture risk is moderate. The lowest T score on the previous study was -1.9. FRAX: 10 year probability of major osteoporotic fracture is 21.9 %. 10 year probability of hip fracture is 5.9 %. Please refer to the full report available in [facility] under the PACS Images tab. If a faxed copy is needed, please call [phone]. DICTATION LOCATION: [facility] Narrative 05/09/2022 3:02 PM WINDOW GLAZIER SUMMARY DEXA REPORT DATE: 05/09/2022 2:57 PM [...] refer to the full report available in [facility] under the PACS Images tab. If a faxed copy is needed, please call [phone]. DICTATION LOCATION: [facility] Mikie Hidalgo MD DIAGNOSTIC IMAGING ORDERABLES Fi nal Result * MICROALBUMIN/CREATININE RATIO, RANDOM UR (11/02/2021 12:10 PM CDT) Creatinine, Urine 134 20 - 275 mg/dL [facility] MICROALBUMIN, URINE 0.9 See Note: mg/dL [facility] Comment: Reference Range: Reference Range [...] within a diagnostic category. Test Performed at: [facility] [address] [address] Tommy Cruz D.O., MPH Urine URINE SPECIMEN OBTAINED BY CLEAN CATCH PROCEDURE / Unknown 11/02/2021 12:10 PM CDT 11/02/2021 12:11 PM CDT Mikie Hidalgo MD URINE ORDERABLES Final Result [facility] [phone] [facility] [address] [address] [address] * (ABNORMAL) LIPID PANEL (11/02/2021 11:59 AM CDT) CHOLESTEROL 161 <200 mg/dL [facility] HDL 87 > OR = 50 mg/dL [facility] TRIGLYCERIDE 155(H) <150 mg/dL [facility] LDL CALCULATED 51 mg/dL (calc) [facility] [place] Comment: Reference range: <100 Desirable range <100 mg/dL for primary prevention; <70 mg/dL for patients with CHD or diabetic patients with > or = 2 CHD risk factors. LDL-C is now calculated using the Romeo calculation, which is a validated novel method providing better accuracy than the Friedewald equation in the estimation of LDL-C. Luis Antonio SS et al. CLAY. 2013;310(19): 1898-3855 (http://education.[employer]/faq/UXI544) CHOL/HDL RATIO 1.9 <5.0 (calc) [facility] TOTAL NON-HDL CHOL(LDL+VLDL) 74 <130 mg/dL (calc) [facility] [place] Comment: For patients with diabetes plus 1 major ASCVD risk factor, treating to a non-HDL-C goal of <100 mg/dL (LDL-C of <70 mg/dL) is considered a therapeutic option. Test Performed at: [facility] [place] [address] [address] [place] [address] Jason Milton Blood 11/02/2021 11:5 9 AM CDT 11/02/2021 12:01 PM CDT Mikie Hidalgo MD CHEMISTRY ORDERABLES Final Resul t [facility] [phone] [facility] [place] [address] [address] [place] [address] * (ABNORMAL) ENDOSCOPY, COLON, DIAGNOSTIC (07/05/2011) Abstract Provider GI PROCEDURE ORDERABLES Edited Result - Final from Last 3 Months or Most Recently Relevant to Health Maintenance Insurance [facility] [place] MMAI [employer] [facility] Medicare Part D [facility] MMAI Advance Directives For more information, please contact: [phone] * Full Code (Latest Code Status on [...] 9:22 AM 09/09/2022 6:26 PM Care Teams Mill Tender Second Operator Relationship Specialty Start Date End Date Abhishek Chambers MD [address] [place] [address] PCP - General Family Practice 12/11/23
--- OUTSIDE RECORDS SUMMARY | 2024-11-29 23:49 | XMS_ITS | Clinical Summary ---
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 MF: VALE Report ID: [id number] Reading Location: [id number] Procedure Note Kt Proctor MD - 11/23/2024 [...] Kt Proctor M.D. MF: VALE Report ID: [id number] Reading Location: [id number] Farshad Moulton MD IMG XR PROCEDURES Final [...] 11/23/2024 6:02 PM - Electronically signed by Depe Yen M.D. KT: THAO Report ID: [id number] Reading Location: [id number] Procedure Note Deep Yen MD - 11/23/2024 [...] Deep Yen M.D. KT: KT Report ID: [id number] Reading Location: [place] [address] us Farshad Moulton MD IMG XR PROCEDURES [...] BLOOD ORDERABLES Final R esult [facility] ([place]) 1 [facility] Department [place] [address] * Differential, auto (11/23/2024 5:15 PM CDT) [...] Final R esult [facility] ([place]) 1 [facility] Department [place] [address] * (ABNORMAL) CBC with auto differential (11/23/2024 [...] 34.2(H) 27.1 - 33.3 pg [facility] ([place]) MCHC 32.8 32.3 - 35.7 g/dL [facility] ([place]) RDW CV 13.5 11.1 - 14.9 % [facility] ([place]) RDW SD 51.8(H) 35.7 - 48.1 fL [facility] ([place]) NRBC abs 0.00 0.00 - 0.01 K/cumm [facility] ([place]) Blood 11/23/2024 5:15 PM CDT 11/23/2024 5:44 PM CDT Farshad Moulton MD LAB BLOOD ORDERABLES Final R esult [facility] ([place]) 1 [facility] Department [place] [address] * Comprehensive metabolic panel (11/23/2024 5:15 PM [...] BLOOD ORDERABLES Final R esult [facility] ([place]) 1 [facility] Department [place] [address] from Last 3 Months Insurance [facility] [facility] Care Teams Spray Booth Operator Relationship Specialty Start Date End Date Miscellaneous, Not In File PCP - General 11/23/24
--- OUTSIDE RECORDS SUMMARY | 2024-11-29 23:49 | XMS_ITS | Referral Summary ---
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 MF: VALE Report ID: [id number] Reading Location: [id number] Procedure Note Kt Proctor MD - 11/23/2024 [...] Kt Proctor M.D. MF: VALE Report ID: [id number] Reading Location: [id number] us Farshad Moulton MD IMG XR PROCEDURES [...] Deep Yen M.D. KT: THAO Report ID: [id number] Reading Location: [id number] Procedure Note Deep Yen MD - 11/23/2024 [...] Deep Yen M.D. KT: THAO Report ID: [id number] Reading Location: [id number] us Farshad Moulton MD IMG XR PROCEDURES [...] BLOOD ORDERABLES Final R esult JED [facility] ([place]) 1 [facility] Department [place] [address] * Differential, auto (11/23/2024 5:15 PM CDT) [...] 0.03 0.00 - 0.10 K/cumm [facility] ([place]) Neutrophil pct 46.7 % [facility] [...] Final R esult JED [facility] ([place]) 1 [facility] Department of Laboratories [place], [place] [id number] * (ABNORMAL) CBC with auto differential (11/23/2024 [...] ([place]) 1 [facility] Department [place] [address] * Comprehensive metabolic panel (11/23/2024 5:15 PM CDT) Sodium 141 135 - 145 mmol/L [facility] ([place]) Potassium, pl 4.5 3.3 - [...] ([facility]ARGAV) Glucose 88 70 - 199 mg/dL [facility] ([facility]) Comment: Interpretive Data Fasting glucose [...] Final R esult JED [facility] ([place]) 1 [facility] Department [place] [address] from Last 3 Months Insurance [facility] [employer] [place] Care Teams Steel Rule Die Maker Relationship Specialty Start Date End Date Miscellaneous, Not In File PCP - General 11/23/24
--- OUTSIDE RECORDS SUMMARY | 2024-11-29 23:49 | XMS_ITS | Encounter Summary ---
Author Organization [facility] Address [address] [place] [address] Care Team Providers Care Scroll Shear Operator Name Role Phone Abhishek Chambers MD Primary Care Provider [phone] [phone] Reason for Visit * Reason Onset Date Comments Hypoglycemia, Uncontrolled Diabetes 10/04/2020 Spoke w/ Dr. Salazar Encounter Details Date Type Department Care Team ([facility] Contact Info) Description 10/04/2020 Telephone [facility] Admitting [address] [place] [address] [place] [address] [address] Hypoglycemia, Uncontrolled Diabetes (Spoke w/ [...] Description 01/21/2025 10:50 AM CDT Office Visit [facility] Neurosurgery - [address] [facility] [address] [facility] [address] [place] [address] [place] [address] [facility] [address] [place] [address] documented as of this encounter Visit Diagnoses Not on filedocumented in this encounter Additional Health Concerns Infection Onset Date Last Indicated Resolved Time R/O GI Pathogen 01/27/2023 01/27/2023 01/29/2023 1 0:11 AM CDT documented as of this encounter Care Teams Scroll Shear Operator Relationship Specialty Start Date End Date Abhishek Chambers MD [address] [place] [address] PCP - General Family Practice 12/11/23 documented as of this encounter
[2024-11-30] VITALS (13 sets, daily range): BP systolic 131–187; BP diastolic 33–145; PULSE 63–79; RESP 12–21; TEMP 35.6–37; O2SAT 96–100; BMI 31.9
[2024-11-30 00:10] LABS: Add Urine Microscopic? YES; Appearance Urine Clear (Clear); Glucose Urine UA 3+ mg/dL (Negative); Leukocyte Esterase Ur Negative LEU/UL (Negative); Nitrate Urine Negative (Negative); Non Pathogenic Casts 0-2; Specific Grav Ur 1.039 (1.001-1.035)
--- NOTE | 2024-11-30 00:29 | ED.FALL ---
HPI - Fall General Chief Complaint: Fall Stated Complaint: fall, generalized pain Time Seen by Provider: 11/29/24 22:27 History of Present Illness HPI Narrative: For the past 2 weeks, patient has been falling much more frequently, she has had issues with her legs for a while but her right leg seems to be worse than usual, only recent change was starting Lyrica, and physical therapy. She has fallen about 15 times in last 2 weeks, including yesterday when she fell hit her face, and then today when she fell and hurt her leg pain Related Data Home Medications ?Medication ?Instructions ?Recorded ?Confirmed ?Last Taken ?Type duloxetine 20 mg capsule,delayed 40 mg PO DAILY 04/19/23 05/04/23 04/19/23 09:00 History release folic acid 1 mg tablet 1 mg PO DAILY 04/19/23 05/04/23 04/19/23 09:00 History ergocalciferol (vitamin D2) 1,250 1,250 mcg PO WEEKLY 04/20/23 05/04/23 04/19/23 09:00 History mcg (50,000 unit) capsule hydrocodone 10 mg-acetaminophen tablet PO 09/17/23 Unknown History 325 mg tablet polyethylene glycol 3350 17 g feeding tube 09/17/23 Unknown History gram/dose oral powder Allergies Allergy/AdvReac Type Severity Reaction Status Date / Time ezetimibe Allergy Unknown Verified 11/29/24 19:46 gabapentin AdvReac Shakiness Verified 11/29/24 19:46 Review of Systems Review of Systems: All systems reviewed & are unremarkable except as noted in HPI and below PMFSH Past Medical History Medical History Chronic pain disorder Diabetic peripheral neuropathy Hepatitis C Chronic neck pain with history of cervical spinal surgery Obstructive sleep apnea Refuses CPAP TIA (transient ischemic attack) Anxiety Hyperlipidemia Gout Arthritis GERD (gastroesophageal reflux disease) Hypertension Diabetes mellitus Insulin-dependent Surgical History Surgical History History of augmentation of both breasts With bilateral ruptured implants noted on imaging 04/2023 History of kyphoplasty (~12/2022) Hx of cholecystectomy Family History Family History Grandparent Acute myocardial infarction Father Acute myocardial infarction Parkinson disease Diabetes mellitus Hypertension Cerebrovascular accident Mother Diabetes mellitus Lung cancer Hypertension Depression Sibling Diabetes mellitus Cirrhosis Alcoholism Cervical cancer Hypertension Social History Social History Social History: She lives in her own home. Her granddaughter lives with her and helps provide care. She had 2 sons but 1 is . The she ambulates via walker boot and stands to transfer. She denies any history of excessive alcohol use and only briefly smoked tobacco at a young age. She denies any drug history. Code status: DNR/DNI (per patient request) Surrogate decision maker: Son Years smoked: 3 Smoking status: Former smoker Alcohol intake: never Substance use: never Substance use type: does not use Do You Feel Safe in your Home?: Yes Lack of Transportation: No Lack of Food: Sometimes True Current Housing: I Have Housing Concerned About Future Housing: No Difficulty Paying Gas/Electric Bills: No Difficulty Paying for Meds: No Currently Unemployed: No Education: High School Diploma/GED Difficulty w/ Childcare or Family Care: No Spiritual care concerns: No Exam Narrative: EXAMINATION OF ORGAN SYSTEMS/BODY AREAS: Constitutional: Vital signs per nursing GENERAL:[No acute distress, non-toxic appearing.] HEAD: Abrasion/bruising to face EYES: EOMI, conjunctiva normal ENT: Hearing grossly intact LUNGS: Nonlabored breathing. HEART: [Regular rate and rhythm] ABD: [Soft], [nontender to palpation] EXT: Normal range of motion, tenderness to palpation to the right knee, ankle SKIN: Extensive bruises all over body NEURO: [Alert and oriented x 3.] PSYCH: Normal affect Course Vital Signs Vital signs: Vital Signs Temperature 98.0 F 11/29/24 19:51 Pulse Rate 66 11/29/24 19:51 Respiratory Rate 17 11/29/24 19:51 Blood Pressure 159/74 H 11/29/24 19:51 Pulse Oximetry 95 11/29/24 19:51 Oxygen Delivery Room Air 11/29/24 19:51 Temperature 98.0 F 11/29/24 19:51 Pulse Rate 69 11/30/24 01:00 Respiratory Rate 19 11/30/24 01:00 Blood Pressure 187/145 H 11/30/24 01:00 Pulse Oximetry 97 11/30/24 01:00 Oxygen Delivery Room Air 11/29/24 19:51 MDM - Fall MDM Narrative Medical decision making narrative: Patient presents after multiple falls over the last 2 weeks, family thinks it might be from the Lyrica she was started on recently. She has multiple bruises, and pain to her right leg, ultimately I do feel given her multiple falls she is no longer safe staying at her assisted living and could benefit from more care including possible rehab. Patient and family agreeable to this. Labs within acceptable limits, all imaging including CT head, C-spine, chest and pelvis and knee and ankle x-rays are thankfully without acute abnormality. Discussed with hospitalist for admission. MRI ordered to possible weakness in the right lower leg which may be contributing to her falls. Lab Data 11/29/24 23:04 11/30/24 00:12 Labs: Lab Results 11/29/24 11/30/24 11/30/24 Range/Units 23:04 00:01 00:12 WBC 7.8 (4.5-10.0) K/mm3 RBC 3.27 L (4.2-5.4) M/mm3 Hgb 11.2 L (12.0-15.0) g/dL Hct 36.1 L (37.0-47.0) % MCV 110.4 H (80-100) fl MCH 34.3 H (26-34) pg MCHC 31.0 L (32-36) g/dl RDW 14.0 (11.5-14.5) % Plt Count 149 L (150-375) k/mm3 MPV 10.7 H (7.4-10.4) fl Immature Gran % (Auto) 0.3 (0-0.5) % Neut % (Auto) 46.5 (45.5-73.1) % Lymph % (Auto) 40.6 (18.3-44.2) % [place] % (Auto) 8.9 H (2.6-8.5) % Eos % (Auto) 3.2 (0-4.4) % Baso % (Auto) 0.5 (0.2-1.2) % Lymph # (Auto) 3.16 (0.9-3.2) K/mm3 [place] # (Auto) 0.7 H (0.1-0.6) K/mm3 Eos # (Auto) 0.3 (0-0.3) K/mm3 Baso # (Auto) 0.0 (0.0-0.1) K/mm3 Abs Immat Gran (auto) 0.02 (0.00-0.031) K/mm3 Absolute Neuts (auto) 3.6 (1.3-6.7) K/mm3 Absolute Nucleated RBC 0.000 (0.0-0.012) K/mm3 Band Neutrophils % Not Reportable Nucleated RBC % 0.0 (0.0-0.2) % Platelet Estimate Slightly decreased (Adequate) Macrocytosis 1+ (NORMAL) Schistocytes None seen Sodium 144 (137-145) mmol/L Potassium 4.0 (3.4-5.0) mmol/L Chloride 110 H (98-107) mmol/L Carbon Dioxide 23 (22-30) mmol/L Anion Gap 11 (4-12) mmol/L BUN 20 H (7-17) mg/dL Creatinine 0.68 L (0.7-1.0) mg/dL Estim Creat Clear Calc 64 ml/min Estimated GFR > 60 (59 - ) Glucose 131 H (65-110) mg/dL Calcium 9.4 (8.4-10.2) mg/dL Total Bilirubin 0.4 (0.2-1.3) mg/dL AST 69 H (14-36) U/L ALT 72 H (6-35) U/L Alkaline Phosphatase 101 (38-126) U/L Total Protein 7.5 (6.3-8.2) g/dL Albumin 3.9 (3.5-5.1) g/dL Urine Color Yellow (Yellow) Urine Appearance Clear (Clear) Urine pH 5.5 (5.0-9.0) Ur Specific [place] 1.039 H (1.001-1.035) Urine Protein Trace (Negative) mg/dL Urine Glucose (UA) 3+ H (Negative) mg/dL Urine Ketones Negative (Negative) mg/dL Ur Blood (Man) Negative (Negative) Urine Nitrate Negative (Negative) Urine Bilirubin Negative (Negative) Urine Urobilinogen 0.2 (<2.0) mg/dL Leukocyte Esterase Rfl Negative (Negative) CORTEZ/UL Urine RBC 0-2 (0-2) /hpf Urine WBC 0-5 (0-3) /hpf Ur Squamous Epith Cells None seen (Few) /hpf Urine Bacteria None seen /hpf Urine Casts 0-2 Discharge Plan Discharge Clinical Impression: Frequent falls Patient Disposition: Still a Patient Condition: Stable
--- NOTE | 2024-11-30 00:32 | ECG_ITS ---
Test Date: 2024-11-30 01:05:14 Measurements Intervals [place] Rate: 70 P: 78 [place]: 214 QRS: 44 QRSD: 86 T: 51 QT: 389 QTc: 420 Interpretive Statements SINUS RHYTHM Electronically Signed On 11-30-2024 17:19:28 CDT by Armin Vasquez D.O
[2024-11-30 01:10] LABS: Alanine Aminotransferase 72 U/L (6-35); Albumin Level 3.9 g/dL (3.5-5.1); Alkaline Phosphatase 101 U/L (38-126); Anion Gap 11 mmol/L (4-12); Aspartate Amino Transferase 69 U/L (14-36); Bilirubin,Total 0.4 mg/dL (0.2-1.3); Blood Urea Nitrogen 20 mg/dL (7-17); Calcium 9.4 mg/dL (8.4-10.2); Carbon Dioxide 23 mmol/L (22-30); Chloride 110 mmol/L (98-107); Estimated CRCL calculation 64 ml/min; Estimated Glomerular Filt Rate > 60; Glucose 131 mg/dL (65-110); Potassium 4.0 mmol/L (3.4-5.0); Sodium 144 mmol/L (137-145); Total Protein 7.5 g/dL (6.3-8.2)
--- NOTE | 2024-11-30 02:35 | PC.NURSE ---
This RN attempted to put gown on pt. Pt refuses at this time.
--- NOTE | 2024-11-30 03:24 | ADMGEN ---
This patient, Oralia Epps, was admitted to [facility] Surg Room 323-02. Patient/family oriented to hospital policies and general routines including ID bracelet, bed and alarms, visiting hours, pain management, procedures, bathroom and other care routines, personal items, smoking policy, room service/diet, and visiting hours. Information on how to activate the Rapid Response Team has been discussed. Patient/Family are encouraged to report perceived risks to care and to ask questions if they do not understand what they are told or what they should do.
--- NOTE | 2024-11-30 05:39 | PM.IMHP ---
H&P: HPI History of Present Illness Date/Time: 11/30/24 05:39 Chief Complaint: Multiple falls Narrative: 79-year-old female with past medical history insulin-dependent diabetes mellitus diabetic peripheral neuropathy, chronic pain, LANA, anxiety, hypertension, GERD, gout, hyperlipidemia who presents to [facility] ER on 11/30/2024 with a complaint of multiple falls. This started about 2 weeks ago after she felt her right leg become weak. She also reports when she falls feels like her right knee beth. She does not have any seizure activity, dizziness, fainting. She denies feeling ill otherwise. At 1 point she fell and hit her face. ER evaluation reveals hemoglobin 11.2, WBC 7.8, serum creatinine 0.6 a, glucose 131, urinalysis with glucose otherwise largely unremarkable. 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 Patient denies any history of stroke. Right knee three view, chest x-ray, x-ray pelvis, CT head facial bones cervical spine did not demonstrate acute fractures. There is cervical spondylosis at C3-C7 with new lower cervical posterior decompression. Chronic T3 and T4 compression fractures. Three views of the right ankle demonstrate degenerative disease with prior fracture deformity within the distal right fibula, no acute fracture, significant soft tissue swelling within the medial and lateral right ankle. Review of Systems Review of Systems: All systems reviewed & are unremarkable except as noted in HPI and below (HPI/subjective) [facility] Past Medical History Medical History Chronic pain disorder Diabetic peripheral neuropathy Hepatitis C Chronic neck pain with history of cervical spinal surgery Obstructive sleep apnea Refuses CPAP TIA (transient ischemic attack) Anxiety Hyperlipidemia Gout Arthritis GERD (gastroesophageal reflux disease) Hypertension Diabetes mellitus Insulin-dependent Surgical History Surgical History History of augmentation of both breasts With bilateral ruptured implants noted on imaging 04/2023 History of kyphoplasty (~12/2022) Hx of cholecystectomy Family History Family History Grandparent Acute myocardial infarction Father Acute myocardial infarction Parkinson disease Diabetes mellitus Hypertension Cerebrovascular accident Mother Diabetes mellitus Lung cancer Hypertension Depression Sibling Diabetes mellitus Cirrhosis Alcoholism Cervical cancer Hypertension Social History Social History Social History: She lives in her own home. Her granddaughter lives with her and helps provide care. She had 2 sons but 1 is . The she ambulates via walker boot and stands to transfer. She denies any history of excessive alcohol use and only briefly smoked tobacco at a young age. She denies any drug history. Code status: DNR/DNI (per patient request) Surrogate decision maker: [place] Years smoked: 3 Smoking status: Former smoker Tobacco type: cigarettes Alcohol intake: current Drinks per week: 1 Substance use: never Substance use type: does not use Do You Feel Safe in your Home?: Yes Lack of Transportation: No Lack of Food: Sometimes True Current Housing: I Have Housing Concerned About Future Housing: YES Difficulty Paying Gas/Electric Bills: No Difficulty Paying for Meds: No Currently Unemployed: No Education: High School Diploma/GED Difficulty w/ Childcare or Family Care: No Spiritual care concerns: No Meds Home Medications and Allergies Home Medications ?Medication ?Instructions ?Recorded ?Confirmed ?Type duloxetine 20 mg capsule,delayed 40 mg PO DAILY 04/19/23 11/30/24 History release folic acid 1 mg tablet 1 mg PO DAILY 04/19/23 11/30/24 History ergocalciferol (vitamin D2) 1,250 1,250 mcg PO WEEKLY 04/20/23 11/30/24 History mcg (50,000 unit) capsule oxycodone 5 mg tablet 10 mg (2 x 5 mg) PO Q4H PRN Pain 05/11/23 11/30/24 Rx Rated 7-10 #24 tabs hydrocodone 10 mg-acetaminophen 1 tablet PO Q4H PRN pain 09/17/23 11/30/24 History 325 mg tablet acetaminophen 325 mg tablet 650 mg (2 x 325 mg) PO Q6H PRN 11/07/23 11/30/24 Rx Mild Pain (1-3) Or Fever #30 tabs clonazepam 0.5 mg tablet 0.5 mg PO HS #90 tabs 01/15/24 11/30/24 Rx blood-glucose sensor (FreeStyle #1 ea 03/23/24 11/30/24 Rx Leatha 3 Plus Sensor device) insulin degludec 100 unit/mL (3 See Rx Instructions .Route 06/01/24 11/30/24 Rx mL) subcutaneous pen (Tresiba .COMPLEX #15 mL FlexTouch U-100 insulin) allopurinol 300 mg tablet 300 mg PO DAILY #90 tabs 06/24/24 11/30/24 Rx alpha lipoic acid 200 mg capsule 200 mg PO DAILY #90 caps 06/24/24 11/30/24 Rx amlodipine 5 mg tablet 10 mg (2 x 5 mg) PO DAILY #180 tabs 06/24/24 11/30/24 Rx aripiprazole 5 mg tablet 5 mg PO DAILY #90 tabs 06/24/24 11/30/24 Rx aspirin 325 mg tablet 325 mg PO DAILY #90 tabs 06/24/24 11/30/24 Rx atorvastatin 20 mg tablet 20 mg PO DAILY #90 tabs 06/24/24 11/30/24 Rx calcitriol 0.5 mcg capsule 0.5 mcg PO DAILY #90 caps 06/24/24 11/30/24 Rx cholestyramine-aspartame 4 gram 4 g PO DAILY #60 ea 06/24/24 11/30/24 Rx oral powder for susp in a packet citalopram 20 mg tablet 20 mg PO DAILY #90 tabs 06/24/24 11/30/24 Rx dicyclomine 10 mg capsule 10 mg PO TID #90 caps 06/24/24 11/30/24 Rx docusate sodium 100 mg capsule 100 mg PO DAILY PRN Constipation 06/24/24 11/30/24 Rx #90 caps empagliflozin 10 mg tablet 10 mg PO QAM #90 tabs 06/24/24 11/30/24 Rx (Jardiance) ferrous sulfate 325 mg (65 mg 325 mg PO DAILY #90 tabs 06/24/24 11/30/24 Rx iron) tablet hydroxychloroquine 200 mg tablet 200 mg PO BID #180 tabs 06/24/24 11/30/24 Rx metformin 500 mg tablet,extended 500 mg PO BID #90 tabs 06/24/24 11/30/24 Rx release 24 hr metoprolol tartrate 50 mg tablet 50 mg PO BID #90 tabs 06/24/24 11/30/24 Rx omeprazole 40 mg capsule,delayed 40 mg PO DAILY #90 caps 06/24/24 11/30/24 Rx release polyethylene glycol 3350 17 gram 17 g PO DAILY PRN constipation 06/24/24 11/30/24 Rx oral powder packet (Miralax) #100 ea sucralfate 1 gram tablet 1 g PO TIDWM #90 tabs 06/24/24 11/30/24 Rx pen needle,diabetic dual safty 30 #100 ea 07/12/24 11/30/24 Rx gauge x 3/16 (BD AutoShield Duo Pen Needle) losartan 25 mg tablet 25 mg PO DAILY 11/30/24 11/30/24 History pregabalin 50 mg capsule 150 mg PO Q12H 11/30/24 11/30/24 History primidone 125 mg tablet 250 mg PO QID 11/30/24 11/30/24 History Allergies Allergy/AdvReac Type Severity Reaction Status Date / Time ezetimibe Allergy Unknown Verified 11/30/24 03:31 gabapentin AdvReac Shakiness Verified 11/30/24 03:31 Vital Signs Vital Signs - 24 hr 11/29/24 19:51 11/29/24 23:00 11/30/24 00:30 Temperature 98.0 F Pulse Rate 66 71 71 Respiratory Rate 17 20 21 H Blood Pressure 159/74 H 178/91 H 171/63 H Pulse Oximetry 95 100 100 Oxygen Delivery Room Air Oxygen Flow Rate 11/30/24 01:00 11/30/24 02:46 11/30/24 03:41 Temperature 96.1 F L Pulse Rate 69 68 65 Respiratory Rate 19 17 12 Blood Pressure 187/145 H 170/70 H 161/60 H Pulse Oximetry 97 98 100 Oxygen Delivery Oxygen Flow Rate 11/30/24 04:01 Temperature Pulse Rate Respiratory Rate Blood Pressure Pulse Oximetry 98 Oxygen Delivery Nasal Cannula Oxygen Flow Rate 2 Exam Const: General: comfortable and no acute distress Other: A&O x3 HENMT: Mouth: Yes moist mucous membranes Eyes: Pupils: Equal, round and reactive pupils present Neck: Neck: supple Resp: Effort & Inspection: normal respiratory effort Auscultation: clear to auscultation bilaterally Cardio: Rate: regular rate Rhythm: regular rhythm GI: Inspection: non-distended GI Palp: Yes Soft to palpation Neuro: Other: Right lower extremity 1/5 motor strength on flexion of the hip, 2/5 strength at the knee, 4/5 strength at the right ankle. Decreased sensation right lower extremity. Extrem: General: no edema H&P: Results Labs Labs: Short CBC 11/29/24 Range/Units 23:04 WBC 7.8 (4.5-10.0) K/mm3 Hgb 11.2 L (12.0-15.0) g/dL Hct 36.1 L (37.0-47.0) % Plt Count 149 L (150-375) k/mm3 BMP 11/30/24 00:12 Sodium 144 Potassium 4.0 Chloride 110 H Carbon Dioxide 23 BUN 20 H Creatinine 0.68 L Glucose 131 H Calcium 9.4 Liver Function 11/30/24 Range/Units 00:12 Total Bilirubin 0.4 (0.2-1.3) mg/dL AST 69 H (14-36) U/L ALT 72 H (6-35) U/L Alkaline Phosphatase 101 (38-126) U/L Albumin 3.9 (3.5-5.1) g/dL Urine 11/30/24 Range/Units 00:01 Urine Color Yellow (Yellow) Urine Appearance Clear (Clear) Urine pH 5.5 (5.0-9.0) Ur Specific [place] 1.039 H (1.001-1.035) Urine Protein Trace (Negative) mg/dL Urine Glucose (UA) 3+ H (Negative) mg/dL Assessment and Plan Assessment and plan (1) Falls: Code(s): R29.6 - Repeated falls Status: Acute Plan 79-year-old female with past medical history insulin-dependent diabetes mellitus diabetic peripheral neuropathy, chronic pain, LANA, anxiety, hypertension, GERD, gout, hyperlipidemia who presents to [facility] ER on 11/30/2024 with a complaint of multiple falls. This started about 2 weeks ago after she felt her right leg become weak. She also reports when she falls feels like her right knee beth. She does not have any seizure activity, dizziness, fainting. She denies feeling ill otherwise. At 1 point she fell and hit her face. ER evaluation reveals hemoglobin 11.2, WBC 7.8, serum creatinine 0.6 a, glucose 131, urinalysis with glucose otherwise largely unremarkable. 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 Patient denies any history of stroke. Right knee three view, chest x-ray, x-ray pelvis, CT head facial bones cervical spine did not demonstrate acute fractures. There is cervical spondylosis at C3-C7 with new lower cervical posterior decompression. Chronic T3 and T4 compression fractures. Three views of the right ankle demonstrate degenerative disease with prior fracture deformity within the distal right fibula, no acute fracture, significant soft tissue swelling within the medial and lateral right ankle. ----- Check MRI brain brainstem to assess for new stroke. Continue with aspirin 325 mg she has been prescribed previously. Continue LEGAL CLERK atorvastatin. While she has focal weakness, she also has polypharmacy. Restart her multiple pain medications judiciously and consider decreasing or stopping some. Patient wishes to be full code. [place] jefferson HS. SCDs. Hospitalist MIPS Advance Care Plan I have confirmed that the patient's Advanced Care Plan is present, code status is documented, or surrogate decision maker is listed in patient medical record.: Yes Medication Reconciliation I have utilized all available resources to obtain, update and review the patients current medications (includes all prescriptions, OTC, herbals, cannabis, and nutritional supplements).: Yes
[2024-11-30 09:12] LABS: Creatine Kinase 113 U/L (30-135)
[2024-11-30] MEDS: FERROUS SULFATE 325 MG TABLET DR PO (09:16)
[2024-11-30] MEDS: ASPIRIN 325 MG TABLET PO (09:16)
[2024-11-30] MEDS: METOPROLOL TARTRATE 50 MG TAB PO ×2 (09:16→22:16)
[2024-11-30] MEDS: FOLIC ACID 1 MG TABLET PO (09:16)
[2024-11-30] MEDS: ATORVASTATIN 20 MG TABLET PO (09:16)
[2024-11-30] MEDS: CITALOPRAM HYDROBROMIDE 20 MG TABLET PO (09:16)
[2024-11-30] MEDS: PANTOPRAZOLE 40 MG TABLET PO ×2 (09:16→22:15)
[2024-11-30] MEDS: DICYCLOMINE HCL 10 MG CAPSULE PO ×3 (09:16→16:26)
[2024-11-30 09:21] LABS: Hemoglobin A1C 6.6 % (<5.7)
[2024-11-30] MEDS: LOSARTAN POTASSIUM 25 MG TABLET PO (09:22)
[2024-11-30] MEDS: PRIMIDONE 250 MG TABLET PO ×4 (09:22→22:16)
[2024-11-30 11:03] LABS: Hepatitis B Surface Antigen Negative (Negative)
[2024-11-30 11:08] LABS: HAV RESULT Negative (Negative); Hepatitis B Core IgM Result Negative (Negative)
[2024-11-30] MEDS: SUCRALFATE 1 GM TABLET PO ×2 (12:06→16:26)
--- NOTE | 2024-11-30 12:09 | PM.IMPN ---
Progress Note: A&P Assessment and Plan (1) Falls: Code(s): R29.6 - Repeated falls Status: Acute Assessment and Plan: patient is typically wheelchair bound but fell out of her wheelchair - she has complaints of dizziness that started last weekend - CT face and cervical spine shows no acute abnormalities - order PT OT as she does transfer on her own and is in assisted living - await MRI - obtain echo (2) Dizziness: Code(s): R42 - Dizziness and giddiness Status: Acute Assessment and Plan: obtain echo and MRI - patient also has lower extremity edema which she says is much worse than normal. Her lungs are clear as is the chest x-ray. We will ensure there is no valvular abnormalities or right-sided heart failure - consider PE, will draw a D-dimer. If it is positive will obtain chest CTA -no infx suspected at this time, UA and CXR clear. No fevers (3) Hypertension: Code(s): I10 - Essential (primary) hypertension Status: Acute Assessment and Plan: last blood pressure 131/60 - continue home medications (4) Diabetes mellitus: Code(s): E11.9 - Type 2 diabetes mellitus without complications Status: Acute Assessment and Plan: A1c at goal - continue sliding scale insulin while hospitalized (5) Anxiety: Code(s): F41.9 - Anxiety disorder, unspecified Status: Acute Assessment and Plan: on many medications - will hold Lyrica as this is listed as an allergy, looks like more of an intolerance - the pharmacy could be contributing to patient's symptoms. (6) Transaminitis: Code(s): R74.01 - Elevation of levels of liver transaminase levels Status: Acute Assessment and Plan: Noted in the past but also elevated today -hx of hep C, will need follow up outpt GI -monitor Time Spent With Patient Time with patient: 25 - 35 minutes Subjective Date/time seen: 11/30/24 12:09 Interval history: Pt is a 79-year-old female here for falls and dizziness. Patient states that she started feeling dizzy this weekend which is new for her. She also noticed that she has lower extremity swelling without pain that is also new. she is typically in a wheelchair but was bending down to get something and fell on her face and knee which caused abrasions. She does not walk at baseline and uses the wheelchair at all times. She does do her own transfers. She has been feeling weaker than normal. She has some dyspnea on exertion when transferring but no shortness of breath at rest. She has been constipated recently as well. She denies chest pain, fevers, nausea, vomiting or diarrhea. She does not usually use oxygen at home but says she feels much better on the oxygen. Her only medication changes recently was an increase in her primidone for her tremor. she currently resides at assisted living and was not doing any physical therapy there Review of Systems Review of Systems: All systems reviewed & are unremarkable except as noted in HPI and below Exam Narrative: General: overweight patient resting comfortably in bed in no acute distress HEENT: normocephalic, abrasion to her forehead and nose that are well healing Neck: supple Neuro: Alert and oriented x4. Equal strength the upper lower extremities 5/5. Cranial nerves 2-12 intact CV:RRR Resp:CTA bilaterally Abd: Soft, non distended. No pain to palpation. Positive bowel sounds Extremities: pitting edema up to her knees bilaterally. Abrasion to the right knee Objective Data Vital Signs Vital Signs: Vital Signs - 24 hr 11/29/24 19:51 11/29/24 23:00 11/30/24 00:30 Temperature 98.0 F Pulse Rate 66 71 71 Respiratory Rate 17 20 21 H Blood Pressure 159/74 H 178/91 H 171/63 H Pulse Oximetry 95 100 100 Oxygen Delivery Room Air Oxygen Flow Rate 11/30/24 01:00 11/30/24 02:46 11/30/24 03:41 Temperature 96.1 F L Pulse Rate 69 68 65 Respiratory Rate 19 17 12 Blood Pressure 187/145 H 170/70 H 161/60 H Pulse Oximetry 97 98 100 Oxygen Delivery Oxygen Flow Rate 11/30/24 04:01 11/30/24 06:00 11/30/24 08:00 Temperature 96.1 F L Pulse Rate 65 Respiratory Rate 12 Blood Pressure 131/60 Pulse Oximetry 98 100 97 Oxygen Delivery Nasal Cannula Nasal Cannula Oxygen Flow Rate 2 2 11/30/24 09:16 11/30/24 09:51 Temperature Pulse Rate 79 Respiratory Rate Blood Pressure Pulse Oximetry 96 Oxygen Delivery Nasal Cannula Oxygen Flow Rate 2 Intake/Output Intake/Output: Intake & Output 11/27/24 11/28/24 11/29/24 11/30/24 23:59 23:59 23:59 23:59 Intake Total 240 Output Total 200 Balance 40 Meds/Results Medications: Active Medications Generic Name Dose Route Start Last Admin Trade Name Neto PRN Reason Stop Dose Admin Acetaminophen 650 mg 11/30/24 05:48 Acetaminophen 325 Mg Tablet PO Q6H PRN Mild Pain (1-3) Or Fever Hydrocodone Bitart/Acetaminophen 1 tab 11/30/24 08:07 Hydrocodone/Acetaminophen (*Crx) 10-325 Mg Tablet PO Q4H PRN pain 7-10 Allopurinol 300 mg 11/30/24 09:00 11/30/24 09:16 Allopurinol 300 Mg Tablet PO 300 mg DAILY EMERITA Administration Amlodipine Besylate 10 mg 11/30/24 09:00 11/30/24 09:22 Amlodipine Besylate 10 Mg Tablet PO 10 mg DAILY EMERITA Administration Aripiprazole 5 mg 11/30/24 09:00 11/30/24 09:15 Aripiprazole 5 Mg Tablet PO 5 mg DAILY EMERITA Administration Aspirin 325 mg 11/30/24 08:00 11/30/24 09:16 Aspirin 325 Mg Tablet PO 325 mg DAILY@0800 EMERITA Administration Atorvastatin Calcium 20 mg 11/30/24 09:00 11/30/24 09:16 Atorvastatin 20 Mg Tablet PO 20 mg DAILY EMERITA Administration Calcitriol 0.5 mcg 11/30/24 09:00 11/30/24 09:22 Calcitriol 0.25 Mcg Capsule PO 0.5 mcg QAM EMERITA Administration Citalopram Hydrobromide 20 mg 11/30/24 09:00 11/30/24 09:16 Citalopram Hydrobromide 20 Mg Tablet PO 20 mg DAILY EMERITA Administration Clonazepam 0.5 mg 11/30/24 21:00 Clonazepam (*Crx) 0.5 Mg Tablet PO HS EMERITA Dextrose 12.5 gm 11/30/24 05:47 Dextrose 50% 25 Gm/50 Ml Syringe IV PUSH PRN PRN Hypoglycemia Protocol Dextrose 12.5 gm 11/30/24 08:14 Dextrose 50% 25 Gm/50 Ml Syringe IV PUSH PRN PRN Hypoglycemia Protocol Dicyclomine HCl 10 mg 11/30/24 09:00 11/30/24 12:08 Dicyclomine Hcl 10 Mg Capsule PO 10 mg TID EMERITA Administration Docusate Sodium 100 mg 11/30/24 05:48 Docusate Sodium 100 Mg Capsule PO DAILY PRN Constipation Duloxetine HCl 40 mg 11/30/24 09:00 11/30/24 09:22 Duloxetine Hcl 20 Mg Capsule.Dr PO 40 mg DAILY EMERITA Administration Ferrous Sulfate 325 mg 11/30/24 09:00 11/30/24 09:16 Ferrous Sulfate [address] PO 325 mg DAILY EMERITA Administration Folic Acid 1 mg 11/30/24 09:00 11/30/24 09:16 Folic Acid 1 Mg Tablet PO 1 mg DAILY EMERITA Administration Glucagon 1 mg 11/30/24 08:14 Glucagon For Inj 1 Mg Vial IM PRN PRN Hypoglycemia Protocol Glucose 15 gm 11/30/24 05:47 Glucose Oral Gel 15 Gm Of Glucse In 37.5 Gm Tube PO PRN PRN Hypoglycemia Protocol Glucose 15 gm 11/30/24 08:14 Glucose Oral Gel 15 Gm Of Glucse In 37.5 Gm Tube PO PRN PRN Hypoglycemia Protocol Dextrose 1,000 mls @ 100 mls/hr 11/30/24 05:47 Dextrose 5% 1,000 Ml IVPB PRN PRN Hypoglycemia Protocol Dextrose 1,000 mls @ 100 mls/hr 11/30/24 08:14 Dextrose 5% 1,000 Ml IVPB PRN PRN Hypoglycemia Protocol Insulin Aspart 2 - 5 units 11/30/24 12:00 11/30/24 12:05 Insulin Aspart (*Bkc) 100 Units/Ml SUB-Q Not Given TIDWM EMERITA Protocol Insulin Aspart 1 - 2 units 11/30/24 21:00 Insulin Aspart (*Bkc) 100 Units/Ml SUB-Q HS EMERITA Protocol Losartan Potassium 25 mg 11/30/24 09:00 11/30/24 09:22 Losartan Potassium 25 Mg Tablet PO 25 mg DAILY EMERITA Administration Metoprolol Tartrate 50 mg 11/30/24 09:00 11/30/24 09:16 Metoprolol Tartrate 50 Mg Tab PO 50 mg Q12HR EMERITA Administration Pantoprazole Sodium 40 mg 11/30/24 09:00 11/30/24 09:16 Pantoprazole 40 Mg Tablet PO 40 mg Q12HR EMERITA Administration Polyethylene Glycol 17 gm 11/30/24 08:07 Polyethylene Glycol 3350 17 Gm Powd.Pack PO DAILY PRN constipation Primidone 250 mg 11/30/24 09:00 11/30/24 12:09 Primidone 250 Mg Tablet PO 250 mg QID EMERITA Administration Sucralfate 1 gm 11/30/24 11:30 11/30/24 12:06 Sucralfate 1 Gm Tablet PO 1 gm TIDAC EMERITA Administration Radiology Results: ITS Impressions Ankle X-Ray 11/29/24 22:55 IMPRESSION: Degenerative disease with prior fracture deformity within the distal right fibula. No acute fracture is appreciated. Significant soft tissue swelling within the medial and lateral right ankle. Chest X-Ray 11/29/24 22:56 IMPRESSION: 1. No acute cardiopulmonary disease. Knee X-Ray 11/29/24 22:57 IMPRESSION: Severe degenerative disease, without fracture Head CT 11/29/24 22:59 IMPRESSION: 1. Small old lacunar infarct at the anterior limb of the left internal capsule.. No fracture or acute intracranial process. 2. Age-related changes including mild diffuse volume loss and mild scattered white matter hypoattenuation consistent with chronic small vessel ischemic disease. Pelvis X-Ray 11/29/24 23:00 IMPRESSION: Significant degenerative disease, without acute fracture or dislocation, as detailed above. Head/Cervical Spine/Facial Bones CT 11/29/24 23:02 IMPRESSION: 1. No maxillofacial fractures. 2. Moderate cervical spondylosis with no change in a noncemented C3-C7 anterior spinal fusion and with new lower cervical posterior decompression with C6-T2 instrumented posterior spinal fusion. 2. Chronic T3 and T4 compression fractures. No acute osseous abnormality in the cervical or visualized upper thoracic spine. Labs Labs: Laboratory Results - last 24 hr 11/29/24 11/30/24 11/30/24 23:04 00:01 00:12 WBC 7.8 RBC 3.27 L Hgb 11.2 L Hct 36.1 L MCV 110.4 H MCH 34.3 H MCHC 31.0 L RDW 14.0 Plt Count 149 L MPV 10.7 H Immature Gran % (Auto) 0.3 Neut % (Auto) 46.5 Lymph % (Auto) 40.6 [place] % (Auto) 8.9 H Eos % (Auto) 3.2 Baso % (Auto) 0.5 Lymph # (Auto) 3.16 [place] # (Auto) 0.7 H Eos # (Auto) 0.3 Baso # (Auto) 0.0 Abs Immat Gran (auto) 0.02 Absolute Neuts (auto) 3.6 Absolute Nucleated RBC 0.000 Band Neutrophils % Not Reportable Nucleated RBC % 0.0 Platelet Estimate Slightly decreased Macrocytosis 1+ Schistocytes None seen Sodium 144 Potassium 4.0 Chloride 110 H Carbon Dioxide 23 Anion Gap 11 BUN 20 H Creatinine 0.68 L Estim Creat Clear Calc 64 Estimated GFR > 60 Glucose 131 H POC Capillary Glucose Hemoglobin A1c Calcium 9.4 Total Bilirubin 0.4 AST 69 H ALT 72 H Alkaline Phosphatase 101 Total Creatine Kinase Total Protein 7.5 Albumin 3.9 Urine Color Yellow Urine Appearance Clear Urine pH 5.5 Ur Specific [place] 1.039 H Urine Protein Trace Urine Glucose (UA) 3+ H Urine Ketones Negative Ur Blood (Man) Negative Urine Nitrate Negative Urine Bilirubin Negative Urine Urobilinogen 0.2 Leukocyte Esterase Rfl Negative Urine RBC 0-2 Urine WBC 0-5 Ur Squamous Epith Cells None seen Urine Bacteria None seen Urine Casts 0-2 Hepatitis A IgM Ab Hep Bs Antigen Hep B Core IgM Ab Hepatitis C Ab Screen 11/30/24 11/30/24 11/30/24 03:29 07:39 08:31 WBC RBC Hgb Hct MCV MCH MCHC RDW Plt Count MPV Immature Gran % (Auto) Neut % (Auto) Lymph % (Auto) [place] % (Auto) Eos % (Auto) Baso % (Auto) Lymph # (Auto) [place] # (Auto) Eos # (Auto) Baso # (Auto) Abs Immat Gran (auto) Absolute Neuts (auto) Absolute Nucleated RBC Band Neutrophils % Nucleated RBC % Platelet Estimate Macrocytosis Schistocytes Sodium Potassium Chloride Carbon Dioxide Anion Gap BUN Creatinine Estim Creat Clear Calc Estimated GFR Glucose POC Capillary Glucose 127 H 117 H Hemoglobin A1c 6.6 H Calcium Total Bilirubin AST ALT Alkaline Phosphatase Total Creatine Kinase 113 Total Protein Albumin Urine Color Urine Appearance Urine pH Ur Specific [place] Urine Protein Urine Glucose (UA) Urine Ketones Ur Blood (Man) Urine Nitrate Urine Bilirubin Urine Urobilinogen Leukocyte Esterase Rfl Urine RBC Urine WBC Ur Squamous Epith Cells Urine Bacteria Urine Casts Hepatitis A IgM Ab Negative Hep Bs Antigen Negative Hep B Core IgM Ab Negative Hepatitis C Ab Screen Reactive 11/30/24 11:28 WBC RBC Hgb Hct MCV MCH MCHC RDW Plt Count MPV Immature Gran % (Auto) Neut % (Auto) Lymph % (Auto) [place] % (Auto) Eos % (Auto) Baso % (Auto) Lymph # (Auto) [place] # (Auto) Eos # (Auto) Baso # (Auto) Abs Immat Gran (auto) Absolute Neuts (auto) Absolute Nucleated RBC Band Neutrophils % Nucleated RBC % Platelet Estimate Macrocytosis Schistocytes Sodium Potassium Chloride Carbon Dioxide Anion Gap BUN Creatinine Estim Creat Clear Calc Estimated GFR Glucose POC Capillary Glucose 180 H Hemoglobin A1c Calcium Total Bilirubin AST ALT Alkaline Phosphatase Total Creatine Kinase Total Protein Albumin Urine Color Urine Appearance Urine pH Ur Specific [place] Urine Protein Urine Glucose (UA) Urine Ketones Ur Blood (Man) Urine Nitrate Urine Bilirubin Urine Urobilinogen Leukocyte Esterase Rfl Urine RBC Urine WBC Ur Squamous Epith Cells Urine Bacteria Urine Casts Hepatitis A IgM Ab Hep Bs Antigen Hep B Core IgM Ab Hepatitis C Ab Screen Quality VTE Prophylaxis VTE prophylaxis: mechanical ordered
[2024-11-30] MEDS: ACETAMINOPHEN 325 MG TABLET 650 MG PO (13:27)
--- NOTE | 2024-11-30 14:07 | PCOTNOTE ---
Unable to evaluate for occupational therapy due to patient being in MRI. Will evaluate when able to.
[2024-11-30] MEDS: HYDROXYCHLOROQUINE SULFATE 200 MG TABLET PO (16:26)
[2024-11-30] MEDS: clonazePAM (*CRX) 0.5 MG TABLET PO (22:16)
[2024-12-01] VITALS (7 sets, daily range): BP systolic 152–157; BP diastolic 62–73; PULSE 62–74; RESP 17–20; TEMP 36.4–37.1; O2SAT 94–100
--- NOTE | 2024-12-01 | ECHO_ITS ---
Patient Info Name: Oralia Epps Age: 79 years : 1945 Gender: Female Ht: 66 in Wt: 199 lbs BSA: 2.08 m2 HR: 70 bpm BP: 163 / 33 mmHg Heart Rhythm: Sinus Rhythm Technical Quality: Fair Exam Date: 12/01/2024 3:25 PM Patient Status: I Admit Date: 11/30/2024 Exam Type: CA echo doppler color flow Complete two-dimensional, color flow and Doppler transthoracic echocardiogram is performed. Strain analysis performed. Staff Referring Physician: Ivon Subramanian Integration Manager: Martha Fajardo Attending Provider: Romina Carter Summary 1. Complete two-dimensional, color flow and Doppler transthoracic echocardiogram is performed. 2. Normal left ventricular size, systolic and diastolic function. 3. Mildly sclerotic aortic valve which exhibits nicely preserved leaflet excursion. 4. Mild mitral annular calcification. Left Ventricle Left ventricular chamber dimension is normal. Left ventricular systolic function is normal, estimated at 65-70. The left ventricular diastolic function is normal. Right Ventricle Right ventricular chamber dimension is normal. Left Atria Left atrial chamber dimension is normal. Right Atria Right atrial chamber dimension is normal. Aortic Valve The aortic valve is trileaflet. There is mild aortic valve sclerosis. Pulmonic Valve The pulmonic valve is normal. Mitral Valve The mitral valve has normal leaflets. The mitral valve annulus is mildly calcified. Tricuspid Valve The tricuspid valve leaflets are normal. Pericardium/Pleural The pericardium appears normal. Aorta The aortic root size at the sinus of Valsalva is normal. Left Ventricular Outflow Tract Name Value Normal LVOT 2D LVOT Diameter 2.0 cm LVOT Doppler LVOT Peak Velocity 87 cm/s LVOT Peak Gradient 3 mmHg LVOT Mean Gradient 1 mmHg LVOT VTI 19 cm LVOT VTI/AV VTI Ratio 0.8 LVOT Stroke Volume 60 ml LVOT CO 3.6 l/min LVOT CI 1.8 l/min/m2 Pulmonic Valve Name Value Normal RVOT Doppler RVOT Peak Velocity 71 cm/s RVOT Peak Gradient 2 mmHg PV Doppler PV Peak Velocity 93 cm/s PV Peak Gradient 3 mmHg Mitral Valve Name Value Normal MV Diastolic Function MV E Peak Velocity 73 cm/s MV A Peak Velocity 94 cm/s MV E/A 0.8 MV Decel Time (PW) 250 ms MV Annular TDI MV E/e' (Septal) 12.3 MV E/e' (Lateral) 11.5 MV E/e' (Average) 11.9 Tricuspid Valve Name Value Normal TV Annular TDI TV Lateral Luna s' Velocity 15.5 cm/s >=9.5 Aortic Valve Name Value Normal AV Doppler AV Peak Velocity 122 cm/s AV Peak Gradient 6 mmHg AV Mean Gradient 3 mmHg AV VTI 25 cm AV Area (Cont Eq VTI) 2.4 cm2 >=3.0 AV Area (Cont Eq Woody) 2.2 cm2 AV DI (Woody) 0.71 AV Regurgitation 2D LVOT Area 3.1 cm2 Ventricles Name Value Normal LV Dimensions 2D/MM IVS Diastolic Thickness (2D) 1.2 cm 0.6-1.0 LVID Diastole (2D) 3.5 cm 3.8-5.2 LVIW Diastolic Thickness (2D) 1.2 cm 0.6-0.9 LVID Systole (2D) 2.3 cm 2.2-3.5 LVOT Diameter 2.0 cm LV Mass (2D Cubed) 126.00 g 67.00-162.00 LV Mass Index (2D Cubed) 61 g/m2 43-95 Relative Wall Thickness (2D) 0.67 <=0.42 LV Fractional Shortening/Ejection Fraction 2D/MM LV Fractional Shortening (2D) 32 % 27-45 LV EF (2D Teichholz) 62 % LV Diastolic Volume (4C MOD) 64 ml LV EF (4C MOD) 67 % LV Diastolic Volume (2C MOD) 44 ml LV EF (2C MOD) 68 % LV Diastolic Volume (BP MOD) 54 ml 46-106 LV Diastolic Volume Index (BP MOD) 26 ml/m2 29-61 LV Systolic Volume (BP MOD) 18 ml 14-42 LV Systolic Volume Index (BP MOD) 9 ml/m2 8-24 LV EF (BP MOD) 66 % 54-74 LV Diastolic Length (4C) 8.0 cm LV Systolic Length (4C) 6.8 cm LV Stroke Volume (4C MOD) 43 ml Atria Name Value Normal LA Dimensions LA Volume (4C A-L) 60 ml LA Volume (BP A-L) 62 ml RA Dimensions RA Area (4C) 14.4 cm2 <=18.0 Report Signatures
[2024-12-01] MEDS: SUCRALFATE 1 GM TABLET PO ×3 (05:58→16:33)
[2024-12-01 06:32] LABS: Hematocrit 38.8 % (37.0-47.0); Hemoglobin 12.3 g/dL (12.0-15.0); Mean Corpuscular HGB Conc 31.7 g/dl (32-36); Mean Corpuscular Hemoglobin 33.6 pg (26-34); Mean Corpuscular Volume 106.0 fl (80-100); Platelet Count Result 181 k/mm3 (150-375); Red Blood Count 3.66 M/mm3 (4.2-5.4); White Blood Count 6.5 K/mm3 (4.5-10.0)
[2024-12-01] MEDS: ACETAMINOPHEN 325 MG TABLET 650 MG PO ×2 (06:51→20:37)
[2024-12-01 06:55] LABS: Alanine Aminotransferase 59 U/L (6-35); Albumin Level 3.6 g/dL (3.5-5.1); Alkaline Phosphatase 106 U/L (38-126); Anion Gap 3 mmol/L (4-12); Aspartate Amino Transferase 62 U/L (14-36); Bilirubin,Total 0.4 mg/dL (0.2-1.3); Blood Urea Nitrogen 14 mg/dL (7-17); Calcium 9.3 mg/dL (8.4-10.2); Carbon Dioxide 33 mmol/L (22-30); Chloride 98 mmol/L (98-107); Estimated CRCL calculation 69 ml/min; Estimated Glomerular Filt Rate > 60; Glucose 130 mg/dL (65-110); Potassium 4.4 mmol/L (3.4-5.0); Sodium 134 mmol/L (137-145); Total Protein 6.9 g/dL (6.3-8.2)
[2024-12-01] MEDS: ASPIRIN 325 MG TABLET PO (08:20)
[2024-12-01] MEDS: HYDROXYCHLOROQUINE SULFATE 200 MG TABLET PO ×2 (08:21→16:33)
[2024-12-01] MEDS: METOPROLOL TARTRATE 50 MG TAB PO ×2 (08:21→20:26)
[2024-12-01] MEDS: DICYCLOMINE HCL 10 MG CAPSULE PO ×3 (08:21→16:34)
[2024-12-01] MEDS: FOLIC ACID 1 MG TABLET PO (08:21)
[2024-12-01] MEDS: CITALOPRAM HYDROBROMIDE 20 MG TABLET PO (08:21)
[2024-12-01] MEDS: PANTOPRAZOLE 40 MG TABLET PO ×2 (08:21→20:26)
[2024-12-01] MEDS: LOSARTAN POTASSIUM 25 MG TABLET PO (08:21)
[2024-12-01] MEDS: PRIMIDONE 250 MG TABLET PO ×4 (08:21→20:26)
[2024-12-01] MEDS: ATORVASTATIN 20 MG TABLET PO (08:22)
[2024-12-01] MEDS: FERROUS SULFATE 325 MG TABLET DR PO (08:22)
--- NOTE | 2024-12-01 15:26 | P.PNIM_ITS ---
Progress Note: A&P Assessment and Plan (1) Falls: Code(s): R29.6 - Repeated falls Status: Acute Assessment and Plan: patient is typically wheelchair bound but fell out of her wheelchair reports over 15 falls recently fell forward out of wheelchair reaching for something she had complaints of dizziness that started last weekend. Possible polypharmacy. Trauma work-up negative * PT/OT recommending jail facility we require to go prior to returning to her assisted living * MRI with no acute intracranial process * Echo still pending * Interval patient's Lyrica at this time * D-DIMER WNL (2) Dizziness: Code(s): R42 - Dizziness and giddiness Status: Acute Assessment and Plan: See Above #1 (3) Hypertension: Code(s): I10 - Essential (primary) hypertension Status: Acute Assessment and Plan: * continue metoprolol and losartan * BP per unit protocol (4) Diabetes mellitus: Code(s): E11.9 - Type 2 diabetes mellitus without complications Status: Acute Assessment and Plan: * Hold patient's metformin * Low-dose sliding scale * Accu-Cheks a.c. HS * Hypoglycemic protocol * Diabetic diet (5) Anxiety: Code(s): F41.9 - Anxiety disorder, unspecified Status: Acute Assessment and Plan: Polypharmacy in because of patient's frequent falls - will hold Lyrica as this is listed as an allergy, looks like more of an intolerance -recommend decreasing home patient's narcotics and antianxiety medications (6) Transaminitis: Code(s): R74.01 - Elevation of levels of liver transaminase levels Status: Acute Assessment and Plan: Acute/chronic No discomfort or difficulty eating -hx of hep C, will need follow up outpt GI -monitor trending down (7) Arthritis: Code(s): M19.90 - Unspecified osteoarthritis, unspecified site Status: Acute Assessment and Plan: Moderate to sever right knee pain patient reports her arthritis is why she uses a wheelchair * laron SIMMONS Plan Code status: Full code per patient DVT prophylaxis: SCDs Stress ulcer prophylaxis: NA PT/OT notes: SNF Disposition: Patient continues admission to the medical unit after fall from wheelchair at her assisted living as reported she has had multiple falls the last few weeks greater than 15 unknown cause echocardiogram is pending PT and OT are recommending jail facility patient does not appear to be at her baseline was able to perform transfers on her own prior to admission will need jail facility prior to returning to assisted living facility. has sent request to [facility] pending acceptance and authorization. Time Spent With Patient Time with patient: 15 - 25 minutes Subjective Date/time seen: 12/01/24 15:26 Interval history: Pt is a 79-year-old female here for falls and dizziness. Patient was admitted for further evaluation multiple falls trauma workup was negative. Patient is wheelchair PT/OT for further evaluation 12/01/2024: Patient denied any dizziness, CP, SOB but did endorse feeling tired, generalized weakness from baseline and pain to her right knee and shoulder where she fell. Patient reports chronic pain to Right knee with severe OA. Review of Systems Review of Systems: All systems reviewed & are unremarkable except as noted in HPI and below Exam Narrative: General: overweight patient resting comfortably in bed in no acute distress HEENT: normocephalic, abrasion to her forehead and nose that are well healing Neck: supple Neuro: Alert and oriented x4. Equal strength the upper lower extremities 5/5. Cranial nerves 2-12 intact CV:RRR Resp:CTA bilaterally Abd: Soft, non distended. No pain to palpation. Positive bowel sounds Extremities: pitting edema up to her knees bilaterally. Abrasion to the right knee Objective Data Vital Signs Vital Signs: Vital Signs - 24 hr 11/30/24 20:00 11/30/24 22:00 11/30/24 22:16 Temperature 98.6 F Pulse Rate 70 72 70 Respiratory Rate 20 20 Blood Pressure 163/33 H Pulse Oximetry 98 98 Oxygen Delivery Nasal Cannula Oxygen Flow Rate 2 12/01/24 01:10 12/01/24 06:00 12/01/24 08:21 Temperature 97.7 F Pulse Rate 65 74 Respiratory Rate 18 Blood Pressure 152/62 H Pulse Oximetry 98 96 Oxygen Delivery Nasal Cannula Oxygen Flow Rate 2 12/01/24 10:01 12/01/24 10:11 Temperature Pulse Rate Respiratory Rate Blood Pressure Pulse Oximetry Oxygen Delivery Nasal Cannula Nasal Cannula Oxygen Flow Rate 2 2 Intake/Output Intake/Output: Intake & Output 11/28/24 11/29/24 11/30/24 12/01/24 23:59 23:59 23:59 23:59 Intake Total 1240 Output Total 800 1600 Balance 440 -1600 Meds/Results Medications: Active Medications Generic Name Dose Route Start Last Admin Trade Name Freq PRN Reason Stop Dose Admin Acetaminophen 650 mg 11/30/24 05:48 12/01/24 06:51 Acetaminophen 325 Mg Tablet PO 650 mg Q6H PRN Administration Mild Pain (1-3) Or Fever Hydrocodone Bitart/Acetaminophen 1 tab 11/30/24 08:07 Hydrocodone/Acetaminophen (*Crx) 10-325 Mg Tablet PO Q4H PRN pain 7-10 Allopurinol 300 mg 11/30/24 09:00 12/01/24 08:21 Allopurinol 300 Mg Tablet PO 300 mg DAILY EMERITA Administration Amlodipine Besylate 10 mg 11/30/24 09:00 12/01/24 08:22 Amlodipine Besylate 10 Mg Tablet PO 10 mg DAILY EMERITA Administration Aripiprazole 5 mg 11/30/24 09:00 12/01/24 08:21 Aripiprazole 5 Mg Tablet PO 5 mg DAILY EMERITA Administration Aspirin 325 mg 11/30/24 08:00 12/01/24 08:20 Aspirin 325 Mg Tablet PO 325 mg DAILY@0800 EMERITA Administration Atorvastatin Calcium 20 mg 11/30/24 09:00 12/01/24 08:22 Atorvastatin 20 Mg Tablet PO 20 mg DAILY EMERITA Administration Calcitriol 0.5 mcg 11/30/24 09:00 12/01/24 08:20 Calcitriol 0.25 Mcg Capsule PO 0.5 mcg QAM EMERITA Administration Citalopram Hydrobromide 20 mg 11/30/24 09:00 12/01/24 08:21 Citalopram Hydrobromide 20 Mg Tablet PO 20 mg DAILY EMERITA Administration Clonazepam 0.5 mg 11/30/24 21:00 11/30/24 22:16 Clonazepam (*Crx) 0.5 Mg Tablet PO 0.5 mg HS EMERITA Administration Dextrose 12.5 gm 11/30/24 05:47 Dextrose 50% 25 Gm/50 Ml Syringe IV PUSH PRN PRN Hypoglycemia Protocol Dextrose 12.5 gm 11/30/24 08:14 Dextrose 50% 25 Gm/50 Ml Syringe IV PUSH PRN PRN Hypoglycemia Protocol Dicyclomine HCl 10 mg 11/30/24 09:00 12/01/24 12:01 Dicyclomine Hcl 10 Mg Capsule PO 10 mg TID EMERITA Administration Docusate Sodium 100 mg 11/30/24 05:48 Docusate Sodium 100 Mg Capsule PO DAILY PRN Constipation Duloxetine HCl 40 mg 11/30/24 09:00 12/01/24 08:20 Duloxetine Hcl 20 Mg Capsule.Dr PO 40 mg DAILY EMERITA Administration Ferrous Sulfate 325 mg 11/30/24 09:00 12/01/24 08:22 Ferrous Sulfate [address] PO 325 mg DAILY EMERITA Administration Folic Acid 1 mg 11/30/24 09:00 12/01/24 08:21 Folic Acid 1 Mg Tablet PO 1 mg DAILY EMERITA Administration Glucagon 1 mg 11/30/24 08:14 Glucagon For Inj 1 Mg Vial IM PRN PRN Hypoglycemia Protocol Glucose 15 gm 11/30/24 05:47 Glucose Oral Gel 15 Gm Of Glucse In 37.5 Gm Tube PO PRN PRN Hypoglycemia Protocol Glucose 15 gm 11/30/24 08:14 Glucose Oral Gel 15 Gm Of Glucse In 37.5 Gm Tube PO PRN PRN Hypoglycemia Protocol Hydroxychloroquine Sulfate 200 mg 11/30/24 17:00 12/01/24 08:21 Hydroxychloroquine Sulfate 200 Mg Tablet PO 200 mg BID EMERITA Administration Dextrose 1,000 mls @ 100 mls/hr 11/30/24 05:47 Dextrose 5% 1,000 Ml IVPB PRN PRN Hypoglycemia Protocol Dextrose 1,000 mls @ 100 mls/hr 11/30/24 08:14 Dextrose 5% 1,000 Ml IVPB PRN PRN Hypoglycemia Protocol Insulin Aspart 2 - 5 units 11/30/24 12:00 12/01/24 12:01 Insulin Aspart (*Bkc) 100 Units/Ml SUB-Q Not Given TIDWM EMERITA Protocol Insulin Aspart 1 - 2 units 11/30/24 21:00 11/30/24 22:16 Insulin Aspart (*Bkc) 100 Units/Ml SUB-Q Not Given HS EMERITA Protocol Losartan Potassium 25 mg 11/30/24 09:00 12/01/24 08:21 Losartan Potassium 25 Mg Tablet PO 25 mg DAILY EMERITA Administration Metoprolol Tartrate 50 mg 11/30/24 09:00 12/01/24 08:21 Metoprolol Tartrate 50 Mg Tab PO 50 mg Q12HR EMERITA Administration Pantoprazole Sodium 40 mg 11/30/24 09:00 12/01/24 08:21 Pantoprazole 40 Mg Tablet PO 40 mg Q12HR EMERITA Administration Perflutren Lipid Microsphere 0 ml 11/30/24 12:08 Perflutren Lipid Microspheres 1.5 Ml Vial Diluted To 10 Ml Total Volume IV PUSH 12/03/24 12:08 ONCE PRN adequate visualization Protocol Polyethylene Glycol 17 gm 11/30/24 08:07 Polyethylene Glycol 3350 17 Gm Powd.Pack PO DAILY PRN constipation Primidone 250 mg 11/30/24 09:00 12/01/24 12:01 Primidone 250 Mg Tablet PO 250 mg QID EMERITA Administration Sucralfate 1 gm 11/30/24 11:30 12/01/24 12:01 Sucralfate 1 Gm Tablet PO 1 gm TIDAC EMERITA Administration Radiology Results: ITS Impressions Ankle X-Ray 11/29/24 22:55 IMPRESSION: Degenerative disease with prior fracture deformity within the distal right fibula. No acute fracture is appreciated. Significant soft tissue swelling within the medial and lateral right ankle. Chest X-Ray 11/29/24 22:56 IMPRESSION: 1. No acute cardiopulmonary disease. Knee X-Ray 11/29/24 22:57 IMPRESSION: Severe degenerative disease, without fracture Head CT 11/29/24 22:59 IMPRESSION: 1. Small old lacunar infarct at the anterior limb of the left internal capsule.. No fracture or acute intracranial process. 2. Age-related changes including mild diffuse volume loss and mild scattered white matter hypoattenuation consistent with chronic small vessel ischemic disease. Pelvis X-Ray 11/29/24 23:00 IMPRESSION: Significant degenerative disease, without acute fracture or dislocation, as detailed above. Head/Cervical Spine/Facial Bones CT 11/29/24 23:02 IMPRESSION: 1. No maxillofacial fractures. 2. Moderate cervical spondylosis with no change in a noncemented C3-C7 anterior spinal fusion and with new lower cervical posterior decompression with C6-T2 instrumented posterior spinal fusion. 2. Chronic T3 and T4 compression fractures. No acute osseous abnormality in the cervical or visualized upper thoracic spine. Brain MRI 11/30/24 14:29 IMPRESSION: 1. No acute intracranial process. 2. Age-related changes including mild diffuse volume loss and mild scattered nonspecific white matter T2 hyperintensity consistent with chronic small vessel ischemic disease. Labs Labs: Laboratory Results - last 24 hr 11/30/24 11/30/24 12/01/24 16:16 22:13 06:21 WBC 6.5 RBC 3.66 L Hgb 12.3 Hct 38.8 MCV 106.0 H MCH 33.6 MCHC 31.7 L RDW 13.5 Plt Count 181 MPV 10.7 H Sodium 134 L Potassium 4.4 Chloride 98 Carbon Dioxide 33 H Anion Gap 3 L BUN 14 D Creatinine 0.66 L Estim Creat Clear Calc 69 Estimated GFR > 60 Glucose 130 H POC Capillary Glucose 141 H 140 H Calcium 9.3 Total Bilirubin 0.4 AST 62 H ALT 59 H Alkaline Phosphatase 106 Total Protein 6.9 Albumin 3.6 12/01/24 12/01/24 07:46 11:43 WBC RBC Hgb Hct MCV MCH MCHC RDW Plt Count MPV Sodium Potassium Chloride Carbon Dioxide Anion Gap BUN Creatinine Estim Creat Clear Calc Estimated GFR Glucose POC Capillary Glucose 126 H 166 H Calcium Total Bilirubin AST ALT Alkaline Phosphatase Total Protein Albumin Quality VTE Prophylaxis VTE prophylaxis: mechanical ordered -Patient's previous records reviewed on admission -ER notes reviewed in detail on admission -discussed all findings and current treatment plan with patient/Family/POA -Consultations reviewed for recommendations -Patient's disposition for safe discharge discussed with block and case maker Dictation performed by [employer] direct speech recognition software, therefore marketing proposal coordinator variants and typographical errors may occur. Hospitalist MIPS Advance Care Plan I have confirmed that the patient's Advanced Care Plan is present, code status is documented, or surrogate decision maker is listed in patient medical record.: Yes Medication Reconciliation I have utilized all available resources to obtain, update and review the patients current medications (includes all prescriptions, OTC, herbals, cannabis, and nutritional supplements).: Yes The patient is not eligible for med reconciliation; the patient is in a emergent medical situation where delaying treatment would jeopardize the patients health.: No
[2024-12-01] MEDS: DICLOFENAC SODIUM 1% 100 GM GEL (*BKC) 1 APPLIC TOPICAL ×2 (16:33→20:27)
[2024-12-01] MEDS: clonazePAM (*CRX) 0.5 MG TABLET PO (20:26)
[2024-12-02 04:56] VITALS: BP 155/85; PULSE 65; RESP 18; TEMP 36.4; O2SAT 100
[2024-12-02] MEDS: SUCRALFATE 1 GM TABLET PO ×3 (05:42→17:07)
[2024-12-02 08:00] VITALS: O2SAT 97
[2024-12-02] MEDS: HYDROXYCHLOROQUINE SULFATE 200 MG TABLET PO ×2 (09:04→17:09)
[2024-12-02] MEDS: FOLIC ACID 1 MG TABLET PO (09:04)
[2024-12-02] MEDS: PRIMIDONE 250 MG TABLET PO ×4 (09:04→21:18)
[2024-12-02] MEDS: METOPROLOL TARTRATE 50 MG TAB PO ×2 (09:04→21:18)
[2024-12-02] MEDS: DICYCLOMINE HCL 10 MG CAPSULE PO ×3 (09:05→17:08)
[2024-12-02] MEDS: LOSARTAN POTASSIUM 25 MG TABLET PO (09:05)
[2024-12-02] MEDS: ATORVASTATIN 20 MG TABLET PO (09:05)
[2024-12-02] MEDS: ASPIRIN 325 MG TABLET PO (09:05)
[2024-12-02] MEDS: PANTOPRAZOLE 40 MG TABLET PO ×2 (09:06→21:18)
[2024-12-02] MEDS: CITALOPRAM HYDROBROMIDE 20 MG TABLET PO (09:06)
[2024-12-02] MEDS: FERROUS SULFATE 325 MG TABLET DR PO (09:06)
[2024-12-02] MEDS: LIDOCAINE 5% PATCH 1 PATCH TRANSDERM (09:10)
[2024-12-02] MEDS: DICLOFENAC SODIUM 1% 100 GM GEL (*BKC) 1 APPLIC TOPICAL ×4 (09:25→21:18)
--- NOTE | 2024-12-02 10:32 | P.PNIM_ITS ---
Progress Note: A&P Assessment and Plan (1) Falls: Code(s): R29.6 - Repeated falls Status: Acute Assessment and Plan: patient is typically wheelchair bound but fell out of her wheelchair reports over 15 falls recently fell forward out of wheelchair reaching for something she had complaints of dizziness that started last weekend. Possible polypharmacy. Trauma work-up negative * PT/OT recommending usp facility we require to go prior to returning to her assisted living * MRI with no acute intracranial process * Echo Normal left ventricle size and systolic and diastolic function, LVEF 65-70% * Interval patient's Lyrica at this time * D-DIMER WNL (2) Dizziness: Code(s): R42 - Dizziness and giddiness Status: Acute Assessment and Plan: See Above #1 (3) Hypertension: Code(s): I10 - Essential (primary) hypertension Status: Acute Assessment and Plan: * continue metoprolol and losartan * BP per unit protocol (4) Diabetes mellitus: Code(s): E11.9 - Type 2 diabetes mellitus without complications Status: Acute Assessment and Plan: * Hold patient's metformin * Low-dose sliding scale * Accu-Cheks a.c. HS * Hypoglycemic protocol * Diabetic diet (5) Anxiety: Code(s): F41.9 - Anxiety disorder, unspecified Status: Acute Assessment and Plan: Polypharmacy in because of patient's frequent falls - will hold Lyrica as this is listed as an allergy, looks like more of an intolerance -recommend decreasing home patient's narcotics and antianxiety medications (6) Transaminitis: Code(s): R74.01 - Elevation of levels of liver transaminase levels Status: Acute Assessment and Plan: Acute/chronic No discomfort or difficulty eating -hx of hep C, will need follow up outpt GI -monitor trending down (7) Arthritis: Code(s): M19.90 - Unspecified osteoarthritis, unspecified site Status: Acute Assessment and Plan: Moderate to sever right knee pain patient reports her arthritis is why she uses a wheelchair * laron SIMMONS Plan Code status: Full code per patient DVT prophylaxis: SCDs Stress ulcer prophylaxis: NA PT/OT notes: SNF Disposition: Patient continues admission to the medical unit after fall from wheelchair at her assisted living as reported she has had multiple falls the last few weeks greater than 15 unknown cause echocardiogram is pending PT and OT are recommending usp facility patient does not appear to be at her baseline was able to perform transfers on her own prior to admission will need usp facility prior to returning to assisted living facility. CC has sent request to [facility] pending acceptance and authorization. Time Spent With Patient Time with patient: 15 - 25 minutes Subjective Date/time seen: 12/02/24 10:32 Interval history: Pt is a 79-year-old female here for falls and dizziness. Patient was admitted for further evaluation multiple falls trauma workup was negative. Patient is wheelchair PT/OT for further evaluation 12/02/2024: Patient still with moderate joint pain from falling and severe OA but Cecin helping. Currently waiting on placement to rehab. Review of Systems Review of Systems: All systems reviewed & are unremarkable except as noted in HPI and below Exam Narrative: General: overweight patient resting comfortably in bed in no acute distress HEENT: normocephalic, abrasion to her forehead and nose that are well healing Neck: supple Neuro: Alert and oriented x4. Equal strength the upper lower extremities 5/5. Cranial nerves 2-12 intact CV:RRR Resp:CTA bilaterally Abd: Soft, non distended. No pain to palpation. Positive bowel sounds Extremities: pitting edema up to her knees bilaterally. Abrasion to the right knee Objective Data Vital Signs Vital Signs: Vital Signs - 24 hr 12/01/24 14:00 12/01/24 20:26 12/01/24 21:21 Temperature 97.6 F 98.7 F Pulse Rate 62 64 67 Respiratory Rate 18 17 Blood Pressure 152/71 H 157/73 H Pulse Oximetry 100 97 Oxygen Delivery Oxygen Flow Rate Fraction of Inspired Oxygen 12/01/24 22:05 12/02/24 04:56 Temperature 97.6 F Pulse Rate 64 65 Respiratory Rate 20 18 Blood Pressure 155/85 H Pulse Oximetry 94 100 Oxygen Delivery Nasal Cannula Oxygen Flow Rate 2 Fraction of Inspired Oxygen 28 Intake/Output Intake/Output: Intake & Output 11/29/24 11/30/24 12/01/2425 23:59 23:59 23:59 23:59 Intake Total 1240 590 110 Output Total 800 3400 Balance 440 -2810 110 Meds/Results Medications: Active Medications Generic Name Dose Route Start Last Admin Trade Name Freq PRN Reason Stop Dose Admin Acetaminophen 650 mg 11/30/24 05:48 12/01/24 20:37 Acetaminophen 325 Mg Tablet PO 650 mg Q6H PRN Administration Mild Pain (1-3) Or Fever Hydrocodone Bitart/Acetaminophen 1 tab 11/30/24 08:07 Hydrocodone/Acetaminophen (*Crx) 10-325 Mg Tablet PO Q4H PRN pain 7-10 Allopurinol 300 mg 11/30/24 09:00 12/02/24 09:06 Allopurinol 300 Mg Tablet PO 300 mg DAILY EMERITA Administration Amlodipine Besylate 10 mg 11/30/24 09:00 12/02/24 09:05 Amlodipine Besylate 10 Mg Tablet PO 10 mg DAILY EMERITA Administration Aripiprazole 5 mg 11/30/24 09:00 12/02/24 09:05 Aripiprazole 5 Mg Tablet PO 5 mg DAILY EMERITA Administration Aspirin 325 mg 11/30/24 08:00 12/02/24 09:05 Aspirin 325 Mg Tablet PO 325 mg DAILY@0800 EMERITA Administration Atorvastatin Calcium 20 mg 11/30/24 09:00 12/02/24 09:05 Atorvastatin 20 Mg Tablet PO 20 mg DAILY EMERITA Administration Calcitriol 0.5 mcg 11/30/24 09:00 12/02/24 09:04 Calcitriol 0.25 Mcg Capsule PO 0.5 mcg QAM EMERITA Administration Citalopram Hydrobromide 20 mg 11/30/24 09:00 12/02/24 09:06 Citalopram Hydrobromide 20 Mg Tablet PO 20 mg DAILY EMERITA Administration Clonazepam 0.5 mg 11/30/24 21:00 12/01/24 20:26 Clonazepam (*Crx) 0.5 Mg Tablet PO 0.5 mg HS EMERITA Administration Dextrose 12.5 gm 11/30/24 05:47 Dextrose 50% 25 Gm/50 Ml Syringe IV PUSH PRN PRN Hypoglycemia Protocol Dextrose 12.5 gm 11/30/24 08:14 Dextrose 50% 25 Gm/50 Ml Syringe IV PUSH PRN PRN Hypoglycemia Protocol Diclofenac Sodium 1 applic 12/01/24 17:00 12/02/24 09:25 Diclofenac Sodium 1% 100 Gm Gel (*Bkc) TOPICAL 1 applic QID EMERITA Administration Dicyclomine HCl 10 mg 11/30/24 09:00 12/02/24 09:05 Dicyclomine Hcl 10 Mg Capsule PO 10 mg TID EMERITA Administration Docusate Sodium 100 mg 11/30/24 05:48 Docusate Sodium 100 Mg Capsule PO DAILY PRN Constipation Duloxetine HCl 40 mg 11/30/24 09:00 12/02/24 09:05 Duloxetine Hcl 20 Mg Capsule. PO 40 mg DAILY EMERITA Administration Ferrous Sulfate 325 mg 11/30/24 09:00 12/02/24 09:06 Ferrous Sulfate [address] PO 325 mg DAILY EMERITA Administration Folic Acid 1 mg 11/30/24 09:00 12/02/24 09:04 Folic Acid 1 Mg Tablet PO 1 mg DAILY EMERITA Administration Glucagon 1 mg 11/30/24 08:14 Glucagon For Inj 1 Mg Vial IM PRN PRN Hypoglycemia Protocol Glucose 15 gm 11/30/24 05:47 Glucose Oral Gel 15 Gm Of Glucse In 37.5 Gm Tube PO PRN PRN Hypoglycemia Protocol Glucose 15 gm 11/30/24 08:14 Glucose Oral Gel 15 Gm Of Glucse In 37.5 Gm Tube PO PRN PRN Hypoglycemia Protocol Hydroxychloroquine Sulfate 200 mg 11/30/24 17:00 12/02/24 09:04 Hydroxychloroquine Sulfate 200 Mg Tablet PO 200 mg BID EMERITA Administration Dextrose 1,000 mls @ 100 mls/hr 11/30/24 05:47 Dextrose 5% 1,000 Ml IVPB PRN PRN Hypoglycemia Protocol Dextrose 1,000 mls @ 100 mls/hr 11/30/24 08:14 Dextrose 5% 1,000 Ml IVPB PRN PRN Hypoglycemia Protocol Insulin Aspart 2 - 5 units 11/30/24 12:00 12/02/24 09:05 Insulin Aspart (*Bkc) 100 Units/Ml SUB-Q Not Given [facility] Protocol Insulin Aspart 1 - 2 units 11/30/24 21:00 12/01/24 20:29 Insulin Aspart (*Bkc) 100 Units/Ml SUB-Q Not Given HS EMERITA Protocol Lidocaine 1 patch 12/02/24 09:00 12/02/24 09:10 Lidocaine 5% Patch TRANSDERM 1 patch DAILY EMERITA Administration Losartan Potassium 25 mg 11/30/24 09:00 12/02/24 09:05 Losartan Potassium 25 Mg Tablet PO 25 mg DAILY EMERITA Administration Metoprolol Tartrate 50 mg 11/30/24 09:00 12/02/24 09:04 Metoprolol Tartrate 50 Mg Tab PO 50 mg Q12HR EMERITA Administration Pantoprazole Sodium 40 mg 11/30/24 09:00 12/02/24 09:06 Pantoprazole 40 Mg Tablet PO 40 mg Q12HR EMERITA Administration Perflutren Lipid Microsphere 0 ml 11/30/24 12:08 Perflutren Lipid Microspheres 1.5 Ml Vial Diluted To 10 Ml Total Volume IV PUSH 12/03/24 12:08 ONCE PRN adequate visualization Protocol Polyethylene Glycol 17 gm 11/30/24 08:07 Polyethylene Glycol 3350 17 Gm Powd.Pack PO DAILY PRN constipation Primidone 250 mg 11/30/24 09:00 12/02/24 09:04 Primidone 250 Mg Tablet PO 250 mg QID EMERITA Administration Sucralfate 1 gm 11/30/24 11:30 12/02/24 05:42 Sucralfate 1 Gm Tablet PO 1 gm TIDAC EMERITA Administration Radiology Results: ITS Impressions Ankle X-Ray 11/29/24 22:55 IMPRESSION: Degenerative disease with prior fracture deformity within the distal right fibula. No acute fracture is appreciated. Significant soft tissue swelling within the medial and lateral right ankle. Chest X-Ray 11/29/24 22:56 IMPRESSION: 1. No acute cardiopulmonary disease. Knee X-Ray 11/29/24 22:57 IMPRESSION: Severe degenerative disease, without fracture Head CT 11/29/24 22:59 IMPRESSION: 1. Small old lacunar infarct at the anterior limb of the left internal capsule.. No fracture or acute intracranial process. 2. Age-related changes including mild diffuse volume loss and mild scattered white matter hypoattenuation consistent with chronic small vessel ischemic disease. Pelvis X-Ray 11/29/24 23:00 IMPRESSION: Significant degenerative disease, without acute fracture or dislocation, as detailed above. Head/Cervical Spine/Facial Bones CT 11/29/24 23:02 IMPRESSION: 1. No maxillofacial fractures. 2. Moderate cervical spondylosis with no change in a noncemented C3-C7 anterior spinal fusion and with new lower cervical posterior decompression with C6-T2 instrumented posterior spinal fusion. 2. Chronic T3 and T4 compression fractures. No acute osseous abnormality in the cervical or visualized upper thoracic spine. Brain MRI 11/30/24 14:29 IMPRESSION: 1. No acute intracranial process. 2. Age-related changes including mild diffuse volume loss and mild scattered nonspecific white matter T2 hyperintensity consistent with chronic small vessel ischemic disease. Labs Labs: Laboratory Results - last 24 hr 12/01/24 12/01/24 12/01/24 11:43 16:48 19:55 POC Capillary Glucose 166 H 126 H 172 H 12/02/24 07:43 POC Capillary Glucose 130 H Quality VTE Prophylaxis VTE prophylaxis: mechanical ordered -Patient's previous records reviewed on admission -ER notes reviewed in detail on admission -discussed all findings and current treatment plan with patient/Family/POA -Consultations reviewed for recommendations -Patient's disposition for safe discharge discussed with case loader operator Dictation performed by [email or web address] direct speech recognition software, therefore button spindler variants and typographical errors may occur. Hospitalist MIPS Advance Care Plan I have confirmed that the patient's Advanced Care Plan is present, code status is documented, or surrogate decision maker is listed in patient medical record.: Yes Medication Reconciliation I have utilized all available resources to obtain, update and review the patients current medications (includes all prescriptions, OTC, herbals, cannabis, and nutritional supplements).: Yes The patient is not eligible for med reconciliation; the patient is in a emergent medical situation where delaying treatment would jeopardize the patients health.: No
[2024-12-02] MEDS: INSULIN ASPART (*BKC) 100 UNITS/ML SUB-Q (12:32)
[2024-12-02 14:00] VITALS: BP 128/61; PULSE 59; RESP 16; TEMP 35.9; O2SAT 98
[2024-12-02] MEDS: HYDROcodone/acetaminophen (*CRX) 10-325 MG TABLET 1 TAB PO (17:07)
[2024-12-02 19:53] VITALS: O2SAT 95
[2024-12-02 20:00] VITALS: O2SAT 95
[2024-12-02 21:18] VITALS: PULSE 80
[2024-12-02] MEDS: clonazePAM (*CRX) 0.5 MG TABLET PO (21:18)
[2024-12-02] MEDS: ACETAMINOPHEN 325 MG TABLET 650 MG PO (21:20)
[2024-12-03] VITALS (8 sets, daily range): BP systolic 143–148; BP diastolic 57–77; PULSE 60–72; RESP 16–20; TEMP 36–36.6; O2SAT 95–99
[2024-12-03] MEDS: SUCRALFATE 1 GM TABLET PO ×3 (05:45→16:33)
[2024-12-03 06:27] LABS: Hematocrit 38.7 % (37.0-47.0); Hemoglobin 12.8 g/dL (12.0-15.0); Mean Corpuscular HGB Conc 33.1 g/dl (32-36); Mean Corpuscular Hemoglobin 34.1 pg (26-34); Mean Corpuscular Volume 103.2 fl (80-100); Platelet Count Result 187 k/mm3 (150-375); Red Blood Count 3.75 M/mm3 (4.2-5.4); White Blood Count 5.6 K/mm3 (4.5-10.0)
[2024-12-03 06:52] LABS: Alanine Aminotransferase 51 U/L (6-35); Albumin Level 3.5 g/dL (3.5-5.1); Alkaline Phosphatase 104 U/L (38-126); Anion Gap 3 mmol/L (4-12); Aspartate Amino Transferase 58 U/L (14-36); Bilirubin,Total 0.4 mg/dL (0.2-1.3); Blood Urea Nitrogen 16 mg/dL (7-17); Calcium 9.3 mg/dL (8.4-10.2); Carbon Dioxide 33 mmol/L (22-30); Chloride 101 mmol/L (98-107); Estimated CRCL calculation 68 ml/min; Estimated Glomerular Filt Rate > 60; Glucose 147 mg/dL (65-110); Potassium 3.9 mmol/L (3.4-5.0); Sodium 137 mmol/L (137-145); Total Protein 6.8 g/dL (6.3-8.2)
--- NOTE | 2024-12-03 07:58 | P.PNIM_ITS ---
Progress Note: A&P Assessment and Plan (1) Falls: Code(s): R29.6 - Repeated falls Status: Acute Assessment and Plan: patient is typically wheelchair bound but fell out of her wheelchair reports over 15 falls recently fell forward out of wheelchair reaching for something she had complaints of dizziness that started last weekend. Possible polypharmacy. Trauma work-up negative * PT/OT recommending halfway facility we require to go prior to returning to her assisted living * MRI with no acute intracranial process * Echo Normal left ventricle size and systolic and diastolic function, LVEF 65-70% * Interval patient's Lyrica at this time * D-DIMER WNL * Accepted at [facility] -pending authorization (2) Dizziness: Code(s): R42 - Dizziness and giddiness Status: Acute Assessment and Plan: See Above #1 (3) Hypertension: Code(s): I10 - Essential (primary) hypertension Status: Acute Assessment and Plan: * continue metoprolol and losartan * BP per unit protocol (4) Diabetes mellitus: Code(s): E11.9 - Type 2 diabetes mellitus without complications Status: Acute Assessment and Plan: * Hold patient's metformin * Low-dose sliding scale * Accu-Cheks a.c. HS * Hypoglycemic protocol * Diabetic diet (5) Anxiety: Code(s): F41.9 - Anxiety disorder, unspecified Status: Acute Assessment and Plan: Polypharmacy in because of patient's frequent falls - will hold Lyrica as this is listed as an allergy, looks like more of an intolerance -recommend decreasing home patient's narcotics and antianxiety medications (6) Transaminitis: Code(s): R74.01 - Elevation of levels of liver transaminase levels Status: Acute Assessment and Plan: Acute/chronic No discomfort or difficulty eating -hx of hep C, will need follow up outpt GI -monitor trending down (7) Arthritis: Code(s): M19.90 - Unspecified osteoarthritis, unspecified site Status: Acute Assessment and Plan: Moderate to sever right knee pain patient reports her arthritis is why she uses a wheelchair * laron SIMMONS Plan Code status: Full code per patient DVT prophylaxis: SCDs Stress ulcer prophylaxis: NA PT/OT notes: SNF Disposition: Patient continues admission to the medical unit after fall from wheelchair at her assisted living as reported she has had multiple falls the last few weeks greater than 15 unknown cause echocardiogram is pending PT and OT are recommending halfway facility patient does not appear to be at her baseline was able to perform transfers on her own prior to admission will need halfway facility prior to returning to assisted living facility. Accepted at [facility] - pending authorization Subjective Date/time seen: 12/03/24 07:58 Interval history: Pt is a 79-year-old female here for falls and dizziness. Patient was admitted for further evaluation multiple falls trauma workup was negative. Patient is wheelchair PT/OT for further evaluation 12/03/2024: Patient sitting comfortably in bed at time of examination. Denies any chest pain, shortness a breath, nausea/vomiting or abdominal pain at this time. Patient has been accepted at [facility] and we are currently working with care coordination regarding getting insurance accepted, likely will be tomorrow given time frame at this point. Patient otherwise stable and has no comments or concerns at this time. Review of Systems Review of Systems: All systems reviewed & are unremarkable except as noted in HPI and below Exam Narrative: General: overweight patient resting comfortably in bed in no acute distress HEENT: normocephalic, abrasion to her forehead and nose that are well healing Neck: supple Neuro: Alert and oriented x4. Equal strength the upper lower extremities 5/5. Cranial nerves 2-12 intact CV:RRR Resp:CTA bilaterally Abd: Soft, non distended. No pain to palpation. Positive bowel sounds Extremities: pitting edema up to her knees bilaterally. Abrasion to the right knee Const: General: comfortable and no acute distress Other: A&O x3 HENMT: Mouth: Yes moist mucous membranes Eyes: Pupils: Equal, round and reactive pupils present Neck: Neck: supple Resp: Effort & Inspection: normal respiratory effort Auscultation: clear to auscultation bilaterally Cardio: Rate: regular rate Rhythm: regular rhythm GI: Inspection: non-distended Neuro: Cranial nerves: Yes Equal, round and reactive pupils present Other: Right lower extremity 1/5 motor strength on flexion of the hip, 2/5 strength at the knee, 4/5 strength at the right ankle. Decreased sensation right lower extremity. Extrem: General: no edema Objective Data Vital Signs Vital Signs: Vital Signs - 24 hr 12/02/24 08:00 12/02/24 14:00 12/02/24 19:53 Temperature 96.6 F L Pulse Rate 59 L Respiratory Rate 16 Blood Pressure 128/61 Pulse Oximetry 97 98 95 Oxygen Delivery Nasal Cannula Nasal Cannula Oxygen Flow Rate 2 2 12/02/24 20:00 12/02/24 21:18 12/03/24 06:00 Temperature 97.9 F Pulse Rate 80 62 Respiratory Rate 18 Blood Pressure 144/57 H Pulse Oximetry 95 99 Oxygen Delivery Nasal Cannula Oxygen Flow Rate 2 Intake/Output Intake/Output: Intake & Output 11/30/24 12/01/24 12/02/24 12/03/24 23:59 23:59 23:59 23:59 Intake Total 1240 590 982 Output Total 800 3400 200 700 Balance 440 -2810 782 -700 Meds/Results Medications: Active Medications Generic Name Dose Route Start Last Admin Trade Name Freq PRN Reason Stop Dose Admin Acetaminophen 650 mg 11/30/24 05:48 12/02/24 21:20 Acetaminophen 325 Mg Tablet PO 650 mg Q6H PRN Administration Mild Pain (1-3) Or Fever Hydrocodone Bitart/Acetaminophen 1 tab 11/30/24 08:07 12/02/24 17:07 Hydrocodone/Acetaminophen (*Crx) 10-325 Mg Tablet PO 1 tab Q4H PRN Administration pain 7-10 Allopurinol 300 mg 11/30/24 09:00 12/02/24 09:06 Allopurinol 300 Mg Tablet PO 300 mg DAILY EMERITA Administration Amlodipine Besylate 10 mg 11/30/24 09:00 12/02/24 09:05 Amlodipine Besylate 10 Mg Tablet PO 10 mg DAILY EMERITA Administration Aripiprazole 5 mg 11/30/24 09:00 12/02/24 09:05 Aripiprazole 5 Mg Tablet PO 5 mg DAILY EMERITA Administration Aspirin 325 mg 11/30/24 08:00 12/02/24 09:05 Aspirin 325 Mg Tablet PO 325 mg DAILY@0800 EMERITA Administration Atorvastatin Calcium 20 mg 11/30/24 09:00 12/02/24 09:05 Atorvastatin 20 Mg Tablet PO 20 mg DAILY EMERITA Administration Calcitriol 0.5 mcg 11/30/24 09:00 12/02/24 09:04 Calcitriol 0.25 Mcg Capsule PO 0.5 mcg QAM EMERITA Administration Citalopram Hydrobromide 20 mg 11/30/24 09:00 12/02/24 09:06 Citalopram Hydrobromide 20 Mg Tablet PO 20 mg DAILY EMERITA Administration Clonazepam 0.5 mg 11/30/24 21:00 12/02/24 21:18 Clonazepam (*Crx) 0.5 Mg Tablet PO 0.5 mg HS EMERITA Administration Dextrose 12.5 gm 11/30/24 05:47 Dextrose 50% 25 Gm/50 Ml Syringe IV PUSH PRN PRN Hypoglycemia Protocol Dextrose 12.5 gm 11/30/24 08:14 Dextrose 50% 25 Gm/50 Ml Syringe IV PUSH PRN PRN Hypoglycemia Protocol Diclofenac Sodium 1 applic 12/01/24 17:00 12/02/24 21:18 Diclofenac Sodium 1% 100 Gm Gel (*Bkc) TOPICAL 1 applic QID EMERITA Administration Dicyclomine HCl 10 mg 11/30/24 09:00 12/02/24 17:08 Dicyclomine Hcl 10 Mg Capsule PO 10 mg TID EMERITA Administration Docusate Sodium 100 mg 11/30/24 05:48 Docusate Sodium 100 Mg Capsule PO DAILY PRN Constipation Duloxetine HCl 40 mg 11/30/24 09:00 12/02/24 09:05 Duloxetine Hcl 20 Mg Capsule. PO 40 mg DAILY EMERITA Administration Ferrous Sulfate 325 mg 11/30/24 09:00 12/02/24 09:06 Ferrous Sulfate [address] PO 325 mg DAILY EMERITA Administration Folic Acid 1 mg 11/30/24 09:00 12/02/24 09:04 Folic Acid 1 Mg Tablet PO 1 mg DAILY EMERITA Administration Glucagon 1 mg 11/30/24 08:14 Glucagon For Inj 1 Mg Vial IM PRN PRN Hypoglycemia Protocol Glucose 15 gm 11/30/24 05:47 Glucose Oral Gel 15 Gm Of Glucse In 37.5 Gm Tube PO PRN PRN Hypoglycemia Protocol Glucose 15 gm 11/30/24 08:14 Glucose Oral Gel 15 Gm Of Glucse In 37.5 Gm Tube PO PRN PRN Hypoglycemia Protocol Hydroxychloroquine Sulfate 200 mg 11/30/24 17:00 12/02/24 17:09 Hydroxychloroquine Sulfate 200 Mg Tablet PO 200 mg BID EMERITA Administration Dextrose 1,000 mls @ 100 mls/hr 11/30/24 05:47 Dextrose 5% 1,000 Ml IVPB PRN PRN Hypoglycemia Protocol Dextrose 1,000 mls @ 100 mls/hr 11/30/24 08:14 Dextrose 5% 1,000 Ml IVPB PRN PRN Hypoglycemia Protocol Insulin Aspart 2 - 5 units 11/30/24 12:00 12/02/24 16:46 Insulin Aspart (*Bkc) 100 Units/Ml SUB-Q Not Given TIDWM EMERITA Protocol Insulin Aspart 1 - 2 units 11/30/24 21:00 12/01/24 20:29 Insulin Aspart (*Bkc) 100 Units/Ml SUB-Q Not Given HS EMERITA Protocol Lidocaine 1 patch 12/02/24 09:00 12/02/24 09:10 Lidocaine 5% Patch TRANSDERM 1 patch DAILY EMERITA Administration Losartan Potassium 25 mg 11/30/24 09:00 12/02/24 09:05 Losartan Potassium 25 Mg Tablet PO 25 mg DAILY EMERITA Administration Metoprolol Tartrate 50 mg 11/30/24 09:00 12/02/24 21:18 Metoprolol Tartrate 50 Mg Tab PO 50 mg Q12HR EMERITA Administration Pantoprazole Sodium 40 mg 11/30/24 09:00 12/02/24 21:18 Pantoprazole 40 Mg Tablet PO 40 mg Q12HR EMERITA Administration Perflutren Lipid Microsphere 0 ml 11/30/24 12:08 Perflutren Lipid Microspheres 1.5 Ml Vial Diluted To 10 Ml Total Volume IV PUSH 12/03/24 12:08 ONCE PRN adequate visualization Protocol Polyethylene Glycol 17 gm 11/30/24 08:07 Polyethylene Glycol 3350 17 Gm Powd.Pack PO DAILY PRN constipation Primidone 250 mg 11/30/24 09:00 12/02/24 21:18 Primidone 250 Mg Tablet PO 250 mg QID EMERITA Administration Sucralfate 1 gm 11/30/24 11:30 12/03/24 05:45 Sucralfate 1 Gm Tablet PO 1 gm TIDAC EMERITA Administration Radiology Results: ITS Impressions Ankle X-Ray 11/29/24 22:55 IMPRESSION: Degenerative disease with prior fracture deformity within the distal right fibula. No acute fracture is appreciated. Significant soft tissue swelling within the medial and lateral right ankle. Chest X-Ray 11/29/24 22:56 IMPRESSION: 1. No acute cardiopulmonary disease. Knee X-Ray 11/29/24 22:57 IMPRESSION: Severe degenerative disease, without fracture Head CT 11/29/24 22:59 IMPRESSION: 1. Small old lacunar infarct at the anterior limb of the left internal capsule.. No fracture or acute intracranial process. 2. Age-related changes including mild diffuse volume loss and mild scattered white matter hypoattenuation consistent with chronic small vessel ischemic disease. Pelvis X-Ray 11/29/24 23:00 IMPRESSION: Significant degenerative disease, without acute fracture or dislocation, as detailed above. Head/Cervical Spine/Facial Bones CT 11/29/24 23:02 IMPRESSION: 1. No maxillofacial fractures. 2. Moderate cervical spondylosis with no change in a noncemented C3-C7 anterior spinal fusion and with new lower cervical posterior decompression with C6-T2 instrumented posterior spinal fusion. 2. Chronic T3 and T4 compression fractures. No acute osseous abnormality in the cervical or visualized upper thoracic spine. Brain MRI 11/30/24 14:29 IMPRESSION: 1. No acute intracranial process. 2. Age-related changes including mild diffuse volume loss and mild scattered nonspecific white matter T2 hyperintensity consistent with chronic small vessel ischemic disease. Labs Labs: Laboratory Results - last 24 hr 12/02/24 12/02/24 12/02/24 07:43 11:21 16:19 WBC RBC Hgb Hct MCV MCH MCHC RDW Plt Count MPV Sodium Potassium Chloride Carbon Dioxide Anion Gap BUN Creatinine Estim Creat Clear Calc Estimated GFR Glucose POC Capillary Glucose 130 H 243 H 131 H Calcium Total Bilirubin AST ALT Alkaline Phosphatase Total Protein Albumin 12/02/24 12/03/24 12/03/24 19:20 06:10 07:36 WBC 5.6 RBC 3.75 L Hgb 12.8 Hct 38.7 MCV 103.2 H MCH 34.1 H MCHC 33.1 RDW 12.9 Plt Count 187 MPV 10.5 H Sodium 137 Potassium 3.9 Chloride 101 Carbon Dioxide 33 H Anion Gap 3 L BUN 16 Creatinine 0.67 L Estim Creat Clear Calc 68 Estimated GFR > 60 Glucose 147 H POC Capillary Glucose 142 H 148 H Calcium 9.3 Total Bilirubin 0.4 AST 58 H ALT 51 H Alkaline Phosphatase 104 Total Protein 6.8 Albumin 3.5 Quality VTE Prophylaxis VTE prophylaxis: mechanical ordered
[2024-12-03] MEDS: HYDROXYCHLOROQUINE SULFATE 200 MG TABLET PO ×2 (08:48→16:33)
[2024-12-03] MEDS: METOPROLOL TARTRATE 50 MG TAB PO ×2 (08:48→21:23)
[2024-12-03] MEDS: CITALOPRAM HYDROBROMIDE 20 MG TABLET PO (08:49)
[2024-12-03] MEDS: FOLIC ACID 1 MG TABLET PO (08:49)
[2024-12-03] MEDS: FERROUS SULFATE 325 MG TABLET DR PO (08:49)
[2024-12-03] MEDS: PANTOPRAZOLE 40 MG TABLET PO ×2 (08:49→21:22)
[2024-12-03] MEDS: LIDOCAINE 5% PATCH 1 PATCH TRANSDERM (08:49)
[2024-12-03] MEDS: PRIMIDONE 250 MG TABLET PO ×4 (08:49→21:23)
[2024-12-03] MEDS: DICYCLOMINE HCL 10 MG CAPSULE PO ×3 (08:49→16:33)
[2024-12-03] MEDS: ASPIRIN 325 MG TABLET PO (08:49)
[2024-12-03] MEDS: LOSARTAN POTASSIUM 25 MG TABLET PO (08:49)
[2024-12-03] MEDS: ATORVASTATIN 20 MG TABLET PO (08:49)
[2024-12-03] MEDS: DICLOFENAC SODIUM 1% 100 GM GEL (*BKC) 1 APPLIC TOPICAL ×3 (08:50→21:23)
[2024-12-03] MEDS: ACETAMINOPHEN 325 MG TABLET 650 MG PO ×2 (10:20→15:08)
[2024-12-03] MEDS: clonazePAM (*CRX) 0.5 MG TABLET PO (21:22)
[2024-12-04 05:44] VITALS: BP 149/73; PULSE 51; RESP 13; TEMP 36.7; O2SAT 100
[2024-12-04] MEDS: SUCRALFATE 1 GM TABLET PO ×3 (06:13→17:04)
[2024-12-04 07:54] VITALS: O2SAT 91
[2024-12-04 08:00] VITALS: PULSE 67; O2SAT 98
[2024-12-04] MEDS: DICLOFENAC SODIUM 1% 100 GM GEL (*BKC) 1 APPLIC TOPICAL ×4 (08:24→20:23)
[2024-12-04] MEDS: LIDOCAINE 5% PATCH 1 PATCH TRANSDERM (08:27)
[2024-12-04] MEDS: DICYCLOMINE HCL 10 MG CAPSULE PO ×3 (08:33→17:04)
[2024-12-04] MEDS: FOLIC ACID 1 MG TABLET PO (08:33)
[2024-12-04] MEDS: PRIMIDONE 250 MG TABLET PO ×4 (08:34→20:23)
[2024-12-04] MEDS: ATORVASTATIN 20 MG TABLET PO (08:34)
[2024-12-04 08:35] VITALS: PULSE 67
[2024-12-04] MEDS: PANTOPRAZOLE 40 MG TABLET PO ×2 (08:35→20:23)
[2024-12-04] MEDS: HYDROXYCHLOROQUINE SULFATE 200 MG TABLET PO ×2 (08:35→17:03)
[2024-12-04] MEDS: LOSARTAN POTASSIUM 25 MG TABLET PO (08:35)
[2024-12-04] MEDS: METOPROLOL TARTRATE 50 MG TAB PO ×2 (08:35→20:22)
[2024-12-04] MEDS: ASPIRIN 325 MG TABLET PO (08:36)
[2024-12-04] MEDS: CITALOPRAM HYDROBROMIDE 20 MG TABLET PO (08:36)
[2024-12-04] MEDS: FERROUS SULFATE 325 MG TABLET DR PO (08:36)
[2024-12-04] MEDS: INSULIN ASPART (*BKC) 100 UNITS/ML SUB-Q (11:41)
--- NOTE | 2024-12-04 13:31 | P.PNIM_ITS ---
Progress Note: A&P Assessment and Plan (1) Falls: Code(s): R29.6 - Repeated falls Status: Acute Assessment and Plan: patient is typically wheelchair bound but fell out of her wheelchair reports over 15 falls recently fell forward out of wheelchair reaching for something she had complaints of dizziness that started last weekend. Possible polypharmacy. Trauma work-up negative * PT/OT recommending [facility]ci facility we require to go prior to returning to her assisted living * MRI with no acute intracranial process * Echo Normal left ventricle size and systolic and diastolic function, LVEF 65-70% * Interval patient's Lyrica at this time * D-DIMER WNL * Accepted at [facility] -pending authorization (2) Dizziness: Code(s): R42 - Dizziness and giddiness Status: Acute Assessment and Plan: See Above #1 (3) Hypertension: Code(s): I10 - Essential (primary) hypertension Status: Acute Assessment and Plan: * continue metoprolol and losartan * BP per unit protocol (4) Diabetes mellitus: Code(s): E11.9 - Type 2 diabetes mellitus without complications Status: Acute Assessment and Plan: * Hold patient's metformin * Low-dose sliding scale * Accu-Cheks a.c. HS * Hypoglycemic protocol * Diabetic diet (5) Anxiety: Code(s): F41.9 - Anxiety disorder, unspecified Status: Acute Assessment and Plan: Polypharmacy in because of patient's frequent falls - will hold Lyrica as this is listed as an allergy, looks like more of an intolerance -recommend decreasing home patient's narcotics and antianxiety medications (6) Transaminitis: Code(s): R74.01 - Elevation of levels of liver transaminase levels Status: Acute Assessment and Plan: Acute/chronic No discomfort or difficulty eating -hx of hep C, will need follow up outpt GI -monitor trending down (7) Arthritis: Code(s): M19.90 - Unspecified osteoarthritis, unspecified site Status: Acute Assessment and Plan: Moderate to sever right knee pain patient reports her arthritis is why she uses a wheelchair * laron SIMMONS Plan Code status: Full code per patient DVT prophylaxis: SCDs Stress ulcer prophylaxis: NA PT/OT notes: SNF Disposition: Patient continues admission to the medical unit after fall from wheelchair at her assisted living as reported she has had multiple falls the last few weeks greater than 15 unknown cause echocardiogram is pending PT and OT are recommending fci facility patient does not appear to be at her baseline was able to perform transfers on her own prior to admission will need fci facility prior to returning to assisted living facility. Accepted at [facility] - pending authorization Subjective Date/time seen: 12/04/24 13:31 Interval history: Pt is a 79-year-old female here for falls and dizziness. Patient was admitted for further evaluation multiple falls trauma workup was negative. Patient is wheelchair PT/OT for further evaluation 12/04/2024: Patient sitting comfortably in bed at time of examination. Denies any chest pain, shortness a breath, nausea/vomiting or abdominal pain at this time. Still waiting on insurance authorization at this time. No new changes or concerns.. Review of Systems Review of Systems: All systems reviewed & are unremarkable except as noted in HPI and below Exam Narrative: General: overweight patient resting comfortably in bed in no acute distress HEENT: normocephalic, abrasion to her forehead and nose that are well healing Neck: supple Neuro: Alert and oriented x4. Equal strength the upper lower extremities 5/5. Cranial nerves 2-12 intact CV:RRR Resp:CTA bilaterally Abd: Soft, non distended. No pain to palpation. Positive bowel sounds Extremities: pitting edema up to her knees bilaterally. Abrasion to the right knee Const: General: comfortable and no acute distress Other: A&O x3 HENMT: Mouth: Yes moist mucous membranes Eyes: Pupils: Equal, round and reactive pupils present Neck: Neck: supple Resp: Effort & Inspection: normal respiratory effort Auscultation: clear to auscultation bilaterally Cardio: Rate: regular rate Rhythm: regular rhythm GI: Inspection: non-distended Neuro: Cranial nerves: Yes Equal, round and reactive pupils present Other: Right lower extremity 1/5 motor strength on flexion of the hip, 2/5 strength at the knee, 4/5 strength at the right ankle. Decreased sensation right lower e xtremity. Extrem: General: no edema Objective Data Vital Signs Vital Signs: Vital Signs - 24 hr 12/03/24 14:00 12/03/24 16:48 12/03/24 20:00 Temperature 96.8 F L Pulse Rate 63 Respiratory Rate 20 Blood Pressure 148/77 H Pulse Oximetry 96 95 98 Oxygen Delivery Nasal Cannula Nasal Cannula Oxygen Flow Rate 2 2 12/03/24 20:26 12/03/24 21:34 12/04/24 05:44 Temperature 97.2 F L 98.1 F Pulse Rate 60 51 L Respiratory Rate 16 13 Blood Pressure 143/59 H 149/73 H Pulse Oximetry 96 98 100 Oxygen Delivery Nasal Cannula Oxygen Flow Rate 2 12/04/24 07:54 12/04/24 08:00 12/04/24 08:35 Temperature Pulse Rate 67 67 Respiratory Rate Blood Pressure Pulse Oximetry 91 98 Oxygen Delivery Room Air Room Air Oxygen Flow Rate Intake/Output Intake/Output: Intake & Output 12/01/24 12/02/24 12/03/24 12/04/24 23:59 23:59 23:59 23:59 Intake Total 590 982 562 758 Output Total 3400 200 1500 650 Balance -2810 782 -938 108 Meds/Results Medications: Active Medications Generic Name Dose Route Start Last Admin Trade Name Freq PRN Reason Stop Dose Admin Acetaminophen 650 mg 11/30/24 05:48 12/03/24 15:08 Acetaminophen 325 Mg Tablet PO 650 mg Q6H PRN Administration Mild Pain (1-3) Or Fever Hydrocodone Bitart/Acetaminophen 1 tab 11/30/24 08:07 12/02/24 17:07 Hydrocodone/Acetaminophen (*Crx) 10-325 Mg Tablet PO 1 tab Q4H PRN Administration pain 7-10 Allopurinol 300 mg 11/30/24 09:00 12/04/24 08:34 Allopurinol 300 Mg Tablet PO 300 mg DAILY EMERITA Administration Amlodipine Besylate 10 mg 11/30/24 09:00 12/04/24 08:33 Amlodipine Besylate 10 Mg Tablet PO 10 mg DAILY EMERITA Administration Aripiprazole 5 mg 11/30/24 09:00 12/04/24 08:35 Aripiprazole 5 Mg Tablet PO 5 mg DAILY EMERITA Administration Aspirin 325 mg 11/30/24 08:00 12/04/24 08:36 Aspirin 325 Mg Tablet PO 325 mg DAILY@0800 EMERITA Administration Atorvastatin Calcium 20 mg 11/30/24 09:00 12/04/24 08:34 Atorvastatin 20 Mg Tablet PO 20 mg DAILY EMERITA Administration Calcitriol 0.5 mcg 11/30/24 09:00 12/04/24 08:34 Calcitriol 0.25 Mcg Capsule PO 0.5 mcg QAM EMERITA Administration Citalopram Hydrobromide 20 mg 11/30/24 09:00 12/04/24 08:36 Citalopram Hydrobromide 20 Mg Tablet PO 20 mg DAILY EMERITA Administration Clonazepam 0.5 mg 11/30/24 21:00 12/03/24 21:22 Clonazepam (*Crx) 0.5 Mg Tablet PO 0.5 mg HS EMERITA Administration Dextrose 12.5 gm 11/30/24 05:47 Dextrose 50% 25 Gm/50 Ml Syringe IV PUSH PRN PRN Hypoglycemia Protocol Dextrose 12.5 gm 11/30/24 08:14 Dextrose 50% 25 Gm/50 Ml Syringe IV PUSH PRN PRN Hypoglycemia Protocol Diclofenac Sodium 1 applic 12/01/24 17:00 12/04/24 11:59 Diclofenac Sodium 1% 100 Gm Gel (*Bkc) TOPICAL 1 applic QID EMERITA Administration Dicyclomine HCl 10 mg 11/30/24 09:00 12/04/24 11:59 Dicyclomine Hcl 10 Mg Capsule PO 10 mg TID EMERITA Administration Docusate Sodium 100 mg 11/30/24 05:48 Docusate Sodium 100 Mg Capsule PO DAILY PRN Constipation Duloxetine HCl 40 mg 11/30/24 09:00 12/04/24 08:34 Duloxetine Hcl 20 Mg Capsule.Dr PO 40 mg DAILY EMERITA Administration Ferrous Sulfate 325 mg 11/30/24 09:00 12/04/24 08:36 Ferrous Sulfate [address] PO 325 mg DAILY EMERITA Administration Folic Acid 1 mg 11/30/24 09:00 12/04/24 08:33 Folic Acid 1 Mg Tablet PO 1 mg DAILY EMERITA Administration Glucagon 1 mg 11/30/24 08:14 Glucagon For Inj 1 Mg Vial IM PRN PRN Hypoglycemia Protocol Glucose 15 gm 11/30/24 05:47 Glucose Oral Gel 15 Gm Of Glucse In 37.5 Gm Tube PO PRN PRN Hypoglycemia Protocol Glucose 15 gm 11/30/24 08:14 Glucose Oral Gel 15 Gm Of Glucse In 37.5 Gm Tube PO PRN PRN Hypoglycemia Protocol Hydroxychloroquine Sulfate 200 mg 11/30/24 17:00 12/04/24 08:35 Hydroxychloroquine Sulfate 200 Mg Tablet PO 200 mg BID EMERITA Administration Dextrose 1,000 mls @ 100 mls/hr 11/30/24 05:47 Dextrose 5% 1,000 Ml IVPB PRN PRN Hypoglycemia Protocol Dextrose 1,000 mls @ 100 mls/hr 11/30/24 08:14 Dextrose 5% 1,000 Ml IVPB PRN PRN Hypoglycemia Protocol Insulin Aspart 2 - 5 units 11/30/24 12:00 12/04/24 11:41 Insulin Aspart (*Bkc) 100 Units/Ml SUB-Q 3 units TIDWM EMERITA Administration Protocol Insulin Aspart 1 - 2 units 11/30/24 21:00 12/03/24 21:11 Insulin Aspart (*Bkc) 100 Units/Ml SUB-Q Not Given HS EMERITA Protocol Lidocaine 1 patch 12/02/24 09:00 12/04/24 08:27 Lidocaine 5% Patch TRANSDERM 1 patch DAILY EMERITA Administration Losartan Potassium 25 mg 11/30/24 09:00 12/04/24 08:35 Losartan Potassium 25 Mg Tablet PO 25 mg DAILY EMERITA Administration Metoprolol Tartrate 50 mg 11/30/24 09:00 12/04/24 08:35 Metoprolol Tartrate 50 Mg Tab PO 50 mg Q12HR EMERITA Administration Pantoprazole Sodium 40 mg 11/30/24 09:00 12/04/24 08:35 Pantoprazole 40 Mg Tablet PO 40 mg Q12HR EMERITA Administration Polyethylene Glycol 17 gm 11/30/24 08:07 Polyethylene Glycol 3350 17 Gm Powd.Pack PO DAILY PRN constipation Primidone 250 mg 11/30/24 09:00 12/04/24 11:59 Primidone 250 Mg Tablet PO 250 mg QID EMERITA Administration Sucralfate 1 gm 11/30/24 11:30 12/04/24 11:01 Sucralfate 1 Gm Tablet PO 1 gm TIDAC EMERITA Administration Radiology Results: ITS Impressions Ankle X-Ray 11/29/24 22:55 IMPRESSION: Degenerative disease with prior fracture deformity within the distal right fibula. No acute fracture is appreciated. Significant soft tissue swelling within the medial and lateral right ankle. Chest X-Ray 11/29/24 22:56 IMPRESSION: 1. No acute cardiopulmonary disease. Knee X-Ray 11/29/24 22:57 IMPRESSION: Severe degenerative disease, without fracture Head CT 11/29/24 22:59 IMPRESSION: 1. Small old lacunar infarct at the anterior limb of the left internal capsule.. No fracture or acute intracranial process. 2. Age-related changes including mild diffuse volume loss and mild scattered white matter hypoattenuation consistent with chronic small vessel ischemic disease. Pelvis X-Ray 11/29/24 23:00 IMPRESSION: Significant degenerative disease, without acute fracture or dislocation, as detailed above. Head/Cervical Spine/Facial Bones CT 11/29/24 23:02 IMPRESSION: 1. No maxillofacial fractures. 2. Moderate cervical spondylosis with no change in a noncemented C3-C7 anterior spinal fusion and with new lower cervical posterior decompression with C6-T2 instrumented posterior spinal fusion. 2. Chronic T3 and T4 compression fractures. No acute osseous abnormality in the cervical or visualized upper thoracic spine. Brain MRI 11/30/24 14:29 IMPRESSION: 1. No acute intracranial process. 2. Age-related changes including mild diffuse volume loss and mild scattered nonspecific white matter T2 hyperintensity consistent with chronic small vessel ischemic disease. Labs Labs: Laboratory Results - last 24 hr 11/30/24 12/03/24 12/03/24 08:31 16:20 19:51 POC Capillary Glucose 141 H 173 H Hepatitis C RNA Quant Hcv not detected HCV RNA (PCR) log10 Not Reportable HCV RNA PCR Test Info Comment 12/04/24 12/04/24 07:40 11:37 POC Capillary Glucose 157 H 260 H Hepatitis C RNA Quant HCV RNA (PCR) log10 HCV RNA PCR Test Info Quality VTE Prophylaxis VTE prophylaxis: mechanical ordered
[2024-12-04 14:00] VITALS: BP 140/61; PULSE 61; RESP 16; TEMP 36.4; O2SAT 97
[2024-12-04] MEDS: ACETAMINOPHEN 325 MG TABLET 650 MG PO (15:53)
[2024-12-04] MEDS: clonazePAM (*CRX) 0.5 MG TABLET PO (20:23)
[2024-12-04 21:07] VITALS: BP 145/62; PULSE 63; RESP 20; TEMP 36.1; O2SAT 95
[2024-12-04] MEDS: HYDROcodone/acetaminophen (*CRX) 10-325 MG TABLET 1 TAB PO (21:25)
[2024-12-05 06:00] VITALS: BP 167/63; PULSE 63; RESP 16; TEMP 36.2; O2SAT 98
[2024-12-05] MEDS: SUCRALFATE 1 GM TABLET PO ×3 (06:07→16:22)
[2024-12-05] MEDS: ASPIRIN 325 MG TABLET PO (07:54)
[2024-12-05] MEDS: HYDROXYCHLOROQUINE SULFATE 200 MG TABLET PO ×2 (07:54→16:22)
[2024-12-05] MEDS: DICYCLOMINE HCL 10 MG CAPSULE PO ×3 (07:54→16:22)
[2024-12-05] MEDS: CITALOPRAM HYDROBROMIDE 20 MG TABLET PO (07:54)
[2024-12-05] MEDS: FOLIC ACID 1 MG TABLET PO (07:54)
[2024-12-05] MEDS: PRIMIDONE 250 MG TABLET PO ×4 (07:55→20:51)
[2024-12-05] MEDS: LOSARTAN POTASSIUM 25 MG TABLET PO (07:55)
[2024-12-05] MEDS: PANTOPRAZOLE 40 MG TABLET PO ×2 (07:55→21:55)
[2024-12-05] MEDS: FERROUS SULFATE 325 MG TABLET DR PO (07:55)
[2024-12-05] MEDS: METOPROLOL TARTRATE 50 MG TAB PO ×2 (07:55→20:51)
[2024-12-05] MEDS: ATORVASTATIN 20 MG TABLET PO (07:55)
[2024-12-05] MEDS: LIDOCAINE 5% PATCH 1 PATCH TRANSDERM (07:56)
[2024-12-05] MEDS: DICLOFENAC SODIUM 1% 100 GM GEL (*BKC) 1 APPLIC TOPICAL ×4 (07:56→21:54)
[2024-12-05] MEDS: INSULIN ASPART (*BKC) 100 UNITS/ML SUB-Q (11:41)
--- NOTE | 2024-12-05 12:28 | PC.NURSE ---
I reviewed the License Pending Nurse's documentation and agree with the findings.
--- NOTE | 2024-12-05 13:07 | P.PNIM_ITS ---
Progress Note: A&P Assessment and Plan (1) Falls: Code(s): R29.6 - Repeated falls Status: Acute Assessment and Plan: patient is typically wheelchair bound but fell out of her wheelchair reports over 15 falls recently fell forward out of wheelchair reaching for something she had complaints of dizziness that started last weekend. Possible polypharmacy. Trauma work-up negative * PT/OT recommending [facility]cf facility we require to go prior to returning to her assisted living * MRI with no acute intracranial process * Echo Normal left ventricle size and systolic and diastolic function, LVEF 65-70% * Interval patient's Lyrica at this time * D-DIMER WNL * Accepted at [facility] -pending authorization (2) Dizziness: Code(s): R42 - Dizziness and giddiness Status: Acute Assessment and Plan: See Above #1 (3) Hypertension: Code(s): I10 - Essential (primary) hypertension Status: Acute Assessment and Plan: * continue metoprolol and losartan * BP per unit protocol (4) Diabetes mellitus: Code(s): E11.9 - Type 2 diabetes mellitus without complications Status: Acute Assessment and Plan: * Hold patient's metformin * Low-dose sliding scale * Accu-Cheks a.c. HS * Hypoglycemic protocol * Diabetic diet (5) Anxiety: Code(s): F41.9 - Anxiety disorder, unspecified Status: Acute Assessment and Plan: Polypharmacy in because of patient's frequent falls - will hold Lyrica as this is listed as an allergy, looks like more of an intolerance -recommend decreasing home patient's narcotics and antianxiety medications (6) Transaminitis: Code(s): R74.01 - Elevation of levels of liver transaminase levels Status: Acute Assessment and Plan: Acute/chronic No discomfort or difficulty eating -hx of hep C, will need follow up outpt GI -monitor trending down (7) Arthritis: Code(s): M19.90 - Unspecified osteoarthritis, unspecified site Status: Acute Assessment and Plan: Moderate to sever right knee pain patient reports her arthritis is why she uses a wheelchair * laron SIMMONS Plan Code status: Full code per patient DVT prophylaxis: SCDs Stress ulcer prophylaxis: NA PT/OT notes: SNF Disposition: Patient continues admission to the medical unit after fall from wheelchair at her assisted living as reported she has had multiple falls the last few weeks greater than 15 unknown cause echocardiogram is pending PT and OT are recommending chcf facility patient does not appear to be at her baseline was able to perform transfers on her own prior to admission will need chcf facility prior to returning to assisted living facility. Accepted at [facility] - pending authorization Subjective Date/time seen: 12/05/24 13:07 Interval history: Pt is a 79-year-old female here for falls and dizziness. Patient was admitted for further evaluation multiple falls trauma workup was negative. Patient is wheelchair PT/OT for further evaluation 12/05/2024: Patient sitting comfortably in bed at time of examination. Denies any chest pain, shortness a breath, nausea/vomiting or abdominal pain at this time. Accepted at [facility] - pending authorization. No other concerns at this time, remains alert and oriented, afebrile. Review of Systems Review of Systems: All systems reviewed & are unremarkable except as noted in HPI and below Exam Narrative: General: overweight patient resting comfortably in bed in no acute distress HEENT: normocephalic, abrasion to her forehead and nose that are well healing Neck: supple Neuro: Alert and oriented x4. Equal strength the upper lower extremities 5/5. Cranial nerves 2-12 intact CV:RRR Resp:CTA bilaterally Abd: Soft, non distended. No pain to palpation. Positive bowel sounds Extremities: pitting edema up to her knees bilaterally. Abrasion to the right knee Const: General: comfortable and no acute distress Other: A&O x3 HENMT: Mouth: Yes moist mucous membranes Eyes: Pupils: Equal, round and reactive pupils present Neck: Neck: supple Resp: Effort & Inspection: normal respiratory effort Auscultation: clear to auscultation bilaterally Cardio: Rate: regular rate Rhythm: regular rhythm GI: Inspection: non-distended Neuro: Cranial nerves: Yes Equal, round and reactive pupils present Other: Right lower extremity 1/5 motor strength on flexion of the hip, 2/5 strength at the knee, 4/5 strength at the right ankle. Decreased sensation right lower extremity. Extrem: General: no edema Objective Data Vital Signs Vital Signs: Vital Signs - 24 hr 12/04/24 14:00 12/04/24 20:00 12/04/24 21:07 Temperature 97.5 F L 97.0 F L Pulse Rate 61 63 Respiratory Rate 16 20 Blood Pressure 140/61 145/62 H Pulse Oximetry 97 95 Oxygen Delivery Room Air 12/05/24 06:00 12/05/24 08:00 Temperature 97.1 F L Pulse Rate 63 Respiratory Rate 16 Blood Pressure 167/63 H Pulse Oximetry 98 Oxygen Delivery Room Air Intake/Output Intake/Output: Intake & Output 12/02/24 12/03/24 12/04/24 12/05/24 23:59 23:59 23:59 23:59 Intake Total 905 084 3084 540 Output Total 200 1500 1100 600 Balance 182 -801 18 -60 Meds/Results Medications: Active Medications Generic Name Dose Route Start Last Admin Trade Name Freq PRN Reason Stop Dose Admin Acetaminophen 650 mg 11/30/24 05:48 12/04/24 15:53 Acetaminophen 325 Mg Tablet PO 650 mg Q6H PRN Administration Mild Pain (1-3) Or Fever Hydrocodone Bitart/Acetaminophen 1 tab 11/30/24 08:07 12/04/24 21:25 Hydrocodone/Acetaminophen (*Crx) 10-325 Mg Tablet PO 1 tab Q4H PRN Administration pain 7-10 Allopurinol 300 mg 11/30/24 09:00 12/05/24 07:54 Allopurinol 300 Mg Tablet PO 300 mg DAILY EMERITA Administration Amlodipine Besylate 10 mg 11/30/24 09:00 12/05/24 07:55 Amlodipine Besylate 10 Mg Tablet PO 10 mg DAILY EMERITA Administration Aripiprazole 5 mg 11/30/24 09:00 12/05/24 07:55 Aripiprazole 5 Mg Tablet PO 5 mg DAILY EMERITA Administration Aspirin 325 mg 11/30/24 08:00 12/05/24 07:54 Aspirin 325 Mg Tablet PO 325 mg DAILY@0800 EMERITA Administration Atorvastatin Calcium 20 mg 11/30/24 09:00 12/05/24 07:55 Atorvastatin 20 Mg Tablet PO 20 mg DAILY EMERITA Administration Calcitriol 0.5 mcg 11/30/24 09:00 12/05/24 07:55 Calcitriol 0.25 Mcg Capsule PO 0.5 mcg QAM EMERITA Administration Citalopram Hydrobromide 20 mg 11/30/24 09:00 12/05/24 07:54 Citalopram Hydrobromide 20 Mg Tablet PO 20 mg DAILY EMERITA Administration Clonazepam 0.5 mg 11/30/24 21:00 12/04/24 20:23 Clonazepam (*Crx) 0.5 Mg Tablet PO 0.5 mg HS EMERITA Administration Dextrose 12.5 gm 11/30/24 05:47 Dextrose 50% 25 Gm/50 Ml Syringe IV PUSH PRN PRN Hypoglycemia Protocol Dextrose 12.5 gm 11/30/24 08:14 Dextrose 50% 25 Gm/50 Ml Syringe IV PUSH PRN PRN Hypoglycemia Protocol Diclofenac Sodium 1 applic 12/01/24 17:00 12/05/24 11:46 Diclofenac Sodium 1% 100 Gm Gel (*Bkc) TOPICAL 1 applic QID EMERITA Administration Dicyclomine HCl 10 mg 11/30/24 09:00 12/05/24 11:46 Dicyclomine Hcl 10 Mg Capsule PO 10 mg TID EMERITA Administration Docusate Sodium 100 mg 11/30/24 05:48 Docusate Sodium 100 Mg Capsule PO DAILY PRN Constipation Duloxetine HCl 40 mg 11/30/24 09:00 12/05/24 07:55 Duloxetine Hcl 20 Mg Capsule. PO 40 mg DAILY EMERITA Administration Ferrous Sulfate 325 mg 11/30/24 09:00 12/05/24 07:55 Ferrous Sulfate [address] PO 325 mg DAILY EMERITA Administration Folic Acid 1 mg 11/30/24 09:00 12/05/24 07:54 Folic Acid 1 Mg Tablet PO 1 mg DAILY EMERITA Administration Glucagon 1 mg 11/30/24 08:14 Glucagon For Inj 1 Mg Vial IM PRN PRN Hypoglycemia Protocol Glucose 15 gm 11/30/24 05:47 Glucose Oral Gel 15 Gm Of Glucse In 37.5 Gm Tube PO PRN PRN Hypoglycemia Protocol Glucose 15 gm 11/30/24 08:14 Glucose Oral Gel 15 Gm Of Glucse In 37.5 Gm Tube PO PRN PRN Hypoglycemia Protocol Hydroxychloroquine Sulfate 200 mg 11/30/24 17:00 12/05/24 07:54 Hydroxychloroquine Sulfate 200 Mg Tablet PO 200 mg BID EMERITA Administration Dextrose 1,000 mls @ 100 mls/hr 11/30/24 05:47 Dextrose 5% 1,000 Ml IVPB PRN PRN Hypoglycemia Protocol Dextrose 1,000 mls @ 100 mls/hr 11/30/24 08:14 Dextrose 5% 1,000 Ml IVPB PRN PRN Hypoglycemia Protocol Insulin Aspart 2 - 5 units 11/30/24 12:00 12/05/24 11:41 Insulin Aspart (*Bkc) 100 Units/Ml SUB-Q 2 units TIDWM EMERITA Administration Protocol Insulin Aspart 1 - 2 units 11/30/24 21:00 12/04/24 21:20 Insulin Aspart (*Bkc) 100 Units/Ml SUB-Q Not Given HS EMERITA Protocol Lidocaine 1 patch 12/02/24 09:00 12/05/24 07:56 Lidocaine 5% Patch TRANSDERM 1 patch DAILY EMERITA Administration Losartan Potassium 25 mg 11/30/24 09:00 12/05/24 07:55 Losartan Potassium 25 Mg Tablet PO 25 mg DAILY EMERITA Administration Metoprolol Tartrate 50 mg 11/30/24 09:00 12/05/24 07:55 Metoprolol Tartrate 50 Mg Tab PO 50 mg Q12HR EMERITA Administration Pantoprazole Sodium 40 mg 11/30/24 09:00 12/05/24 07:55 Pantoprazole 40 Mg Tablet PO 40 mg Q12HR EMERITA Administration Polyethylene Glycol 17 gm 11/30/24 08:07 Polyethylene Glycol 3350 17 Gm Powd.Pack PO DAILY PRN constipation Primidone 250 mg 11/30/24 09:00 12/05/24 11:46 Primidone 250 Mg Tablet PO 250 mg QID EMERITA Administration Sucralfate 1 gm 11/30/24 11:30 12/05/24 11:40 Sucralfate 1 Gm Tablet PO 1 gm TIDAC EMERITA Administration Radiology Results: ITS Impressions Ankle X-Ray 11/29/24 22:55 IMPRESSION: Degenerative disease with prior fracture deformity within the distal right fibula. No acute fracture is appreciated. Significant soft tissue swelling within the medial and lateral right ankle. Chest X-Ray 11/29/24 22:56 IMPRESSION: 1. No acute cardiopulmonary disease. Knee X-Ray 11/29/24 22:57 IMPRESSION: Severe degenerative disease, without fracture Head CT 11/29/24 22:59 IMPRESSION: 1. Small old lacunar infarct at the anterior limb of the left internal capsule.. No fracture or acute intracranial process. 2. Age-related changes including mild diffuse volume loss and mild scattered white matter hypoattenuation consistent with chronic small vessel ischemic disease. Pelvis X-Ray 11/29/24 23:00 IMPRESSION: Significant degenerative disease, without acute fracture or dislocation, as detailed above. Head/Cervical Spine/Facial Bones CT 11/29/24 23:02 IMPRESSION: 1. No maxillofacial fractures. 2. Moderate cervical spondylosis with no change in a noncemented C3-C7 anterior spinal fusion and with new lower cervical posterior decompression with C6-T2 instrumented posterior spinal fusion. 2. Chronic T3 and T4 compression fractures. No acute osseous abnormality in the cervical or visualized upper thoracic spine. Brain MRI 11/30/24 14:29 IMPRESSION: 1. No acute intracranial process. 2. Age-related changes including mild diffuse volume loss and mild scattered nonspecific white matter T2 hyperintensity consistent with chronic small vessel ischemic disease. Labs Labs: Laboratory Results - last 24 hr 12/04/24 12/04/24 12/05/24 16:39 20:56 07:32 POC Capillary Glucose 156 H 182 H 130 H 12/05/24 11:40 POC Capillary Glucose 244 H Quality VTE Prophylaxis VTE prophylaxis: mechanical ordered
[2024-12-05 14:00] VITALS: BP 137/69; PULSE 59; RESP 16; TEMP 36.2; O2SAT 98
[2024-12-05 14:28] LABS: Hematocrit 40.8 % (37.0-47.0); Hemoglobin 13.1 g/dL (12.0-15.0); Immature Granulocyte Percent A 0.2 % (0-0.5); Lymphocytes Absolute Auto 2.15 K/mm3 (0.9-3.2); Mean Corpuscular HGB Conc 32.1 g/dl (32-36); Mean Corpuscular Hemoglobin 33.8 pg (26-34); Mean Corpuscular Volume 105.2 fl (80-100); Nucleated Red Blood Cells Absolute Auto 0.000 K/mm3 (0.0-0.012); Nucleated Red Blood Cells Perc 0.0 % (0.0-0.2); Platelet Count Result 206 k/mm3 (150-375); Red Blood Count 3.88 M/mm3 (4.2-5.4); White Blood Count 5.5 K/mm3 (4.5-10.0)
[2024-12-05 14:40] LABS: Alanine Aminotransferase 61 U/L (6-35); Albumin Level 3.7 g/dL (3.5-5.1); Alkaline Phosphatase 105 U/L (38-126); Anion Gap 4 mmol/L (4-12); Aspartate Amino Transferase 68 U/L (14-36); Bilirubin,Total 0.2 mg/dL (0.2-1.3); Blood Urea Nitrogen 18 mg/dL (7-17); Calcium 9.5 mg/dL (8.4-10.2); Carbon Dioxide 32 mmol/L (22-30); Chloride 100 mmol/L (98-107); Estimated CRCL calculation 52 ml/min; Estimated Glomerular Filt Rate > 60; Glucose 189 mg/dL (65-110); Potassium 4.1 mmol/L (3.4-5.0); Sodium 136 mmol/L (137-145); Total Protein 7.0 g/dL (6.3-8.2)
[2024-12-05 20:28] VITALS: BP 153/52; PULSE 64; RESP 18; TEMP 36.6; O2SAT 100
[2024-12-05 20:51] VITALS: PULSE 72
[2024-12-05] MEDS: clonazePAM (*CRX) 0.5 MG TABLET PO (20:51)
[2024-12-05] MEDS: HYDROcodone/acetaminophen (*CRX) 10-325 MG TABLET 1 TAB PO (20:51)
[2024-12-06 04:44] VITALS: BP 122/57; PULSE 57; RESP 16; TEMP 36.6; O2SAT 95
[2024-12-06] MEDS: SUCRALFATE 1 GM TABLET PO ×3 (05:40→16:50)
[2024-12-06] MEDS: DICYCLOMINE HCL 10 MG CAPSULE PO ×3 (08:25→16:50)
[2024-12-06] MEDS: HYDROXYCHLOROQUINE SULFATE 200 MG TABLET PO ×2 (08:25→16:50)
[2024-12-06] MEDS: CITALOPRAM HYDROBROMIDE 20 MG TABLET PO (08:25)
[2024-12-06] MEDS: FOLIC ACID 1 MG TABLET PO (08:26)
[2024-12-06] MEDS: FERROUS SULFATE 325 MG TABLET DR PO (08:26)
[2024-12-06] MEDS: ATORVASTATIN 20 MG TABLET PO (08:26)
[2024-12-06] MEDS: LOSARTAN POTASSIUM 25 MG TABLET PO (08:26)
[2024-12-06] MEDS: METOPROLOL TARTRATE 50 MG TAB PO (08:26)
[2024-12-06] MEDS: ASPIRIN 325 MG TABLET PO (08:26)
[2024-12-06] MEDS: PRIMIDONE 250 MG TABLET PO ×3 (08:26→16:50)
[2024-12-06] MEDS: PANTOPRAZOLE 40 MG TABLET PO (08:26)
[2024-12-06] MEDS: DICLOFENAC SODIUM 1% 100 GM GEL (*BKC) 1 APPLIC TOPICAL ×3 (08:26→16:51)
[2024-12-06] MEDS: LIDOCAINE 5% PATCH 1 PATCH TRANSDERM (08:28)
--- NOTE | 2024-12-06 10:55 | PCNWS ---
Weekly nutritional screen. Patient is tolerating current Heart healthy diet with adequate intake, 90-100%. No weight loss reported. No nutritional needs at this time.
--- NOTE | 2024-12-06 11:21 | P.DS_ITS ---
DS: Admitting Diagnosis Discharge Date 12/06/2024 Admitting Diagnosis Falls DS: Discharge Diagnosis Discharge Diagnosis (1) Falls: Code(s): R29.6 - Repeated falls Status: Acute (2) Dizziness: Code(s): R42 - Dizziness and giddiness Status: Acute (3) Hypertension: Code(s): I10 - Essential (primary) hypertension Status: Acute (4) Diabetes mellitus: Code(s): E11.9 - Type 2 diabetes mellitus without complications Status: Acute (5) Anxiety: Code(s): F41.9 - Anxiety disorder, unspecified Status: Acute (6) Transaminitis: Code(s): R74.01 - Elevation of levels of liver transaminase levels Status: Acute (7) Arthritis: Code(s): M19.90 - Unspecified osteoarthritis, unspecified site Status: Acute DS: Summary Hospital Course Reason for hospitalization: Multiple falls Hospital Course: 79-year-old female with past medical history insulin-dependent diabetes mellitus diabetic peripheral neuropathy, chronic pain, LANA, anxiety, hypertension, GERD, gout, hyperlipidemia who presents to [facility] ER on 11/30/2024 with a complaint of multiple falls. This started about 2 weeks ago after she felt her right leg become weak. She also reports when she falls feels like her right knee beth. She does not have any seizure activity, dizziness, fainting. She denies feeling ill otherwise. At 1 point she fell and hit her face. ER evaluation reveals hemoglobin 11.2, WBC 7.8, serum creatinine 0.6 a, glucose 131, urinalysis with glucose otherwise largely unremarkable. 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 Patient denies any history of stroke. Right knee three view, chest x-ray, x-ray pelvis, CT head facial bones cervical spine did not demonstrate acute fractures. There is cervical spondylosis at C3-C7 with new lower cervical posterior decompression. Chronic T3 and T4 compression fractures. Three views of the right ankle demonstrate degenerative disease with prior fracture deformity within the distal right fibula, no acute fracture, significant soft tissue swelling within the medial and lateral right ankle. Worked with care coordination regarding placement for frequent falls. Pt was accepted at [facility] and on 12/06 had her insurance accepted and was ready for discharge from a medical standpoint. Throughout hospitalization her blood work remained stable and she did not complain of any new pains or limitations. Pt stable for discharge to [facility] at this time. Status at Discharge Functional status at discharge: uses cane/walker Overall status at discharge: patient is progressing back to baseline Time Spent with Patient Time attestation: Total time spent providing and/or coordinating discharge services: 45 Exam Narrative: General: overweight patient resting comfortably in bed in no acute distress HEENT: normocephalic, abrasion to her forehead and nose that are well healing Neck: supple Neuro: Alert and oriented x4. Equal strength the upper lower extremities 5/5. Cranial nerves 2-12 intact CV:RRR Resp:CTA bilaterally Abd: Soft, non distended. No pain to palpation. Positive bowel sounds Extremities: pitting edema up to her knees bilaterally. Abrasion to the right knee Const: General: comfortable and no acute distress Other: A&O x3 HENMT: Mouth: Yes moist mucous membranes Eyes: Pupils: Equal, round and reactive pupils present Neck: Neck: supple Resp: Effort & Inspection: normal respiratory effort Auscultation: clear to auscultation bilaterally Cardio: Rate: regular rate Rhythm: regular rhythm GI: Inspection: non-distended Neuro: Cranial nerves: Yes Equal, round and reactive pupils present Other: Right lower extremity 1/5 motor strength on flexion of the hip, 2/5 strength at the knee, 4/5 strength at the right ankle. Decreased sensation right lower extremity. Extrem: General: no edema DS: Data Data Completed and Pending Labs on day of discharge: Labs from last 24 hours 12/06/24 12/05/24 12/05/24 07:39 19:54 16:38 WBC RBC Hgb Hct MCV MCH MCHC RDW Plt Count MPV Immature Gran % (Auto) Neut % (Auto) Lymph % (Auto) Clay % (Auto) Eos % (Auto) Baso % (Auto) Lymph # (Auto) Clay # (Auto) Eos # (Auto) Baso # (Auto) Abs Immat Gran (auto) Absolute Neuts (auto) Absolute Nucleated RBC Nucleated RBC % Sodium Potassium Chloride Carbon Dioxide Anion Gap BUN Creatinine Estim Creat Clear Calc Estimated GFR Glucose POC Capillary Glucose 164 H 201 H 155 H Calcium Total Bilirubin AST ALT Alkaline Phosphatase Total Protein Albumin 12/05/24 12/05/24 14:13 11:40 WBC 5.5 RBC 3.88 L Hgb 13.1 Hct 40.8 MCV 105.2 H MCH 33.8 MCHC 32.1 RDW 13.1 Plt Count 206 MPV 10.5 H Immature Gran % (Auto) 0.2 Neut % (Auto) 45.3 L Lymph % (Auto) 39.1 Clay % (Auto) 10.2 H Eos % (Auto) 4.5 H Baso % (Auto) 0.7 Lymph # (Auto) 2.15 Clay # (Auto) 0.6 Eos # (Auto) 0.3 Baso # (Auto) 0.0 Abs Immat Gran (auto) 0.01 Absolute Neuts (auto) 2.5 Absolute Nucleated RBC 0.000 Nucleated RBC % 0.0 Sodium 136 L Potassium 4.1 Chloride 100 Carbon Dioxide 32 H Anion Gap 4 BUN 18 H Creatinine 0.90 Estim Creat Clear Calc 52 Estimated GFR > 60 Glucose 189 H POC Capillary Glucose 244 H Calcium 9.5 Total Bilirubin 0.2 AST 68 H ALT 61 H Alkaline Phosphatase 105 Total Protein 7.0 Albumin 3.7 Discharge Plan Discharge Attending physician on discharge: Javi Nguyen Consulting providers: Fátima Richard; Shayna Fournier; Zay Cruz Discharging Clinician: Zay Cruz Anticipated Discharge Date/Time: 12/06/24 11:19 Patient Disposition: SNF Activity: no straining Diet: heart healthy Discharge Instructions: Discharge disposition: [facility] Take medications as prescribed Monitor blood pressures Take caution while standing, rising, or moving Change positions slowly taking a break between each position change If you standing feel dizzy sit back down and take a break Encouraged to continue with yearly vaccinations Return to the emergency department if he developed sudden shortness of breath, chest pain, nausea, vomiting, upset stomach or intractable diarrhea Return to the emergency department if you develop fever greater than 101.5 Follow-up with the primary care physician within 1-2 weeks Thank you for [facility] for your healthcare needs Patient Language: Maldivian Stand Alone Forms: General Discharge Information Follow-up/Referrals: Yumiko,DOM Juarez [Primary Care Provider] - Discharge Medications: Continued hydrocodone-acetaminophen 10-325 mg tablet 1 tablet PO Q4H PRN (Reason: pain) folic acid 1 mg tablet 1 mg PO DAILY duloxetine 20 mg capsule,delayed release(DR/EC) 40 mg PO DAILY ergocalciferol (vitamin D2) 1,250 mcg (50,000 unit) capsule 1,250 mcg PO WEEKLY Rx Instructions: Saturdays pregabalin 50 mg capsule 150 mg PO Q12H losartan 25 mg tablet 25 mg PO DAILY primidone 125 mg tablet 250 mg PO QID acetaminophen 325 mg tablet 650 mg PO Q6H PRN (Reason: Mild Pain (1-3) Or Fever) Qty: 30 0RF clonazepam 0.5 mg tablet 0.5 mg PO HS Qty: 90 0RF (DME) FreeStyle Leatha 3 Plus Sensor Device See Rx Instructions .Route Qty: 1 5RF Rx Instructions: Check glucose continuously As directed insulin degludec [Tresiba FlexTouch U-100] 100 unit/mL (3 mL) insulin pen See Rx Instructions .ROUTE .COMPLEX Qty: 15 0RF Dose Instruction: INJECT 18 UNITS SUBCUTANEOUSLY EVERY MORNING Rx Instructions: INJECT 18 UNITS SUBCUTANEOUSLY EVERY MORNING allopurinol 300 mg tablet 300 mg PO DAILY Qty: 90 1RF alpha lipoic acid 200 mg capsule 200 mg PO DAILY Qty: 90 1RF amlodipine 5 mg tablet 10 mg PO DAILY Qty: 180 1RF aripiprazole 5 mg tablet 5 mg PO DAILY Qty: 90 1RF aspirin 325 mg tablet 325 mg PO DAILY Qty: 90 1RF atorvastatin 20 mg tablet 20 mg PO DAILY Qty: 90 1RF calcitriol 0.5 mcg capsule 0.5 mcg PO DAILY Qty: 90 1RF citalopram 20 mg tablet 20 mg PO DAILY Qty: 90 1RF docusate sodium 100 mg capsule 100 mg PO DAILY PRN (Reason: Constipation) Qty: 90 1RF dicyclomine 10 mg capsule 10 mg PO TID Qty: 90 1RF ferrous sulfate 325 mg (65 mg iron) tablet 325 mg PO DAILY Qty: 90 1RF hydroxychloroquine 200 mg tablet 200 mg PO BID Qty: 180 0RF metformin 500 mg tablet extended release 24 hr 500 mg PO BID Qty: 90 1RF metoprolol tartrate 50 mg tablet 50 mg PO BID Qty: 90 1RF omeprazole 40 mg capsule,delayed release(DR/EC) 40 mg PO DAILY Qty: 90 1RF polyethylene glycol 3350 [Miralax] 17 gram powder in packet 17 g PO DAILY PRN (Reason: constipation) Qty: 100 1RF sucralfate 1 gram tablet 1 g PO TIDWM Qty: 90 1RF Jardiance 10 mg tablet 10 mg PO QAM Qty: 90 3RF (DME) BD AutoShield Duo Pen Needle 30 gauge x 3/16 needle See Rx Instructions .Route Qty: 100 0RF Rx Instructions: As directed oxycodone 5 mg Tablet 10 mg PO Q4H PRN (Reason: Pain Rated 7-10) Qty: 24 0RF Discontinued cholestyramine-aspartame 4 gram powder in packet 4 g PO DAILY Qty: 60 6RF Rx Instructions: administer w/meal; avoid other meds within 1hr before or 4-6hr after dose Date of admission: 11/30/24 17:06 Primary Care Provider: LivanAnn Admitting Provider: Romina Carter Attending physician on admission: Romina Carter Condition: Stable Quality VTE Prophylaxis VTE prophylaxis: mechanical ordered
[2024-12-06 13:57] VITALS: BP 120/55; PULSE 67; RESP 16; TEMP 36.2; O2SAT 94
== END 2024-12-06 19:40 | DRG 149 ==
LOC: ANHED 11-30 00:15 → ANH3MEDSUR 11-30 01:24
PROVIDERS: Nurse Practitioner Family; Physician Assistant; Admitting Provider General Practice; Emergency Provider Emergency Medicine; PCP Physician Assistant; Visit Provider Physician Assistant
DX: R42 Dizziness and giddiness (principal); I10 Essential (primary) hypertension; E11.42 Type 2 diabetes mellitus with diabetic polyneuropathy; E78.5 Hyperlipidemia, unspecified; K21.9 Gastro-esophageal reflux disease without esophagitis; B19.20 Unspecified viral hepatitis C without hepatic coma; R29.6 Repeated falls; M47.812 Spondylosis without myelopathy or radiculopathy, cervical region; M10.9 Gout, unspecified; M19.90 Unspecified osteoarthritis, unspecified site; M54.2 Cervicalgia; G89.29 Other chronic pain; G47.33 Obstructive sleep apnea (adult) (pediatric); F41.9 Anxiety disorder, unspecified; Z86.73 Personal history of transient ischemic attack (TIA), and cerebral infarction without residual deficits; Z87.891 Personal history of nicotine dependence; Z79.4 Long term (current) use of insulin; Z79.82 Long term (current) use of aspirin; Z99.3 Dependence on wheelchair
CPT/HCPCS: 36415; 70450; 70486; 70553; 71045; 72125; 72170; 73562; 73610; 80053; 80074; 81001; 82550; 82948; 83036; 85025; 85027; 85380; 87522; 93005; 93306; 96375; 97110; 97161; 97166; 97530; 97535; 99285; A9270; A9577; G0378; J1815

== ENCOUNTER 2024-12-26 13:20 | Emergency (ER) | payer OTHER, MEDICARE, SELFPAY ==
[2024-12-26] VITALS (20 sets, daily range): BP systolic 124–161; BP diastolic 55–75; PULSE 56–64; RESP 11–35; TEMP 36.3; O2SAT 90–98
--- NOTE | ~2024-12-26 | CT_ITS ---
EXAMINATION: CT lumbar spine wo con DATE: 12/26/2024 15:26 INDICATION: Low back pain after fall TECHNIQUE: Computed tomography (CT) of the lumbar spine was performed without intravenous contrast. The dose-length product was 1438.34 mGy-cm. Automated exposure control and iterative reconstruction technique were employed. COMPARISON: No prior studies for comparison. FINDINGS: There are burst fractures of T12 and L1 which appear chronic treated with vertebroplasty. There is associated central canal stenosis at these levels. No acute fracture is identified. There is hypertrophy of the spinous processes. There are calcified granulomas of the spleen. There is atherosclerosis of the aorta without aneurysm. IMPRESSION: 1. No acute abnormality of the lumbar spine. 2: Chronic burst fractures of T12 and L1 treated with vertebroplasty. Reviewed, dictated and finalized at location O.
--- NOTE | ~2024-12-26 | CT_ITS ---
EXAMINATION: CT brain wo con DATE: 12/26/2024 15:23 INDICATION: Status post fall. Head injury. TECHNIQUE: Computed tomography (CT) of the head was performed without intravenous contrast. The dose-length product was 832.33 mGy-cm. Automated exposure control and iterative reconstruction technique were employed. COMPARISON: CT dated 11/29/2024 FINDINGS: Generalized atrophy. There are scattered mild periventricular and subcortical white matter changes, most likely related to small vessel ischemic disease (microangiopathy). Frontal scalp hematoma. No acute infarction, hemorrhage, mass or mass effect. No midline shift or ventriculomegaly. No de pressed skull fractures. Paranasal sinuses and mastoids are pneumatized. IMPRESSION: 1. No acute intracranial abnormality. Reviewed, dictated and finalized at location O.
--- NOTE | ~2024-12-26 | CT_ITS ---
EXAMINATION: CT thoracic spine wo con DATE: 12/26/2024 15:26 INDICATION: Low back pain after fall TECHNIQUE: Computed tomography (CT) of the thoracic spine was performed without intravenous contrast. The dose-length product was 1438.34 mGy-cm. Automated exposure control and iterative reconstruction technique were employed. COMPARISON: None FINDINGS: There are spinal fusion changes at C6-T2 posteriorly and anteriorly extending superiorly from C7, incompletely visualized. There is mild wedge compression deformities of T3 and T4, likely chronic. There are chronic burst fractures of T12 and L1 treated with vertebral plasty. Mildly accentuated thoracic kyphosis. No acute fracture identified. IMPRESSION: 1. Chronic mild wedge compression deformities of T3 and T4. Chronic burst fractures of T12 and L1 treated with vertebroplasty. Reviewed, dictated and finalized at location O. IMPRESSION: 1. Chronic mild wedge compression deformities of T3 and T4. Chronic burst fract ures of T12 and L1 treated with vertebroplasty.
--- NOTE | ~2024-12-26 | CT_ITS ---
EXAMINATION: CT facial & cervical spine wo DATE: 12/26/2024 15:26 INDICATION: Status post fall. Facial and neck injury. TECHNIQUE: Computed tomography (CT) of the maxillofacial region and cervical spine was performed without intravenous contrast. The dose-length product (DLP) was 1438.34 mGy-cm. Automated exposure control and iterative reconstruction technique were employed. COMPARISON: CT cervical spine dated 09/10/2023 FINDINGS: MAXILLOFACIAL CT: No acute facial fracture. CERVICAL SPINE CT: There are surgical changes consistent with fusion at C3-T2. Odontoid process is normal. No acute fracture identified. There is stable subtle anterolisthesis at C7-T1. There is healed interbody bone graft. There is decreased disc height at C7-T1. IMPRESSION: 1. No acute abnormality of the facial bones or cervical spine. Reviewed, dictated and finalized at location O.
--- NOTE | 2024-12-26 15:01 | ED.FALL ---
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 She reports she was sitting on her bed and reached for her phone on the ground when she fell and landed on her face. Patient reports her face make contact with the floor. She reports she has sustained 3 falls recently, with the most recent 1 being this morning. Patient reports she was seen here for evaluation after her last fall. She reports she is not on blood thinners. Patient denies any loss of consciousness, chest pain, shortness of breath, abdominal pain, arm pain, urinary symptoms, or new onset leg/hip pain. She endorses a history of high blood pressure, diabetes, chronic kidney disease, and stroke. Related Data Home Medications ?Medication ?Instructions ?Recorded ?Confirmed ?Last Taken ?Type duloxetine 20 mg capsule,delayed 40 mg PO DAILY 04/19/23 11/30/24 04/19/23 09:00 History release folic acid 1 mg tablet 1 mg PO DAILY 04/19/23 11/30/24 04/19/23 09:00 History ergocalciferol (vitamin D2) 1,250 1,250 mcg PO WEEKLY 04/20/23 11/30/24 04/19/23 09:00 History mcg (50,000 unit) capsule hydrocodone 10 mg-acetaminophen 1 tablet PO Q4H PRN pain 09/17/23 11/30/24 Unknown History 325 mg tablet losartan 25 mg tablet 25 mg PO DAILY 11/30/24 11/30/24 Unknown History pregabalin 50 mg capsule 150 mg PO Q12H 11/30/24 11/30/24 Unknown History primidone 125 mg tablet 250 mg PO QID 11/30/24 11/30/24 Unknown History Allergies Allergy/AdvReac Type Severity Reaction Status Date / Time ezetimibe Allergy Unknown Verified 11/30/24 03:31 gabapentin AdvReac Shakiness Verified 11/30/24 03:31 Review of Systems Review of Systems: All systems reviewed & are unremarkable except as noted in HPI and below PMFSH Past Medical History Medical History Chronic pain disorder Diabetic peripheral neuropathy Hepatitis C Chronic neck pain with history of cervical spinal surgery Obstructive sleep apnea Refuses CPAP TIA (transient ischemic attack) Anxiety Hyperlipidemia Gout Arthritis GERD (gastroesophageal reflux disease) Hypertension Diabetes mellitus Insulin-dependent Surgical History Surgical History History of augmentation of both breasts With bilateral ruptured implants noted on imaging 04/2023 History of kyphoplasty (~12/2022) Hx of cholecystectomy Family History Family History Grandparent Acute myocardial infarction Father Acute myocardial infarction Parkinson disease Diabetes mellitus Hypertension Cerebrovascular accident Mother Diabetes mellitus Lung cancer Hypertension Depression Sibling Diabetes mellitus Cirrhosis Alcoholism Cervical cancer Hypertension Social History Social History Social History: She lives in her own home. Her granddaughter lives with her and helps provide care. She had 2 sons but 1 is . The she ambulates via walker boot and stands to transfer. She denies any history of excessive alcohol use and only briefly smoked tobacco at a young age. She denies any drug history. Code status: DNR/DNI (per patient request) Surrogate decision maker: Son Years smoked: 3 Smoking status: Former smoker Tobacco type: cigarettes Alcohol intake: current Drinks per week: 1 Substance use: never Substance use type: does not use Do You Feel Safe in your Home?: Yes Lack of Transportation: No Lack of Food: Sometimes True Current Housing: I Have Housing Concerned About Future Housing: YES Difficulty Paying Gas/Electric Bills: No Difficulty Paying for Meds: No Currently Unemployed: No Education: High School Diploma/GED Difficulty w/ Childcare or Family Care: No Spiritual care concerns: No Exam Narrative: GENERAL: Well appearing, well-nourished, non-toxic, in no acute distress. HEAD: Normocephalic, bruising and edema to left saji orbital socket, healing bruise to top of patient's forehead NECK: Supple. No adenopathy, no masses. RESPIRATORY: Airway patent, respirations nonlabored. Clear to auscultation bilaterally, no rales, rhonchi, wheezing. CARDIOVASCULAR: Regular rate and rhythm without murmurs, rubs, or gallops. Peripheral pulses 2+ and equal bilaterally. ABDOMINAL: Soft, nontender, nondistended, no hepatosplenomegaly. Normoactive BS. MUSCULOSKELETAL: Moves all extremities. Strength/ROM intact without gross deformities. SKIN: Warm, dry, normal color. No rashes. NEURO: A&O X3. Speech clear. Cranial nerves II-XII intact. No ataxic movements. PSYCHIATRIC: Appropriate mood and affect. Normal interaction. 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 She reports she was sitting on her bed and reached for her phone on the ground when she fell and landed on her face. Patient reports her face make contact with the floor. She reports she has sustained 3 falls recently, with the most recent 1 being this morning. Patient reports she was seen here for evaluation after her last fall. She reports she is not on blood thinners. Patient denies any loss of consciousness, chest pain, shortness of breath, abdominal pain, arm pain, urinary symptoms, or new onset leg/hip pain. She endorses a history of high blood pressure, diabetes, chronic kidney disease, and stroke. Labs Ordered: None necessary Imaging Ordered: CT brain, CT lumbar spine, CT thoracic spine, CT facial/cervical spine Medications Ordered: Tylenol p.o. Results: Pt's lumbar spine scan indicates 1. No acute abnormality of the lumbar spine. 2: Chronic burst fractures of T12 and L1 treated with vertebroplasty. Pt's CT facial/cervical spine indicates No acute abnormality of the facial bones or cervical spine. Pt's thoracic spine CT indicates . Chronic mild wedge compression deformities of T3 and T4. Chronic burst fractures of T12 and L1 treated with vertebroplasty. Pt's CT brain indicates 1. No acute intracranial abnormality. Diagnosis: Fall, facial trauma, concussion without loss of consciousness Patient Education/Shared MDM: Results of imaging shared with patient. She endorses improvement of symptoms following medication administration. Patient strongly advised to maintain hydration status upon discharge, educated about risk of falls, and advised to follow-up with her PCP as soon as possible. She will not be discharged home with any new prescriptions. Strict return precautions provided. Patient verbalized understanding and is in agreement with plan. Vital signs stable at time of discharge. All questions answered. Differential Diagnosis Differential diagnosis: Likely concussion without loss of consciousness and other (Cervical spine fracture, thoracic spine fracture, lumbar spine fracture, subdural hematoma) Imaging Data Attestation: I personally reviewed and interpreted this imaging study as follows: Radiologist's impression: Impressions Lumbar Spine CT 12/26/24 15:27 IMPRESSION: 1. No acute abnormality of the lumbar spine. 2: Chronic burst fractures of T12 and L1 treated with vertebroplasty. Head CT 12/26/24 15:29 IMPRESSION: 1. No acute intracranial abnormality. Thoracic Spine CT 12/26/24 15:31 IMPRESSION: 1. Chronic mild wedge compression deformities of T3 and T4. Chronic burst fractures of T12 and L1 treated with vertebroplasty. Head/Cervical Spine/Facial Bones CT 12/26/24 15:35 IMPRESSION: 1. No acute abnormality of the facial bones or cervical spine. Discharge Plan Discharge Clinical Impression: Neck pain, Chronic pain disorder, Concussion without loss of consciousness, Fall, Frequent falls Patient Disposition: NC Intermediate/Asst Living Condition: Stable Instructions: Antibiotic Form, Fall Prevention for Older Adults (ED) Additional Instructions: Please return to the ER with any worsening symptoms. Follow-up with primary care provider as soon as possible to ensure you are healing. Take all medications as prescribed, including regularly scheduled medications. You may use ice, Tylenol, or your prescribed oxycodone for pain relief. Patient Language: Portuguese Prescriptions: No Action hydrocodone-acetaminophen 10-325 mg tablet 1 tablet PO Q4H PRN (Reason: pain) folic acid 1 mg tablet 1 mg PO DAILY duloxetine 20 mg capsule,delayed release(DR/EC) 40 mg PO DAILY ergocalciferol (vitamin D2) 1,250 mcg (50,000 unit) capsule 1,250 mcg PO WEEKLY Rx Instructions: Saturdays pregabalin 50 mg capsule 150 mg PO Q12H losartan 25 mg tablet 25 mg PO DAILY primidone 125 mg tablet 250 mg PO QID acetaminophen 325 mg tablet 650 mg PO Q6H PRN (Reason: Mild Pain (1-3) Or Fever) Qty: 30 0RF clonazepam 0.5 mg tablet 0.5 mg PO HS Qty: 90 0RF (DME) FreeStyle Leatha 3 Plus Sensor Device See Rx Instructions .Route Qty: 1 5RF Rx Instructions: Check glucose continuously As directed insulin degludec [Tresiba FlexTouch U-100] 100 unit/mL (3 mL) insulin pen See Rx Instructions .ROUTE .COMPLEX Qty: 15 0RF Dose Instruction: INJECT 18 UNITS SUBCUTANEOUSLY EVERY MORNING Rx Instructions: INJECT 18 UNITS SUBCUTANEOUSLY EVERY MORNING allopurinol 300 mg tablet 300 mg PO DAILY Qty: 90 1RF alpha lipoic acid 200 mg capsule 200 mg PO DAILY Qty: 90 1RF amlodipine 5 mg tablet 10 mg PO DAILY Qty: 180 1RF aripiprazole 5 mg tablet 5 mg PO DAILY Qty: 90 1RF aspirin 325 mg tablet 325 mg PO DAILY Qty: 90 1RF atorvastatin 20 mg tablet 20 mg PO DAILY Qty: 90 1RF calcitriol 0.5 mcg capsule 0.5 mcg PO DAILY Qty: 90 1RF citalopram 20 mg tablet 20 mg PO DAILY Qty: 90 1RF docusate sodium 100 mg capsule 100 mg PO DAILY PRN (Reason: Constipation) Qty: 90 1RF dicyclomine 10 mg capsule 10 mg PO TID Qty: 90 1RF ferrous sulfate 325 mg (65 mg iron) tablet 325 mg PO DAILY Qty: 90 1RF hydroxychloroquine 200 mg tablet 200 mg PO BID Qty: 180 0RF metformin 500 mg tablet extended release 24 hr 500 mg PO BID Qty: 90 1RF metoprolol tartrate 50 mg tablet 50 mg PO BID Qty: 90 1RF omeprazole 40 mg capsule,delayed release(DR/EC) 40 mg PO DAILY Qty: 90 1RF polyethylene glycol 3350 [Miralax] 17 gram powder in packet 17 g PO DAILY PRN (Reason: constipation) Qty: 100 1RF sucralfate 1 gram tablet 1 g PO TIDWM Qty: 90 1RF Jardiance 10 mg tablet 10 mg PO QAM Qty: 90 3RF (DME) BD AutoShield Duo Pen Needle 30 gauge x 3/16 needle See Rx Instructions .Route Qty: 100 0RF Rx Instructions: As directed oxycodone 5 mg Tablet 10 mg PO Q4H PRN (Reason: Pain Rated 7-10) Qty: 24 0RF Follow-up/Referrals: Yumiko,DOM Juarez [Primary Care Provider, Unknown] Stand Alone Forms: Alf Discharge Time of Disposition: 16:22
[2024-12-26] MEDS: HYDROcodone/acetaminophen (*CRX) 5-325 MG TABLET 1 TAB PO (16:20)
== END 2024-12-26 18:19 ==
PROVIDERS: Emergency Provider Registered Nurse; PCP Physician Assistant
DX: S06.0X0A Concussion without loss of consciousness, initial encounter (principal); G89.29 Other chronic pain; R29.6 Repeated falls; I12.9 Hypertensive chronic kidney disease with stage 1 through stage 4 chronic kidney disease, or unspecified chronic kidney disease; E11.22 Type 2 diabetes mellitus with diabetic chronic kidney disease; N18.9 Chronic kidney disease, unspecified; E11.42 Type 2 diabetes mellitus with diabetic polyneuropathy; E78.5 Hyperlipidemia, unspecified; G47.33 Obstructive sleep apnea (adult) (pediatric); M19.90 Unspecified osteoarthritis, unspecified site; M10.9 Gout, unspecified; F41.9 Anxiety disorder, unspecified; Z66 Do not resuscitate; Z86.19 Personal history of other infectious and parasitic diseases; Z86.73 Personal history of transient ischemic attack (TIA), and cerebral infarction without residual deficits; Z90.49 Acquired absence of other specified parts of digestive tract; Z79.899 Other long term (current) drug therapy; Z79.4 Long term (current) use of insulin; Z79.82 Long term (current) use of aspirin; Z79.84 Long term (current) use of oral hypoglycemic drugs; W06.XXXA Fall from bed, initial encounter
CPT/HCPCS: 70450; 70486; 72125; 72128; 72131; 99284; A9270

== ENCOUNTER 2025-01-07 12:18 | Emergency (ER) | payer MEDICARE, SELFPAY ==
--- OUTSIDE RECORDS SUMMARY | 2022-05-31 02:09 | XMS_ITS | Continuity of Care Document ---
Author Organization [facility] Address [address] [place] [address] Phone Care Team Providers Care Milk Driver Name Role Phone Yuko ADAIR, Jairo Unavailable Unavailable Allergies, Adverse Reactions, Alerts Substance Reaction Status Criticality gabapentin Nausea, lightheaded(severe) Active No Information Medications Medication Instructions Dosage Effective Dates (start - stop) Status Comments Cholestyramine 4 GM Oral Packet DISSOLVE & TAKE 1 PACKET BY MOUTH ONCE DAILY - Active cholestyramine (bulk) powder Take 1 packet daily. - Active 12/18 appt dicyclomine 10 mg capsule take 1 capsule by oral route 3 times every day 10 MG - Active sucralfate 1 gram tablet TAKE ONE TABLET BY MOUTH THREE TIMES DAILY ON AN EMPTY STOMACH as needed. - Active ADULT LOW STRENGTH 81MG TABS 1 QD - Active Lyrica 75 mg capsule take 1 capsule by oral route every day 75 MG - Active alpha lipoic acid 600 mg capsule - Active B-12 (unknown strength) Not Available - Ac tive aspirin 81 mg tablet,delayed release take 1 tablet by oral route every day 81 MG - Active atenolol 50 mg tablet take 1 tablet by oral route every day 50 MG - Active atorvastatin 20 mg tablet take 1 tablet by oral route every day 20 MG - Active CALCITRATE (unknown strength) Not Available - Active duloxetine 30 mg capsule,delayed release take 1 capsule by oral route every day 30 MG - Active ergocalciferol (vitamin D2) 50,000 unit capsule take 1 capsule by oral route every week - Active METOPROLOL SUCCINATE (unknown strength) take 1 tablet by oral route every day Not Available - Active Trulicity 0.75 mg/0.5 mL subcutaneous pen injector inject 0.5 milliliter by subcutaneous route every week in the abdomen, thigh, or upper arm rotating injection sites - Active Levemir 100 unit/mL subcutaneous solution inject by subcutaneous route per prescriber's instructions. Insulin dosing requires individualization . - Active hydroxychloroquine 200 mg tablet take 1 tablet by oral route 2 times every day 200 MG - Active omeprazole 20 mg capsule,delayed release take 1 capsule by oral route 2 times every day before a meal 20 MG - Active primidone 50 mg tablet one tablet three times daily - Active alprazolam 0.25 mg tablet take 1 tablet by oral route 3 times every day 0.25 MG - Active lisinopril 40 mg tablet take 1 tablet by oral route every 2 days 40 MG - Active Orange 5 mg-325 mg tablet take 1 tablet by oral route every 6 hours as needed for pain - Active clonazepam 1 mg tablet 1.5 tablets at bedtime - Active citalopram 40 mg tablet take 1 tablet by oral route every day 40 MG - Active Remicade 100 mg intravenous solution infuse (5MG/KG) by intravenous route every 4 weeks over 5 MG/KG - Active meloxicam 7.5 mg tablet take 1 tablet by oral route every day 7.5 MG - Active prednisone 10 mg tablet take 1 tablet by oral route every day 10 MG - Active Probiotic 10 billion cell capsule - Active folic acid 1 mg tablet - Active furosemide 20 mg tablet - Active Mobic 7.5 mg tablet - Active multivitamin capsule - Active tramadol 50 mg tablet - Active allopurinol 300 mg tablet - Active potassium chloride ER 10 mEq capsule,extended release - Active Procedures Procedure Date No Show Appt Charge OFFICE [id number] SYST BP GE 130 - 139MM HG DIAST BP 80-89 MM HG Advance Directives Directive Yes / No Effective Date File Name No Information Encounters Encounter Description Practice Location Reason(s) For Visit Diagnoses Date Provider Providers Copied on Encounter [facility], [address], [place], [place], [address] , [place] tel:[phone] [facility] No Information 3 Yuko Samuel [address] [facility], [address], [id number], [place]. tel:[phone] [facility], [address], [place], [place], [address] , [place] tel: [phone] [facility] No Information 2 Lc Armijo. [address], [place] [address], [place], [place], [address], [place]. tel:[phone] Referring Provider: Mikie Hidalgo, [address], [place], [address]. tel:[phone] [facility], [address], [place], [place], [address] , [place] tel: [phone] [facility] No Information 2 Yuko Sajidul. [address] [place] [address], [address], [id number], [place]. tel:[phone] [facility], [address], [place], [place], [address] , [place] tel: [phone] [facility] No Information 2 Yuko Sajidul. [address] [place] [address], [address], [id number], [place]. tel:[phone] [id number], [address], [place], [place], [address] , tel: [phone] [facility] hepatitis (chief complaint) Fatty (change of) liver, not elsewhere classifiedChroni c viral hepatitis CPersonal history of colonic polypsRight upper quadrant painIrritable bowel syndrome with diarrhea 0 Yuko Sajidul. [facility], [place] [address], [place], [place], [address], [place]. tel:[phone] Referring Provider: Mikie Hidalgo, [address], [place], [address]. tel:[phone] [facility], [address], [place], [place], [address] , tel:[phone] [facility] No Information 9 Yuko Sajidul. [address], [facility] [address], [place], [place], [address], [place]. tel:[phone] [facility], [address], [place], [place], [address] , [place] tel: [phone] [facility] Fatty (change of) liver, not elsewhere classifiedChroni c viral hepatitis CIrritable bowel syndrome with diarrheaPersonal history of colonic polypsRight upper quadrant pain Sep-1 0-201 8 Yuko Sajidul. [address], [facility] [address], [place], [place], [address], [place]. tel:[phone] Referring Provider: Mikie Hidalgo, [address] [facility] [address], [place], [address]. tel:[phone] [facility], [address], [place], [place], [address] , [place] tel: [phone] [facility] Fatty (change of) liver, not elsewhere classifiedDiarrh ea, unspecifiedChron ic viral hepatitis CIrritable bowel syndrome with diarrheaRight upper quadrant painPersonal history of colonic polyps Dec- 1 7 Yuko Sajidul. [facility], [address], [id number], [place]. tel:[phone] Referring Provider: Alejandro Carpio, [address] [place], [address]. tel:[phone] [facility], [address], [place], [place], [address] , [place] tel: [phone] [facility] Diarrhea, unspecifiedChron ic viral hepatitis CPersonal history of colonic polypsIrritable bowel syndrome with diarrheaFatty (change of) liver, not elsewhere classifiedRight upper quadrant pain May- 8- 6 Yuko Sajidul. [address] [facility], [address], [id number], [place]. tel:[phone] Referring Provider: Alejandro Carpio, Barbara [facility] [place], [address]. tel:[phone] [facility], [address], [place], [place], [address] , [place] tel: [phone] [facility] DiarrheaChronic hepatitis c without mention of hepatic comaPersonal history of colonic polypsIrritable ColonFatty liverAbdominal pain, right upper quadrant September- 5 Yuko Sajidul. [address] [facility], [address], [id number], [place]. [phone] Referring Provider: [place], [address]. tel:[phone] [facility], [address], [place], [place], [address] , tel: [phone] [facility] DiarrheaChronic hepatitis c without mention of hepatic comaPersonal history of colonic polypsIrritable ColonFatty liverAbdominal pain, right upper quadrant 4 Yuko Sajidul. [address] [place] [address], [address], [id number], [place]. tel:[phone] Referring Provider: Alejandro Carpio, [place], [address]. tel:[phone] [facility], [address], [place], [place], [address] , [place] tel: [phone] [facility] Abnormal Liver EnzymesDiarrheaC hronic hepatitis c without mention of hepatic comaPersonal history of colonic polypsIrritable ColonAlcoholic fatty liver - 4 Yuko Sajidul. [address] [facility], [address], [address], [place]. tel:[phone] Referring Provider: Alejandro Carpio, [place], [address]. tel:[phone] [facility], [address], [place], [place], [address] , tel:[phone] [facility] Alcoholic fatty liverIrritable ColonDiarrheaChr onic hepatitis c without mention of hepatic comaAbnormal Liver EnzymesPersonal history of colonic polyps Fe- 4 Yuko Sajidul. [address] [facility], [address], [address], . tel:[phone] Referring Provider: [place], [address]. tel:[phone] [facility], [address], [place], [place], [address] , tel:[phone] [facility] Noninfectious GastroenteritisD iarrheaChronic hepatitis c without mention of hepatic comaAbnormal Liver EnzymesPersonal history of colonic polypsAlcoholic fatty liverIrritable Colon Nov- 2 3 Yuko Sajidul. [address] [facility], [address], [address], . tel:[phone] Referring Provider: Alejandro Carpio, [place], [address]. tel:[phone] [facility], [address], [place], [place], [address] , tel:[phone] [facility] No Information 3 Yuko Sajidul. [address] [facility], [address], [address], . tel:[phone] [facility], [address], [place], [place], [address] , tel:[phone] [facility] DiarrheaChronic hepatitis c without mention of hepatic comaNonspecific elevation of levels of transaminase or lactic acid dehydrogenase (ldh)Personal history of colonic polypsAlcoholic fatty liverIRRITABLE BOWEL SYNDROME Jan- 3 Yuko Sajidul. [address] [facility], [address], [id number], [place]. tel:[phone] Referring Provider: [place], [address]. tel:[phone] [facility], [address], [place], [place], [address] , tel:[phone] [facility] Other allergy, other than to medicinal agentsChronic hepatitis c without mention of hepatic coma Jan- 3 Vasile De Luna. [address], [place], [place], [address]. tel:[phone] [facility], [address], [place], [place], [address] , [place] tel: [phone] [facility] No Information 1 Conversion Doctor. [address], [place], [address], [place]. 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 [address], [facility] [address], [place], [place], [address]. tel:[phone] [facility], [address], [place], [place], [address] , [place] tel: [phone] [facility] BENIGN HYPERTENSIONESOP HAGEAL REFLUXCHEST PAIN NOS 0-200 6 Brunts Debra. [address], [facility] [address], [place], [place], [address]. tel:[phone] [facility], [address], [place], [place], [address] , [place] tel: [phone] [facility] PURE HYPERCHOLESTEROL EMMALAISE AND FATIGUE NECURINARY INCONTINENCE NOS 6-200 6 Brunts Debra. [address], [place] [address], [place], [place], [address]. tel:[phone] [facility], [address], [place], [place], [address] , [place] tel: [phone] [facility] ANAL & RECTAL POLYP Abhijit- 3-200 5 Brunts Debra. [address], [facility] [address], [place], [place], [address]. tel:[phone] [facility], [address], [place], [place], [address] , [place] tel: [phone] [facility] CARPAL TUNNEL SYNDROMEGENERAL OSTEOARTHROSIS Apr-2 1-200 5 Brunts Debra. [address], [facility] [address], [place], [place], [address]. tel:[phone] [facility], [address], [place], [place], [address] , [place] tel: [phone] [facility] EDEMADEPRESSIVE DISORDER NECHEADACHE 9-200 4 Conversion Doctor. [address] [facility], [place], [address], [place]. [facility], [address], [place], [place], [address] , [place] tel: [phone] [facility] ARTHRALGIA TMJSCREEN LIPOID DISORDERSCHRONIC FATIGUE SYNDROME 9200 4 Cassandra Debra. [facility] [address], [place], [place], [address]. tel:[phone] [facility], [address], [place], [place], [address] , [place] tel: [phone] [facility] MALIGNANT HYPERTENSION 0-200 4 Cassandra Debra. [address] [place] [address], [place] [address], [place], [place], [address]. tel:[phone] [facility], [address], [place], [place], [address] , [place] tel: [phone] [facility] SYMPT FEM CLIMACT STATE 2-200 3 Brunsera Debra. [address] [place] [address], [place], [place], [address]. tel:[phone] [facility], [address], [place], [place], [address] , [place] tel: [phone] [facility] HYPERTENSION NOS 5-200 2 Brunsera Debra. [facility] [address], [place], [place], [address]. tel:[phone] [facility], [address], [place], [place], [address] , [place] tel: [phone] [facility] GYNECOLOGIC EXAMINATIONCHRON IC SINUSITIS NOS 0-200 2 Brunts Debra. [address] [place] [address], [facility] [address], [place], [place], [address]. tel:[phone] [facility], [address], [place], [place], [address] , tel: [phone] [facility] FAM HX-DIABETES MELLITUS 200 2 Cassandra Richardson. [address] [address], [place], [place], [address]. tel:[phone] [facility], [address], [place], [place], [address] , tel: [phone] [facility] SPASM OF MUSCLE 200 1 Cassandra Richardson. [address] [address], [place], [place], [address]. tel:[phone] [facility], [address], [place], [place], [address] , tel: [phone] [facility] DISC DEGENERATION NOS Aug-0 200 1 Cassandra Richardson. [address] [place] [address], [place] [address], [place], [place], [address]. [phone] Family History Family Member Type Diagnosis Age At Onset Sister Problem (finding) diabetes melli tus in first degree relative Mother Problem (finding) coronary arterioscleros is Brother Problem (finding) Hepatitis B Family h/o Problem (finding) DIABETES MELLITUS Mother Problem (finding) malignant neoplasm of l kevin Father Problem (finding) coronary arterioscleros is Mother Problem (finding) Irritable bowel disease Father Problem (finding) diabetes melli tus in first degree relative Immunizations Vaccine Date Status Comments 72131 - TD administered Source: Source Unspecified 19915 - TD administered Source: Source Unspecified Payers Payer name Insurance type Covered democrat ID Authoriza tion(s) MEDICARE [id number] [id number] Social History Type Description Quantity Date Captured Comments Sex Female Smoking Status No Information Sexual Orientation Straight or heterosexual Gender Identity Female Chief Complaint And Reason For Visit No Information Reason For Referral Reason For Referral No Information History Of Present Illness Encounter Date Complaint History Of Prese nt Illness hepatitis Onset: chronic. Year of onset is 2011. The problem is improving. Severity level is mild. Past history includes: hepatitis C, diabetes and fatty liver. No history of: hepatitis A, hepatitis B, steatohepatitis, alcoholic hepatitis, autoimmune hepatitis, primary biliary cirrhosis, varices-esophageal, varices-gastric, portal hypertensive gastropathy, depression, exposure to hepatitis-infected person, cryoglobulinemia, hereditary hemochromatosis, acquired hemochromatosis, cirrhosis, hepatitis D, THOMAS, primary sclerosing cholangitis or Oli's disease. Last EGD: 2011 -gastritis Last Liver Imagin -hepatic steatosis. Pertinent negatives include abdominal distention, abdominal pain, blood in stool, bruising, change in sleep/awake, chills, diaphoresis, fever, jaundice, lethargy, melena, nausea, pruritus, tremors, vomiting, weight gain and weight loss. hepatitis (comments) Treated. Fe ll in parking lot last month. In hosp with CHF exac last month. Functional Status Date Functional Assessmen t No Information Instructions Date Instruction Additional Infor mation Disease process Assessments Type Assessment Date No Information Patient Care Teams Name Effective Dates (start - stop) Status Members No Information
--- OUTSIDE RECORDS SUMMARY | 2023-11-12 08:15 | XMS_ITS ---
Author Organization [facility] Address [address] [place] [address] Care Team Providers Care Nodulizer Name Role Phone Mikie Hidalgo Primary Care Provider Laura Adames MD, Oralia Unavailable Unavailable Perez Cabezas Unavailable [phone] REASON FOR VISIT BACK PAIN Encounters Encounter Location Date Provider Diagnosis [facility] [address] [place] [address] 11/12/2023 Perez Cabezas Plan Of Treatment No Information Progress Notes * Oralia MORELAND LDOB:[birth year] (79 yo F)Acc No.[id number]:11/12/2023 Medication Refill Patient: Oralia FLANNERY Provider: Jose Cabezas MD :1945 A ge:78 Y S ex:Female Date:11/12/2023 Address:[address], [place], [place] Pcp:Mikie Hidalgo Subjective: * Chief Complaints: * 1 . BACK PAIN. * Medical History: Objective: * Vitals: Assessment: Plan: * Treatment: * * Electronic signature of Fabian Cabezas MD on 01/07/2025 at 02:54 PM CDT Sign off status: Pending * Provider: Jose Cabezas MD Date: 11/12/2023 Generated for Printi ng/Faxing/eTransmitting on: 01/07/2025 02:54 PM CDT
--- OUTSIDE RECORDS SUMMARY | 2023-12-11 08:00 | XMS_ITS ---
Author Organization [facility] Address [address] [place] [address] Care Team Providers Care Color Artist Name Role Phone Mikie Hidalgo Primary Care Provider Laura Adames MD, Oralia Unavailable Unavailable Perez Cabezas Unavailable [phone] REASON FOR VISIT NECK PAIN Encounters Encounter Location Date Provider Diagnosis [facility] [address] [place] [address] 12/11/2023 Perez Cabezas Plan Of Treatment No Information Progress Notes * Oralia MORELAND LDOB:[birth year] (79 yo F)Acc No.[id number]:12/11/2023 Patient: Oralia FLANNERY Provider: Jose Cabezas MD :1945 A ge:78 Y S ex:Female Date:12/11/2023 Address:[address] [place] [address], [address], [place], [place] Pcp:Mikie Hidalgo Subjective: * Chief Complaints: * 1 . NECK PAIN. * Medical History: Objective: * Vitals: Assessment: Plan: * Treatment: * * Electronic signature of Fabian Cabezas MD on 01/07/2025 at 02:54 PM CDT Sign off status: Pending * Provider: Jose Cabezas MD Date: 12/11/2023 Generated for Livieri ng/Fajoseg/eTransmitting on: 0 01/07/2025 02:54 PM CDT
--- OUTSIDE RECORDS SUMMARY | 2024-02-11 05:00 | XMS_ITS ---
Author Organization [facility] Address [address] [place] [address] Care Team Providers Care Owner Oral Surgeon Name Role Phone Mikie Hidalgo Primary Care Provider Laura Adames MD, Oralia Unavailable Unavailable Perez Cabezas Unavailable [phone] REASON FOR VISIT BACK PAIN Encounters Encounter Location Date Provider Diagnosis [facility] [address] [place] [address] 02/11/2024 Perez Cabezas Plan Of Treatment No Information Progress Notes * Oralia MORELAND LDOB:[birth year] (79 yo F)Acc No.[id number]:02/11/2024 Medication Refill Patient: Oralia FLANNERY Provider: Jose Cabezas MD :1945 A ge:78 Y S ex:Female Date:02/11/2024 Address:[address], [place], [place] Pcp:Mikie Hidalgo Subjective: * Chief Complaints: * 1 . BACK PAIN. * Medical History: Objective: * Vitals: Assessment: Plan: * Treatment: * * Electronic signature of Fabian Cabezas MD on 01/07/2025 at 02:54 PM CDT Sign off status: Pending * Provider: Jose Cabezas MD Date: 1 Generated for Printi ng/Faxing/eTransmitting on: 0 01/07/2025 02:54 PM CDT
--- NOTE | ~2025-01-07 | CT_ITS ---
EXAMINATION: CT brain wo con DATE: 01/07/2025 15:43 INDICATION: Status post falls. TECHNIQUE: Computed tomography (CT) of the head was performed without intravenous contrast. The dose-length product was 681.00 mGy-cm. Automated exposure control and iterative reconstruction technique were employed. COMPARISON: CT dated 12/26/2024 FINDINGS: There is a left frontal scalp hematoma. Generalized atrophy. There are scattered mild periventricular and subcortical white matter changes, most likely related to small vessel ischemic disease (microangiopathy). No ventriculomegaly or midline shift. Basilar cisterns are patent. No depressed skull fractures. Paranasal sinuses and mastoids are pneumatized. No acute infarction, hemorrhage, mass or mass effect. IMPRESSION: 1. No acute intracranial abnormality. Reviewed, dictated and finalized at location O.
--- NOTE | ~2025-01-07 | CT_ITS ---
EXAMINATION: CT facial & cervical spine wo DATE: 01/07/2025 15:43 INDICATION: Status post fall. Bruising of the orbits. TECHNIQUE: Computed tomography (CT) of the maxillofacial region and cervical spine was performed without intravenous contrast. The dose-length product (DLP) was 434.60 mGy-cm. Automated exposure control and iterative reconstruction technique were employed. Automated exposure control and iterative reconstruction technique were employed. COMPARISON: None FINDINGS: MAXILLOFACIAL CT: There is left frontal scalp hematoma. No acute facial fracture. No evidence for orbital blowout fracture. No significant mucosal thickening of the sinuses. Mandible intact. No abnormality of the zygomatic arches are pterygoid plates. CERVICAL SPINE CT: There are fusion changes anteriorly at C3 to-C6 with posterior fusion changes at C6-T2. Odontoid process is normal. No acute fracture is identified. No significant paraspinal soft tissue abnormality. There is dependent atelectasis. IMPRESSION: 1. No acute abnormality of the cervical spine or facial bones. Reviewed, dictated and finalized at location O.
--- NOTE | ~2025-01-07 | XR_ITS ---
EXAMINATION: XR chest 1V DATE: 01/07/2025 15:50 INDICATION: Fall. Altered mental status. TECHNIQUE: frontal view of the chest was obtained. COMPARISON: Chest radiograph dated 11/29/[address] dated 05/01/2023 FINDINGS: Calcified nodules in the right costophrenic angle with calcified right hilar lymph nodes consistent with old granulomatous disease. No focal airspace opacities, pulmonary edema, pleural effusion or pneumothorax. The cardiomediastinal silhouette is normal. Instrumented cervical anterior and posterior spinal fusion with anterior plate and screw fixation and bilateral vertical boris and lateral mass screw fixation. Chronic T12 and L1 burst fractures with change of prior vertebroplasty. Cholecystectomy clips at the right upper quadrant. IMPRESSION: 1. No acute cardiopulmonary disease. Reviewed, dictated and finalized at location A.
[2025-01-07 12:19] VITALS: BP 115/65; PULSE 60; RESP 17; TEMP 36.6; O2SAT 93
[2025-01-07 13:00] VITALS: BP 122/60; PULSE 60; RESP 18; O2SAT 98
--- OUTSIDE RECORDS SUMMARY | 2025-01-07 14:54 | XMS_ITS | Encounter Summary ---
Author Organization [facility] Address [address] [place] [address] Care Team Providers Care Urologist Name Role Phone Abhishek Chambers MD Primary Care Provider [phone] Reason for Visit * Reason Onset Date Comments Hypoglycemia, Uncontrolled Diabetes 10/04/2020 Spoke w/ Dr. Salazar Encounter Details Date Type Department Care Team (Late st Contact Info) Description 10/04/2020 Telephone [facility] Admitting [address] [place] [address] [place] [address] [facility] [address] [place] [address] Hypoglycemia, Uncontrolled Diabetes (Spoke w/ Dr. Salazar) Social History Tobacco Use Types Packs/Day Years Used Date Smoking Tobacco: Former Cigarettes Q uit: 1989 Smokeless Tobacco: Never Comments:quit in 1989 Alcohol Use Standard Drinks/Week Comments Not Currently 0 (1 standard drink = 0.6 oz pur e alcohol) Feeling Safe Answer Date Recorded Within the last year, have y ou been afraid of your partner or ex-partner? No 08/13/2018 Within the last year, have y ou been humiliated or emotionally abused in other ways by your partner or ex-partner? No Within the last year, have y ou been kicked, hit, slapped, or otherwise physically hurt by your partner or ex-partner? No 08/13/2018 Within the last year, have y ou been raped or forced to have any kind of sexual activity by your partner or ex-partner? No 08/13/2018 Comments No Sex and Gender Information Value [...] CDT Office Visit [facility] - [address] [facility] [id number] [place] [address] [address] [place] [address] [place] [address] [facility] [address] [place] [address] documented as of this encounter Visit Diagnoses Not on filedocumented in this encounter Additional Health Concerns Infection Onset Date Last Indicated Resolved Time R/O GI Pathogen 01/27/2023 01/27/2023 01/29/2023 1 0:11 AM CDT documented as of this encounter Care Teams Urologist Relationship Specialty Start Date End Date Abhishek Chambers MD [address] [place] [id number] PCP - General Family Practice 12/11/23 documented as of this encounter
--- OUTSIDE RECORDS SUMMARY | 2025-01-07 14:54 | XMS_ITS | Encounter Summary ---
Author Organization [facility] Address [address] [place] [address] Care Team Providers Care Driver Wheelchair Name Role Phone Abhishek Chambers MD Primary Care Provider [phone] Reason for Visit * Reason Onset Date Comments Dizziness and syncope 10/02/2020 Spoke w/De zahirae at Dr. hicks'mary ex./Going to dr. Weiss Encounter Details Date Type Department Care Team (Late st Contact Info) Description 10/02/2020 Telephone [facility] Admitting [address] [place] [address] [place] [address] [facility] [address] [place] [address] Dizziness and syncope (Spoke w/Romina [...] Description 01/21/2025 10:50 AM CDT Office Visit [facility] - [address] [place] [address] [address] [place] [address] [place] [address] [facility] [address] [place] [address] documented as of this encounter Visit Diagnoses Not on filedocumented in this encounter Additional Health Concerns Infection Onset Date Last Indicated Resolved Time R/O GI Pathogen 01/27/2023 01/27/2023 01/29/2023 1 0:11 AM CDT documented as of this encounter Care Teams Driver Wheelchair Relationship Specialty Start Date End Date Abhishek Chambers MD [address] [place] [phone] PCP - General Family Practice 12/11/23 documented as of this encounter
--- OUTSIDE RECORDS SUMMARY | 2025-01-07 14:54 | XMS_ITS | Encounter Summary ---
Author Organization [facility] Address [address] [place] [address] Care Team Providers Care Carton Inspector Name Role Phone Abhishek Chambers MD Primary Care Provider [phone] Reason for Visit * Reason Onset Date Comments Dizziness and syncope 10/02/2020 Spoke w/De nise at Dr. Rosendo Turner's ex./Going to Dr. Herson Turner Encounter Details Date Type Department Care Team (Late st Contact Info) Description 10/02/2020 Telephone [facility] Admitting [address] [place] [address] [place] [address] [address] Dizziness and syncope (Spoke w/Romina [...] Description 01/21/2025 10:50 AM CDT Office Visit [facility] - [address] [place] [address] Josie Madera PA [address] [place] [address] documented as of this encounter Visit Diagnoses Not on filedocumented in this encounter Additional Health Concerns Infection Onset Date Last Indicated Resolved Time R/O GI Pathogen 01/27/2023 01/27/2023 01/29/2023 1 0:11 AM CDT documented as of this encounter Care Teams Carton Inspector Relationship Specialty Start Date End Date Abhishek Chambers MD [address] [place] [address] PCP - General Family Practice 12/11/23 documented as of this encounter
--- OUTSIDE RECORDS SUMMARY | 2025-01-07 14:55 | XMS_ITS | Patient Health Record ---
Author Organization [facility] Address [address] [place] [address] Care Team Providers Care Humidifier Attendant Name Role Phone Gwen Mikie Primary Care Provider Laura Adames MD, Oralia Unavailable Unavailable Deep Barnes Unavailable [phone] Perez Cabezas Unavailable [phone] Allergies Allergen (clinical drug ingredient) Drug/Non Drug [...] Risk Notes Problem Fear of medical treatment (986676264) Fear of injections and transfusions (F40.231) Active confirmed Problem Essential hypertension (74025505) Essential (primary) hypertension (I10) Active confirmed Problem Rheumatoid arthritis (12894806) Rheumatoid arthritis with rheumatoid factor of multiple sites without organ or systems involvement (M05.79) Active confirmed Problem Localized, primary osteoarthritis of the shoulder region () Primary osteoarthritis, right shoulder (M19.011) Active confirmed Problem Localized, primary osteoarthritis of the shoulder region () Primary osteoarthritis, left shoulder (M19.012) Active confirmed Problem Solitary sacroiliitis (377580317) Sacroiliitis, not elsewhere classified (M46.1) Active confirmed Problem Lumbosacral spondylosis without myelopathy (08087935) Other spondylosis with radiculopathy, lumbar region (M47.26) Active confirmed Problem Lumbosacral spondylosis without myelopathy (20939126) Other spondylosis with radiculopathy, lumbosacral region (M47.27) Active confirmed Problem Cervical spondylosis without myelopathy (527083633) Spondylosis without myelopathy or radiculopathy, cervical region (M47.812) Active confirmed Problem Lumbosacral spondylosis without myelopathy (34083532) Spondylosis without myelopathy or radiculopathy, lumbar region (M47.816) Active confirmed Problem Degeneration of cervical intervertebral disc (22473884) Other cervical disc degeneration, 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) Active confirmed Problem Degeneration of lumbar intervertebral disc (64597626) Other intervertebral disc degeneration, lumbar region (M51.36) Active confirmed Problem Cervical radiculopathy (54583289) Radiculopathy, cervical region (M54.12) Active confirmed Problem Lumbar radiculopathy (631131290) Radiculopathy, lumbar region (M54.16) Active confirmed Problem Cervical facet joint pain (782531876) Cervicalgia (M54.2) Active confirmed Problem Myositis (54783792) Other myositis, 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) Active confirmed Problem Fibromyalgia (477479336) Fibromyalgia (M79.7) Active confirmed Problem Spinal stenosis of lumbar region (55721362) Intervertebral disc stenosis of neural canal of lumbar region (M99.53) Active confirmed Vital Signs Heart Rate 60 /min 01/14/2024 Temperature 97.2 degrees Fahrenheit 01/14/2024 Respiratory Rate 20 /min 01/14/2024 Blood pressure diastolic 64 mm Hg 01/14/2024 Height 66 in 01/14/2024 Blood pressure systolic 125 mm Hg 01/14/2024 Weight 184 lbs 01/14/2024 BMI 29.7 kg/m2 01/14/2024 Encounters Encounter Location Date Provider Diagnosis [facility] [address] [facility] [address] [place] [address] 01/14/2024 Deep Barnes Radiculopathy, lumba r region [...] questions or concerns. Current MME/day is 55 01/14/2024 Other spondylosis with radiculopathy, lumbosacral region [...] tubal ligation 1973 breast implants 1974 hemorrhoidectomy 1981 left knee arthroscopy 1999 left knee replacement 2000 cervical fusion 1990,,2000,2002 hernia 2001 carpal tunnel release Cataract surgery 2019 Hospitalization History Reason Date(Month/Year) kidney failure 2023 broken ribs 2022 fell and hurt back with 2 fractures 04/04 over heated and high sugar level 10/2019 fell hurt shoulder, back, neck, and knee 09/2018 fell hurt ankle 09/2015
--- OUTSIDE RECORDS SUMMARY | 2025-01-07 14:55 | XMS_ITS | Encounter Summary ---
Author Organization [facility] Address [address] [place] [address] Care Team Providers Care Tube Turner Name Role Phone Abhishek Chambers MD Primary Care Provider +1 [phone] Encounter Details Date Type Department Care Team (Late st Contact Info) Description 01/23/2024 Hospital Encounter [address] [address] Shahzad Ramirez MD [address] [place] [address] Social History Tobacco Use Types Packs/Day [...] by your partner or ex-partner? No 08/13/2018 Financial Resource Strain Answer Date R ecorded How hard is it for you to pa y for the very basics like food, housing, medical care, and heating? Somewhat hard 04/04/2022 Food Insecurity Answer Date Recorded In the past 12 months, have you worried that your food would run out before you had money to buy more? Sometimes true 2021 In the past 12 months, did y ou run out of food and didn't have money to buy more? Sometimes true 04/04/2022 Transportation Needs Answer Date Record ed In the past 12 months, has l ack of transportation kept you from medical appointments or from getting medications? Yes 04/04/2022 Lack of Transportation (Non-Medical) Not on file 04/04/2022 Feeling Safe Answer Date Recorded Are you in a relationship wi th someone who hurts you emotionally and/or physically? No 01/19/2024 Food Insecurity Answer Date Recorded Patient needs follow up regardin 08/26/2024 Transportation Needs Answer Date Record ed Patient needs follow up regardin 08/26/2024 Housing Stability Answer Date Recorded Social/Environmental Concerns No concerns Utility Needs Answer Date Recorded Patient needs follow up regardin 08/26/2024 Comments No Sex and Gender Information Value Date Recorded Sex Assigned at Not on file Legal Sex Female 11:01 PM CDT Gender Identity Not on file Sexual Orientation Not on file documented as of this encounter Plan of Treatment Upcoming Encounters Date Type Department Care Team (Late st Contact Info) Description 01/21/2025 10:50 AM CDT Office Visit [facility] - [address] [place] [address] [place] [id number] [place] [address] documented as of this encounter Visit Diagnoses Not on filedocumented in this encounter Additional Health Concerns Assessment Noted Time PHQ-9 Depression Total Score: 2 05/19/19 10:20 AM TRUCK PACKER documented as of this encounter Care Teams Tube Turner Relationship Specialty Start Date End Date Abhishek Chambers MD [address] [place] [address] PCP - General Family Practice 12/11/23 documented as of this encounter
--- OUTSIDE RECORDS SUMMARY | 2025-01-07 14:55 | XMS_ITS | Clinical Summary ---
Author Organization [employer] [facility] Address [address] [place] [address] Care Team Providers Care Office Coordinator Receptionist Name Role Phone Abhishek Chambers MD Primary Care Provider +1 [phone] Allergies Active Allergy Reactions Criticality Noted Date [...] 01/26/20 24 Active naloxone (NARCAN) 4 mg/spray [place], Non-Aerosol EMERGENCY USE ONLY: Administer 1 spray [...] 04/18/2022 Assessment & Plan (05/26/2023 10:56 PM FILER REPAIRER): Safety reviewed Non-compliant patient 04/04/2022 Assessment & Plan (04/04/2022 12:20 PM FILER REPAIRER): Worsening. Extensive discussion with patient and her [...] 04/04/2022 Assessment & Plan (05/26/2023 10:56 PM FILER REPAIRER): At baseline Anemia 04/04/2022 Physical deconditioning 09/28/2020 Assessment & Plan (05/26/2023 10:57 PM FILER REPAIRER): Recommended more activity which she says she [...] Morbid obesity, unspecified obesity type 05/25/2018 09/28/2020 jail current use of insulin 05/25/2018 09/28/2020 Skin lesion 05/25/2018 09/28/2020 Stress 05/25/2018 09/28/2020 Body mass index (bmi) 37.0-37.9, adult 05/25/2018 09/28/2020 Dehydration 02/26/2013 09/24/2022 Bilateral lower extremity edema 09/28/2020 Diabetes mellitus due to und erlying condition with diabetic peripheral angiopathy without gangrene, with long-term current use of insulin 01/19/2024 Lumbosacral spondylosis with radiculopathy 09/28/2020 Encounters Date Type Department Care Team Description 01/07/2025 Abstract [facility] Neurosurgery - [address] [facility] [address] [facility] [address] [place] [address] Provider, Abstract 12/22/2024 Abstract [facility] Primary Care - [facility] [address] [facility] [address] [place] [phone] Abhishek Chambers MD from Last 3 Months Immunizations Immunization Administration [...] Description 01/21/2025 10:50 AM CDT Office Visit [facility] Neurosurgery - [address] [place] [id number] [address] [place] [address] [facility] [address] [place] [address] Health Maintenance Due Date Last Done Comments ZOSTER VACCINE (1 of 2) 09/30/1966 DTAP/TDAP/TD VACCINES (1 - Tdap) 05/08/2004 05/07/19, 05/05/2003 COVID-19 Vaccine (2 - Jansse n [...] years Discontinued Medical Devices Implanted Type Area Electronic Plotting System Operator Device Identifier Shelf Expiration Date Model / Serial / Lot Karri Infinity 3.5x70mm Pre-Cut [id number] - [id number] Implanted:Qt y: 2 on 01/19/2024 by Ritesh Meraz MD at [facility] Karri N/A: Spine Cervical Posterior [employer]ANEK [id number] / / Description:STERILIZED DATE: 01/06/2024 LOAD # [id number] Screw Infinity 4.5x26mm [facility] [id number] - [id number] Implanted:Qt y: 2 on 01/19/2024 by Ritesh Meraz MD at [facility] Screw N/A: Spine Cervical Posterior [employer] [id number] / / Description:STERLIZED DATE: 01/06/2024 LOAD # 247 704 Screw Infinity 3.5x18mm Mas [id number] - [id number] Implanted:Qt y: 4 on 01/19/2024 by Ritesh Meraz MD at [facility] Screw N/A: Spine Cervical Posterior [employer] [id number] / / Description:STERILIZED DATE: 01/06/2024 LOAD # 247 502 Screw Infinity 3.5x20mm Mas [id number] - [id number] Implanted:Qt y: 1 on 01/19/2024 by Ritesh Meraz MD at [facility] Screw N/A: Spine Cervical Posterior [employer] [id number] / / Description:STERILIZED DATE: 01/06/2024 LOAD # 247 502 Screw Infinity 4.0x20mm Mas [id number] - [id number] Implanted:Qt y: 1 on 01/19/2024 by Ritesh Meraz MD at [facility] Screw N/A: Spine Cervical Posterior [employer] [id number] / / Description:STERILIZED DATE: 01/06/2024 LOAD # 247 502 Set Screw Infinity Oc M6 [id number] - [id number] Implanted:Qt y: 8 on 01/19/2024 by Ritesh Meraz MD at [facility] Screw N/A: Spine Cervical Posterior [employer] [id number] / / Description:STERILIZED DATE: 01/06/2024 LOAD # 247 502 [employer]ograft [employer] [id number] - [id number] Implanted:Qt y: 1 on 01/19/2024 by Ritesh Meraz MD at [facility] Tissue N/A: Spine Cervical Posterior [employer] [id number] 06/25/2025 [id number] / [id number] / Description:[id number] 07/22/2022 Implanted: by Dino Cox MD (Quantity not on file) 04/03/2025 / / [id number] Description:1CC BILAT T12 FO R TOTAL OF 2CC 1.5CC BILAT L1 FOR TOTAL OF 3CC Procedures Procedure Name Priority Date/Time Associated Diagnosis Comments HEMOGLOBIN A1C Routine 03/25/2023 1:48 PM FILER REPAIRER COLON CANCER SCREEN, STOOL DNA Routine 11/26/2022 6:30 PM CDT Screening for colorectal cancer XR DEXA BONE DENSITY AXIAL 1 OR MORE SITES Routine 05/09/2022 2:57 PM FILER REPAIRER Osteopenia of multiple sites MICROALBUMIN/CREATI NINE RATIO, RANDOM UR Routine 11/02/2021 12:10 PM CDT Type 2 diabetes mellitus with diabetic polyneuropathy, with long-term current use of insulin (CMS/HCC) LIPID PANEL Routine 11/02/2021 11:59 AM CDT Type 2 diabetes mellitus with diabetic polyneuropathy, with long-term current use of insulin ([facility]) Mixed hyperlipidemia ENDOSCOPY, COLON, DIAGNOSTIC Routine 07/05/2011 from Last 3 Months or Most Recently Relevant to Health Maintenance Results * HEMOGLOBIN A1C (03/25/2023 1:48 PM FILER REPAIRER) ABSTRACTED HGB A1C 6.3 [facility] Blood us Abstract Provider CHEMISTRY ORDERABLES Edited Re sult - Final [facility] CLIA# [id number] [address] [place] [address] * COLON CANCER SCREEN, STOOL DNA (11/26/2022 6:30 PM CDT) COLOGUARD RESULT Negative Negative [facility] Comment: NEGATIVE TEST RESULT. A negative [...] (Philippe Holden al, N Engl J Med 2014;370(14):2615-5550) The normal value (reference range) for this assay is negative. COLOGUARD RE-SCREENING RECOMMENDATION: Periodic colorectal cancer screening is an important part of preventive healthcare for asymptomatic individuals at average risk for colorectal cancer. Following a negative Cologuard result, the British Cancer Society and U.S. Multi-Society Task Force screening guidelines recommend a Cologuard re-screening interval of 3 years. References: British Cancer Society Guideline for Colorectal Cancer Screening: https://www.cancer.org/cancer/sqlec-tfxmuj-huzfwg/jfvxvcnxu-ivltynxyj-putxong/ac s-rec ommendations.html.; Neil DK, Loretta SAHNI, Bhavna ElK, Colorectal Cancer Screening: Recommendations for Physicians and Patients from the U.S. Multi-Society Task Force on Colorectal Cancer Screening , Am J Gastroenterology 2017; 112:8973-6992. TEST DESCRIPTION: Composite algorithmic analysis of stool [...] screened with both Cologuard and colonoscopy. (Philippe Gallardo, N Engl J Med 2014;370(14):5745-9963.) Cologuard may produce a false negative or false positive result (no colorectal cancer or precancerous polyp present at colonoscopy follow up). A negative Cologuard test result does not guarantee the absence of CRC or advanced adenoma (pre-cancer). The current Cologuard screening interval is every 3 years. (British Cancer Society and U.S. Multi-Society Task Force). Cologuard performance data in a 10,000 patient pivotal study using colonoscopy as the reference method can be accessed at the following location: www.[employer]/results. Additional description of the Cologuard test process, warnings and precautions can be found at www.cologWuxi [employer]. Stool STOOL SPECIMEN / Unknown 11/26/2022 6:30 PM CDT 11/29/2022 5:06 AM CDT us Mikie Hidalgo MD BODY FLUIDS AND STOOLS Final Res ult [facility] CLIA # [id number] [address] [facility], [address] [place] [address] * XR DEXA BONE DENSITY AXIAL 1 OR MORE SITES (05/09/2022 2:57 PM FILER REPAIRER) Anatomical Region Laterality Modality Computed Radiogr aphy 05/09/2022 2:58 PM FILER REPAIRER Impressions 05/09/2022 3:02 PM FILER REPAIRER FINDINGS/IMPRESSION: Osteopenia with a lowest T score [...] a faxed copy is needed, please call [phone]. DICTATION LOCATION: [facility] Narrative 05/09/2022 3:02 PM FILER REPAIRER SUMMARY DEXA REPORT DATE: 05/09/2022 2:57 PM [...] a faxed copy is needed, please call [phone]. DICTATION LOCATION: [facility] Mikie Hidalgo MD DIAGNOSTIC IMAGING ORDERABLES Fi nal Result * MICROALBUMIN/CREATININE RATIO, RANDOM UR (11/02/2021 12:10 PM CDT) Creatinine, Urine 134 20 - 275 mg/dL [facility] MICROALBUMIN, URINE 0.9 See Note: mg/dL [facility] Comment: Reference Range: Reference Range [...] within a diagnostic category. Test Performed at: [facility] [address] [place] [address] Tommy Cruz D.O., MPH Urine URINE SPECIMEN OBTAINED BY CLEAN CATCH PROCEDURE / Unknown 11/02/2021 12:10 PM CDT 11/02/2021 12:11 PM CDT Mikie Hidalgo MD URINE ORDERABLES Final Result [facility] [phone] [facility] [address] [facility] [place] [address] * (ABNORMAL) LIPID PANEL (11/02/2021 11:59 AM CDT) Pathologist [facility] CHOLESTEROL 161 <200 mg/dL [facility] HDL 87 > OR = 50 mg/dL [facility] TRIGLYCERIDE 155(H) <150 mg/dL [facility] Bojorquez LDL CALCULATED 51 mg/dL (calc) [facility] Jos Bojorquez Comment: Reference range: <100 Desirable range <100 mg/dL for primary prevention; <70 mg/dL for patients with CHD or diabetic patients with > or = 2 CHD risk factors. LDL-C is now calculated using the Romeo calculation, which is a validated novel method providing better accuracy than the Friedewald equation in the estimation of LDL-C. Luis Antonio SS et al. CLAY. 2013;310(19): 4312-4689 (http://education.[employer]/faq/ISU854) CHOL/HDL RATIO 1.9 <5.0 (calc) [facility] Bojorquez TOTAL NON-HDL CHOL(LDL+VLDL) 74 <130 mg/dL (calc) [facility] timeads[facility]oria Bojor[facility] Comment: For patients with diabetes plus 1 major ASCVD risk factor, treating to a non-HDL-C goal of <100 mg/dL (LDL-C of <70 mg/dL) is considered a therapeutic option. Test Performed at: [place] [address] [address] [place] [address] Jason Milton Blood 11/02/2021 11:5 9 AM CDT 11/02/2021 12:01 PM CDT Mikie Hidalgo MD CHEMISTRY ORDERABLES Final Resul t [facility] Organization Address City/State/ZIP Code Phone Number [facility] [phone] [facility] [address] [address] [place] [address] * (ABNORMAL) ENDOSCOPY, COLON, DIAGNOSTIC (07/05/2011) Abstract Provider GI PROCEDURE ORDERABLES Edited Result - Final from Last 3 Months or Most Recently Relevant to Health Maintenance Insurance [facility] [employer] [facility] Medicare Part D [facility] [employer]I Advance Directives For more information, please contact: [phone] * Full Code (Latest Code Status on [...] 9:22 AM 09/09/2022 6:26 PM Care Teams Office Coordinator Receptionist Relationship Specialty Start Date End Date Abhishek Chambers MD [address] [place] [address] PCP - General Family Practice 12/11/23
--- OUTSIDE RECORDS SUMMARY | 2025-01-07 14:55 | XMS_ITS | Clinical Summary ---
Author Organization [facility] Address [address] [place] [address] Care Team Providers Care Package Collector Name Role Phone Miscellaneous, Not In File Primary Care Provider Unavailable Allergies Active Allergy Reactions Criticality Noted Date Comments Gabapentin Other (See comments) 11/23/2024 Makes me feel weird Medications No known medications Encounters Date Type Department Care Team Description 11/23/2024 10:12 PM CDT - 11/23/2024 11:59 PM CDT Hospital Encounter [facility] Emergency, Room R Discharge Disposition: Discharge to home or self care 11/23/2024 7:22 PM CDT - 11/23/2024 9:50 PM CDT Emergency [facility] Emergency Department [address] [place] [address] Fall, initial encounter (Primary Dx); Contusion of [...] on file 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 MF: VALE Report ID: [id number] Reading Location: [id number] Procedure Note Kt Proctor MD - 11/23/2024 [...] Kt Proctor M.D. MF: VALE Report ID: [id number] Reading Location: [id number] Farshad Moulton MD IMG XR PROCEDURES Final [...] Deep Yen M.D. KT: THAO Report ID: [id number] Reading Location: [id number] Procedure Note Depe Yen MD - 11/23/2024 EXAM DESCRIPTION: XR [...] Deep Yen M.D. KT: THAO Report ID: [id number] Reading Location: [place] [address] [place] Farshad Moulton MD IMG XR PROCEDURES [...] BLOOD ORDERABLES Final R esult [facility] ([place]) 1 [facility] Department [place] [address] * Differential, auto (11/23/2024 5:15 PM CDT) Neutrophil abs 3.31 1.50 - 6.50 K/cumm Imm gran abs 0.02 0.00 - 0.10 K/cumm [facility] ([place]) Lymphocyte abs 3.00 0.80 - 3.30 K/cumm [facility] ([place]) Monocyte abs 0.50 0.20 - 0.80 K/cumm [facility] ([place]) Eosinophil abs 0.22 0.00 - 0.50 K/cumm [facility] ([place]) Basophil abs 0.03 0.00 - 0.10 K/cumm [facility] ([place]) Neutrophil pct 46.7 % [facility] ([place]) Comment: Interpretive Data Percent cell count reference ranges are not reported, since discordance with absolute values may lead to misinterpretation of CBC data. Current Interpretive Data was last revised on 2017. Imm gran pct 0.3 % [facility] ([place]) Comment: Interpretive Data Percent cell count reference ranges are not reported, since discordance with absolute values may lead to misinterpretation of CBC data. Current Interpretive Data was last revised on 2017. Lymphocyte pct 42.4 % [facility] ([place]) Comment: Interpretive Data Percent cell count reference ranges are not reported, since discordance with absolute values may lead to misinterpretation of CBC data. Current Interpretive Data was last revised on 2017. Monocyte pct 7.1 % [facility] ([place]) Comment: Interpretive Data Percent cell count reference ranges are not reported, since discordance with absolute values may lead to misinterpretation of CBC data. Current Interpretive Data was last revised on 2017. Eosinophil pct 3.1 % [facility] ([place]) Comment: Interpretive Data Percent cell count reference [...] Final R esult [facility] ([place]) 1 [facility] Department [place] [address] * (ABNORMAL) CBC with auto differential (11/23/2024 [...] Final R esult [facility] ([place]) 1 [facility] [place] [address] * Comprehensive metabolic panel (11/23/2024 5:15 PM [...] BLOOD ORDERABLES Final R esult [facility] ([place]) 1 [facility] [place] [address] from Last 3 Months Insurance [employer] [facility] [place] [employer] [facility] Care Teams Package Collector Relationship Specialty Start Date End Date Miscellaneous, Not In File PCP - General 11/23/24
--- OUTSIDE RECORDS SUMMARY | 2025-01-07 14:55 | XMS_ITS | Encounter Summary ---
Author Organization [facility] Address [address] [address] Care Team Providers Care Yoke Setter Name Role Phone Abhishek Chambers MD Primary Care Provider [phone] [phone] Encounter Details Date Type Department Care Team (Late st Contact Info) Description 01/07/2025 Abstract [facility] - [address] [facility] [address] [facility] [address] [place] [address] Provider, Abstract NO ADDRESS ON FILE Social History Tobacco Use Types Packs/Day Years [...] CDT Office Visit [facility] - [address] [place] [address] [place] [address] [address] documented as of this encounter Visit Diagnoses Not on filedocumented in this encounter Additional Health Concerns Assessment Noted Time PHQ-9 Depression Total Score: 2 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
[2025-01-07 15:00] VITALS: BP 133/66; PULSE 57; RESP 17; O2SAT 94
--- NOTE | 2025-01-07 15:20 | ED.FALL ---
HPI - Fall General Chief Complaint: Fall Stated Complaint: GLF Time Seen by Provider: 01/07/25 14:46 Source: patient and RN notes reviewed Mode of arrival: EMS History of Present Illness HPI Narrative: Patient presents via EMS from a local nursing facility where she resides. She reportedly had a ground level fall. Was initially reported that this fall occurred 2 days ago but patient states it was today. In general she does note that she has had 3 falls recently and had been reported that she has a history of neck fusion surgery and frequent falls. Patient reports that at baseline she has issues with her right leg. Not on anticoagulation. It was reported the patient had been acting funny, sending strange text messages. Patient reports pain at her head particularly on the left forehead where she has hematoma. She reports this pain as 8/10 in severity but does not know if she has had any medication for pain prior to arrival. Related Data Home Medications ?Medication ?Instructions ?Recorded ?Confirmed ?Last Taken ?Type duloxetine 20 mg capsule,delayed 40 mg PO DAILY 04/19/23 11/30/24 04/19/23 09:00 History release folic acid 1 mg tablet 1 mg PO DAILY 04/19/23 11/30/24 04/19/23 09:00 History ergocalciferol (vitamin D2) 1,250 1,250 mcg PO WEEKLY 04/20/23 11/30/24 04/19/23 09:00 History mcg (50,000 unit) capsule hydrocodone 10 mg-acetaminophen 1 tablet PO Q4H PRN pain 09/17/23 11/30/24 Unknown History 325 mg tablet losartan 25 mg tablet 25 mg PO DAILY 11/30/24 11/30/24 Unknown History pregabalin 50 mg capsule 150 mg PO Q12H 11/30/24 11/30/24 Unknown History primidone 125 mg tablet 250 mg PO QID 11/30/24 11/30/24 Unknown History Allergies Allergy/AdvReac Type Severity Reaction Status Date / Time ezetimibe Allergy Unknown Verified 11/30/24 03:31 gabapentin AdvReac Shakiness Verified 11/30/24 03:31 [facility] Past Medical History Medical History Unspecified fracture of third thoracic vertebra, subsequent encounter for fracture with routine healing Wedge compression fracture of fourth thoracic vertebra, subsequent encounter for fracture with routine healing Type 2 diabetes mellitus without complications Other spondylosis, cervical region Chronic pain disorder Diabetic peripheral neuropathy Hepatitis C Chronic neck pain with history of cervical spinal surgery Obstructive sleep apnea Refuses CPAP TIA (transient ischemic attack) Anxiety Hyperlipidemia Gout Arthritis GERD (gastroesophageal reflux disease) Hypertension Diabetes mellitus Insulin-dependent Surgical History Surgical History History of augmentation of both breasts With bilateral ruptured implants noted on imaging 04/2023 History of kyphoplasty (~12/2022) Hx of cholecystectomy Family History Family History Grandparent Acute myocardial infarction Father Acute myocardial infarction Parkinson disease Diabetes mellitus Hypertension Cerebrovascular accident Mother Diabetes mellitus Lung cancer Hypertension Depression Sibling Diabetes mellitus Cirrhosis Alcoholism Cervical cancer Hypertension Social History Social History Social History: She previously lived in her own home. Her granddaughter lived with her and helped provide care. She had 2 sons but 1 is . The she ambulates via walker boot and stands to transfer. She denies any history of excessive alcohol use and only briefly smoked tobacco at a young age. She denies any drug history. Never . Code status: DNR/DNI (per patient request and listed per NH documentation); POLST signed 12/06/24 confirms No CPR (DNAR with comfort focused treatment) Surrogate decision maker: Son Years smoked: 3 Smoking status: Former smoker Tobacco type: cigarettes Alcohol intake: current Drinks per week: 1 Substance use: never Substance use type: does not use Do You Feel Safe in your Home?: Yes Lack of Transportation: No Lack of Food: Sometimes True Current Housing: I Have Housing Concerned About Future Housing: YES Difficulty Paying Gas/Electric Bills: No Difficulty Paying for Meds: No Currently Unemployed: No Education: High School Diploma/GED Difficulty w/ Childcare or Family Care: No Living arrangements: half-way Additional living arrangements comments: [facility] since 12/06/24 Occupation/Education: retired 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 HEAD: Forehead (L) hematoma with ecchymosis in varying stages of healing EYES: Non injected, non icteric ENT: Nares clear, no rhinorrhea or epistaxis. Gross auditory acuity intact. NECK: Supple. No meningismus. CHEST: Speaking in full sentences. No respiratory distress. HEART: Regular rate and rhythm. . ABDOMEN: Soft, nondistended. No rigidity or guarding. Not peritoneal EXTREMITIES: Normal range of motion. No lower extremity edema. SKIN: Warm, dry. Infra-orbital ecchymosis, appears subacute. NEURO: No focal deficits. Alert and oriented. Answering questions though unclear accuracy. Following commands. Normal speech without aphasia or dysarthria. PSYCH: Normal mood and affect. Course Vital Signs Vital signs: Vital Signs Temperature 97.9 F 01/07/25 12:19 Pulse Rate 60 01/07/25 12:19 Respiratory Rate 17 01/07/25 12:19 Blood Pressure 115/65 01/07/25 12:19 Pulse Oximetry 93 01/07/25 12:19 Oxygen Delivery Room Air 01/07/25 12:19 Temperature 97.9 F 01/07/25 12:19 Pulse Rate 50 L 01/07/25 21:07 Respiratory Rate 18 01/07/25 21:07 Blood Pressure 125/67 01/07/25 21:07 Pulse Oximetry 99 01/07/25 21:07 Oxygen Delivery Room Air 01/07/25 12:19 MDM - Fall MDM Narrative Medical decision making narrative: Patient presents after a ground level fall. Was initially reported that this fall occurred 2 days ago and that she has a history of frequent falls. Patient reports that the fall happened today but that she has had 3 falls recently. It was reported the patient had been acting funny and sending weird texts. In the emergency department they are afebrile with vital signs within normal limits, though SpO2 is noted to be 93% initially. Patient has chronic transaminitis. Patient C-collar is removed at approximately 5:15 p.m.. She does report having some stiffness and achiness but is able to demonstrate flexion extension and rotational [id number] movement of the neck. SpO2 during this is 94-96% on room air with good waveform. Thyroid function normal. Urine does not appear to be infected, slight sterile pyuria as well as glucosuria is appreciated. UDS with barbiturates. Stable for discharge back to facility encourage that they offer her the p.r.n. G6 medications, half-way medication list. Differential Diagnosis Differential diagnosis: Likely syncope, compression fracture, concussion with loss of consciousness, concussion without loss of consciousness and other (Intracranial hemorrhage; vertebral fracture/injury, infection including urinary tract infection, pneumonia. Facial bone fracture) Lab Data Attestation: I reviewed the patient's lab results. Lab results narrative: Abnormalities on the differential however CBC is otherwise without leukocytosis, anemia, thrombocytopenia 01/07/25 16:36 01/07/25 16:36 Labs: Lab Results 01/07/25 01/07/25 Range/Units 16:36 17:33 WBC 6.5 (4.5-10.0) K/mm3 RBC 4.15 L (4.2-5.4) M/mm3 Hgb 13.6 (12.0-15.0) g/dL Hct 42.9 (37.0-47.0) % MCV 103.4 H (80-100) fl MCH 32.8 (26-34) pg MCHC 31.7 L (32-36) g/dl RDW 12.6 (11.5-14.5) % Plt Count 216 (150-375) k/mm3 MPV 10.9 H (7.4-10.4) fl Immature Gran % (Auto) 0.2 (0-0.5) % Neut % (Auto) 50.6 (45.5-73.1) % Lymph % (Auto) 37.1 (18.3-44.2) % [place] % (Auto) 6.5 (2.6-8.5) % Eos % (Auto) 4.8 H (0-4.4) % Baso % (Auto) 0.8 (0.2-1.2) % Lymph # (Auto) 2.41 (0.9-3.2) K/mm3 [place] # (Auto) 0.4 (0.1-0.6) K/mm3 Eos # (Auto) 0.3 (0-0.3) K/mm3 Baso # (Auto) 0.1 (0.0-0.1) K/mm3 Abs Immat Gran (auto) 0.01 (0.00-0.031) K/mm3 Absolute Neuts (auto) 3.3 (1.3-6.7) K/mm3 Absolute Nucleated RBC 0.000 (0.0-0.012) K/mm3 Nucleated RBC % 0.0 (0.0-0.2) % PT 14.0 (11.1-14.7) Seconds INR 1.1 APTT 26.9 (22.3-36.8) Seconds Sodium 140 (137-145) mmol/L Potassium 3.8 (3.4-5.0) mmol/L Chloride 106 (98-107) mmol/L Carbon Dioxide 24 (22-30) mmol/L Anion Gap 10 (4-12) mmol/L BUN 16 (7-17) mg/dL Creatinine 0.62 L (0.7-1.0) mg/dL Estim Creat Clear Calc 70 ml/min Estimated GFR > 60 (59 - ) Glucose 107 (65-110) mg/dL Calcium 9.4 (8.4-10.2) mg/dL Total Bilirubin 0.3 (0.2-1.3) mg/dL AST 72 H (14-36) U/L ALT 56 H (6-35) U/L Alkaline Phosphatase 154 H (38-126) U/L Ammonia < 9 L (9-30) umol/L Total Creatine Kinase 41 (30-135) U/L Troponin I < 0.012 (0.000-0.034) ng/mL Total Protein 7.4 (6.3-8.2) g/dL Albumin 3.8 (3.5-5.1) g/dL TSH 2.030 (0.465-4.680) uIU/mL Urine Color Yellow (Yellow) Urine Appearance Clear (Clear) Urine pH 5.5 (5.0-9.0) Ur Specific [place] 1.026 (1.001-1.035) Urine Protein Negative (Negative) mg/dL Urine Glucose (UA) 3+ H (Negative) mg/dL Urine Ketones Negative (Negative) mg/dL Ur Blood (Man) Negative (Negative) Urine Nitrate Negative (Negative) Urine Bilirubin Negative (Negative) Urine Urobilinogen 0.2 (<2.0) mg/dL Leukocyte Esterase Rfl Trace H (Negative) CORTEZ/UL Urine RBC 0-2 (0-2) /hpf Urine WBC 6-10 H (0-3) /hpf Ur Squamous Epith Cells None seen (Few) /hpf Urine Bacteria None seen /hpf Urine Casts 0-2 Salicylates < 1.0 L (2-20) mg/dL Urine Opiates Screen Negative (Negative) Urine Methadone Screen Negative (Negative) Acetaminophen < 10 L (10-30) ug/mL Ur Barbiturates Screen Positive A (Negative) Ur Phencyclidine Scrn Negative (Negative) Ur Amphetamine Screen Negative (Negative) U Benzodiazepines Scrn Negative (Negative) Urine Cocaine Screen Negative (Negative) U Cannabinoids Screen Negative (Negative) Ethyl Alcohol < 10 (<10) mg/dL Imaging Data Radiologist's impression: IMPRESSION: 1. No acute intracranial abnormality. IMPRESSION: 1. No acute abnormality of the cervical spine or facial bones. IMPRESSION: 1. No acute cardiopulmonary disease. ECG Data EKG #1: Attestation: I personally reviewed and interpreted this ECG as follows: ECG completion date: 01/07/25 ECG completion time: 16:05 Interpretation: Sinus bradycardia rate of 59 beats per minute. LA interval 171. QRS 102. QT/QTC 450/447. Normal axis. T-wave flattening versus inversion in lead 3 but otherwise upright in contiguous inferior leads. No other T-wave inversions. Discharge Plan Discharge Clinical Impression: Traumatic periorbital ecchymosis, Traumatic hematoma of forehead, Transaminitis, Sterile pyuria, Glucosuria Fall Qualifiers: Encounter type: initial encounter Qualified Code(s): W19.XXXA - Unspecified fall, initial encounter Patient Disposition: NH Long-Term/Asst Living Condition: Stable Instructions: Antibiotic Form, Fall Prevention for Older Adults (ED), Head Injury (DC), Hematoma (ED), Ecchymosis (ED), Transaminitis (ED) Additional Instructions: Patient's work up reassuring. No intracranial bleeding or fractures of C spine, facial bones. Urine without bacteria. Other labs stable from previous. It appears patient has several p.r.n. options for pain medication. Please offer these over the next several days as she will likely continue to be sore/achy after fall. Follow up with primary care physician. Return if new/worsening symptoms. Patient Language: Panamanian Prescriptions: No Action hydrocodone-acetaminophen 10-325 mg tablet 1 tablet PO Q4H PRN (Reason: pain) folic acid 1 mg tablet 1 mg PO DAILY duloxetine 20 mg capsule,delayed release(/EC) 40 mg PO DAILY ergocalciferol (vitamin D2) 1,250 mcg (50,000 unit) capsule 1,250 mcg PO WEEKLY Rx Instructions: Saturdays pregabalin 50 mg capsule 150 mg PO Q12H losartan 25 mg tablet 25 mg PO DAILY primidone 125 mg tablet 250 mg PO QID acetaminophen 325 mg tablet 650 mg PO Q6H PRN (Reason: Mild Pain (1-3) Or Fever) Qty: 30 0RF clonazepam 0.5 mg tablet 0.5 mg PO HS Qty: 90 0RF (DME) FreeStyle Leatha 3 Plus Sensor Device See Rx Instructions .Route Qty: 1 5RF Rx Instructions: Check glucose continuously As directed insulin degludec [Tresiba FlexTouch U-100] 100 unit/mL (3 mL) insulin pen See Rx Instructions .ROUTE .COMPLEX Qty: 15 0RF Dose Instruction: INJECT 18 UNITS SUBCUTANEOUSLY EVERY MORNING Rx Instructions: INJECT 18 UNITS SUBCUTANEOUSLY EVERY MORNING allopurinol 300 mg tablet 300 mg PO DAILY Qty: 90 1RF alpha lipoic acid 200 mg capsule 200 mg PO DAILY Qty: 90 1RF amlodipine 5 mg tablet 10 mg PO DAILY Qty: 180 1RF aripiprazole 5 mg tablet 5 mg PO DAILY Qty: 90 1RF aspirin 325 mg tablet 325 mg PO DAILY Qty: 90 1RF atorvastatin 20 mg tablet 20 mg PO DAILY Qty: 90 1RF calcitriol 0.5 mcg capsule 0.5 mcg PO DAILY Qty: 90 1RF citalopram 20 mg tablet 20 mg PO DAILY Qty: 90 1RF docusate sodium 100 mg capsule 100 mg PO DAILY PRN (Reason: Constipation) Qty: 90 1RF dicyclomine 10 mg capsule 10 mg PO TID Qty: 90 1RF ferrous sulfate 325 mg (65 mg iron) tablet 325 mg PO DAILY Qty: 90 1RF hydroxychloroquine 200 mg tablet 200 mg PO BID Qty: 180 0RF metformin 500 mg tablet extended release 24 hr 500 mg PO BID Qty: 90 1RF metoprolol tartrate 50 mg tablet 50 mg PO BID Qty: 90 1RF omeprazole 40 mg capsule,delayed release(DR/EC) 40 mg PO DAILY Qty: 90 1RF polyethylene glycol 3350 [Miralax] 17 gram powder in packet 17 g PO DAILY PRN (Reason: constipation) Qty: 100 1RF sucralfate 1 gram tablet 1 g PO TIDWM Qty: 90 1RF Jardiance 10 mg tablet 10 mg PO QAM Qty: 90 3RF (DME) BD AutoShield Duo Pen Needle 30 gauge x 3/16 needle See Rx Instructions .Route Qty: 100 0RF Rx Instructions: As directed oxycodone 5 mg Tablet 10 mg PO Q4H PRN (Reason: Pain Rated 7-10) Qty: 24 0RF Follow-up/Referrals: Saroj Brown [Other] Referral Note: listed as medical typist/attending physician in [place] documentation Yumiko,DOM Juarez [Primary Care Provider, Unknown] Stand Alone Forms: [facility] Discharge Time of Disposition: 18:46
--- NOTE | 2025-01-07 15:23 | ECG_ITS ---
Test Date: 2025-01-07 16:05:14 Measurements Intervals [place] Rate: 59 P: -74 MS: 171 QRS: 21 QRSD: 102 T: 29 QT: 450 QTc: 447 Interpretive Statements SINUS BRADYCARDIA LOW QRS VOLTAGE IN PRECORDIAL LEADS [QRS DEFLECTION < 1.0 mV IN CHEST LEADS] Compared to ECG 11/30/2024 01:05:14 Low QRS voltage now present Electronically Signed On 01-08-2025 10:42:55 CDT by Dank Shin M.D.
[2025-01-07 16:43] LABS: Hematocrit 42.9 % (37.0-47.0); Hemoglobin 13.6 g/dL (12.0-15.0); Immature Granulocyte Percent A 0.2 % (0-0.5); Lymphocytes Absolute Auto 2.41 K/mm3 (0.9-3.2); Mean Corpuscular HGB Conc 31.7 g/dl (32-36); Mean Corpuscular Hemoglobin 32.8 pg (26-34); Mean Corpuscular Volume 103.4 fl (80-100); Nucleated Red Blood Cells Absolute Auto 0.000 K/mm3 (0.0-0.012); Nucleated Red Blood Cells Perc 0.0 % (0.0-0.2); Platelet Count Result 216 k/mm3 (150-375); Red Blood Count 4.15 M/mm3 (4.2-5.4); White Blood Count 6.5 K/mm3 (4.5-10.0)
[2025-01-07 16:54] LABS: Acetaminophen < 10 ug/mL (10-30); Alanine Aminotransferase 56 U/L (6-35); Albumin Level 3.8 g/dL (3.5-5.1); Alkaline Phosphatase 154 U/L (38-126); Ammonia < 9 umol/L (9-30); Anion Gap 10 mmol/L (4-12); Aspartate Amino Transferase 72 U/L (14-36); Bilirubin,Total 0.3 mg/dL (0.2-1.3); Blood Urea Nitrogen 16 mg/dL (7-17); Calcium 9.4 mg/dL (8.4-10.2); Carbon Dioxide 24 mmol/L (22-30); Chloride 106 mmol/L (98-107); Creatine Kinase 41 U/L (30-135); Estimated CRCL calculation 70 ml/min; Estimated Glomerular Filt Rate > 60; Glucose 107 mg/dL (65-110); INR 1.1; Potassium 3.8 mmol/L (3.4-5.0); Prothrombin Time 14.0 Seconds (11.1-14.7); Salicylate < 1.0 mg/dL (2-20); Sodium 140 mmol/L (137-145); Total Protein 7.4 g/dL (6.3-8.2)
[2025-01-07 16:55] LABS: Partial Thromboplastin Time 26.9 Seconds (22.3-36.8)
[2025-01-07 17:05] LABS: Troponin I < 0.012 ng/mL (0.000-0.034)
[2025-01-07 17:24] LABS: Thyroid Stimulating Hormone 2.030 uIU/mL (0.465-4.680)
[2025-01-07 17:50] LABS: Add Urine Microscopic? YES; Glucose Urine UA 3+ mg/dL (Negative); Leukocyte Esterase Ur Trace LEU/UL (Negative); Nitrate Urine Negative (Negative); Non Pathogenic Casts 0-2; Specific Grav Ur 1.026 (1.001-1.035)
[2025-01-07 17:51] LABS: Appearance Urine Clear (Clear)
[2025-01-07] MEDS: ACETAMINOPHEN 500 MG TABLET 1000 MG PO (17:51)
[2025-01-07 18:45] LABS: Cannabinoid Screen Urine Negative (Negative)
[2025-01-07 21:07] VITALS: BP 125/67; PULSE 50; RESP 18; O2SAT 99
== END 2025-01-07 21:09 ==
PROVIDERS: Emergency Provider Student in an Organized Health Care Education/Training Program; PCP Physician Assistant
DX: S00.83XA Contusion of other part of head, initial encounter (principal); S00.12XA Contusion of left eyelid and periocular area, initial encounter; R74.01 Elevation of levels of liver transaminase levels; R82.81 Pyuria; E11.42 Type 2 diabetes mellitus with diabetic polyneuropathy; E78.5 Hyperlipidemia, unspecified; G47.33 Obstructive sleep apnea (adult) (pediatric); K21.9 Gastro-esophageal reflux disease without esophagitis; M10.9 Gout, unspecified; M19.90 Unspecified osteoarthritis, unspecified site; F41.9 Anxiety disorder, unspecified; Z66 Do not resuscitate; Z86.73 Personal history of transient ischemic attack (TIA), and cerebral infarction without residual deficits; Z87.891 Personal history of nicotine dependence; Z90.49 Acquired absence of other specified parts of digestive tract; R00.1 Bradycardia, unspecified; Z79.4 Long term (current) use of insulin; Z79.899 Other long term (current) drug therapy; Z79.82 Long term (current) use of aspirin; Z79.84 Long term (current) use of oral hypoglycemic drugs; W18.30XA Fall on same level, unspecified, initial encounter
CPT/HCPCS: 36415; 70450; 70486; 71045; 72125; 80053; 80143; 80179; 80307; 81001; 82077; 82140; 82550; 84443; 84484; 85025; 85610; 85730; 87086; 93005; 99284; A9270

== ENCOUNTER 2025-01-24 13:29 | Inpatient (IN) | payer MEDICARE, MEDICAID, SELFPAY ==
--- OUTSIDE RECORDS SUMMARY | 2022-05-31 02:09 | XMS_ITS | Continuity of Care Document ---
Author Organization [facility] Address [address] [place] [address] Phone Care Team Providers Care Program Host Name Role Phone Yuko ADAIR, Jairo Unavailable [...] every 2 days 40 MG - Active [place] 5 mg-325 mg tablet take 1 tablet [...] Procedure Date No Show Appt Charge OFFICE [id number] SYST BP GE 130 - 139MM HG DIAST BP 80-89 MM HG Advance Directives Directive Yes / No Effective Date File Name No Information Encounters Encounter Description Practice Location Reason(s) For Visit Diagnoses Date Provider Providers Copied on Encounter [facility], [address], [place], [place], [address] , [place] tel:[phone] [facility] No Information 3 Yuko Samuel 355[address] [facility], [address], [id number], [place]. tel:[phone] [facility], [address], [place], [place], [address] , [place] tel: [phone] [facility] No Information 2 Lc Armijo. [address], [place] [address], [place], [place], [address], [place]. tel:[phone] Referring Provider: Mikie Hidalgo, [address], [place], [address]. tel:[phone] [facility], [address], [place], [place], [address] , [place] tel: [phone] [facility] No Information 2 Yuko Sajidul. [address] [place] [address], [address], [id number], [place]. tel:[phone] [facility], [address], [place], [place], [address] , [place] tel: [phone] [facility] No Information 2 Yuko Sajidul. [address] [place] [address], [address], [id number], [place]. tel:[phone] OFFICE [id number], [address], [place], [place], [address] , tel: [phone] [facility] hepatitis (chief complaint) Fatty (change of) liver, not elsewhere classifiedChroni c viral hepatitis CPersonal history of colonic polypsRight upper quadrant painIrritable bowel syndrome with diarrhea [address] [facility], [place] [address], [place], [place], [address], [place]. tel:[phone] Referring Provider: Mikie Hidalgo, [address], [place], [address]. tel:[phone] [facility], [address], [place], [place], [address] , tel:[phone] [facility] No Information 9 Yuko Sajidul. [address], [facility], [place], [place], [address], [place]. tel:[phone] [facility], [address], [place], [place], [address] , [place] tel: [phone] [facility] Fatty (change of) liver, not elsewhere classifiedChroni c viral hepatitis CIrritable bowel syndrome with diarrheaPersonal history of colonic polypsRight upper quadrant pain Sep-1 0-201 8 Yuko Sajidul. [address], [facility], [place], [place], [address], [place]. tel:[phone] Referring Provider: Mikie Hidalgo, [address] [facility] [address], [place], [address]. tel:[phone] [facility], [address], [place], [place], [address] , [place] tel: [phone] [facility] Fatty (change of) liver, not elsewhere classifiedDiarrh ea, unspecifiedChron ic viral hepatitis CIrritable bowel syndrome with diarrheaRight upper quadrant painPersonal history of colonic polyps Dec- 1 [address] [facility], [address], [id number], [place]. tel:[phone] Referring Provider: Alejandro Carpio, [address] [place], [address]. tel:[phone] [facility], [address], [place], [place], [address] , [place] tel: [phone] [facility] Diarrhea, unspecifiedChron ic viral hepatitis CPersonal history of colonic polypsIrritable bowel syndrome with diarrheaFatty (change of) liver, not elsewhere classifiedRight upper quadrant pain May- 8- 6 Yuko Sajidul. [address] [facility], [address], [id number], [place]. tel:[phone] Referring Provider: Alejandro Carpio, Barbara [facility] [place], [address]. tel:[phone] [facility], [address], [place], [place], [address] , [place] tel: [phone] [facility] DiarrheaChronic hepatitis c without mention of hepatic comaPersonal history of colonic polypsIrritable ColonFatty liverAbdominal pain, right upper quadrant September- 5 Yuko Sajidul. [address] [facility], [address], [id number], [place]. [phone] Referring Provider: [place], [address]. tel:[phone] [facility], [address], [place], [place], [address] , tel: [phone] [facility] DiarrheaChronic hepatitis c without mention of hepatic comaPersonal history of colonic polypsIrritable ColonFatty liverAbdominal pain, right upper quadrant 4 Yuko Sajidul. [address] [place] [address], [address], [id number], [place]. tel:[phone] Referring Provider: Alejandro Carpio, [place], [address]. tel:[phone] [facility], [address], [place], [place], [address] , [place] tel: [phone] [facility] Abnormal Liver EnzymesDiarrheaC hronic hepatitis c without mention of hepatic comaPersonal history of colonic polypsIrritable ColonAlcoholic fatty liver - 4 Yuko Sajidul. 355[address] [facility], [address], [id number], [place]. tel:[phone] Referring Provider: Alejandro Carpio, [place], [address]. tel:[phone] [facility], [address], [place], [place], [address] , tel:[phone] [facility] Alcoholic fatty liverIrritable ColonDiarrheaChr onic hepatitis c without mention of hepatic comaAbnormal Liver EnzymesPersonal history of colonic polyps Fe- 4 Yuko Sajidul. 355[address] [facility], [address], [address], . tel:[phone] Referring Provider: [place], [address]. tel:[phone] [facility], [address], [place], [place], [address] , tel:[phone] [facility] Noninfectious GastroenteritisD iarrheaChronic hepatitis c without mention of hepatic comaAbnormal Liver EnzymesPersonal history of colonic polypsAlcoholic fatty liverIrritable Colon Nov- 2 3 Yuko Sajidul. [address] [facility], [address], [id number], . tel:[phone] Referring Provider: Alejandro Carpio, [place], [address]. tel:[phone] [facility], [address], [place], [place], [address] , tel:[phone] [facility] No Information 3 Yuko Sajidul. 355[address] [facility], [address], [address], . tel:[phone] [facility], [address], [place], [place], [address] , tel:[phone] [facility] DiarrheaChronic hepatitis c without mention of hepatic comaNonspecific elevation of levels of transaminase or lactic acid dehydrogenase (ldh)Personal history of colonic polypsAlcoholic fatty liverIRRITABLE BOWEL SYNDROME Jan- 3 Yuko Sajidul. 355[address] [facility], [address], [id number], [place]. tel:[phone] Referring Provider: [place], [address]. tel:[phone] [facility], [address], [place], [place], [address] , tel:[phone] [facility] Other allergy, other than to medicinal agentsChronic hepatitis c without mention of hepatic coma Jan- 3 Vasile De Luna. [address], [place], [place], [address]. tel:[phone] [facility], [address], [place], [place], [address] , [place] tel: [phone] Con[facility] No Information 1 Conversion Doctor. [address], [place], [address], [place]. [facility], [address], [place], [place], [address] , [place] tel: [phone] [facility] LONG-TERM USE MEDS NECSCREEN MAL NEOP-CERVIXCANDI DIASIS SITE NOSROUTINE MEDICAL EXAMROUTINE WATERWAY TRAFFIC CHECKER EXAMINATION 0-200 7 Brunts Debra. [address], [facility], [place], [place], [address]. tel:[phone] [facility], [address], [place], [place], [address] , [place] tel: [phone] [facility] BENIGN HYPERTENSIONESOP HAGEAL REFLUXCHEST PAIN NOS 0-200 6 Brunts Debra. [address], [facility] [address], [place], [place], [address]. tel:[phone] [facility], [address], [place], [place], [address] , [place] tel: [phone] [facility] PURE HYPERCHOLESTEROL EMMALAISE AND FATIGUE NECURINARY INCONTINENCE NOS 6-200 6 Brunts Debra. [address], [place] [address], [place], [place], [address]. tel:[phone] [facility], [address], [place], [place], [address] , [place] tel: [phone] [facility] ANAL & RECTAL POLYP Abhijit- 3-200 5 Brunts Debra. [address], [facility] [address], [place], [place], [address]. tel:[phone] [facility], [address], [place], [place], [address] , [place] tel: [phone] [facility] CARPAL TUNNEL SYNDROMEGENERAL OSTEOARTHROSIS Apr-2 1-200 5 Brunts Debra. [address], [facility] [address], [place], [place], [address]. tel:[phone] [facility], [address], [place], [place], [address] , [place] tel: [phone] [facility] EDEMADEPRESSIVE DISORDER NECHEADACHE 9-200 4 Conversion Doctor. [address] [facility], [place], [address], [place]. [facility], [address], [place], [place], [address] , [place] tel: [phone] [facility] ARTHRALGIA TMJSCREEN LIPOID DISORDERSCHRONIC FATIGUE SYNDROME 9200 4 Cassandra Debra. [facility] [address], [place], [place], [address]. tel:[phone] [facility], [address], [place], [place], [address] , [place] tel: [phone] [facility] MALIGNANT HYPERTENSION 0-200 4 Cassandra Debra. [address] [place] [address], [place] [address], [place], [place], [address]. tel:[phone] [facility], [address], [place], [place], [address] , [place] tel: [phone] [facility] SYMPT FEM CLIMACT STATE 2-200 3 Brunsera Debra. [address] [place] [address], [place], [place], [address]. tel:[phone] [facility], [address], [place], [place], [address] , [place] tel: [phone] [facility] HYPERTENSION NOS 5-200 2 Brunsera Debra. [facility] [place] [address], [place], [place], [address]. tel:[phone] [facility], [address], [place], [place], [address] , [place] tel: [phone] [facility] GYNECOLOGIC EXAMINATIONCHRON IC SINUSITIS NOS 0-200 2 Brunts Debra. [address] [place] [address], [facility] [address], [place], [place], [address]. tel:[phone] [facility], [address], [place], [place], [address] , tel: [phone] [facility] FAM HX-DIABETES MELLITUS 200 2 Cassandra Richardson. [address] [address], [place], [place], [address]. tel:[phone] [facility], [address], [place], [place], [address] , tel: [phone] [facility] SPASM OF MUSCLE 200 1 Cassandra Richardson. [address] [address], [place], [place], [address]. tel:[phone] [facility], [address], [place], [place], [address] , tel: [phone] [facility] DISC DEGENERATION NOS Aug-0 200 1 Cassandra Richardson. [address], [facility] [address], [place], [place], [address]. [phone] Family History Family Member Type Diagnosis Age At Onset Sister Problem (finding) diabetes melli tus in first degree relative Brother Problem (finding) Hepatitis B Family h/o Problem (finding) DIABETES MELLITUS Mother Problem (finding) malignant neoplasm of l kevin Father Problem (finding) coronary arterioscleros is Mother Problem (finding) Irritable bowel disease Father Problem (finding) diabetes melli tus in first degree relative Mother Problem (finding) coronary arterioscleros is Immunizations Vaccine Date Status Comments 15861 - TD administered Source: Source Unspecified 24530 - TD administered Source: Source Unspecified Payers Payer name Insurance type Covered democrat ID Authoriza tion(s) MEDICARE [id number] [facility] [id number] Social History Type Description Quantity Date Captured [...]
--- OUTSIDE RECORDS SUMMARY | 2023-11-12 08:15 | XMS_ITS ---
Author Organization [facility] Address [address] [place] [address] Care Team Providers Care Technical Photographer Name Role Phone Mikie Hidalgo Primary Care Provider Laura Adames MD, Oralia Unavailable Unavailable Perez Cabezas Unavailable [phone] REASON FOR VISIT BACK PAIN Encounters Encounter Location Date Provider Diagnosis [facility] [address] [place] [address] 11/12/2023 Perez Cabezas Plan Of Treatment No Information Progress Notes * Oralia MORELAND LDOB:[birth year] (79 yo F)Acc No.[id number]:11/12/2023 Medication Refill Patient: Oralia FLANNERY Provider: Jose Cabezas MD :1945 A ge:78 Y S ex:Female Date:11/12/2023 Address:[address] [place] [address], [address], [place], [place] Pcp:Mikie Hidalgo Subjective: * Chief Complaints: * 1 . BACK PAIN. * Medical History: Objective: * Vitals: Assessment: Plan: * Treatment: * * Electronic signature of Fabian Cabezas MD on 01/24/2025 at 02:48 PM CDT Sign off status: Pending * Provider: Jose Cabezas MD Date: 11/12/2023 Generated for Printi ng/Faxing/eTransmitting on: 01/24/2025 02:48 PM CDT
--- OUTSIDE RECORDS SUMMARY | 2023-12-11 08:00 | XMS_ITS ---
Author Organization [facility] Address [address] [place] [address] Care Team Providers Care Process Equipment Operator Name Role Phone Mikie Hidalgo Primary Care Provider Laura Adames MD, Oralia Unavailable Unavailable Perez Cabezas Unavailable [phone] REASON FOR VISIT NECK PAIN Encounters Encounter Location Date Provider Diagnosis [facility] [address] [place] [address] 12/11/2023 Perez Cabezas Plan Of Treatment No Information Progress Notes * Oralia MORELAND LDOB:[birth year] (79 yo F)Acc No.[id number]:12/11/2023 Patient: Oralia FLANNERY Provider: Jose Cabezas MD :1945 A ge:78 Y S ex:Female Date:12/11/2023 Address:[address] [place] [address], [address], [place], [place] Pcp:Mikie Hidalgo Subjective: * Chief Complaints: * 1 . NECK PAIN. * Medical History: Objective: * Vitals: Assessment: Plan: * Treatment: * * Electronic signature of Fabian Cabezas MD on 01/24/2025 at 02:47 PM CDT Sign off status: Pending * Provider: Jose Cabezas MD Date: 12/11/2023 Generated for Livieri ng/Fajoseg/eTransmitting on: 0 01/24/2025 02:47 PM CDT
--- OUTSIDE RECORDS SUMMARY | 2024-02-11 05:00 | XMS_ITS ---
Author Organization [facility] Address [address] [place] [address] Care Team Providers Care Electrical And Instrumentation Mechanic Name Role Phone Mikie Hidalgo Primary Care Provider Laura Adames MD, Oralia Unavailable Unavailable Perez Cabezas Unavailable [phone] REASON FOR VISIT BACK PAIN Encounters Encounter Location Date Provider Diagnosis [facility] [address] [place] [address] 02/11/2024 Perez Cabezas Plan Of Treatment No Information Progress Notes * Oralia MORELAND LDOB:[birth year] (79 yo F)Acc No.[id number]:02/11/2024 Medication Refill Patient: Oralia FLANNERY Provider: Jose Cabezas MD :1945 A ge:78 Y S ex:Female Date:02/11/2024 Address:[address], [place], [place] Pcp:Mikie Hidalgo Subjective: * Chief Complaints: * 1 . BACK PAIN. * Medical History: Objective: * Vitals: Assessment: Plan: * Treatment: * * Electronic signature of Fabian Cabezas MD on 01/24/2025 at 02:47 PM CDT Sign off status: Pending * Provider: Jose Cabezas MD Date: 1 Generated for Printi ng/Faxing/eTransmitting on: 0 01/24/2025 02:47 PM CDT
[2025-01-24] VITALS (34 sets, daily range): BP systolic 109–143; BP diastolic 54–117; PULSE 54–64; RESP 14–23; TEMP 36.1–36.4; O2SAT 90–100; BMI 28.3
--- NOTE | ~2025-01-24 | CT_ITS ---
EXAMINATION: CT brain wo con DATE: 01/24/2025 16:17 INDICATION: Altered mental status TECHNIQUE: Computed tomography (CT) of the head was performed without intravenous contrast. The dose-length product was 681.00 mGy-cm. Automated exposure control and iterative reconstruction technique were employed. COMPARISON: 01/07/2025 FINDINGS: Generalized atrophy. There are scattered moderate periventricular and subcortical white matter changes, most likely related to small vessel ischemic disease (microangiopathy). No ventriculomegaly or midline shift. Basilar cisterns are patent. There is a frontal scalp hematoma. No acute intracranial hemorrhage, infarction, mass or mass effect. There is intracranial atherosclerosis. IMPRESSION: 1. No acute intracranial abnormality. Reviewed, dictated and finalized at location O.
--- NOTE | ~2025-01-24 | CT_ITS ---
EXAMINATION: CTA chest DATE: 01/28/2025 16:33 CDT INDICATION: Shortness of breath. Chest pain. TECHNIQUE: Computed tomographic angiography (CTA) of the chest was performed with 100 mL Omnipaque-350 intravenous contrast. The dose-length product was 655.24 mGy-cm. Maximum intensity projection 3D-reconstructions of the aorta and other arteries were constructed by the technologist on a separate workstation. COMPARISON: CT dated 05/01/2023. FINDINGS: Cardiomegaly. No significant pleural or pericardial effusion. No thoracic lymphadenopathy. No evidence for aortic aneurysm or dissection. No central pulmonary embolism identified. There are calcified bilateral breast implants. There are calcified granulomas of the spleen. There is left lower lobe groundglass opacification with consolidation. There are left upper lobe areas of groundglass opacification. There is dependent atelectasis in the right lower lobe. There is calcified granuloma in the right lower lobe. No pneumothorax. No endobronchial lesions. IMPRESSION: 1. Groundglass opacities of the lingula and left lower lobe with focal areas of consolidation in the left lower lobe, compatible with pneumonia. 2: Cardiomegaly. 3: No evidence for aortic abnormality or pulmonary embolism. Reviewed, dictated and finalized at location O.
--- NOTE | ~2025-01-24 | XR_ITS ---
XR chest 1V portable 01/28/2025 13:22 Indication: Oxygen saturations decreased. Fevers. Procedure: AP portable chest Comparison: Comparison to multiple prior studies sequentially, with oldest reviewed study dated 04/30/2023. Findings: There is focal left upper lobe airspace disease, suspicious for pneumonia. Stable cardiomediastinal silhouette. Right lung clear. No significant effusion or pneumothorax. Impression: 1: Focal left upper lobe airspace disease suspicious for pneumonia. Reviewed, dictated and finalized at location O. Impression: 1: Focal left upper lobe airspace disease suspicious for pneumonia.
--- NOTE | ~2025-01-24 | CT_ITS ---
EXAMINATION: CT brain wo con DATE: 01/28/2025 16:10 INDICATION: Headache. Drowsy TECHNIQUE: Computed tomography (CT) of the head was performed without intravenous contrast. The dose-length product was 605.33 mGy-cm. COMPARISON: None FINDINGS: No acute intracranial hemorrhage. No mass effect. No midline shift. No hydrocephalus. No skull fracture. Visualized paranasal sinuses mastoid air cells are clear. There are several low density regions scattered throughout the periventricular and deep white matter which are favored to represent chronic ischemic white matter change. IMPRESSION: 1. No acute intracranial hemorrhage. No mass effect. 2. Probable chronic ischemic white matter change. Reviewed, dictated and finalized at location Q.
--- NOTE | ~2025-01-24 | US_ITS ---
ULTRASOUND ABDOMEN LIMITED (RIGHT UPPER QUADRANT) Clinical History: RUQ, elevated LFTs Comparison: CT abdomen and pelvis 01/24/2025 Technique: Right upper quadrant sonography Findings: Liver: Enlarged. Echogenic. Minimal intrahepatic biliary ductal dilatation. Micronodular contour. Normal hepatopedal flow main portal vein. Common Duct: 9 mm after cholecystectomy. Gallbladder: Removed. Pancreas: Unremarkable. Right kidney: Unremarkable. Retrohepatic IVC: Unremarkable. IMPRESSION: 1. Hepatomegaly, with steatosis and/or diffuse hepatocellular disease. 2. Minimal intrahepatic biliary ductal dilatation but not unexpected after cholecystectomy. 3. Mild sclerosis not excluded. Reviewed, dictated and finalized at location R. IMPRESSION: 1. Hepatomegaly, with steatosis and/or diffuse hepatocellular disease. 2. Minimal intrahepatic biliary ductal dilatation but not unexpected after cho lecystectomy. 3. Mild sclerosis not excluded.
--- NOTE | ~2025-01-24 | CT_ITS ---
Exam: CT abdomen and pelvis with contrast Clinical History: [Abdominal pain ] Comparison: [ CT chest abdomen and pelvis 04/19/2023] Technique: Multiple axial CT images of the abdomen and pelvis were obtained with IV contrast. Sagittal and coronal reformatted images were obtained. FINDINGS: Lung bases: [There are a few small reticular and patchy opacities scattered throughout the visualized lungs. ] Liver: [ No mass.] [ No intrahepatic biliary duct dilatation.] Gallbladder: Surgically absent. Common bile duct: [ Normal caliber.] [ No stones.] Spleen: [Calcified granulomas.Within normal limits.] Pancreas: [ No mass. No pancreatic fluid collection.] Adrenals: [ No masses.] Kidneys: [ No masses. No hydronephrosis.][ ] Lymph nodes: [ No adenopathy in the abdomen or pelvis.] Stomach, small bowel and colon: [ No bowel wall thickening or obstruction.] Moderate amount of stool. Peritoneum cavity: [ No mesenteric fat stranding or fluid.] Bladder: [ Unremarkable.] Osseous structures: [ Multilevel degenerative change in the visualized spine.] Bones appear osteopenic. Severe compression fractures of the T12 and L1 vertebral bodies Abdominal aorta: [ No aneurysm.] Additional findings: [ None of significance.] IMPRESSION: 1. No CT evidence for an acute process in the abdomen or pelvis at this time. 2. Moderate amount of stool. 3. Severe compression fractures of the T12 and L2 vertebral bodies. Correlate clinically. 4.There are a few small reticular and patchy opacities scattered throughout the visualized lungs. ] 5. Cholecystectomy. Reviewed, dictated and finalized at location Q. IMPRESSION: 1. No CT evidence for an acute process in the abdomen or pelvis at this time. 2. Moderate amount of stool. 3. Severe compression fractures of the T12 and L2 vertebral bodies. Correlate c linically. 4.There are a few small reticular and patchy opacities scattered throughout the visualized lungs. ] 5. Cholecystectomy.
--- NOTE | ~2025-01-24 | XR_ITS ---
XR chest 1V 01/24/2025 16:26 Indication: Altered mental status Procedure: AP portable chest Comparison: 01/07/2025 and 11/29/2024 Findings: Shallow inspiration. Borderline heart size. Calcified breast implants are present. Pulmonary vascular congestion. No focal air space disease, pulmonary edema, pleural effusion or suspected pneumothorax. There are surgical fusion changes at the cervicothoracic junction. No acute osseous abnormality. There are fractures of the upper lumbar spine with vertebroplasty changes. Impression: 1: No acute cardiopulmonary disease. Reviewed, dictated and finalized at location O. Impression: 1: No acute cardiopulmonary disease.
--- NOTE | ~2025-01-24 | MR_ITS ---
EXAMINATION: MR brain/brain stem wo/w con DATE: 01/26/2025 09:45 INDICATION: Slurred speech. TECHNIQUE: Magnetic resonance imaging (MRI) of the brain and brainstem was performed without and with 16 mL MultiHance intravenous contrast. COMPARISON: Brain MRI 11/30/2024, head CT 01/24/2025 FINDINGS: There are scattered areas of nonspecific increased T2-weighted signal intensity in the cerebral white matter. There is no intracranial hemorrhage, acute infarction, or abnormal intracranial mass lesion. The ventricles are normal in size. The paranasal sinuses are clear. There are likely changes of ocular lens replacement surgeries. The mastoid air cells are normal. IMPRESSION: 1. Stable moderate nonspecific cerebral white matter disease, which likely represents chronic small vessel ischemic disease. Reviewed, dictated and finalized at location E. IMPRESSION: 1. Stable moderate nonspecific cerebral white matter disease, which likely repr esents chronic small vessel ischemic disease.
--- NOTE | ~2025-01-24 | MR_ITS ---
EXAMINATION: MR lumbar spine wo con DATE: 01/26/2025 09:45 INDICATION: Back pain. TECHNIQUE: Magnetic resonance imaging (MRI) of the lumbar spine was performed without intravenous contrast. Sequences included sagittal T2-weighted FSE, sagittal T2-weighted FS FSE, sagittal T1-weighted FSE, and axial T2-weighted FSE. COMPARISON: CT abdomen and pelvis 01/24/2025 FINDINGS: There are chronic burst fractures of T12 and L1 with changes of vertebroplasty, mild focal kyphosis, and mild central canal stenosis. There is mild chronic anterior wedging of T11 vertebral body. There is mildly decreased disc height at L1-L2, L2-L3, and L3-L4. There is ligamentum flavum hypertrophy at the disc levels in lumbar spine. There is Baastrup disease from L2-L3 through L5-S1. The distal spinal cord signal intensity is normal. The conus medullaris is at L1. The following disc levels are specifically discussed: L1-L2: The disc is bulging. There is mild bilateral facet joint osteoarthritis. There is mild bilateral neural foraminal stenosis. There is mild central canal stenosis. L2-L3: The disc is bulging and has an annular fissure. There is moderate bilateral facet joint osteoarthritis. There is mild right and moderate left neural foraminal stenosis. There is mild central canal stenosis. L3-L4: The disc is bulging and has an annular fissure. There is severe bilateral facet joint osteoarthritis. There is moderate right and mild left neural foraminal stenosis. There is mild central canal stenosis. L4-L5: The disc is bulging and has an annular fissure. There is severe bilateral facet joint osteoarthritis. There is moderate right and mild left neural foraminal stenosis. There is moderate central canal stenosis. L5-S1: The disc is bulging and has an annular fissure. There is severe bilateral facet joint osteoarthritis. There is mild bilateral neural foraminal stenosis. There is mild central canal stenosis. IMPRESSION: 1. Moderate lumbar spondylosis. 2. 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 Reviewed, dictated and finalized at location E.
--- NOTE | ~2025-01-24 | XR_ITS ---
Clinical history:Pain EXAM:X-ray knee right 3 views TECHNIQUE:3 images of the right knee were obtained. Comparisons: FINDINGS: Severe degenerative change in the patellofemoral joint. Soft tissue swelling about the right knee. Moderate-sized suprapatellar effusion. No fracture. No dislocation. Moderate narrowing of the medial compartment. IMPRESSION: 1. Severe degenerative change in the patellofemoral joint. If symptoms persist or worsen, consider a short-term follow-up study or MRI imaging for further assessment. Reviewed, dictated and finalized at location Q. IMPRESSION: 1. Severe degenerative change in the patellofemoral joint. If symptoms persist or worsen, consider a short-term follow-up study or MRI soy ging for further assessment.
--- NOTE | 2025-01-24 13:42 | ECG_ITS ---
Test Date: 2025-01-24 13:47:43 Measurements Intervals [place] Rate: 57 P: 27 MN: 202 QRS: 7 QRSD: 95 T: 47 QT: 471 QTc: 460 Interpretive Statements SINUS BRADYCARDIA Compared to ECG 01/07/2025 16:05:14 No significant changes Electronically Signed On 01-24-2025 14:45:53 CDT by Dank Shin M.D.
--- OUTSIDE RECORDS SUMMARY | 2025-01-24 14:48 | XMS_ITS | Clinical Summary ---
Author Organization [facility] Address [address] [place] [address] Care Team Providers Care Steam Conditioning Operator Name Role Phone Abhishek Chambers MD Primary Care Provider +1 -[phone] Allergies Active Allergy Reactions Criticality Noted Date [...] 01/26/20 24 Active naloxone (NARCAN) 4 mg/spray Victor, Non-Aerosol EMERGENCY USE ONLY: Administer 1 spray [...] 04/18/2022 Assessment & Plan (05/26/2023 10:56 PM LIFESTYLE COORDINATOR): Safety reviewed Non-compliant patient 04/04/2022 Assessment & Plan (04/04/2022 12:20 PM LIFESTYLE COORDINATOR): Worsening. Extensive discussion with patient and her [...] 04/04/2022 Assessment & Plan (05/26/2023 10:56 PM LIFESTYLE COORDINATOR): At baseline Anemia 04/04/2022 Physical deconditioning 09/28/2020 Assessment & Plan (05/26/2023 10:57 PM LIFESTYLE COORDINATOR): Recommended more activity which she says she [...] Morbid obesity, unspecified obesity type 05/25/2018 09/28/2020 continuous churn buttermaker current use of insulin 05/25/2018 09/28/2020 Skin lesion 05/25/2018 09/28/2020 Stress 05/25/2018 09/28/2020 Body mass index (bmi) 37.0-37.9, adult 05/25/2018 09/28/2020 Dehydration 02/26/2013 09/24/2022 Bilateral lower extremity edema 09/28/2020 Diabetes mellitus due to und erlying condition with diabetic peripheral angiopathy without gangrene, with long-term current use of insulin 01/19/2024 Lumbosacral spondylosis with radiculopathy 09/28/2020 Encounters Date Type Department Care Team Description 01/07/2025 Abstract [facility] Neurosurgery - [address] [facility] [address] [facility] [address] [place] [address] Provider, Abstract 12/22/2024 Abstract [facility] Primary Care - [facility] [address] [facility] [address] [place] [id number] Abhishek Chambers MD from Last 3 Months [...] 08/18/2024 11:35 AM CDT Plan of Treatment Health Maintenance Due [...] years Discontinued Medical Devices Implanted Type Area Ultra Sound Technician Device Identifier Shelf Expiration Date Model / Serial / Lot Karri Infinity 3.5x70mm Pre-Cut [id number] - [id number] Implanted:Qt y: 2 on 01/19/2024 by Ritesh Meraz MD at [facility] Karri N/A: Spine Cervical Posterior [employer]FAMOR DANEK [id number] / / Description:STERILIZED DATE: 01/06/2024 LOAD # [id number] Screw Infinity 4.5x26mm Mas [id number] - [id number] Implanted:Qt y: 2 on 01/19/2024 by Ritesh Meraz MD at [facility] Screw N/A: Spine Cervical Posterior [employer]- SOFAMOR DANEK [id number] / / Description:STERLIZED DATE: 01/06/2024 LOAD # 247 704 Screw Infinity 3.5x18mm Mas [id number] - [id number] Implanted:Qt y: 4 on 01/19/2024 by Ritesh Meraz MD at [facility] Screw N/A: Spine Cervical Posterior [employer]- SOFAMOR DANEK [id number] / / Description:STERILIZED DATE: 01/06/2024 LOAD # 247 502 Screw Infinity 3.5x20mm Mas [id number] - [id number] Implanted:Qt y: 1 on 01/19/2024 by Ritesh Meraz MD at [facility] Screw N/A: Spine Cervical Posterior [employer]AM[employer] DANEK [id number] / / Description:STERILIZED DATE: 01/06/2024 LOAD # 247 502 Screw Infinity 4.0x20mm Mas [id number] - [id number] Implanted:Qt y: 1 on 01/19/2024 by Ritesh Meraz MD at [facility] Screw N/A: Spine Cervical Posterior [employer]AM[employer] DANEK [id number] / / Description:STERILIZED DATE: 01/06/2024 LOAD # 247 502 Set Screw Infinity Oc M6 [id number] - [id number] Implanted:Qt y: 8 on 01/19/2024 by Ritesh Meraz MD at [facility] Screw N/A: Spine Cervical Posterior [employer]AM[employer] DANEK [id number] / / Description:STERILIZED DATE: 01/06/2024 LOAD # 247 502 Allograft [employer] [id number] - [id number] Implanted:Qt y: 1 on 01/19/2024 by Ritesh Meraz MD at [facility] Tissue N/A: Spine Cervical Posterior [employer] TECH ISH [id number] 06/25/2025 [id number] / [id number] / Description:REQ#[id number] 07/22/2022 Implanted: by Dino Cox MD (Quantity not on file) 04/03/2025 / / [id number] Description:1CC BILAT T12 FO R TOTAL OF 2CC 1.5CC BILAT L1 FOR TOTAL OF 3CC Procedures Procedure Name Priority Date/Time Associated Diagnosis Comments HEMOGLOBIN A1C Routine 03/25/2023 1:48 PM LIFESTYLE COORDINATOR COLON CANCER SCREEN, STOOL DNA Routine 11/26/2022 6:30 PM CDT Screening for colorectal cancer XR DEXA BONE DENSITY AXIAL 1 OR MORE SITES Routine 05/09/2022 2:57 PM LIFESTYLE COORDINATOR Osteopenia of multiple sites MICROALBUMIN/CREATI NINE RATIO, RANDOM UR Routine 11/02/2021 12:10 PM CDT Type 2 diabetes mellitus with diabetic polyneuropathy, with long-term current use of insulin (CMS/HCC) LIPID PANEL Routine 11/02/2021 11:59 AM CDT Type 2 diabetes mellitus with diabetic polyneuropathy, with long-term current use of insulin (CMS/HCC) Mixed hyperlipidemia ENDOSCOPY, COLON, DIAGNOSTIC Routine 07/05/2011 from Last 3 Months or Most Recently Relevant to Health Maintenance Results * HEMOGLOBIN A1C (03/25/2023 1:48 PM LIFESTYLE COORDINATOR) ABSTRACTED HGB A1C 6.3 [facility] Blood us Abstract Provider CHEMISTRY ORDERABLES Edited Re sult - Final [facility] CLIA# [id number] [address] [place] [address] * COLON CANCER SCREEN, STOOL DNA (11/26/2022 6:30 PM CDT) COLOGUARD RESULT Negative Negative [facility] Comment: NEGATIVE TEST RESULT. A negative [...] (Philippe Holden al, N Engl J Med 2014;370(14):0384-6131) The normal value (reference range) for this assay is negative. COLOGUARD RE-SCREENING RECOMMENDATION: Periodic colorectal cancer screening is an important part of preventive healthcare for asymptomatic individuals at average risk for colorectal cancer. Following a negative Cologuard result, the [place] Cancer Society and U.S. Multi-Society Task Force screening guidelines recommend a Cologuard re-screening interval of 3 years. References: [place] [employer] Guideline for Colorectal Cancer Screening: https://www.cancer.org/cancer/gxyrw-iqlfpg-hygrjo/dehxgbjml-hznzblgxf-pdggxsv/ac s-rec ommendations.html.; Neil DK, Loretta CR, Bhavna ElK, Colorectal Cancer Screening: Recommendations for Physicians and Patients from the U.S. Multi-Society Task Force on Colorectal Cancer Screening , Am J Gastroenterology 2017; 112:4083-0583. TEST DESCRIPTION: Composite algorithmic analysis of stool [...] (Philippe Holden al, N Engl J Med 2014;370(14):8305-3339.) Cologuard may produce a false negative or false positive result (no colorectal cancer or precancerous polyp present at colonoscopy follow up). A negative Cologuard test result does not guarantee the absence of CRC or advanced adenoma (pre-cancer). The current Cologuard screening interval is every 3 years. ([place] Cancer Society and U.S. Multi-Society Task Force). Cologuard performance data in a 10,000 patient pivotal study using colonoscopy as the reference method can be accessed at the following location: www.[employer]/results. Additional description of the Cologuard test process, warnings and precautions can be found at www.Outsparkrd.com. Stool STOOL SPECIMEN / Unknown 11/26/2022 6:30 PM CDT 11/29/2022 5:06 AM CDT Mikie Hidalgo MD BODY FLUIDS AND STOOLS Final Res [facility] [employer] CLIA # [id number] [address] , [address] [place] [address] * XR DEXA BONE DENSITY AXIAL 1 OR MORE SITES (05/09/2022 2:57 PM LIFESTYLE COORDINATOR) Anatomical Region Laterality Modality Computed Radiogr aphy 05/09/2022 2:58 PM LIFESTYLE COORDINATOR Impressions 05/09/2022 3:02 PM LIFESTYLE COORDINATOR FINDINGS/IMPRESSION: Osteopenia with a lowest T score of -2.3. Fracture risk is moderate. The lowest T score on the previous study was -1.9. FRAX: 10 year probability of major osteoporotic fracture is 21.9 %. 10 year probability of hip fracture is 5.9 %. Please refer to the full report available in [facility] under the PACS Images tab. If a faxed copy is needed, please call [phone]. DICTATION LOCATION: [facility] Narrative 05/09/2022 3:02 PM LIFESTYLE COORDINATOR SUMMARY DEXA REPORT DATE: 05/09/2022 2:57 PM INDICATION: Postmenopausal Procedure Note eDn Brown MD - 05/09/2022 SUMMARY DEXA REPORT [...] refer to the full report available in [facility] under the PACS Images tab. If a faxed copy is needed, please call [phone]. DICTATION LOCATION: [facility] Mikie Hidalgo MD DIAGNOSTIC IMAGING ORDERABLES Fi nal Result * MICROALBUMIN/CREATININE RATIO, RANDOM UR (11/02/2021 12:10 PM CDT) Creatinine, Urine 134 20 - 275 mg/dL [facility] MICROALBUMIN, URINE 0.9 See Note: mg/dL [facility] Comment: Reference Range: Reference Range [...] within a diagnostic category. Test Performed at: [facility] [address] [place] [address] Tommy Cruz D.O., MPH Urine URINE SPECIMEN OBTAINED BY CLEAN CATCH PROCEDURE / Unknown 11/02/2021 12:10 PM CDT 11/02/2021 12:11 PM CDT Mikie Hidalgo MD URINE ORDERABLES Final Result [facility] [phone] [facility] [address] [place] [address] * (ABNORMAL) LIPID PANEL (11/02/2021 11:59 AM CDT) CHOLESTEROL 161 <200 mg/dL [facility] HDL 87 > OR = 50 mg/dL [facility] TRIGLYCERIDE 155(H) <150 mg/dL [facility] LDL CALCULATED 51 mg/dL (calc) [facility] Comment: Reference range: <100 Desirable range <100 mg/dL for primary prevention; <70 mg/dL for patients with CHD or diabetic patients with > or = 2 CHD risk factors. LDL-C is now calculated using the Luis Antonio-Lee calculation, which is a validated novel method providing better accuracy than the Friedewald equation in the estimation of LDL-C. Luis Antonio SS et al. CLAY. 2013;310(19): 0023-8486 (http://education.Realvu Inc/faq/KKP262) CHOL/HDL RATIO 1.9 <5.0 (calc) [facility] TOTAL NON-HDL CHOL(LDL+VLDL) 74 <130 mg/dL (calc) [facility] Comment: For patients with diabetes plus 1 major ASCVD risk factor, treating to a non-HDL-C goal of <100 mg/dL (LDL-C of <70 mg/dL) is considered a therapeutic option. Test Performed at: [place] [address] [address] [place] [address] Jason Milton Blood 11/02/2021 11:5 9 AM CDT 11/02/2021 12:01 PM CDT Mikie Hidalgo MD CHEMISTRY ORDERABLES Final Resul t [facility] [phone] [place] [address] [address] [place] [address] * (ABNORMAL) ENDOSCOPY, COLON, DIAGNOSTIC (07/05/2011) Abstract Provider GI PROCEDURE ORDERABLES Edited Result - Final from Last 3 Months or Most Recently Relevant to Health Maintenance Insurance [facility] Medicare Part D AET[place] [facility] [place] MMA[place] Advance Directives For more information, please contact: [phone] * Full Code (Latest Code Status on [...] 9:22 AM 09/09/2022 6:26 PM Care Teams Steam Conditioning Operator Relationship Specialty Start Date End Date Abhishek Chambers MD [address] [place] [address] PCP - General Family Practice 12/11/23
--- OUTSIDE RECORDS SUMMARY | 2025-01-24 14:48 | XMS_ITS | Clinical Summary ---
Author Organization [facility] Address [address] [place] [address] Care Team Providers Care Residential Assistant Name Role Phone Miscellaneous, Not In File [...] CDT - 11/23/2024 9:50 PM CDT Emergency [facility] Emergency Department [address] [place] [address] Fall, initial encounter (Primary Dx); Contusion of [...] on file Legal Sex Female 6:41 PM FACULTY SUPPORT COORDINATOR Gender Identity Not on file Sexual Orientation [...] B Screening 09/30/1963 Well Visit 65+ 09/30/2012 Osteoporosis Screening-Bone Density Scan 05/09/2024 05/09/2022, 05/09/2022, 04/02/2018 Covid-19 Vaccine (2 - 2024-2 6 season) 2025 07/11/2020 Influenza Vaccine (#1) 2025 , 02/14/2023, 04/04/2022, [...] - DEVICE F inal Result [facility] ([place]) [address] [facility] Department [place] [address] * XR Knee Right 3 Views (11/23/2024 [...] Kt Proctor M.D. MF: VALE Report ID: [id number] Reading Location: [id number] Procedure Note Kt Proctor MD - 11/23/2024 [...] Kt Proctor M.D. MF: VALE Report ID: [id number] Reading Location: [id number] Farshad Moulton MD IMG XR PROCEDURES Final [...] Deep Yen M.D. KT: THAO Report ID: [id number] Reading Location: [id number] Procedure Note Deep Yen MD - 11/23/2024 [...] Deep Yen M.D. KT: THAO Report ID: [id number] Reading Location: [place] [address] [place] Farshad Moulton MD IMG XR PROCEDURES [...] BLOOD ORDERABLES Final R esult [facility] ([place]) [address] [facility] Department [place] [address] * Differential, auto (11/23/2024 5:15 PM CDT) Neutrophil abs 3.31 1.50 - 6.50 K/cumm Imm gran abs 0.02 0.00 - 0.10 K/cumm [facility] ([place]) Lymphocyte abs 3.00 0.80 - 3.30 K/cumm [facility] ([place]) Monocyte abs 0.50 0.20 - 0.80 K/cumm [facility] ([place]) Eosinophil abs 0.22 0.00 - 0.50 K/cumm [facility] ([place]) Basophil abs 0.03 0.00 - 0.10 K/cumm [facility] ([place]) Neutrophil pct 46.7 % [facility] ([place]) Comment: Interpretive Data Percent cell count reference ranges are not reported, since discordance with absolute values may lead to misinterpretation of CBC data. Current Interpretive Data was last revised on 2017. Imm gran pct 0.3 % [facility] ([place]) Comment: Interpretive Data Percent cell count reference ranges are not reported, since discordance with absolute values may lead to misinterpretation of CBC data. Current Interpretive Data was last revised on 2017. Lymphocyte pct 42.4 % [facility] ([place]) Comment: Interpretive Data Percent cell count reference ranges are not reported, since discordance with absolute values may lead to misinterpretation of CBC data. Current Interpretive Data was last revised on 2017. Monocyte pct 7.1 % [facility] ([place]) Comment: Interpretive Data Percent cell count reference ranges are not reported, since discordance with absolute values may lead to misinterpretation of CBC data. Current Interpretive Data was last revised on 2017. Eosinophil pct 3.1 % [facility] ([place]) Comment: Interpretive Data Percent cell count reference [...] Final R esult [facility] ([place]) [address] [facility] Department [place] [address] * (ABNORMAL) CBC with auto differential (11/23/2024 [...] Final R esult [facility] ([place]) [address] [facility] Department [place] [address] * Comprehensive metabolic panel (11/23/2024 5:15 PM [...] BLOOD ORDERABLES Final R esult [facility] ([place]) [address] [facility] Department [place] [address] from Last 3 Months Insurance AETNA [facility] [place]ET[place] [facility] Care Teams Residential Assistant Relationship Specialty Start Date End Date Miscellaneous, Not In File PCP - General 11/23/24
--- OUTSIDE RECORDS SUMMARY | 2025-01-24 14:48 | XMS_ITS | Encounter Summary ---
Author Organization [facility] Address [address] [place] [address] Care Team Providers Care Road Engineer Freight Name Role Phone Abhishek Chambers MD Primary Care Provider +1 -[phone] Reason for Visit * Reason Onset Date Comments Hypoglycemia, Uncontrolled Diabetes 10/04/2020 Spoke w/ Dr. Salazar Encounter Details Date Type Department Care Team (Late st Contact Info) Description 10/04/2020 Telephone [facility] Admitting [address] [place] [address] [place] [address] [facility] [address] [place] [address] Hypoglycemia, Uncontrolled Diabetes (Spoke w/ [...] as of this encounter Plan of Treatment Not on file documented as of this encounter Visit Diagnoses Not on filedocumented in this encounter Additional Health Concerns Infection Onset Date Last Indicated Resolved Time R/O GI Pathogen 01/27/2023 01/27/2023 01/29/2023 1 0:11 AM CDT documented as of this encounter Care Teams Road Engineer Freight Relationship Specialty Start Date End Date Abhishek Chambers MD [address] [place] [address] PCP - General Family Practice 12/11/23 documented as of this encounter
--- OUTSIDE RECORDS SUMMARY | 2025-01-24 14:48 | XMS_ITS | Encounter Summary ---
Author Organization [facility] Address [address] [place] [address] Care Team Providers Care Camp Assistant Name Role Phone Abhishek Chambers MD Primary Care Provider [phone] [phone] Reason for Visit * Reason Onset Date Comments Dizziness and syncope 10/02/2020 Spoke w/De nise at Dr. Rosendo Turner's ex./Going to Dr. Herson Turner Encounter Details Date Type Department Care Team (Late st Contact Info) Description 10/02/2020 Telephone [facility] Admitting [address] [place] [address] [place] [address] [address] Dizziness and syncope (Spoke w/Romina [...] documented as of this encounter Care Teams Camp Assistant Relationship Specialty Start Date End Date Abhishek Chambers MD [address] [place] [address] PCP - General Family Practice 12/11/23 documented as of this encounter
--- OUTSIDE RECORDS SUMMARY | 2025-01-24 14:48 | XMS_ITS | Encounter Summary ---
Author Organization [facility] Address [address] [place] [address] Care Team Providers Care Television Repairer Name Role Phone Abhishek Chambers MD Primary Care Provider [phone] [phone] Reason for Visit * Reason Onset Date Comments Dizziness and syncope 10/02/2020 Spoke w/De zahirae at Dr. ihcks'mary ex./Going to dr. Weiss Encounter Details Date Type Department Care Team (Late st Contact Info) Description 10/02/2020 Telephone [facility] Admitting [address] [place] [address] [place] [address] [facility] [address] [place] [address] Dizziness and syncope (Spoke w/Romina [...] documented as of this encounter Care Teams Television Repairer Relationship Specialty Start Date End Date Abhishek Chambers MD [address] [place] [address] PCP - General Family Practice 12/11/23 documented as of this encounter
--- OUTSIDE RECORDS SUMMARY | 2025-01-24 14:48 | XMS_ITS | Patient Health Record ---
Author Organization [facility] Address [address] [place] [address] Care Team Providers Care Hotel Housekeeper Name Role Phone Mikie Hidalgo Primary Care Provider Laura Adames MD, Oralia Unavailable Unavailable Perez Cabezas Unavailable [phone] Allergies Allergen (clinical drug ingredient) Drug/Non Drug [...] Risk Notes Problem Fear of medical treatment (044594638) Fear of injections and transfusions (F40.231) Active confirmed Problem Essential hypertension (93443380) Essential (primary) hypertension (I10) Active confirmed Problem Rheumatoid arthritis (77889819) Rheumatoid arthritis with rheumatoid factor of multiple sites without organ or systems involvement (M05.79) Active confirmed Problem Localized, primary osteoarthritis of the shoulder region () Primary osteoarthritis, right shoulder (M19.011) Active confirmed Problem Localized, primary osteoarthritis of the shoulder region () Primary osteoarthritis, left shoulder (M19.012) Active confirmed Problem Solitary sacroiliitis (963227400) Sacroiliitis, not elsewhere classified (M46.1) Active confirmed Problem Lumbosacral spondylosis without myelopathy (78479785) Other spondylosis with radiculopathy, lumbar region (M47.26) Active confirmed Problem Lumbosacral spondylosis without myelopathy (15548055) Other spondylosis with radiculopathy, lumbosacral region (M47.27) Active confirmed Problem Cervical spondylosis without myelopathy (923527759) Spondylosis without myelopathy or radiculopathy, cervical region (M47.812) Active confirmed Problem Lumbosacral spondylosis without myelopathy (74401976) Spondylosis without myelopathy or radiculopathy, lumbar region (M47.816) Active confirmed Problem Degeneration of cervical intervertebral disc (37719183) Other cervical disc degeneration, 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) Active confirmed Problem Degeneration of lumbar intervertebral disc (29900480) Other intervertebral disc degeneration, lumbar region (M51.36) Active confirmed Problem Cervical radiculopathy (03695085) Radiculopathy, cervical region (M54.12) Active confirmed Problem Lumbar radiculopathy (637763791) Radiculopathy, lumbar region (M54.16) Active confirmed Problem Cervical facet joint pain (856958591) Cervicalgia (M54.2) Active confirmed Problem Myositis (61859966) Other myositis, 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) Active confirmed Problem Fibromyalgia (050627912) Fibromyalgia (M79.7) Active confirmed Problem Spinal stenosis of lumbar region (33474038) Intervertebral disc stenosis of neural canal of lumbar region (M99.53) Active confirmed Plan Of Treatment Pending Test Test Name [...] implants 1974 hemorrhoidectomy 1981 left knee arthroscopy 2000 left knee replacement 2000 cervical fusion 1990,95,2000,2002 hernia 2002 carpal tunnel release Cataract surgery 2019 Hospitalization History Reason Date(Month/Year) kidney failure 2023 broken ribs 2022 fell and hurt back with 2 fractures 04/04 over heated and high sugar level 10/2019 fell hurt shoulder, back, neck, and knee 09/2018 fell hurt ankle 09/2015
[2025-01-24 15:17] LABS: Hematocrit 42.2 % (37.0-47.0); Hemoglobin 13.8 g/dL (12.0-15.0); Immature Granulocyte Percent A 0.4 % (0-0.5); Lymphocytes Absolute Auto 1.91 K/mm3 (0.9-3.2); Mean Corpuscular HGB Conc 32.7 g/dl (32-36); Mean Corpuscular Hemoglobin 32.9 pg (26-34); Mean Corpuscular Volume 100.7 fl (80-100); Nucleated Red Blood Cells Absolute Auto 0.000 K/mm3 (0.0-0.012); Nucleated Red Blood Cells Perc 0.0 % (0.0-0.2); Platelet Count Result 184 k/mm3 (150-375); Red Blood Count 4.19 M/mm3 (4.2-5.4); White Blood Count 8.0 K/mm3 (4.5-10.0)
[2025-01-24 15:26] LABS: INR 1.1; Prothrombin Time 14.6 Seconds (11.1-14.7)
[2025-01-24 15:27] LABS: Magnesium 1.4 mg/dL (1.6-2.3); Partial Thromboplastin Time 27.3 Seconds (22.3-36.8)
[2025-01-24 15:28] LABS: Lipase 60 U/L (23-300)
[2025-01-24 15:37] LABS: Add Urine Microscopic? YES; Appearance Urine Clear (Clear); Glucose Urine UA 2+ mg/dL (Negative); Leukocyte Esterase Ur 1+ LEU/UL (Negative); Need Manual Microscopic Reviewed; Nitrate Urine Negative (Negative); Specific Grav Ur 1.014 (1.001-1.035)
[2025-01-24 15:40] LABS: Troponin I < 0.012 ng/mL (0.000-0.034)
[2025-01-24 15:43] LABS: Procalcitonin 0.1 ng/mL
[2025-01-24 15:57] LABS: Alanine Aminotransferase 63 U/L (6-35); Albumin Level 3.7 g/dL (3.5-5.1); Alkaline Phosphatase 180 U/L (38-126); Anion Gap 8 mmol/L (4-12); Aspartate Amino Transferase 94 U/L (14-36); Bilirubin,Total 0.4 mg/dL (0.2-1.3); Blood Urea Nitrogen 17 mg/dL (7-17); Calcium 9.5 mg/dL (8.4-10.2); Carbon Dioxide 30 mmol/L (22-30); Chloride 101 mmol/L (98-107); Estimated CRCL calculation 66 ml/min; Estimated Glomerular Filt Rate > 60; Glucose 105 mg/dL (65-110); Potassium 3.9 mmol/L (3.4-5.0); Sodium 139 mmol/L (137-145); Total Protein 7.3 g/dL (6.3-8.2)
[2025-01-24] MEDS: MAGNESIUM SULF 2 GM/WATER 50ML 2 GM/50 ML BAG IVPB (16:45)
--- NOTE | 2025-01-24 16:57 | ED.GENADULT ---
HPI - General Adult General Chief complaint: Altered Mental Status Stated complaint: AMS Time Seen by Provider: 01/24/25 14:19 History of Present Illness HPI narrative: Patient 79-year-old female presents emergency department with chief complaint of altered mental status patient is currently resident of [facility] for rehab patient was recently treated for urinary tract infection and today was noted to be extremely tired and lethargic the patient is normally alert and oriented x3 the facility reported that she was alert oriented x1 although the patient is able to answer all questions appropriately the patient reports that has abdominal discomfort Related Data Home Medications ?Medication ?Instructions ?Recorded ?Confirmed ?Last Taken ?Type duloxetine 20 mg capsule,delayed 40 mg PO DAILY 04/19/23 11/30/24 04/19/23 09:00 History release folic acid 1 mg tablet 1 mg PO DAILY 04/19/23 11/30/24 04/19/23 09:00 History ergocalciferol (vitamin D2) 1,250 1,250 mcg PO WEEKLY 04/20/23 11/30/24 04/19/23 09:00 History mcg (50,000 unit) capsule hydrocodone 10 mg-acetaminophen 1 tablet PO Q4H PRN pain 09/17/23 11/30/24 Unknown History 325 mg tablet losartan 25 mg tablet 25 mg PO DAILY 11/30/24 11/30/24 Unknown History pregabalin 50 mg capsule 150 mg PO Q12H 11/30/24 11/30/24 Unknown History primidone 125 mg tablet 250 mg PO QID 11/30/24 11/30/24 Unknown History Allergies Allergy/AdvReac Type Severity Reaction Status Date / Time ezetimibe Allergy Unknown Verified 11/30/24 03:31 gabapentin AdvReac Shakiness Verified 11/30/24 03:31 Review of Systems Review of Systems: A 10 system review of systems was completed on the patient and is negative except for what is stated in the HPI. Nursing and ancillary documentation was reviewed. [facility] Past Medical History Medical History Unspecified fracture of third thoracic vertebra, subsequent encounter for fracture with routine healing Wedge compression fracture of fourth thoracic vertebra, subsequent encounter for fracture with routine healing Type 2 diabetes mellitus without complications Other spondylosis, cervical region Chronic pain disorder Diabetic peripheral neuropathy Hepatitis C Chronic neck pain with history of cervical spinal surgery Obstructive sleep apnea Refuses CPAP TIA (transient ischemic attack) Anxiety Hyperlipidemia Gout Arthritis GERD (gastroesophageal reflux disease) Hypertension Diabetes mellitus Insulin-dependent Surgical History Surgical History History of augmentation of both breasts With bilateral ruptured implants noted on imaging 04/2023 History of kyphoplasty (~12/2022) Hx of cholecystectomy Family History Family History Grandparent Acute myocardial infarction Father Acute myocardial infarction Parkinson disease Diabetes mellitus Hypertension Cerebrovascular accident Mother Diabetes mellitus Lung cancer Hypertension Depression Sibling Diabetes mellitus Cirrhosis Alcoholism Cervical cancer Hypertension Social History Social History Social History: She previously lived in her own home. Her granddaughter lived with her and helped provide care. She had 2 sons but 1 is . The she ambulates via walker boot and stands to transfer. She denies any history of excessive alcohol use and only briefly smoked tobacco at a young age. She denies any drug history. Never . Code status: DNR/DNI (per patient request and listed per NH documentation); POLST signed 12/06/24 confirms No CPR (DNAR with comfort focused treatment) Surrogate decision maker: Son Years smoked: 3 Smoking status: Former smoker Tobacco type: cigarettes Alcohol intake: current Drinks per week: 1 Substance use: never Substance use type: does not use Do You Feel Safe in your Home?: Yes Lack of Transportation: No Lack of Food: Sometimes True Current Housing: I Have Housing Concerned About Future Housing: YES Difficulty Paying Gas/Electric Bills: No Difficulty Paying for Meds: No Currently Unemployed: No Education: High School Diploma/GED Difficulty w/ Childcare or Family Care: No Living arrangements: half-way Additional living arrangements comments: [facility] [place] since 12/06/24 Occupation/Education: retired 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 HEAD: Normocephalic, atraumatic. EYES: PERRLA and EOMI. ENT: Nares clear, no rhinorrhea or epistaxis. Mucous membranes moist. NECK: Supple. CHEST: Clear to auscultation. No respiratory distress. HEART: Regular rate and rhythm. No murmur heard. Normal peripheral pulses. ABDOMEN: Soft, diffuse mild tenderness, nondistended, normal active bowel sounds. EXTREMITIES: Normal range of motion. No edema. SKIN: Warm, dry, no rash. NEURO: No focal deficits. Alert and oriented x3. Somewhat slow to response PSYCH: Normal mood and affect. Course Vital Signs Vital signs: Vital Signs Temperature 36.4 C 01/24/25 13:30 Pulse Rate 58 L 01/24/25 13:30 Respiratory Rate 01/24/25 13:30 Blood Pressure 113/57 L 01/24/25 13:30 Pulse Oximetry 91 01/24/25 13:30 Oxygen Delivery Room Air 01/24/25 13:30 Temperature 36.4 C 01/24/25 13:30 Pulse Rate 58 L 01/24/25 13:40 Respiratory Rate 20 01/24/25 13:30 Blood Pressure 113/57 L 01/24/25 13:30 Pulse Oximetry 97 01/24/25 13:49 Oxygen Delivery Nasal Cannula 01/24/25 13:49 Oxygen Flow Rate 2 01/24/25 13:49 Medical Decision Making [facility] Narrative Medical decision making narrative: Differential diagnosis includes UTI, intracranial hemorrhage, CVA, pneumonia, sepsis, Laboratory studies were obtained that showed white count 8.0 electrolytes showed normal renal function lactic acid was 1.6 magnesium was 1.4 troponin was negative procalcitonin 0.1 urinalysis showed evidence of UTI Chest x-ray showed no focal infiltrate CT head showed no evidence of hemorrhage CT scan of the abdomen pelvis showed no focal findings Patient started on Rocephin case was discussed with the hospitalist patient will be admitted Vital Signs Vital Signs: Vital Signs Temperature 36.4 C 01/24/25 13:30 Pulse Rate 58 L 01/24/25 13:30 Respiratory Rate 01/24/25 13:30 Blood Pressure 113/57 L 01/24/25 13:30 Pulse Oximetry 91 01/24/25 13:30 Oxygen Delivery Room Air 01/24/25 13:30 Temperature 36.4 C 01/24/25 13:30 Pulse Rate 58 L 01/24/25 13:40 Respiratory Rate 01/24/25 13:30 Blood Pressure 113/57 L 01/24/25 13:30 Pulse Oximetry 97 01/24/25 13:49 Oxygen Delivery Nasal Cannula 01/24/25 13:49 Oxygen Flow Rate 2 01/24/25 13:49 Lab Data 01/24/25 15:07 01/24/25 15:07 Labs: Lab Results 01/24/25 01/24/25 Range/Units 15:06 15:07 WBC 8.0 (4.5-10.0) K/mm3 RBC 4.19 L (4.2-5.4) M/mm3 Hgb 13.8 (12.0-15.0) g/dL Hct 42.2 (37.0-47.0) % MCV 100.7 H (80-100) fl MCH 32.9 (26-34) pg MCHC 32.7 (32-36) g/dl RDW 12.8 (11.5-14.5) % Plt Count 184 (150-375) k/mm3 MPV 11.0 H (7.4-10.4) fl Immature Gran % (Auto) 0.4 (0-0.5) % Neut % (Auto) 61.4 (45.5-73.1) % Lymph % (Auto) 24.0 (18.3-44.2) % Page % (Auto) 9.3 H (2.6-8.5) % Eos % (Auto) 4.4 (0-4.4) % Baso % (Auto) 0.5 (0.2-1.2) % Lymph # (Auto) 1.91 (0.9-3.2) K/mm3 Page # (Auto) 0.7 H (0.1-0.6) K/mm3 Eos # (Auto) 0.4 H (0-0.3) K/mm3 Baso # (Auto) 0.0 (0.0-0.1) K/mm3 Abs Immat Gran (auto) 0.03 (0.00-0.031) K/mm3 Absolute Neuts (auto) 4.9 (1.3-6.7) K/mm3 Absolute Nucleated RBC 0.000 (0.0-0.012) K/mm3 Nucleated RBC % 0.0 (0.0-0.2) % PT 14.6 (11.1-14.7) Seconds INR 1.1 APTT 27.3 (22.3-36.8) Seconds Sodium 139 (137-145) mmol/L Potassium 3.9 (3.4-5.0) mmol/L Chloride 101 (98-107) mmol/L Carbon Dioxide 30 (22-30) mmol/L Anion Gap 8 (4-12) mmol/L BUN 17 (7-17) mg/dL Creatinine 0.73 (0.7-1.0) mg/dL Estim Creat Clear Calc 66 ml/min Estimated GFR > 60 (59 - ) Glucose 105 (65-110) mg/dL Lactic Acid 1.6 (0.7-2.0) mmol/L Calcium 9.5 (8.4-10.2) mg/dL Magnesium 1.4 L (1.6-2.3) mg/dL Total Bilirubin 0.4 (0.2-1.3) mg/dL AST 94 H (14-36) U/L ALT 63 H (6-35) U/L Alkaline Phosphatase 180 H (38-126) U/L Troponin I < 0.012 (0.000-0.034) ng/mL Total Protein 7.3 (6.3-8.2) g/dL Albumin 3.7 (3.5-5.1) g/dL Lipase 60 (23-300) U/L Procalcitonin 0.1 ng/mL Urine Color Yellow (Yellow) Urine Appearance Clear (Clear) Urine pH 6.0 (5.0-9.0) Ur Specific [place] 1.014 (1.001-1.035) Urine Protein Negative (Negative) mg/dL Urine Glucose (UA) 2+ H (Negative) mg/dL Urine Ketones Trace H (Negative) mg/dL Ur Blood (Man) Negative (Negative) Urine Nitrate Negative (Negative) Urine Bilirubin Negative (Negative) Urine Urobilinogen 0.2 (<2.0) mg/dL Add Ur Microanalysis Reviewed Leukocyte Esterase Rfl 1+ H (Negative) CORTEZ/UL Urine RBC 0-2 (0-2) /hpf Urine WBC 11-20 H (0-3) /hpf Ur Squamous Epith Cells None seen (Few) /hpf Urine Bacteria None seen /hpf Urine Casts 6-10 Discharge Plan Discharge Clinical Impression: Altered mental status, Generalized weakness, Hypomagnesemia, Acute UTI Patient Disposition: Still a Patient Condition: Stable Patient Language: [place] Prescriptions: No Action hydrocodone-acetaminophen 10-325 mg tablet 1 tablet PO Q4H PRN (Reason: pain) folic acid 1 mg tablet 1 mg PO DAILY duloxetine 20 mg capsule,delayed release(DR/EC) 40 mg PO DAILY ergocalciferol (vitamin D2) 1,250 mcg (50,000 unit) capsule 1,250 mcg PO WEEKLY Rx Instructions: Saturdays pregabalin 50 mg capsule 150 mg PO Q12H losartan 25 mg tablet 25 mg PO DAILY primidone 125 mg tablet 250 mg PO QID acetaminophen 325 mg tablet 650 mg PO Q6H PRN (Reason: Mild Pain (1-3) Or Fever) Qty: 30 0RF clonazepam 0.5 mg tablet 0.5 mg PO HS Qty: 90 0RF (DME) FreeStyle Leatha 3 Plus Sensor Device See Rx Instructions .Route Qty: 1 5RF Rx Instructions: Check glucose continuously As directed insulin degludec [Tresiba FlexTouch U-100] 100 unit/mL (3 mL) insulin pen See Rx Instructions .ROUTE .COMPLEX Qty: 15 0RF Dose Instruction: INJECT 18 UNITS SUBCUTANEOUSLY EVERY MORNING Rx Instructions: INJECT 18 UNITS SUBCUTANEOUSLY EVERY MORNING allopurinol 300 mg tablet 300 mg PO DAILY Qty: 90 1RF alpha lipoic acid 200 mg capsule 200 mg PO DAILY Qty: 90 1RF amlodipine 5 mg tablet 10 mg PO DAILY Qty: 180 1RF aripiprazole 5 mg tablet 5 mg PO DAILY Qty: 90 1RF aspirin 325 mg tablet 325 mg PO DAILY Qty: 90 1RF atorvastatin 20 mg tablet 20 mg PO DAILY Qty: 90 1RF calcitriol 0.5 mcg capsule 0.5 mcg PO DAILY Qty: 90 1RF citalopram 20 mg tablet 20 mg PO DAILY Qty: 90 1RF docusate sodium 100 mg capsule 100 mg PO DAILY PRN (Reason: Constipation) Qty: 90 1RF dicyclomine 10 mg capsule 10 mg PO TID Qty: 90 1RF ferrous sulfate 325 mg (65 mg iron) tablet 325 mg PO DAILY Qty: 90 1RF hydroxychloroquine 200 mg tablet 200 mg PO BID Qty: 180 0RF metformin 500 mg tablet extended release 24 hr 500 mg PO BID Qty: 90 1RF metoprolol tartrate 50 mg tablet 50 mg PO BID Qty: 90 1RF omeprazole 40 mg capsule,delayed release(DR/EC) 40 mg PO DAILY Qty: 90 1RF polyethylene glycol 3350 [Miralax] 17 gram powder in packet 17 g PO DAILY PRN (Reason: constipation) Qty: 100 1RF sucralfate 1 gram tablet 1 g PO TIDWM Qty: 90 1RF Jardiance 10 mg tablet 10 mg PO QAM Qty: 90 3RF (DME) BD AutoShield Duo Pen Needle 30 gauge x 3/16 needle See Rx Instructions .Route Qty: 100 0RF Rx Instructions: As directed oxycodone 5 mg Tablet 10 mg PO Q4H PRN (Reason: Pain Rated 7-10) Qty: 24 0RF Follow-up/Referrals: Yumiko,DOM Juarez [Primary Care Provider, Unknown] Time of Disposition: 17:19
[2025-01-24 17:27] LABS: Alveolar/Arterial O2 Gradient 57.0 mmHg; Fractional Inspired Oxygen 28 %; HCO3 ABG 29.0 mEq/l (22.0-26.0); Oxygen Content ABG 19.4 %vol (16.0-22.0); Oxygen Saturation ABG 96.4 % (95.0-100.0); PCO2 ABG 48.0 mmHg (35.0-45.0); PO2 ABG 86.0 mmHg (80.0-100.0); PO2 FiO2 Ratio Arterial Blood 3.07 %
[2025-01-24 17:28] LABS: Modified Allen's Test Pass; Site Drawn RIGHT RADIAL
[2025-01-24 17:29] LABS: Liters per Minute 2.0 LPM
--- NOTE | 2025-01-24 17:30 | PC.NURSE ---
Katalina pt daughter updated on pt condition.
--- NOTE | 2025-01-24 18:11 | PM.IMHP ---
H&P: HPI History of Present Illness Date/Time: 01/24/25 18:11 Chief Complaint: AMS Narrative: 79 y/o F with PMH of DM2 with peripheral neuropathy, chronic pain disorder, hepatitis C, CVA w/residual right sided deficits, LANA noncompliant with CPAP, TIA, anxiety, hyperlipidemia, gout, GERD, and hypertension presents here with altered mental status. The patient presents here from [facility] on 01/24 for further evaluation of altered mental status. HPI obtained through patient report, EMS report, and chart review. Per EMS, the facility reported that the patient was A&O x1 and has a baseline of A&O x3. Disorientation was noted today at the facility. They also reported she has been recently treated for UTI. Upon evaluation in the emergency department, the patient was found to be A&O x3 but somnolent. The patient currently reports abdominal discomfort, urinary frequency, dysuria, speech changes, and fatigue. She describes the pain as periumbilical, achy, and intermittent. She reports the speech changes have occurred over the last few days. She reports a history of dysphagia. Denies nausea, vomiting, diarrhea, focal weakness, focal numbness, changes in vision. Does not note any dizziness or balance disturbance, however uses a wheelchair and a lift for mobility. She does report a history of a CVA with right-sided deficits. Initial VS at presentation: 97.6? F, HR 58, RR 20, 113/57, and 91% on RA. Now on 2L nasal cannula. ED workup showed: No leukocytosis, no anemia, normal coags, ABG showed a CO2 of 48.0 (previously 47.7 in 2022), no significant electrolyte derangements, creatinine 0.73 and GFR >60, magnesium 1.4, AST 94 and ALT 63 (similar and November and December of 2024), initial troponin negative, procalcitonin 0.1, and UA showed 2+ glucose, trace ketones, 1+ leuk esterase, and 11-[address] showed no acute intracranial abnormality. CXR showed no acute cardiopulmonary disease. Knee XR (R) showed severe degenerative changes in the patellofemoral joint. CT of the abdomen/pelvis showed a her a moderate amount of stool, no evidence of an acute process in the abdomen or pelvis, severe compression fractures of the T12 and L2 vertebral bodies, small reticular and patchy opacities scattered throughout the visualized lungs, and cholecystectomy. Review of Systems Review of Systems: All systems reviewed & are unremarkable except as noted in HPI and below PMFSH Past Medical History Medical History (Updated 01/24/25 @ 20:49 by Anna Man APRN) CVA (cerebral vascular accident) Unspecified fracture of third thoracic vertebra, subsequent encounter for fracture with routine healing Wedge compression fracture of fourth thoracic vertebra, subsequent encounter for fracture with routine healing Type 2 diabetes mellitus without complications Other spondylosis, cervical region Chronic pain disorder Diabetic peripheral neuropathy Hepatitis C Chronic neck pain with history of cervical spinal surgery Obstructive sleep apnea Refuses CPAP TIA (transient ischemic attack) Anxiety Hyperlipidemia Gout Arthritis GERD (gastroesophageal reflux disease) Hypertension Diabetes mellitus Insulin-dependent Surgical History Surgical History History of augmentation of both breasts With bilateral ruptured implants noted on imaging 04/2023 History of kyphoplasty (~12/2022) Hx of cholecystectomy Family History Family History Grandparent Acute myocardial infarction Father Acute myocardial infarction Parkinson disease Diabetes mellitus Hypertension Cerebrovascular accident Mother Diabetes mellitus Lung cancer Hypertension Depression Sibling Diabetes mellitus Cirrhosis Alcoholism Cervical cancer Hypertension Social History Social History Social History: She previously lived in her own home. Her granddaughter lived with her and helped provide care. She had 2 sons but 1 is . The she ambulates via walker boot and stands to transfer. She denies any history of excessive alcohol use and only briefly smoked tobacco at a young age. She denies any drug history. Never . Code status: DNR/DNI (per patient request and listed per NH documentation); POLST signed 12/06/24 confirms No CPR (DNAR with comfort focused treatment) Surrogate decision maker: Son Years smoked: 3 Smoking status: Former smoker Tobacco type: cigarettes Alcohol intake: never Drinks per week: 1 Substance use: never Substance use type: does not use Do You Feel Safe in your Home?: Yes Lack of Transportation: No Lack of Food: Never True Current Housing: I Have Housing Concerned About Future Housing: No Difficulty Paying Gas/Electric Bills: No Difficulty Paying for Meds: No Currently Unemployed: No Education: High School Diploma/GED Difficulty w/ Childcare or Family Care: No Living arrangements: alf Additional living arrangements comments: Karen Tenorio of [place] since 12/06/24 Occupation/Education: retired 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5 mg tablet 0.5 mg PO HS #90 tabs 01/15/24 01/24/25 Rx blood-glucose sensor (FreeStyle #1 ea 03/23/24 01/24/25 Rx Leatha 3 Plus Sensor device) insulin degludec 100 unit/mL (3 See Rx Instructions .Route 06/01/24 01/24/25 Rx mL) subcutaneous pen (Tresiba .COMPLEX #15 mL FlexTouch U-100 insulin) allopurinol 300 mg tablet 300 mg PO DAILY #90 tabs 06/24/24 01/24/25 Rx alpha lipoic acid 200 mg capsule 200 mg PO DAILY #90 caps 06/24/24 01/24/25 Rx amlodipine 5 mg tablet 10 mg (2 x 5 mg) PO DAILY #180 tabs 06/24/24 01/24/25 Rx aripiprazole 5 mg tablet 5 mg PO DAILY #90 tabs 06/24/24 01/24/25 Rx aspirin 325 mg tablet 325 mg PO DAILY #90 tabs 06/24/24 01/24/25 Rx atorvastatin 20 mg tablet 20 mg PO DAILY #90 tabs 06/24/24 01/24/25 Rx calcitriol 0.5 mcg capsule 0.5 mcg PO DAILY #90 caps 06/24/24 01/24/25 Rx citalopram 20 mg tablet 20 mg PO DAILY #90 tabs 06/24/24 01/24/25 Rx dicyclomine 10 mg capsule 10 mg PO TID #90 caps 06/24/24 01/24/25 Rx docusate sodium 100 mg capsule 100 mg PO DAILY PRN Constipation 06/24/24 01/24/25 Rx #90 caps ferrous sulfate 325 mg (65 mg 325 mg PO DAILY #90 tabs 06/24/24 01/24/25 Rx iron) tablet hydroxychloroquine 200 mg tablet 200 mg PO BID #180 tabs 06/24/24 01/24/25 Rx metformin 500 mg tablet,extended 500 mg PO BID #90 tabs 06/24/24 01/24/25 Rx release 24 hr metoprolol tartrate 50 mg tablet 50 mg PO BID #90 tabs 06/24/24 01/24/25 Rx omeprazole 40 mg capsule,delayed 40 mg PO DAILY #90 caps 06/24/24 01/24/25 Rx release polyethylene glycol 3350 17 gram 17 g PO DAILY PRN constipation 06/24/24 01/24/25 Rx oral powder packet (Miralax) #100 ea sucralfate 1 gram tablet 1 g PO TIDWM #90 tabs 06/24/24 01/24/25 Rx pen needle,diabetic dual safty 30 #100 ea 07/12/24 01/24/25 Rx gauge x 3/16 (BD AutoShield Duo Pen Needle) losartan 25 mg tablet 25 mg PO DAILY 11/30/24 01/24/25 History pregabalin 50 mg capsule 150 mg PO DAILY 11/30/24 01/24/25 History primidone 125 mg tablet 250 mg PO QID 11/30/24 01/24/25 History carboxymethylcellulose sodium 1 % 1 drp EACH EYE Q4H PRN dry eye(s) 01/24/25 01/24/25 History eye drops (Artificial Tears (carboxymethylcellulose)) cholecalciferol (vitamin D3) 25 1,000 unit PO DAILY 01/24/25 01/24/25 History mcg (1,000 unit) chewable tablet dapagliflozin propanediol 10 mg 10 mg PO DAILY 01/24/25 01/24/25 History tablet (Farxiga) Allergies Allergy/AdvReac Type Severity Reaction Status Date / Time ezetimibe Allergy Unknown Verified 11/30/24 03:31 gabapentin AdvReac Shakiness Verified 11/30/24 03:31 Vital Signs Vital Signs - 24 hr 01/24/25 13:30 01/24/25 13:33 01/24/25 13:34 Temperature 97.6 F Pulse Rate 58 L 60 59 L Respiratory Rate 20 19 14 Blood Pressure 113/57 L 113/57 L Pulse Oximetry 91 100 94 Oxygen Delivery Room Air Oxygen Flow Rate 01/24/25 13:40 01/24/25 13:40 01/24/25 13:45 Temperature Pulse Rate 58 L 59 L Respiratory Rate 18 Blood Pressure Pulse Oximetry 90 95 Oxygen Delivery Room Air Oxygen Flow Rate 01/24/25 13:46 01/24/25 13:49 01/24/25 14:00 Temperature Pulse Rate 59 L 58 L Respiratory Rate 17 15 Blood Pressure 110/65 Pulse Oximetry 97 97 97 Oxygen Delivery Nasal Cannula Oxygen Flow Rate 2 01/24/25 14:01 01/24/25 14:15 01/24/25 14:16 Temperature Pulse Rate 58 L 59 L 59 L Respiratory Rate 18 21 H 19 Blood Pressure 109/60 117/73 Pulse Oximetry 97 97 100 Oxygen Delivery Oxygen Flow Rate 01/24/25 14:30 01/24/25 14:31 01/24/25 14:45 Temperature Pulse Rate 62 59 L 64 Respiratory Rate 21 H 21 H 22 H Blood Pressure 119/72 Pulse Oximetry 97 Oxygen Delivery Oxygen Flow Rate 01/24/25 15:00 01/24/25 15:15 01/24/25 15:30 Temperature Pulse Rate 60 56 L 57 L Respiratory Rate 23 H 20 20 Blood Pressure Pulse Oximetry 100 98 Oxygen Delivery Oxygen Flow Rate 01/24/25 15:45 01/24/25 16:00 01/24/25 16:26 Temperature Pulse Rate 57 L 57 L 57 L Respiratory Rate 20 20 16 Blood Pressure Pulse Oximetry 97 98 99 Oxygen Delivery Oxygen Flow Rate 01/24/25 16:30 01/24/25 16:45 01/24/25 16:46 Temperature Pulse Rate 56 L 59 L 57 L Respiratory Rate 17 16 16 Blood Pressure 139/82 Pulse Oximetry 100 97 Oxygen Delivery Oxygen Flow Rate 01/24/25 17:00 01/24/25 17:01 01/24/25 17:15 Temperature Pulse Rate 57 L 57 L 55 L Respiratory Rate 18 19 19 Blood Pressure 128/54 L Pulse Oximetry 96 Oxygen Delivery Oxygen Flow Rate 01/24/25 17:16 01/24/25 17:30 01/24/25 17:31 Temperature Pulse Rate 55 L 56 L 57 L Respiratory Rate 17 20 18 Blood Pressure 133/64 111/81 Pulse Oximetry 94 95 Oxygen Delivery Oxygen Flow Rate 01/24/25 17:48 01/24/25 18:00 01/24/25 18:01 Temperature Pulse Rate 56 L 55 L 55 L Respiratory Rate 17 18 19 Blood Pressure 135/117 H 143/69 H Pulse Oximetry 94 96 Oxygen Delivery Oxygen Flow Rate Exam Const: General: comfortable and no acute distress Other: , female, elderly, nontoxic appearance HENMT: Face/Nose/Sinus: Normal nares present Mouth: Yes dry mucous membranes Eyes: General: appearance normal, both eyes and all related structures Sclera: sclerae normal Pupils: Equal, round and reactive pupils present Other: Leftward gaze slightly diminished but able to cross midline. Resp: Effort & Inspection: normal respiratory effort Auscultation: clear to auscultation bilaterally Cardio: Rate: regular rate Rhythm: regular rhythm Other: S1-S2 present without murmur, rub, ectopy GI: Other: Abdomen soft, nondistended. Mild tenderness in the lower quadrants, more so in the suprapubic region. Normoactive bowel sounds in all quadrants. Skin: General skin exam: normal color and no rashes or lesions noted Wounds: no wounds Neuro: Other: RLE numbness, able to produce some muscle contraction to the right lower extremity otherwise no effort made to lift leg off the bed. Some movement against gravity in the left lower extremity but unable to lift off bed. Left arm unable to lift off bed but muscle contraction noted. RUE with mild ataxia, missed nose but able to tap finger correctly. Leftward gaze slightly diminished but able to cross midline. No facial droop. +dysarthria with slow speech toya. A/Ox3, poor situational history given. Extrem: General: normal to inspection Psych: Mental Status: mental status grossly normal Affect: normal affect Other: Fair to poor insight and judgment, pleasant H&P: Results Labs Labs: Short CBC 01/24/25 Range/Units 15:07 WBC 8.0 (4.5-10.0) K/mm3 Hgb 13.8 (12.0-15.0) g/dL Hct 42.2 (37.0-47.0) % Plt Count 184 (150-375) k/mm3 BMP 01/24/25 15:07 Sodium 139 Potassium 3.9 Chloride 101 Carbon Dioxide 30 BUN 17 Creatinine 0.73 Glucose 105 Calcium 9.5 Cardiac Enzymes 01/24/25 Range/Units 15:07 Troponin I < 0.012 (0.000-0.034) ng/mL Liver Function 01/24/25 Range/Units 15:07 Total Bilirubin 0.4 (0.2-1.3) mg/dL AST 94 H (14-36) U/L ALT 63 H (6-35) U/L Alkaline Phosphatase 180 H (38-126) U/L Albumin 3.7 (3.5-5.1) g/dL Urine 01/24/25 Range/Units 15:06 Urine Color Yellow (Yellow) Urine Appearance Clear (Clear) Urine pH 6.0 (5.0-9.0) Ur Specific [place] 1.014 (1.001-1.035) Urine Protein Negative (Negative) mg/dL Urine Glucose (UA) 2+ H (Negative) mg/dL Assessment and Plan Assessment and plan (1) Altered mental status: Qualifiers: Altered mental status type: disorientation Qualified Code(s): R41.0 - Disorientation, unspecified Code(s): R41.82 - Altered mental status, unspecified Status: Acute Assessment and Plan: Concern for altered mental status, facility reported patient was A&O x1. Arrived A&O x3, baseline, and was A&O x3 upon assessment. Head CT was unremarkable. Patient remains somnolent, does have recent history of UTI. UA showing mild indicators of continued infection. No leukocytosis. Will continue antibiotics for UTI and urine culture obtained, pending. Patient now reporting dysarthria for the past few days, no clear onset or last known well known. Patient had difficulty describing symptoms and differentiating between her previous stroke symptoms that she reports left her with right-sided deficits and new symptoms -> see dysarthria section. - neuro checks q.6 - ceftriaxone for possible UTI - monitor WBC - monitor for clinical improvement (2) Dysarthria: Code(s): R47.1 - Dysarthria and anarthria Status: Acute Assessment and Plan: New dysarthria and slow speech toya that is developed of the last few days, no known last known well or specific onset. Reported history of right-sided deficits secondary to a CVA. Exam significant for dysarthria, slow speech toya, numbness to the right lower extremity, and significant weakness in all extremities. Possible gaze palsy, leftward gaze able to cross midline but cannot go fully to the left. - admission for observation and telemetry - not candidate for thrombolytics or thrombectomy as she has no clear time frame of symptoms - neurology consulted - brain MRI w/wo ordered - echo w/Bubble ordered - neuro checks Q4 - PT/OT/ST to eval and treat - monitor daily labs, check lipid panel and A1C - fall precautions - increased Atorvastatin from 20 mg to 40 mg PO daily - will hold off on starting Plavix as she is on a higher dose of aspirin - continue ASA 325 mg, home dose (3) Abnormal urinalysis: Code(s): R82.90 - Unspecified abnormal findings in urine Status: Acute Assessment and Plan: - UA: 2+ glucose, trace ketones, 1+ leuk esterase, 11-20 WBC, no epithelial cells or bacteria - UC pending, follow-up - previous micro reviewed, no previous resistances - started on Ceftriaxone on 01/24 - IV fluids: LR 100 mL/hr x1L (4) Diabetes mellitus: Qualifiers: Diabetes mellitus complication detail: with polyneuropathy Diabetes mellitus complication status: with neurologic complications Diabetes mellitus manager terminal insulin use: with halfway use Diabetes mellitus type: type 2 Qualified Code(s): E11.42 - Type 2 diabetes mellitus with diabetic polyneuropathy; Z79.4 - correction (current) use of insulin Code(s): E11.9 - Type 2 diabetes mellitus without complications Status: Chronic Assessment and Plan: - hypoglycemia protocol - POC blood glucose ACHS - home medication: Continue Farxiga. Hold Tresiba and metformin. Start Lantus 19 units HS based off BMI/type 2 history. - correct regimen ordered - high dose TIDWM, based off BMI - A1C 6.6% on 11/30/2024 (5) Hyperlipidemia: Qualifiers: Hyperlipidemia type: unspecified Qualified Code(s): E78.5 - Hyperlipidemia, unspecified Code(s): E78.5 - Hyperlipidemia, unspecified Status: Chronic Assessment and Plan: - due to concern for stroke increasing atorvastatin 20 mg to 40 mg daily (6) Hypertension: Qualifiers: Hypertension type: primary hypertension Qualified Code(s): I10 - Essential (primary) hypertension Code(s): I10 - Essential (primary) hypertension Status: Chronic Assessment and Plan: - chronic, currently 143/69, stable. - continue home medications: Amlodipine 10 mg daily, losartan 25 mg daily, metoprolol 50 mg b.i.d. - monitor Plan Diet: Diabetic GI Prophylaxis: n/a DVT Prophylaxis: SCDs IV fluids: 100 mL/hr x1L Lines/Tubes: Peripheral IV Code Status: DNR Quality VTE Prophylaxis VTE prophylaxis: mechanical ordered Hospitalist MIPS Advance Care Plan I have confirmed that the patient's Advanced Care Plan is present, code status is documented, or surrogate decision maker is listed in patient medical record.: Yes Medication Reconciliation I have utilized all available resources to obtain, update and review the patients current medications (includes all prescriptions, OTC, herbals, cannabis, and nutritional supplements).: Yes
[2025-01-24] MEDS: cefTRIAXone 2 GM in SODIUM CHLORIDE 0.9% IV 100 ML 200 ML IVPB (18:37)
[2025-01-24] MEDS: LACTATED RINGERS 1,000 ML 100 ML IV CONT (22:27)
[2025-01-24] MEDS: clonazePAM (*CRX) 0.5 MG TABLET PO (22:30)
[2025-01-24] MEDS: INSULIN GLARGINE (*BKC) 100 UNITS/ML 19 UNITS SUB-Q (22:30)
[2025-01-24] MEDS: PRIMIDONE 250 MG TABLET PO (22:30)
[2025-01-25] VITALS (15 sets, daily range): BP systolic 122–143; BP diastolic 58–77; PULSE 51–64; RESP 16–20; TEMP 36.1–36.6; O2SAT 97–100
[2025-01-25 05:20] LABS: Hematocrit 41.1 % (37.0-47.0); Hemoglobin 13.6 g/dL (12.0-15.0); Immature Granulocyte Percent A 0.2 % (0-0.5); Lymphocytes Absolute Auto 2.32 K/mm3 (0.9-3.2); Mean Corpuscular HGB Conc 33.1 g/dl (32-36); Mean Corpuscular Hemoglobin 33.7 pg (26-34); Mean Corpuscular Volume 101.7 fl (80-100); Nucleated Red Blood Cells Absolute Auto 0.000 K/mm3 (0.0-0.012); Nucleated Red Blood Cells Perc 0.0 % (0.0-0.2); Platelet Count Result 184 k/mm3 (150-375); Red Blood Count 4.04 M/mm3 (4.2-5.4); White Blood Count 6.7 K/mm3 (4.5-10.0)
[2025-01-25 05:42] LABS: Anion Gap 6 mmol/L (4-12); Blood Urea Nitrogen 18 mg/dL (7-17); Calcium 9.5 mg/dL (8.4-10.2); Carbon Dioxide 30 mmol/L (22-30); Chloride 102 mmol/L (98-107); Cholesterol 122 mg/dL (0-200); Estimated CRCL calculation 63 ml/min; Estimated Glomerular Filt Rate > 60; Glucose 53 mg/dL (65-110); HDL Direct 40 mg/dL; Potassium 3.4 mmol/L (3.4-5.0); Sodium 138 mmol/L (137-145); Triglycerides 153 mg/dL (<150)
[2025-01-25] MEDS: GLUCOSE ORAL GEL 15 GM OF GLUCSE IN 37.5 GM TUBE PO (05:48)
[2025-01-25 05:49] LABS: Hemoglobin A1C 6.3 % (<5.7)
--- NOTE | 2025-01-25 05:50 | ECG_ITS ---
Test Date: 2025-01-25 06:01:31 Measurements Intervals [place] Rate: 58 P: 61 MI: 197 QRS: 2 QRSD: 113 T: 10 QT: 365 QTc: 361 Interpretive Statements SINUS BRADYCARDIA CONSIDER PREVIOUS INFERIOR INFARCTION NO SIGNIFICANT CHANGE Compared to ECG 01/24/2025 13:47:43 Myocardial infarct finding now present Electronically Signed On 01-25-2025 12:30:06 CDT by Kt Beckett M.D.
[2025-01-25] MEDS: DEXTROSE 50% 25 GM/50 ML SYRINGE IV PUSH (06:25)
--- NOTE | 2025-01-25 07:09 | PM.IMPN ---
Progress Note: A&P Assessment and Plan (1) Altered mental status: Qualifiers: Altered mental status type: disorientation Qualified Code(s): R41.0 - Disorientation, unspecified Code(s): R41.82 - Altered mental status, unspecified Status: Acute Assessment and Plan: -Concern for altered mental status, facility reported patient was A&O x1. Arrived A&O x3, somnolent. Improved to baseline this AM. - CT head no acute process - has prior history of CVA with residual R-sided deficits. - UA with concern for infection, management as below - CT mentions reticular opacities, but patient is afebrile without leukocytosis or cough, doubt pneumonia - neuro checks q.6 - ceftriaxone for possible UTI - monitor WBC - monitor for clinical improvement - CVA work-up as below (2) Dysarthria: Code(s): R47.1 - Dysarthria and anarthria Status: Acute Assessment and Plan: New dysarthria and slow speech toya that is developed of the last few days, no known last known well or specific onset. Reported history of right-sided deficits secondary to a CVA. Exam significant for dysarthria, slow speech toya, numbness to the right lower extremity, and significant weakness in all extremities. Possible gaze palsy, leftward gaze able to cross midline but cannot go fully to the left. - not candidate for thrombolytics or thrombectomy as she has no clear time frame of symptoms - neurology consulted - brain MRI w/wo ordered - echo w/Bubble ordered - neuro checks Q4 - PT/OT - ST recommended soft and bite sized (patient's previous diet) - monitor daily labs, check lipid panel and A1C - fall precautions - increased Atorvastatin from 20 mg to 40 mg PO daily - will hold off on starting Plavix as she is on a higher dose of aspirin - continue ASA 325 mg, home dose (3) Compression fracture: Status: Acute Assessment and Plan: - admit CT with severe compression fractures of T12, L2 - patient has prior history of compression fractures s/p vertebroplasty, but reporting increased back pain - MRI L-spine pending. May benefit from TLSO bracing. 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 Hold Tresiba and metformin. - patient had episode of hypoglycemia 01/25 AM. Lantus stopped. Switch to low dose SSI and monitor. - A1C 6.6% on 11/30/2024 (6) Hyperlipidemia: Qualifiers: Hyperlipidemia type: unspecified Qualified Code(s): E78.5 - Hyperlipidemia, unspecified Code(s): E78.5 - Hyperlipidemia, unspecified Status: Chronic Assessment and Plan: - due to concern for stroke, increased atorvastatin 20 mg to 40 mg daily (7) Hypertension: Qualifiers: Hypertension type: primary hypertension Qualified Code(s): I10 - Essential (primary) hypertension Code(s): I10 - Essential (primary) hypertension Status: Chronic Assessment and Plan: - chronic, currently 143/58, stable. - continue home medications: Amlodipine 10 mg daily, losartan 25 mg daily, metoprolol 50 mg b.i.d. - monitor (8) Elevated LFTs: Code(s): R79.89 - Other specified abnormal findings of blood chemistry Status: Acute Assessment and Plan: - AST 68, ALT 61, alk phos 105 - appear chronically elevated - consider holding statin if worsening Plan DVT Prophylaxis: SCDs Code Status: DNR Dispo: likely back to LTC Subjective Date/time seen: 01/25/25 07:09 Interval history: 79 y/o F with PMH of DM2 with peripheral neuropathy, chronic pain disorder, hepatitis C, CVA w/residual right sided deficits, LANA noncompliant with CPAP, TIA, anxiety, hyperlipidemia, gout, GERD, and hypertension presents here with altered mental status. Patient seen and examined at bedside. Patient alert and oriented x3-4 this AM with clear speech which seems improved from admission. Complaining of increased pain in her back. Review of Systems Review of Systems: All systems reviewed & are unremarkable except as noted in HPI and below Exam Narrative: General: NAD Eyes: EOMI ENT: neck supple Cardiovascular: Regular rate and rhythm Respiratory: Clear to auscultation, respirations even and unlabored on RA Gastrointestinal: Soft, non tender Genitourinary: no suprapubic tenderness Musculoskeletal: No edema, mild midline tenderness to palpation of lumbar spine Skin: warm, dry Neuro: Alert and oriented x4. Cranial nerves II-XII intact. Face symmetric. Speech clear. Strength difficult to assess due to poor effort, some movement against gravity of LUE/LLE, minimal movement against gravity of RUE/RLE. Psych: anxious, tearful Objective Data Vital Signs Vital Signs: Vital Signs - 24 hr 01/24/25 13:30 01/24/25 13:33 01/24/25 13:34 Temperature 97.6 F Pulse Rate 58 L 60 59 L Respiratory Rate 20 19 14 Blood Pressure 113/57 L 113/57 L Pulse Oximetry 91 100 94 Oxygen Delivery Room Air Oxygen Flow Rate 01/24/25 13:40 01/24/25 13:40 01/24/25 13:45 Temperature Pulse Rate 58 L 59 L Respiratory Rate 18 Blood Pressure Pulse Oximetry 90 95 Oxygen Delivery Room Air Oxygen Flow Rate 01/24/25 13:46 01/24/25 13:49 01/24/25 14:00 Temperature Pulse Rate 59 L 58 L Respiratory Rate 17 15 Blood Pressure 110/65 Pulse Oximetry 97 97 97 Oxygen Delivery Nasal Cannula Oxygen Flow Rate 2 01/24/25 14:01 01/24/25 14:15 01/24/25 14:16 Temperature Pulse Rate 58 L 59 L 59 L Respiratory Rate 18 21 H 19 Blood Pressure 109/60 117/73 Pulse Oximetry 97 97 100 Oxygen Delivery Oxygen Flow Rate 01/24/25 14:30 01/24/25 14:31 01/24/25 14:45 Temperature Pulse Rate 62 59 L 64 Respiratory Rate 21 H 21 H 22 H Blood Pressure 119/72 Pulse Oximetry 97 Oxygen Delivery Oxygen Flow Rate 01/24/25 15:00 01/24/25 15:15 01/24/25 15:30 Temperature Pulse Rate 60 56 L 57 L Respiratory Rate 23 H 20 20 Blood Pressure Pulse Oximetry 100 98 Oxygen Delivery Oxygen Flow Rate 01/24/25 15:45 01/24/25 16:00 01/24/25 16:26 Temperature Pulse Rate 57 L 57 L 57 L Respiratory Rate 20 20 16 Blood Pressure Pulse Oximetry 97 98 99 Oxygen Delivery Oxygen Flow Rate 01/24/25 16:30 01/24/25 16:45 01/24/25 16:46 Temperature Pulse Rate 56 L 59 L 57 L Respiratory Rate 17 16 16 Blood Pressure 139/82 Pulse Oximetry 100 97 Oxygen Delivery Oxygen Flow Rate 01/24/25 17:00 01/24/25 17:01 01/24/25 17:15 Temperature Pulse Rate 57 L 57 L 55 L Respiratory Rate 18 19 19 Blood Pressure 128/54 L Pulse Oximetry 96 Oxygen Delivery Oxygen Flow Rate 01/24/25 17:16 01/24/25 17:30 01/24/25 17:31 Temperature Pulse Rate 55 L 56 L 57 L Respiratory Rate 17 20 18 Blood Pressure 133/64 111/81 Pulse Oximetry 94 95 Oxygen Delivery Oxygen Flow Rate 01/24/25 17:48 01/24/25 18:00 01/24/25 18:01 Temperature Pulse Rate 56 L 55 L 55 L Respiratory Rate 17 18 19 Blood Pressure 135/117 H 143/69 H Pulse Oximetry 94 96 Oxygen Delivery Oxygen Flow Rate 01/24/25 19:22 01/24/25 20:02 01/25/25 00:00 Temperature 97 F L Pulse Rate 56 L 54 L 54 L Respiratory Rate 20 Blood Pressure 110/55 L Pulse Oximetry 99 Oxygen Delivery Oxygen Flow Rate 01/25/25 04:00 01/25/25 06:00 Temperature 97 F L Pulse Rate 53 L 54 L Respiratory Rate 18 Blood Pressure 122/77 Pulse Oximetry 100 Oxygen Delivery Oxygen Flow Rate Intake/Output Intake/Output: Intake & Output 01/22/25 01/23/25 01/24/25 01/25/25 23:59 23:59 23:59 23:59 Intake Total 150 250 Output Total 200 550 Balance -50 -300 Meds/Results Medications: Active Medications Generic Name Dose Route Start Last Admin Trade Name Freq PRN Reason Stop Dose Admin Acetaminophen 650 mg 01/24/25 20:56 Acetaminophen 325 Mg Tablet PO Q6H PRN Mild Pain (1-3) or Fever Hydrocodone Bitart/Acetaminophen 1 tab 01/24/25 20:56 Hydrocodone/Acetaminophen (*Crx) 10-325 Mg Tablet PO Q4H PRN Pain 4-6 Allopurinol 300 mg 01/25/25 09:00 Allopurinol 300 Mg Tablet PO DAILY [facility] Amlodipine Besylate 10 mg 01/25/25 09:00 Amlodipine Besylate 10 Mg Tablet PO DAILY [facility] Aripiprazole 5 mg 01/25/25 09:00 Aripiprazole 5 Mg Tablet PO DAILY [facility] Artificial Tears 1 drop 01/24/25 21:23 Artificial Tears Ophth Soln 15 Ml Bottle EACH EYE Q4H PRN dry eye(s) Aspirin 325 mg 01/25/25 09:00 Aspirin 325 Mg Tablet PO DAILY [facility] Calcitriol 0.5 mcg 01/25/25 09:00 Calcitriol 0.25 Mcg Capsule PO DAILY [facility] Citalopram Hydrobromide 20 mg 01/25/25 09:00 Citalopram Hydrobromide 20 Mg Tablet PO DAILY [facility] Clonazepam 0.5 mg 01/24/25 21:00 01/24/25 22:30 Clonazepam (*Crx) 0.5 Mg Tablet PO 0.5 mg HS [facility] Administration Dextrose 12.5 gm 01/24/25 18:36 Dextrose 50% 25 Gm/50 Ml Syringe IV PUSH PRN PRN Hypoglycemia Protocol Dicyclomine HCl 10 mg 01/25/25 09:00 Dicyclomine Hcl 10 Mg Capsule PO TID [facility] Docusate Sodium 100 mg 01/24/25 20:56 Docusate Sodium 100 Mg Capsule PO DAILY PRN Constipation Duloxetine HCl 40 mg 01/25/25 09:00 Duloxetine Hcl 20 Mg Capsule.Dr PO DAILY [facility] Empagliflozin 25 mg 01/25/25 09:00 Empagliflozin 25 Mg Tablet BY MOUTH DAILY [facility] Ferrous Sulfate 325 mg 01/25/25 09:00 Ferrous Sulfate 325 Mg Tablet BY MOUTH DAILY [facility] Folic Acid 1 mg 01/25/25 09:00 Folic Acid 1 Mg Tablet PO DAILY [facility] Glucagon 1 mg 01/24/25 18:36 Glucagon For Inj 1 Mg Vial IM PRN PRN Hypoglycemia Protocol Glucose 15 gm 01/24/25 18:36 01/25/25 05:48 Glucose Oral Gel 15 Gm Of Glucse In 37.5 Gm Tube PO 15 gm PRN PRN Administration Hypoglycemia Protocol Hydroxychloroquine Sulfate 200 mg 01/25/25 09:00 Hydroxychloroquine Sulfate 200 Mg Tablet PO BID [facility] Ceftriaxone Sodium 1 gm/ 50 mls @ 100 mls/hr 01/25/25 19:00 Sodium Chloride IVPB Q24H EMERITA Dextrose 1,000 mls @ 100 mls/hr 01/24/25 18:36 Dextrose 5% 1,000 Ml IVPB PRN PRN Hypoglycemia Protocol Losartan Potassium 25 mg 01/25/25 09:00 Losartan Potassium 25 Mg Tablet PO DAILY [facility] Metoprolol Tartrate 50 mg 01/25/25 09:00 Metoprolol Tartrate 50 Mg Tab PO Q12HR [facility] Nonformulary 1 each 01/24/25 21:24 Nutritional XX 01/25/25 21:23 Supplement (Alpha PRN PRN Lipoic Acid 200 Mg PROTOCOL Capsule) Oxycodone HCl 10 mg 01/24/25 20:56 Oxycodone Hcl (*Crx) 5 Mg Tab Ir PO Q4H PRN Pain Rated 7-10 Pantoprazole Sodium 40 mg 01/25/25 09:00 Pantoprazole 40 Mg Tablet PO Q12HR [facility] Perflutren Lipid Microsphere 0 ml 01/24/25 21:01 Perflutren Lipid Microspheres 1.5 Ml Vial Diluted To 10 Ml Total Volume IV PUSH 01/27/25 21:01 ONCE PRN adequate visualization Protocol Polyethylene Glycol 17 gm 01/24/25 20:56 Polyethylene Glycol 3350 17 Gm Powd.Pack PO DAILY PRN Constipation Pregabalin 150 mg 01/25/25 09:00 Pregabalin (*Crx) 75 Mg Capsule PO DAILY [facility] Primidone 250 mg 01/24/25 21:00 01/24/25 22:30 Primidone 250 Mg Tablet PO 250 mg QID [facility] Administration Sucralfate 1 gm 01/25/25 08:00 Sucralfate 1 Gm Tablet PO TIDWM [facility] Vitamin D 25 mcg 01/25/25 09:00 Cholecalciferol (Vitamin D3) 25 Mcg (1,000 Units) Tablet PO DAILY [facility] Radiology Results: ITS Impressions Head CT 01/24/25 16:26 IMPRESSION: 1. No acute intracranial abnormality. Chest X-Ray 01/24/25 16:29 Impression: 1: No acute cardiopulmonary disease. Knee X-Ray 01/24/25 16:31 IMPRESSION: 1. Severe degenerative change in the patellofemoral joint. If symptoms persist or worsen, consider a short-term follow-up study or MRI imaging for further assessment. Abdomen/Pelvis CT 01/24/25 16:[address]: 1[address] No [address] evidence for an acute process in the abdomen or pelvis at this time. 2. Moderate amount of stool. 3. Severe compression fractures of the T12 and L2 vertebral bodies. Correlate clinically. 4.There are a few small reticular and patchy opacities scattered throughout the visualized lungs. ] 5. Cholecystectomy. Labs Labs: Laboratory Results - last 24 hr 01/24/25 01/24/25 01/24/25 15:06 15:07 17:22 WBC 8.0 RBC 4.19 L Hgb 13.8 Hct 42.2 MCV 100.7 H MCH 32.9 MCHC 32.7 RDW 12.8 Plt Count 184 MPV 11.0 H Immature Gran % (Auto) 0.4 Neut % (Auto) 61.4 Lymph % (Auto) 24.0 [place] % (Auto) 9.3 H Eos % (Auto) 4.4 Baso % (Auto) 0.5 Lymph # (Auto) 1.91 [place] # (Auto) 0.7 H Eos # (Auto) 0.4 H Baso # (Auto) 0.0 Abs Immat Gran (auto) 0.03 Absolute Neuts (auto) 4.9 Absolute Nucleated RBC 0.000 Nucleated RBC % 0.0 PT 14.6 INR 1.1 APTT 27.3 Puncture Site Right radial ABG pH 7.399 ABG pCO2 48.0 H ABG pO2 86.0 ABG PO2/FiO2 Ratio 3.07 ABG HCO3 29.0 H ABG O2 Saturation 96.4 ABG O2 Content 19.4 ABG Base Excess 3.3 A-a Gradient 57.0 Oxyhemoglobin 94.5 Total Hemoglobin 14.6 O2 Delivery Device Nasal cannula O2 Liters/Min 2.0 FiO2 28 Sodium 139 Potassium 3.9 Chloride 101 Carbon Dioxide 30 Anion Gap 8 BUN 17 Creatinine 0.73 Estim Creat Clear Calc 66 Estimated GFR > 60 Glucose 105 POC Capillary Glucose Hemoglobin A1c Lactic Acid 1.6 Calcium 9.5 Magnesium 1.4 L Total Bilirubin 0.4 AST 94 H ALT 63 H Alkaline Phosphatase 180 H Troponin I < 0.012 Total Protein 7.3 Albumin 3.7 Triglycerides Cholesterol LDL Cholesterol Direct HDL Direct Lipase 60 Procalcitonin 0.1 Urine Color Yellow Urine Appearance Clear Urine pH 6.0 Ur Specific [place] 1.014 Urine Protein Negative Urine Glucose (UA) 2+ H Urine Ketones Trace H Ur Blood (Man) Negative Urine Nitrate Negative Urine Bilirubin Negative Urine Urobilinogen 0.2 Add Ur Microanalysis Reviewed Leukocyte Esterase Rfl 1+ H Urine RBC 0-2 Urine WBC 11-20 H Ur Squamous Epith Cells None seen Urine Bacteria None seen Urine Casts 6-10 01/25/25 01/25/25 01/25/25 05:00 05:01 06:05 WBC 6.7 RBC 4.04 L Hgb 13.6 Hct 41.1 MCV 101.7 H MCH 33.7 MCHC 33.1 RDW 12.7 Plt Count 184 MPV 11.1 H Immature Gran % (Auto) 0.2 Neut % (Auto) 49.6 Lymph % (Auto) 34.9 [place] % (Auto) 9.5 H Eos % (Auto) 5.3 H Baso % (Auto) 0.5 Lymph # (Auto) 2.32 [place] # (Auto) 0.6 Eos # (Auto) 0.4 H Baso # (Auto) 0.0 Abs Immat Gran (auto) 0.01 Absolute Neuts (auto) 3.3 Absolute Nucleated RBC 0.000 Nucleated RBC % 0.0 PT INR APTT Puncture Site ABG pH ABG pCO2 ABG pO2 ABG PO2/FiO2 Ratio ABG HCO3 ABG O2 Saturation ABG O2 Content ABG Base Excess A-a Gradient Oxyhemoglobin Total Hemoglobin O2 Delivery Device O2 Liters/Min FiO2 Sodium 138 Potassium 3.4 Chloride 102 Carbon Dioxide 30 Anion Gap 6 BUN 18 H Creatinine 0.66 L Estim Creat Clear Calc 63 Estimated GFR > 60 Glucose 53 L* POC Capillary Glucose 55 L* Hemoglobin A1c 6.3 H Lactic Acid Calcium 9.5 Magnesium Total Bilirubin AST ALT Alkaline Phosphatase Troponin I Total Protein Albumin Triglycerides 153 H Cholesterol 122 LDL Cholesterol Direct 43 HDL Direct 40 Lipase Procalcitonin Urine Color Urine Appearance Urine pH Ur Specific [place] Urine Protein Urine Glucose (UA) Urine Ketones Ur Blood (Man) Urine Nitrate Urine Bilirubin Urine Urobilinogen Add Ur Microanalysis Leukocyte Esterase Rfl Urine RBC Urine WBC Ur Squamous Epith Cells Urine Bacteria Urine Casts 01/25/25 06:38 WBC RBC Hgb Hct MCV MCH MCHC RDW Plt Count MPV Immature Gran % (Auto) Neut % (Auto) Lymph % (Auto) [place] % (Auto) Eos % (Auto) Baso % (Auto) Lymph # (Auto) [place] # (Auto) Eos # (Auto) Baso # (Auto) Abs Immat Gran (auto) Absolute Neuts (auto) Absolute Nucleated RBC Nucleated RBC % PT INR APTT Puncture Site ABG pH ABG pCO2 ABG pO2 ABG PO2/FiO2 Ratio ABG HCO3 ABG O2 Saturation ABG O2 Content ABG Base Excess A-a Gradient Oxyhemoglobin Total Hemoglobin O2 Delivery Device O2 Liters/Min FiO2 Sodium Potassium Chloride Carbon Dioxide Anion Gap BUN Creatinine Estim Creat Clear Calc Estimated GFR Glucose POC Capillary Glucose 186 H Hemoglobin A1c Lactic Acid Calcium Magnesium Total Bilirubin AST ALT Alkaline Phosphatase Troponin I Total Protein Albumin Triglycerides Cholesterol LDL Cholesterol Direct HDL Direct Lipase Procalcitonin Urine Color Urine Appearance Urine pH Ur Specific [place] Urine Protein Urine Glucose (UA) Urine Ketones Ur Blood (Man) Urine Nitrate Urine Bilirubin Urine Urobilinogen Add Ur Microanalysis Leukocyte Esterase Rfl Urine RBC Urine WBC Ur Squamous Epith Cells Urine Bacteria Urine Casts Quality VTE Prophylaxis VTE prophylaxis: mechanical ordered
[2025-01-25 08:12] LABS: Magnesium 1.9 mg/dL (1.6-2.3)
[2025-01-25] MEDS: SUCRALFATE 1 GM TABLET PO ×3 (09:34→17:00)
[2025-01-25] MEDS: HYDROXYCHLOROQUINE SULFATE 200 MG TABLET PO ×2 (09:35→17:00)
[2025-01-25] MEDS: CHOLECALCIFEROL (VITAMIN D3) 25 MCG (1,000 UNITS) TABLET PO (09:35)
[2025-01-25] MEDS: DICYCLOMINE HCL 10 MG CAPSULE PO ×3 (09:35→17:00)
[2025-01-25] MEDS: ASPIRIN 325 MG TABLET PO (09:35)
[2025-01-25] MEDS: CITALOPRAM HYDROBROMIDE 20 MG TABLET PO (09:35)
[2025-01-25] MEDS: EMPAGLIFLOZIN 25 MG TABLET BY MOUTH (09:36)
[2025-01-25] MEDS: PANTOPRAZOLE 40 MG TABLET PO ×2 (09:36→23:13)
[2025-01-25] MEDS: FOLIC ACID 1 MG TABLET PO (09:36)
[2025-01-25] MEDS: METOPROLOL TARTRATE 50 MG TAB PO ×2 (09:36→23:26)
[2025-01-25] MEDS: LOSARTAN POTASSIUM 25 MG TABLET PO (09:37)
[2025-01-25] MEDS: PRIMIDONE 250 MG TABLET PO ×4 (09:37→23:27)
[2025-01-25] MEDS: PREGABALIN (*CRX) 75 MG CAPSULE 150 MG PO (09:37)
[2025-01-25] MEDS: FERROUS SULFATE 325 MG TABLET BY MOUTH (09:37)
--- NOTE | 2025-01-25 10:18 | PCSTNOTE ---
Please refer to the Bedside Swallow Evaluation in the EMR. Please note, silent aspiration cannot be ruled out at bedside.
--- NOTE | 2025-01-25 12:08 | PCPTNOTE ---
Pending MRI for 2 compression fxs. Waiting to see results and if pt needs TLSO prior to mobilizing pt. Nursing aware. Will follow.
--- NOTE | 2025-01-25 13:16 | PC.NURSE ---
On 01/25/25, the student, [Maria G Waters], provided care and completed [facility] documentation on this patient. I have reviewed the student's documentation and agree with the findings.
--- NOTE | 2025-01-25 14:41 | WNDPHOTO ---
PHOTO ONLY - See Nursing Notes and/ or assessments for documentation.
[2025-01-25] MEDS: cefTRIAXone 1 GM in SODIUM CHLORIDE 0.9% IV 50 ML 100 ML IVPB (18:06)
--- NOTE | 2025-01-25 21:01 | ECHO_ITS ---
Patient Info Name: Oralia Epps Age: 79 years : 1945 Gender: Female Ht: 65 in Wt: 170 lbs BSA: 1.90 m2 HR: 53 bpm BP: 110 / 55 mmHg Technical Quality: Good Exam Date: 01/25/2025 3:57 PM Patient Status: I Admit Date: 01/25/2025 Exam Type: CA echo doppler w bubble study Complete two-dimensional, color flow and Doppler transthoracic echocardiogram is performed with agitated saline. Staff Referring Physician: Aga Walton [employer] Maintenance Technician: Farshad Barnett III Attending Provider: Sanket Ingram Contrast/Agitated Saline Contrast/Ag. Saline: Agitated Saline Amount: 12.00 ml Existing IV Access: Yes IV Access Condition: patent with no signs of infiltration Summary 1. Left ventricular systolic function is normal, estimated at 65-70. 2. There is mildly increased left ventricular wall thickness. 3. The left ventricular diastolic function is abnormal. 4. Negative bubble study. 5. There is trace mitral valve regurgitation. Left Ventricle Left ventricular chamber dimension is normal. Left ventricular systolic function is normal, estimated at 65-70. There is mildly increased left ventricular wall thickness. Left ventricular septal wall motion is normal. The left ventricular diastolic function is abnormal. Right Ventricle Right ventricular chamber dimension is normal. Right ventricular systolic function is normal. Left Atria Left atrial chamber dimension is normal. Right Atria Right atrial chamber dimension is normal. Aortic Valve The aortic valve is trileaflet. There is mild aortic valve sclerosis. There is no aortic valve stenosis. There is no aortic valve regurgitation. Pulmonic Valve The pulmonic valve is normal. There is no pulmonic valve stenosis. There is no pulmonic regurgitation. Mitral Valve The mitral valve has normal leaflets. There is no mitral valve stenosis. There is trace mitral valve regurgitation. Tricuspid Valve The tricuspid valve leaflets are normal. There is no significant tricuspid valve stenosis. There is no tricuspid valve regurgitation. Pericardium/Pleural The pericardium appears normal. There is no pericardial effusion. Inferior Vena Cava Normal inferior vena cava with >50% collapse upon inspiration consistent with normal right atrial pressure, 5 mmHg. Aorta The aortic root size at the sinus of Valsalva is normal. The prox ascending aorta size is normal. Left Ventricular Outflow Tract Name Value Normal LVOT 2D LVOT Diameter 2.0 cm LVOT Doppler LVOT Peak Velocity 83 cm/s LVOT Peak Gradient 3 mmHg LVOT Mean Gradient 1 mmHg LVOT VTI 20 cm LVOT VTI/AV VTI Ratio 0.9 LVOT Stroke Volume 67 ml LVOT CO 10.6 l/min LVOT CI 5.6 l/min/m2 Pulmonic Valve Name Value Normal PV Doppler PV Peak Velocity 85 cm/s PV Peak Gradient 3 mmHg PV Mean Gradient 2 mmHg Mitral Valve Name Value Normal MV Doppler MV Peak Gradient 3 mmHg MV Mean Gradient 1 mmHg MV Area (Cont Eq VTI) 2.4 cm2 MV Diastolic Function MV E Peak Velocity 81 cm/s MV A Peak Velocity 77 cm/s MV E/A 1.1 MV Decel Time (PW) 181 ms MV Annular TDI MV E/e' (Septal) 12.7 MV E/e' (Lateral) 11.6 MV E/e' (Average) 12.2 Tricuspid Valve Name Value Normal Estimated PAP/RSVP RA Pressure 5 mmHg <=5 TV Annular TDI TV Lateral Luna s' Velocity 13.5 cm/s >=9.5 Aortic Valve Name Value Normal AV Doppler AV Peak Velocity 97 cm/s AV Peak Gradient 4 mmHg AV Mean Gradient 2 mmHg AV VTI 23 cm AV Area (Cont Eq VTI) 2.9 cm2 >=3.0 AV Area (Cont Eq Woody) 2.8 cm2 AV DI (Woody) 0.85 AV Regurgitation 2D LVOT Area 3.3 cm2 Ventricles Name Value Normal LV Dimensions 2D/MM IVS Diastolic Thickness (2D) 1.0 cm 0.6-1.0 LVID Diastole (2D) 4.4 cm 3.8-5.2 LVIW Diastolic Thickness (2D) 1.1 cm 0.6-0.9 LVID Systole (2D) 3.4 cm 2.2-3.5 LVOT Diameter 2.0 cm LV Mass (2D Cubed) 158.94 g 67.00-162.00 LV Mass Index (2D Cubed) 84 g/m2 43-95 Relative Wall Thickness (2D) 0.51 <=0.42 LV Fractional Shortening/Ejection Fraction 2D/MM LV Fractional Shortening (2D) 24 % 27-45 LV EF (2D Teichholz) 47 % LV Diastolic Volume (4C MOD) 57 ml LV EF (4C MOD) 63 % LV Diastolic Volume (2C MOD) 49 ml LV EF (2C MOD) 60 % LV Diastolic Volume (BP MOD) 53 ml 46-106 LV Diastolic Volume Index (BP MOD) 28 ml/m2 29-61 LV Systolic Volume (BP MOD) 20 ml 14-42 LV Systolic Volume Index (BP MOD) 11 ml/m2 8-24 LV EF (BP MOD) 61 % 54-74 LV Diastolic Length (4C) 8.1 cm LV Systolic Length (4C) 6.7 cm LV Stroke Volume (4C MOD) 36 ml Atria Name Value Normal LA Dimensions LA Volume (4C A-L) 50 ml LA Volume (BP A-L) 53 ml RA Dimensions RA Systolic Major [place] Length (4C) 5.0 cm 2.2-2.8 RA Area (4C) 19.0 cm2 <=18.0 Report Signatures
--- NOTE | 2025-01-25 23:00 | PC.NURSE ---
Anna TRIANA notified pt was very difficult to rouse from sleep, required x3 deep pressure sternal rubs to maintain awake/alert. Pt speech delayed and mostly inappropriate verbal responses, AOxself only. No signs of focal deficit, BG 132, vitals WNL. Order to hold Klonopin this evening, no additional orders
[2025-01-26] VITALS (13 sets, daily range): BP systolic 127–142; BP diastolic 58–81; PULSE 49–97; RESP 16–20; TEMP 36.5–36.6; O2SAT 97–100
[2025-01-26 05:33] LABS: Alanine Aminotransferase 78 U/L (6-35); Albumin Level 3.7 g/dL (3.5-5.1); Alkaline Phosphatase 182 U/L (38-126); Anion Gap 7 mmol/L (4-12); Aspartate Amino Transferase 133 U/L (14-36); Bilirubin,Total 0.3 mg/dL (0.2-1.3); Blood Urea Nitrogen 16 mg/dL (7-17); Calcium 9.6 mg/dL (8.4-10.2); Carbon Dioxide 28 mmol/L (22-30); Chloride 103 mmol/L (98-107); Estimated CRCL calculation 64 ml/min; Estimated Glomerular Filt Rate > 60; Glucose 126 mg/dL (65-110); Potassium 3.7 mmol/L (3.4-5.0); Sodium 138 mmol/L (137-145); Total Protein 7.3 g/dL (6.3-8.2)
--- NOTE | 2025-01-26 07:23 | P.PNIM_ITS ---
Progress Note: A&P Assessment and Plan (1) Altered mental status: Qualifiers: Altered mental status type: disorientation Qualified Code(s): R41.0 - Disorientation, unspecified Code(s): R41.82 - Altered mental status, unspecified Status: Acute Assessment and Plan: * Concern for altered mental status, facility reported patient was A&O x1. Arrived A&O x3, somnolent. Improved to baseline this AM. * CT head no acute process * has prior history of CVA with residual R-sided deficits. * UA with concern for infection, management as below * CT mentions reticular opacities, but patient is afebrile without leukocytosis or cough, doubt pneumonia * neuro checks q.6 * ceftriaxone for possible UTI * monitor WBC, clinical improvement * CVA work-up as below * Brain MRI: Stable moderate nonspecific cerebral white matter disease, which likely represents chronic small vessel ischemic disease. * Blood/urine cultures show no growth thus far * Neurology consult, appreciate further recommendations (2) Dysarthria: Code(s): R47.1 - Dysarthria and anarthria Status: Acute Assessment and Plan: New dysarthria and slow speech toya that is developed of the last few days, no known last known well or specific onset. Reported history of right-sided deficits secondary to a CVA. Exam significant for dysarthria, slow speech toya, numbness to the right lower extremity, and significant weakness in all extremities. Possible gaze palsy, leftward gaze able to cross midline but cannot go fully to the left. * not candidate for thrombolytics or thrombectomy as she has no clear time frame of symptoms * neurology consulted * brain MRI, lumbar MR, echo w/ bubble w/wo ordered * neuro checks Q6 * PT/OT * ST recommended soft and bite sized (patient's previous diet) * monitor daily labs, check lipid panel and A1C * fall precautions * increased Atorvastatin from 20 mg to 40 mg PO daily * will hold off on starting Plavix as she is on a higher dose of aspirin * continue ASA 325 mg, home dose * Echocardiogram 01/25: EF 65-70%, mildly increased LV thickness, LV diastolic function abnormal, trace MVR, negative bubble study (3) Compression fracture: Status: Acute Assessment and Plan: * Admit CT with severe compression fractures of T12, L2 * Patient has prior history of compression fractures s/p vertebroplasty, but reporting increased back pain * MRI L-spine pending. May benefit from TLSO bracing. * Lumbar spine MRI: Moderate lumbar spondylosis. 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 * PT/OT (4) Abnormal urinalysis: Code(s): R82.90 - Unspecified abnormal findings in urine Status: Acute Assessment and Plan: * UA: 2+ glucose, trace ketones, 1+ leuk esterase, 11-20 WBC, no epithelial cells or bacteria * UC, blood cultures pending, follow-up * previous micro reviewed, no previous resistances * started on Ceftriaxone on 01/24 (5) Diabetes mellitus: Qualifiers: Diabetes mellitus complication detail: with polyneuropathy Diabetes mellitus complication status: with neurologic complications Diabetes mellitus mcfp insulin use: with mcfp use Diabetes mellitus type: type 2 Qualified Code(s): E11.42 - Type 2 diabetes mellitus with diabetic polyneuropathy; Z79.4 - retirement (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 Hold Tresiba and metformin. * patient had episode of hypoglycemia 01/25 AM. Lantus stopped. Switch to low dose SSI and monitor. * A1C 6.6% on 11/30/2024 (6) Hyperlipidemia: Qualifiers: Hyperlipidemia type: unspecified Qualified Code(s): E78.5 - Hyperlipidemia, unspecified Code(s): E78.5 - Hyperlipidemia, unspecified Status: Chronic Assessment and Plan: * Due to concern for stroke, increased atorvastatin 20 mg to 40 mg daily (7) Hypertension: Qualifiers: Hypertension type: primary hypertension Qualified Code(s): I10 - Essential (primary) hypertension Code(s): I10 - Essential (primary) hypertension Status: Chronic Assessment and Plan: * Chronic, currently 143/58, stable. * Continue home medications: Amlodipine 10 mg daily, losartan 25 mg daily, metoprolol 50 mg b.i.d. * Monitor (8) Elevated LFTs: Code(s): R79.89 - Other specified abnormal findings of blood chemistry Status: Acute Assessment and Plan: * AST 68, ALT 61, alk phos 105 * Appear chronically elevated * Consider holding statin if worsening Plan DVT Prophylaxis: SCDs Code Status: DNR Dispo: likely back to [facility] Subjective Date/time seen: 01/26/25 07:23 Interval history: 79 y/o F with PMH of DM2 with peripheral neuropathy, chronic pain disorder, hepatitis C, CVA w/residual right sided deficits, LANA noncompliant with CPAP, TIA, anxiety, hyperlipidemia, gout, GERD, and hypertension presents here with altered mental status. 01/26/2025 Patient sitting comfortably in bed. Denies CP, SOB, n/v, or abd pain. A&Ox3. Brain MRI shows likely chronic small vessel ischemic disease. Lumbar Spine MRI shows Chronic burst fractures of T12 and L1. Will follow along with neurology regarding these results. Urine/Blood cultures show no growth thus far. Review of Systems Review of Systems: All systems reviewed & are unremarkable except as noted in HPI and below Exam Narrative: General: NAD Eyes: EOMI ENT: neck supple Cardiovascular: Regular rate and rhythm Respiratory: Clear to auscultation, respirations even and unlabored on RA Gastrointestinal: Soft, non tender Genitourinary: no suprapubic tenderness Musculoskeletal: No edema, mild midline tenderness to palpation of lumbar spine Skin: warm, dry Neuro: Alert and oriented x3. Cranial nerves II-XII intact. Face symmetric. Speech clear. Strength difficult to assess due to poor effort, some movement against gravity of LUE/LLE, minimal movement against gravity of RUE/RLE. Psych: anxious, tearful Const: General: comfortable and no acute distress Other: , female, elderly, nontoxic appearance HENMT: Face/Nose/Sinus: Normal nares present Mouth: Yes dry mucous membranes Eyes: General: appearance normal, both eyes and all related structures Sclera: sclerae normal Pupils: Equal, round and reactive pupils present Other: Leftward gaze slightly diminished but able to cross midline. Resp: Effort & Inspection: normal respiratory effort Auscultation: clear to auscultation bilaterally Cardio: Rate: regular rate Rhythm: regular rhythm Other: S1-S2 present without murmur, rub, ectopy GI: Other: Abdomen soft, nondistended. Mild tenderness in the lower quadrants, more so in the suprapubic region. Normoactive bowel sounds in all quadrants. Skin: General skin exam: normal color and no rashes or lesions noted Wounds: no wounds Neuro: Cranial nerves: Yes Equal, round and reactive pupils present Other: RLE numbness, able to produce some muscle contraction to the right lower extremity otherwise no effort made to lift leg off the bed. Some movement against gravity in the left lower extremity but unable to lift off bed. Left arm unable to lift off bed but muscle contraction noted. RUE with mild ataxia, missed nose but able to tap finger correctly. Leftward gaze slightly diminished but able to cross midline. No facial droop. +dysarthria with slow speech toya. A/Ox3, poor situational history given. Extrem: General: normal to inspection Psych: Mental Status: mental status grossly normal Affect: normal affect Other: Fair to poor insight and judgment, pleasant Objective Data Vital Signs Vital Signs: Vital Signs - 24 hr 01/25/25 08:04 01/25/25 09:12 01/25/25 09:12 Temperature Pulse Rate 56 L 62 Respiratory Rate 18 Blood Pressure Pulse Oximetry 100 Oxygen Delivery Nasal Cannula Oxygen Flow Rate 2 Fraction of Inspired Oxygen 01/25/25 09:33 01/25/25 09:36 01/25/25 12:00 Temperature Pulse Rate 63 63 60 Respiratory Rate Blood Pressure 143/58 H Pulse Oximetry Oxygen Delivery Oxygen Flow Rate Fraction of Inspired Oxygen 01/25/25 14:00 01/25/25 16:03 01/25/25 20:00 Temperature 97 F L Pulse Rate 52 L 51 L 58 L Respiratory Rate 18 Blood Pressure 140/62 Pulse Oximetry 100 Oxygen Delivery Oxygen Flow Rate Fraction of Inspired Oxygen 01/25/25 21:13 01/25/25 21:16 01/25/25 22:00 Temperature 97.9 F Pulse Rate 63 Respiratory Rate 16 20 Blood Pressure 132/64 Pulse Oximetry 98 97 97 Oxygen Delivery Nasal Cannula Oxygen Flow Rate 2 2 Fraction of Inspired Oxygen 28 01/25/25 23:26 01/26/25 00:00 01/26/25 04:00 Temperature Pulse Rate 64 62 58 L Respiratory Rate Blood Pressure Pulse Oximetry Oxygen Delivery Oxygen Flow Rate Fraction of Inspired Oxygen 01/26/25 05:35 Temperature 97.7 F Pulse Rate 60 Respiratory Rate 16 Blood Pressure 128/81 Pulse Oximetry 100 Oxygen Delivery Oxygen Flow Rate Fraction of Inspired Oxygen Intake/Output Intake/Output: Intake & Output 01/23/25 01/24/25 01/25/25 01/26/25 23:59 23:59 23:59 23:59 Intake Total 150 2145 400 Output Total 200 1600 700 Balance -50 545 -300 Meds/Results Medications: Active Medications Generic Name Dose Route Start Last Admin Trade Name Freq PRN Reason Stop Dose Admin Acetaminophen 650 mg 01/24/25 20:56 Acetaminophen 325 Mg Tablet PO Q6H PRN Mild Pain (1-3) or Fever Hydrocodone Bitart/Acetaminophen 1 tab 01/24/25 20:56 Hydrocodone/Acetaminophen (*Crx) 10-325 Mg Tablet PO Q4H PRN Pain 4-10 Allopurinol 300 mg 01/25/25 09:00 01/25/25 09:36 Allopurinol 300 Mg Tablet PO 300 mg DAILY EMERITA Administration Amlodipine Besylate 10 mg 01/25/25 09:00 01/25/25 09:37 Amlodipine Besylate 10 Mg Tablet PO 10 mg DAILY EMERITA Administration Aripiprazole 5 mg 01/25/25 09:00 01/25/25 09:37 Aripiprazole 5 Mg Tablet PO 5 mg DAILY EMERITA Administration Artificial Tears 1 drop 01/24/25 21:23 Artificial Tears Ophth Soln 15 Ml Bottle EACH EYE Q4H PRN dry eye(s) Aspirin 325 mg 01/25/25 09:00 01/25/25 09:35 Aspirin 325 Mg Tablet PO 325 mg DAILY EMERITA Administration Calcitriol 0.5 mcg 01/25/25 09:00 01/25/25 09:36 Calcitriol 0.25 Mcg Capsule PO 0.5 mcg DAILY EMERITA Administration Citalopram Hydrobromide 20 mg 01/25/25 09:00 01/25/25 09:35 Citalopram Hydrobromide 20 Mg Tablet PO 20 mg DAILY EMERITA Administration Clonazepam 0.5 mg 01/24/25 21:00 01/25/25 23:27 Clonazepam (*Crx) 0.5 Mg Tablet PO Not Given HS EMERITA Dextrose 12.5 gm 01/24/25 18:36 Dextrose 50% 25 Gm/50 Ml Syringe IV PUSH PRN PRN Hypoglycemia Protocol Dicyclomine HCl 10 mg 01/25/25 09:00 01/25/25 17:00 Dicyclomine Hcl 10 Mg Capsule PO 10 mg TID EMERITA Administration Docusate Sodium 100 mg 01/24/25 20:56 Docusate Sodium 100 Mg Capsule PO DAILY PRN Constipation Duloxetine HCl 40 mg 01/25/25 09:00 01/25/25 09:35 Duloxetine Hcl 20 Mg Capsule.Dr PO 40 mg DAILY EMERITA Administration Empagliflozin 25 mg 01/25/25 09:00 01/25/25 09:36 Empagliflozin 25 Mg Tablet BY MOUTH 25 mg DAILY EMERITA Administration Ferrous Sulfate 325 mg 01/25/25 09:00 01/25/25 09:37 Ferrous Sulfate 325 Mg Tablet BY MOUTH 325 mg DAILY EMERITA Administration Folic Acid 1 mg 01/25/25 09:00 01/25/25 09:36 Folic Acid 1 Mg Tablet PO 1 mg DAILY EMERITA Administration Glucagon 1 mg 01/24/25 18:36 Glucagon For Inj 1 Mg Vial IM PRN PRN Hypoglycemia Protocol Glucose 15 gm 01/24/25 18:36 01/25/25 05:48 Glucose Oral Gel 15 Gm Of Glucse In 37.5 Gm Tube PO 15 gm PRN PRN Administration Hypoglycemia Protocol Hydroxychloroquine Sulfate 200 mg 01/25/25 09:00 01/25/25 17:00 Hydroxychloroquine Sulfate 200 Mg Tablet PO 200 mg BID EMERITA Administration Ceftriaxone Sodium 1 gm/ 50 mls @ 100 mls/hr 01/25/25 19:00 01/25/25 18:35 Sodium Chloride IVPB Infused Q24H EMERITA Infusion Dextrose 1,000 mls @ 100 mls/hr 01/24/25 18:36 Dextrose 5% 1,000 Ml IVPB PRN PRN Hypoglycemia Protocol Insulin Aspart 2 - 5 units 01/25/25 12:00 01/25/25 17:20 Insulin Aspart (*Bkc) 100 Units/Ml SUB-Q Not Given TIDWM EMERITA Protocol Losartan Potassium 25 mg 01/25/25 09:00 01/25/25 09:37 Losartan Potassium 25 Mg Tablet PO 25 mg DAILY EMERITA Administration Metoprolol Tartrate 50 mg 01/25/25 09:00 01/25/25 23:26 Metoprolol Tartrate 50 Mg Tab PO 50 mg Q12HR EMERITA Administration Pantoprazole Sodium 40 mg 01/25/25 09:00 01/25/25 23:13 Pantoprazole 40 Mg Tablet PO 40 mg Q12HR EMERITA Administration Perflutren Lipid Microsphere 0 ml 01/24/25 21:01 Perflutren Lipid Microspheres 1.5 Ml Vial Diluted To 10 Ml Total Volume IV PUSH 01/27/25 21:01 ONCE PRN adequate visualization Protocol Polyethylene Glycol 17 gm 01/24/25 20:56 Polyethylene Glycol 3350 17 Gm Powd.Pack PO DAILY PRN Constipation Pregabalin 150 mg 01/25/25 09:00 01/25/25 09:37 Pregabalin (*Crx) 75 Mg Capsule PO 150 mg DAILY EMERITA Administration Primidone 250 mg 01/24/25 21:00 01/25/25 23:27 Primidone 250 Mg Tablet PO 250 mg QID EMERITA Administration Sucralfate 1 gm 01/25/25 08:00 01/25/25 17:00 Sucralfate 1 Gm Tablet PO 1 gm TIDWM EMERITA Administration Vitamin D 25 mcg 01/25/25 09:00 01/25/25 09:35 Cholecalciferol (Vitamin D3) 25 Mcg (1,000 Units) Tablet PO 25 mcg DAILY EMERITA Administration Radiology Results: ITS Impressions Head CT 01/24/25 16:26 IMPRESSION: 1. No acute intracranial abnormality. Chest X-Ray 01/24/25 16:29 Impression: 1: No acute cardiopulmonary disease. Knee X-Ray 01/24/25 16:31 IMPRESSION: 1. Severe degenerative change in the patellofemoral joint. If symptoms persist or worsen, consider a short-term follow-up study or MRI imaging for further assessment. Abdomen/Pelvis CT 01/24/25 16:[address]: [address] evidence for an acute process in the abdomen or pelvis at this time. 2. Moderate amount of stool. 3. Severe compression fractures of the T12 and L2 vertebral bodies. Correlate clinically. 4.There are a few small reticular and patchy opacities scattered throughout the visualized lungs. ] 5. Cholecystectomy. Labs Labs: Laboratory Results - last 24 hr 01/25/25 01/25/25 01/25/25 05:00 08:10 12:41 Sodium Cancelled Potassium Cancelled Chloride Cancelled Carbon Dioxide Cancelled Anion Gap Cancelled BUN Cancelled Creatinine Cancelled Estim Creat Clear Calc Cancelled Estimated GFR Cancelled Glucose Cancelled POC Capillary Glucose 102 103 Calcium Cancelled Magnesium 1.9 Total Bilirubin AST ALT Alkaline Phosphatase Total Protein Albumin 01/25/25 01/25/25 01/26/25 17:11 21:25 04:41 Sodium 138 Potassium 3.7 Chloride 103 Carbon Dioxide 28 Anion Gap 7 BUN 16 Creatinine 0.65 L Estim Creat Clear Calc 64 Estimated GFR > 60 Glucose 126 H POC Capillary Glucose 95 132 H Calcium 9.6 Magnesium Total Bilirubin 0.3 AST 133 H ALT 78 H Alkaline Phosphatase 182 H Total Protein 7.3 Albumin 3.7 Quality VTE Prophylaxis VTE prophylaxis: mechanical ordered
--- NOTE | 2025-01-26 08:10 | PCOTNOTE ---
Pt with 2 compression fx's and increased back pain. Holding until MRI is complete.
--- NOTE | 2025-01-26 08:14 | P.CDI_ITS ---
CDI Query Clarification Request Altered mental status has been documented in progress notes. 1)Please clarify the underlying possible/probable/suspected cause for the altered mental status in the progress notes: ? Encephalopathy (metabolic, COVID, hepatic, hypoxic, uremic, Wernicke, other) ? Neurologic condition (CVA/TIA/NPH/seizure) ? Electrolyte/metabolic imbalance/dehydration ? Infectious process (i.e. meningitis/encephalitis) ? Psychiatric condition ? Respiratory condition ? Dementia ? Other, please specify ? Unknown/unable to determine 2) Please clarify if UTI has been ruled in or ruled out. 1) Altered mental status: Qualifiers: Altered mental status type: disorientation Qualified Code(s): R41.0 - Disorientation, unspecified Code(s): R41.82 - Altered mental status, unspecified Status: Acute Assessment and Plan: -Concern for altered mental status, facility reported patient was A&O x1. Arrived A&O x3, somnolent. Improved to baseline this AM. - CT head no acute process - has prior history of CVA with residual R-sided deficits. - UA with concern for infection, management as below - CT mentions reticular opacities, but patient is afebrile without leukocytosis or cough, doubt pneumonia - neuro checks q.6 - ceftriaxone for possible UTI - monitor WBC - monitor for clinical improvement - CVA work-up as below (2) Dysarthria: Code(s): R47.1 - Dysarthria and anarthria Status: Acute Assessment and Plan: New dysarthria and slow speech toya that is developed of the last few days, no known last known well or specific onset. Reported history of right-sided deficits secondary to a CVA. Exam significant for dysarthria, slow speech toya, numbness to the right lower extremity, and significant weakness in all extremities. Possible gaze palsy, leftward gaze able to cross midline but cannot go fully to the left. - not candidate for thrombolytics or thrombectomy as she has no clear time frame of symptoms - neurology consulted - brain MRI w/wo ordered - echo w/Bubble ordered - neuro checks Q4 - PT/OT - ST recommended soft and bite sized (patient's previous diet) - monitor daily labs, check lipid panel and A1C - fall precautions - increased Atorvastatin from 20 mg to 40 mg PO daily - will hold off on starting Plavix as she is on a higher dose of aspirin - continue ASA 325 mg, home dose (3) Compression fracture: Status: Acute Assessment and Plan: - admit CT with severe compression fractures of T12, L2 - patient has prior history of compression fractures s/p vertebroplasty, but reporting increased back pain - MRI L-spine pending. May benefit from TLSO bracing. - PT/OT (4) Abnormal urinalysis: Code(s): R82.90 - Unspecified abnormal findings in urine Status: Acute Assessment and Plan: - UA: 2+ glucose, trace ketones, 1+ leuk esterase, 11-20 WBC, no epithelial cells or bacteria - UC, blood cultures pending, follow-up - previous micro reviewed, no previous resistances - started on Ceftriaxone on 01/24 RFX UR CX DUE TO ABN UA R82.90 Final 01/26/25-0107 LC No growth <Nidia Packer RN - Last Filed: 01/26/25 08:17> Clarified Diagnosis Clarified Diagnosis: AMS - unable to be determined UTI - resolved <Zay Cruz PA-C - Last Filed: 01/26/25 13:33>
[2025-01-26 08:18] LABS: Hematocrit 41.9 % (37.0-47.0); Hemoglobin 13.5 g/dL (12.0-15.0); Immature Granulocyte Percent A 0.2 % (0-0.5); Lymphocytes Absolute Auto 1.82 K/mm3 (0.9-3.2); Mean Corpuscular HGB Conc 32.2 g/dl (32-36); Mean Corpuscular Hemoglobin 33.5 pg (26-34); Mean Corpuscular Volume 104.0 fl (80-100); Nucleated Red Blood Cells Absolute Auto 0.000 K/mm3 (0.0-0.012); Nucleated Red Blood Cells Perc 0.0 % (0.0-0.2); Platelet Count Result 173 k/mm3 (150-375); Red Blood Count 4.03 M/mm3 (4.2-5.4); White Blood Count 6.6 K/mm3 (4.5-10.0)
[2025-01-26] MEDS: PRIMIDONE 250 MG TABLET PO ×4 (08:26→20:18)
[2025-01-26] MEDS: METOPROLOL TARTRATE 50 MG TAB PO ×2 (08:26→20:18)
[2025-01-26] MEDS: PANTOPRAZOLE 40 MG TABLET PO ×2 (08:26→20:18)
[2025-01-26] MEDS: PREGABALIN (*CRX) 75 MG CAPSULE 150 MG PO (08:26)
[2025-01-26] MEDS: FOLIC ACID 1 MG TABLET PO (08:27)
[2025-01-26] MEDS: DICYCLOMINE HCL 10 MG CAPSULE PO ×3 (08:27→16:27)
[2025-01-26] MEDS: ASPIRIN 325 MG TABLET PO (08:27)
[2025-01-26] MEDS: CHOLECALCIFEROL (VITAMIN D3) 25 MCG (1,000 UNITS) TABLET PO (08:27)
[2025-01-26] MEDS: CITALOPRAM HYDROBROMIDE 20 MG TABLET PO (08:27)
[2025-01-26] MEDS: FERROUS SULFATE 325 MG TABLET BY MOUTH (08:27)
[2025-01-26] MEDS: LOSARTAN POTASSIUM 25 MG TABLET PO (08:27)
[2025-01-26] MEDS: HYDROXYCHLOROQUINE SULFATE 200 MG TABLET PO ×2 (08:27→16:27)
[2025-01-26] MEDS: SUCRALFATE 1 GM TABLET PO ×3 (08:27→16:27)
[2025-01-26] MEDS: EMPAGLIFLOZIN 25 MG TABLET BY MOUTH (08:28)
--- NOTE | 2025-01-26 10:56 | PCPTNOTE ---
Attempted PT evaluation, pt too drowsy to safely participate in skilled therapy at this time. Nursing aware. Will follow.
--- NOTE | 2025-01-26 11:07 | WPDNEURCNPN ---
Assessment and Plan Assessment and plan (1) Neuropathy: Code(s): G62.9 - Polyneuropathy, unspecified Status: Acute Plan 1. History of UTI for which she has been treated 2. Change in the mental status with specific statement that increasing lethargy, patient is receiving duloxetine and Lyrica in addition of primidone 250mg q.i.d. all those medications can make her more drowsy and sleepy evaluation in the hospital has not revealed any leukocytosis or change in the electrolytes except that initially she was documented to have capillary glucose of 55 subsequently her blood glucose has remained normal and a repeat MRI of the brain has not documented any new stroke, the change in the mental status could be attributed to the multiple medications or else TIA but again her echocardiogram is not suggestive of any further intervention she can be treated on the same medication except that prefer to decrease in the multiple medication what she has been given if any further questions arise please do not hesitate to contact me. She could very well have the underlying autonomic neuropathy superimposed along the peripheral neuropathy due to diabetes mellitus resulting in the gait dysfunction. Consult date: 01/26/25 HPI: Oralia Epps is a 79 year old female Admitted to the hospital through the emergency room for the complaints of change in the mental status and transferred to the ER from the [facility] where she has been residing for rehab in addition to the information that she was recently treated for the UTI. She was mainly transfer for the complaints of extreme tiredness and lethargy at the time of visit to the ER she was awake alert oriented x3 but reported she was only oriented x1 at the facility. Her medications included 1. Duloxetine 40mg daily 2. Losartan 25mg daily 3. Pregabalin 150mg q.12 hours 4. Primidone 250mg q.i.d. and 5. Hydrocodone 1 tab q.4 hours p.r.n. for the pain. She is reportedly allergic to gabapentin and ezetemide. She does have ongoing history of 1. Diabetes mellitus with peripheral neuropathy 2. Cervical spondylosis in addition to the history of fractures 3rd thoracic vertebra along with wedge compression but receiving only conservative treatment and history of cervical spine surgery. 4. Anxiety with depression and chronic pain disorder 5. Gout. As mentioned she has undergone kyphoplasty in December of 2022. there is no history of alcohol drinking. She ambulates via walker boot and stance to transfer. She is a former smoker and currently alcohol intake. On initial eval in the ER there were no significant changes from her previous exam, vital signs were normal , x-ray chest was negative and CT scan the brain was without evidence of any bleed, hydrocephalus and subsequent to the hospitalization she has had MRI of the head which documented only nonspecific cerebral white matter disease, additionally MRI of the lumbar spine documented chronic burst fracture of T12 and L1 which changes compatible with vertebroplasty along with the moderate lumbar spondylosis, in the hospital she is receiving allopurinol 300mg daily, Abilify 5mg daily , citalopram 20mg daily, clonazepam 0.5mg at night, duloxetine 40mg daily, pregabalin 150mg daily, primidone 250mg q.i.d., in addition to other medications as listed. Review of Systems Review of Systems: All systems reviewed & are unremarkable except as noted in HPI and below PMFSH Past Medical History Medical History CVA (cerebral vascular accident) Unspecified fracture of third thoracic vertebra, subsequent encounter for fracture with routine healing Wedge compression fracture of fourth thoracic vertebra, subsequent encounter for fracture with routine healing Type 2 diabetes mellitus without complications Other spondylosis, cervical region Chronic pain disorder Diabetic peripheral neuropathy Hepatitis C Chronic neck pain with history of cervical spinal surgery Obstructive sleep apnea Refuses CPAP TIA (transient ischemic attack) Anxiety Hyperlipidemia Gout Arthritis GERD (gastroesophageal reflux disease) Hypertension Diabetes mellitus Insulin-dependent Surgical History Surgical History History of augmentation of both breasts With bilateral ruptured implants noted on imaging 04/2023 History of kyphoplasty (~12/2022) Hx of cholecystectomy Family History Family History Grandparent Acute myocardial infarction Father Acute myocardial infarction Parkinson disease Diabetes mellitus Hypertension Cerebrovascular accident Mother Diabetes mellitus Lung cancer Hypertension Depression Sibling Diabetes mellitus Cirrhosis Alcoholism Cervical cancer Hypertension Social History Social History Social History: She previously lived in her own home. Her granddaughter lived with her and helped provide care. She had 2 sons but 1 is . The she ambulates via walker boot and stands to transfer. She denies any history of excessive alcohol use and only briefly smoked tobacco at a young age. She denies any drug history. Never . Code status: DNR/DNI (per patient request and listed per NH documentation); POLST signed 12/06/24 confirms No CPR (DNAR with comfort focused treatment) Surrogate decision maker: Kenyon Years smoked: 3 Smoking status: Former smoker Tobacco type: cigarettes Alcohol intake: never Drinks per week: 1 Substance use: never Substance use type: does not use Do You Feel Safe in your Home?: Yes Lack of Transportation: No Lack of Food: Never True Current Housing: I Have Housing Concerned About Future Housing: No Difficulty Paying Gas/Electric Bills: No Difficulty Paying for Meds: No Currently Unemployed: No Education: High School Diploma/GED Difficulty w/ Childcare or Family Care: No Living arrangements: long-term Additional living arrangements comments: [facility] [place] since 12/06/24 Occupation/Education: retired 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5 mg tablet 0.5 mg PO HS #90 tabs 01/15/24 01/24/25 Rx blood-glucose sensor (FreeStyle #1 ea 03/23/24 01/24/25 Rx Leatha 3 Plus Sensor device) insulin degludec 100 unit/mL (3 See Rx Instructions .Route 06/01/24 01/24/25 Rx mL) subcutaneous pen (Tresiba .COMPLEX #15 mL FlexTouch U-100 insulin) allopurinol 300 mg tablet 300 mg PO DAILY #90 tabs 06/24/24 01/24/25 Rx alpha lipoic acid 200 mg capsule 200 mg PO DAILY #90 caps 06/24/24 01/24/25 Rx amlodipine 5 mg tablet 10 mg (2 x 5 mg) PO DAILY #180 tabs 06/24/24 01/24/25 Rx aripiprazole 5 mg tablet 5 mg PO DAILY #90 tabs 06/24/24 01/24/25 Rx aspirin 325 mg tablet 325 mg PO DAILY #90 tabs 06/24/24 01/24/25 Rx atorvastatin 20 mg tablet 20 mg PO DAILY #90 tabs 06/24/24 01/24/25 Rx calcitriol 0.5 mcg capsule 0.5 mcg PO DAILY #90 caps 06/24/24 01/24/25 Rx citalopram 20 mg tablet 20 mg PO DAILY #90 tabs 06/24/24 01/24/25 Rx dicyclomine 10 mg capsule 10 mg PO TID #90 caps 06/24/24 01/24/25 Rx docusate sodium 100 mg capsule 100 mg PO DAILY PRN Constipation 06/24/24 01/24/25 Rx #90 caps ferrous sulfate 325 mg (65 mg 325 mg PO DAILY #90 tabs 06/24/24 01/24/25 Rx iron) tablet hydroxychloroquine 200 mg tablet 200 mg PO BID #180 tabs 06/24/24 01/24/25 Rx metformin 500 mg tablet,extended 500 mg PO BID #90 tabs 06/24/24 01/24/25 Rx release 24 hr metoprolol tartrate 50 mg tablet 50 mg PO BID #90 tabs 06/24/24 01/24/25 Rx omeprazole 40 mg capsule,delayed 40 mg PO DAILY #90 caps 06/24/24 01/24/25 Rx release polyethylene glycol 3350 17 gram 17 g PO DAILY PRN constipation 06/24/24 01/24/25 Rx oral powder packet (Miralax) #100 ea sucralfate 1 gram tablet 1 g PO TIDWM #90 tabs 06/24/24 01/24/25 Rx pen needle,diabetic dual safty 30 #100 ea 07/12/24 01/24/25 Rx gauge x 3/16 (BD AutoShield Duo Pen Needle) losartan 25 mg tablet 25 mg PO DAILY 11/30/24 01/24/25 History pregabalin 50 mg capsule 150 mg PO DAILY 11/30/24 01/24/25 History primidone 125 mg tablet 250 mg PO QID 11/30/24 01/24/25 History carboxymethylcellulose sodium 1 % 1 drp EACH EYE Q4H PRN dry eye(s) 01/24/25 01/24/25 History eye drops (Artificial Tears (carboxymethylcellulose)) cholecalciferol (vitamin D3) 25 1,000 unit PO DAILY 01/24/25 01/24/25 History mcg (1,000 unit) chewable tablet dapagliflozin propanediol 10 mg 10 mg PO DAILY 01/24/25 01/24/25 History tablet (Farxiga) Allergies Allergy/AdvReac Type Severity Reaction Status Date / Time ezetimibe Allergy Unknown Verified 11/30/24 03:31 gabapentin AdvReac Shakiness Verified 11/30/24 03:31 Vital Signs Vital Signs - 24 hr 01/25/25 12:00 01/25/25 14:00 01/25/25 16:03 Temperature 36.1 C L Pulse Rate 60 52 L 51 L Respiratory Rate 18 Blood Pressure 140/62 Pulse Oximetry 100 Oxygen Delivery Oxygen Flow Rate Fraction of Inspired Oxygen 01/25/25 20:00 01/25/25 21:13 01/25/25 21:16 Temperature 36.6 C Pulse Rate 58 L 63 Respiratory Rate 16 20 Blood Pressure 132/64 Pulse Oximetry 98 97 Oxygen Delivery Oxygen Flow Rate 2 Fraction of Inspired Oxygen 28 01/25/25 22:00 01/25/25 23:26 01/26/25 00:00 Temperature Pulse Rate 64 62 Respiratory Rate Blood Pressure Pulse Oximetry 97 Oxygen Delivery Nasal Cannula Oxygen Flow Rate 2 Fraction of Inspired Oxygen 01/26/25 04:00 01/26/25 05:35 01/26/25 08:04 Temperature 36.5 C Pulse Rate 58 L 60 58 L Respiratory Rate 16 Blood Pressure 128/81 Pulse Oximetry 100 Oxygen Delivery Oxygen Flow Rate Fraction of Inspired Oxygen 01/26/25 08:26 Temperature Pulse Rate 60 Respiratory Rate Blood Pressure Pulse Oximetry Oxygen Delivery Oxygen Flow Rate Fraction of Inspired Oxygen Exam Narrative: Exam today revealed her to be awake alert was able to follow the verbal commands appropriately up but appears somewhat deconditioned though she follow the verbal instructions fairly well. Head was normocephalic with no cranial bruits, ear nose throat examinations are normal, neck was supple with no meningeal signs no cervical bruits no thyromegaly no lymphadenopathy, heart was regular with no murmur, lungs were clear to auscultation with no rhonchi or crepitations, abdomen was soft with no organomegaly, and normal bowel sounds, neurologically she was awake alert, she follow the verbal instructions fairly well, his speech was of low volume not dysphasic not dysarthric, pupils are round regular feels the vision were full to threat stimuli in all the 4 quadrants, extraocular movements are full with no spontaneous nystagmus gaze evoked nystagmus , facial sensation was intact face was symmetrical, tongue was in the oral cavity with no fasciculation, motor examination revealed her to have decreased strength in upper and lower extremities 3 to 4/5 with no increased tone, deep tendon reflexes were sluggish and plantar responses were downgoing she had difficulties in performing [id number] and heel to knee to gomez because of the generalized weakness. Results Labs 01/26/25 04:41 01/26/25 04:41 Labs: Short CBC 01/26/25 Range/Units 04:41 WBC 6.6 (4.5-10.0) K/mm3 Hgb 13.5 (12.0-15.0) g/dL Hct 41.9 (37.0-47.0) % Plt Count 173 (150-375) k/mm3 BMP 01/26/25 04:41 Sodium 138 Potassium 3.7 Chloride 103 Carbon Dioxide 28 BUN 16 Creatinine 0.65 L Glucose 126 H Calcium 9.6 Liver Function 01/26/25 Range/Units 04:41 Total Bilirubin 0.3 (0.2-1.3) mg/dL AST 133 H (14-36) U/L ALT 78 H (6-35) U/L Alkaline Phosphatase 182 H (38-126) U/L Albumin 3.7 (3.5-5.1) g/dL
--- NOTE | 2025-01-26 14:17 | OTOPEVAL1 ---
Assessment and note entered by Wilda Corrales, OT Reported Pain Level Pain Score 0: FLACC Pain Score 0: Self Report Pain Score 0: Self Report Pain Score 0: Self Report Pain Score 0: Self Report Pain Score 0: Self Report These treatments will address the objective and functional deficits as defined above. The patient will be advanced safely and appropriately in order for the patient to progress towards his/her prior level of function. Additional exercises will be introduced and as well as a comprehensive home exercise program upon discharge, if needed, ?to ensure carryover of functional gains achieved in the clinic. This treatment plan has been reviewed and agreement upon by the patient.
[2025-01-26] MEDS: cefTRIAXone 1 GM in SODIUM CHLORIDE 0.9% IV 50 ML 100 ML IVPB (18:19)
[2025-01-26] MEDS: clonazePAM (*CRX) 0.5 MG TABLET PO (20:18)
[2025-01-27] VITALS (12 sets, daily range): BP systolic 122–145; BP diastolic 58–65; PULSE 55–74; RESP 12–20; TEMP 36.5–36.6; O2SAT 95–98
[2025-01-27] MEDS: ACETAMINOPHEN 325 MG TABLET 650 MG PO (04:14)
[2025-01-27 05:35] LABS: Hematocrit 42.4 % (37.0-47.0); Hemoglobin 13.5 g/dL (12.0-15.0); Immature Granulocyte Percent A 0.2 % (0-0.5); Lymphocytes Absolute Auto 2.17 K/mm3 (0.9-3.2); Mean Corpuscular HGB Conc 31.8 g/dl (32-36); Mean Corpuscular Hemoglobin 33.0 pg (26-34); Mean Corpuscular Volume 103.7 fl (80-100); Nucleated Red Blood Cells Absolute Auto 0.000 K/mm3 (0.0-0.012); Nucleated Red Blood Cells Perc 0.0 % (0.0-0.2); Platelet Count Result 176 k/mm3 (150-375); Red Blood Count 4.09 M/mm3 (4.2-5.4); White Blood Count 5.5 K/mm3 (4.5-10.0)
[2025-01-27 05:55] LABS: Alanine Aminotransferase 99 U/L (6-35); Albumin Level 3.6 g/dL (3.5-5.1); Alkaline Phosphatase 178 U/L (38-126); Anion Gap 5 mmol/L (4-12); Aspartate Amino Transferase 156 U/L (14-36); Bilirubin,Total 0.4 mg/dL (0.2-1.3); Blood Urea Nitrogen 18 mg/dL (7-17); Calcium 9.6 mg/dL (8.4-10.2); Carbon Dioxide 30 mmol/L (22-30); Chloride 103 mmol/L (98-107); Estimated CRCL calculation 57 ml/min; Estimated Glomerular Filt Rate > 60; Glucose 112 mg/dL (65-110); Potassium 3.7 mmol/L (3.4-5.0); Sodium 138 mmol/L (137-145); Total Protein 7.2 g/dL (6.3-8.2)
[2025-01-27] MEDS: HYDROXYCHLOROQUINE SULFATE 200 MG TABLET PO ×2 (08:44→16:36)
[2025-01-27] MEDS: ASPIRIN 325 MG TABLET PO (08:44)
[2025-01-27] MEDS: SUCRALFATE 1 GM TABLET PO ×3 (08:44→16:36)
[2025-01-27] MEDS: EMPAGLIFLOZIN 25 MG TABLET BY MOUTH (08:45)
[2025-01-27] MEDS: DICYCLOMINE HCL 10 MG CAPSULE PO ×3 (08:45→16:36)
[2025-01-27] MEDS: PANTOPRAZOLE 40 MG TABLET PO ×2 (08:45→21:37)
[2025-01-27] MEDS: PRIMIDONE 250 MG TABLET PO ×3 (08:45→21:37)
[2025-01-27] MEDS: LOSARTAN POTASSIUM 25 MG TABLET PO (08:45)
[2025-01-27] MEDS: CITALOPRAM HYDROBROMIDE 20 MG TABLET PO (08:45)
[2025-01-27] MEDS: FERROUS SULFATE 325 MG TABLET BY MOUTH (08:45)
[2025-01-27] MEDS: PREGABALIN (*CRX) 75 MG CAPSULE 150 MG PO (08:45)
[2025-01-27] MEDS: CHOLECALCIFEROL (VITAMIN D3) 25 MCG (1,000 UNITS) TABLET PO (08:45)
[2025-01-27] MEDS: FOLIC ACID 1 MG TABLET PO (08:45)
[2025-01-27] MEDS: METOPROLOL TARTRATE 50 MG TAB PO ×2 (08:45→21:37)
--- NOTE | 2025-01-27 15:08 | P.PNIM_ITS ---
Progress Note: A&P Assessment and Plan (1) Altered mental status: Qualifiers: Altered mental status type: disorientation Qualified Code(s): R41.0 - Disorientation, unspecified Code(s): R41.82 - Altered mental status, unspecified Status: Acute Assessment and Plan: * Concern for altered mental status, facility reported patient was A&O x1. Arrived A&O x3, somnolent. Improved to baseline this AM. * CT head no acute process * has prior history of CVA with residual R-sided deficits. * UA with concern for infection, management as below * CT mentions reticular opacities, but patient is afebrile without leukocytosis or cough, doubt pneumonia * neuro checks q.6 * ceftriaxone for possible UTI * monitor WBC, clinical improvement * CVA work-up as below * Brain MRI: Stable moderate nonspecific cerebral white matter disease, which likely represents chronic small vessel ischemic disease. * Blood/urine cultures show no growth thus far * Neurology consult, appreciate further recommendations * Reduce Citalopram from 20mg to 10mg daily * Reduce Primidone from QID to TID for at home dosing * Continue to monitor mental status overnight, likely discharge tomorrow (2) Dysarthria: Code(s): R47.1 - Dysarthria and anarthria Status: Acute Assessment and Plan: New dysarthria and slow speech toya that is developed of the last few days, no known last known well or specific onset. Reported history of right-sided deficits secondary to a CVA. Exam significant for dysarthria, slow speech toya, numbness to the right lower extremity, and significant weakness in all extremities. Possible gaze palsy, leftward gaze able to cross midline but cannot go fully to the left. * not candidate for thrombolytics or thrombectomy as she has no clear time frame of symptoms * neurology consulted * brain MRI, lumbar MR, echo w/ bubble w/wo ordered * neuro checks Q6 * PT/OT * ST recommended soft and bite sized (patient's previous diet) * monitor daily labs, check lipid panel and A1C * fall precautions * increased Atorvastatin from 20 mg to 40 mg PO daily * will hold off on starting Plavix as she is on a higher dose of aspirin * continue ASA 325 mg, home dose * Echocardiogram 01/25: EF 65-70%, mildly increased LV thickness, LV diastolic function abnormal, trace MVR, negative bubble study (3) Compression fracture: Status: Acute Assessment and Plan: * Admit CT with severe compression fractures of T12, L2 * Patient has prior history of compression fractures s/p vertebroplasty, but reporting increased back pain * MRI L-spine pending. May benefit from TLSO bracing. * Lumbar spine MRI: Moderate lumbar spondylosis. 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 * PT/OT - Maximum assist x1, patient consistently requiring cues/repositioning, will benefit from continued rehab (4) Abnormal urinalysis: Code(s): R82.90 - Unspecified abnormal findings in urine Status: Acute Assessment and Plan: * UA: 2+ glucose, trace ketones, 1+ leuk esterase, 11-20 WBC, no epithelial cells or bacteria * UC, blood cultures NGTD * previous micro reviewed, no previous resistances * started on Ceftriaxone on 01/24 - will discontinue (5) Diabetes mellitus: Qualifiers: Diabetes mellitus type: type 2 Diabetes mellitus long term care administrator insulin use: with long term care administrator use Diabetes mellitus complication status: with neurologic complications Diabetes mellitus complication detail: with polyneuropathy Qualified Code(s): E11.42 - Type 2 diabetes mellitus with diabetic polyneuropathy; Z79.4 - alf (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 Hold Tresiba and metformin. * patient had episode of hypoglycemia 01/25 AM. Lantus stopped. Switch to low dose SSI and monitor. * A1C 6.6% on 11/30/2024 (6) Hyperlipidemia: Qualifiers: Hyperlipidemia type: unspecified Qualified Code(s): E78.5 - Hyperlipidemia, unspecified Code(s): E78.5 - Hyperlipidemia, unspecified Status: Chronic Assessment and Plan: * Due to concern for stroke, increased atorvastatin 20 mg to 40 mg daily (7) Hypertension: Qualifiers: Hypertension type: primary hypertension Qualified Code(s): I10 - Essential (primary) hypertension Code(s): I10 - Essential (primary) hypertension Status: Chronic Assessment and Plan: * Chronic, currently 143/58, stable. * Continue home medications: Amlodipine 10 mg daily, losartan 25 mg daily, metoprolol 50 mg b.i.d. * Monitor (8) Elevated LFTs: Code(s): R79.89 - Other specified abnormal findings of blood chemistry Status: Acute Assessment and Plan: * AST 68, ALT 61, alk phos 105 * Appear chronically elevated * Consider holding statin if worsening Plan DVT Prophylaxis: SCDs Code Status: DNR Dispo: likely back to [facility] Subjective Date/time seen: 01/27/25 15:08 Interval history: 79 y/o F with PMH of DM2 with peripheral neuropathy, chronic pain disorder, hepatitis C, CVA w/residual right sided deficits, LANA noncompliant with CPAP, TIA, anxiety, hyperlipidemia, gout, GERD, and hypertension presents here with altered mental status. 01/27/2025 Patient sitting comfortably in bed. Denies CP, SOB, n/v, or abd pain. A&Ox3. Brain MRI shows likely chronic small vessel ischemic disease. Lumbar Spine MRI shows Chronic burst fractures of T12 and L1. Neurology recommends cutting down Citalopram to 10mg daily instead of 20mg daily, and advises Primidone be reduced to TID instead of QID for at home dosing. We will monitor the patient on this new dosing. Today she seems much more alert and talkative. Spoke with daughter regarding these changes. Likely discharge tomorrow. Review of Systems Review of Systems: All systems reviewed & are unremarkable except as noted in HPI and below Exam Narrative: General: NAD Eyes: EOMI ENT: neck supple Cardiovascular: Regular rate and rhythm Respiratory: Clear to auscultation, respirations even and unlabored on RA Gastrointestinal: Soft, non tender Genitourinary: no suprapubic tenderness Musculoskeletal: No edema, mild midline tenderness to palpation of lumbar spine Skin: warm, dry Neuro: Alert and oriented x3. Cranial nerves II-XII intact. Face symmetric. Speech clear. Strength difficult to assess due to poor effort, some movement against gravity of LUE/LLE, minimal movement against gravity of RUE/RLE. Psych: anxious, tearful Const: General: comfortable and no acute distress Other: , female, elderly, nontoxic appearance HENMT: Face/Nose/Sinus: Normal nares present Mouth: Yes dry mucous membranes Eyes: General: appearance normal, both eyes and all related structures Sclera: sclerae normal Pupils: Equal, round and reactive pupils present Other: Leftward gaze slightly diminished but able to cross midline. Resp: Effort & Inspection: normal respiratory effort Auscultation: clear to auscultation bilaterally Cardio: Rate: regular rate Rhythm: regular rhythm Other: S1-S2 present without murmur, rub, ectopy GI: Other: Abdomen soft, nondistended. Mild tenderness in the lower quadrants, more so in the suprapubic region. Normoactive bowel sounds in all quadrants. Skin: General skin exam: normal color and no rashes or lesions noted Wounds: no wounds Neuro: Cranial nerves: Yes Equal, round and reactive pupils present Other: RLE numbness, able to produce some muscle contraction to the right lower extremity otherwise no effort made to lift leg off the bed. Some movement against gravity in the left lower extremity but unable to lift off bed. Left arm unable to lift off bed but muscle contraction noted. RUE with mild ataxia, missed nose but able to tap finger correctly. Leftward gaze slightly diminished but able to cross midline. No facial droop. +dysarthria with slow speech toya. A/Ox3, poor situational history given. Extrem: General: normal to inspection Psych: Mental Status: mental status grossly normal Affect: normal affect Other: Fair to poor insight and judgment, pleasant Objective Data Vital Signs Vital Signs: Vital Signs - 24 hr 01/26/25 16:14 01/26/25 20:00 01/26/25 20:00 Temperature Pulse Rate 60 55 L Respiratory Rate Blood Pressure Pulse Oximetry 99 Oxygen Delivery Nasal Cannula Oxygen Flow Rate 2 01/26/25 20:18 01/26/25 20:55 01/26/25 21:26 Temperature 97.8 F Pulse Rate 58 L 77 97 Respiratory Rate 20 Blood Pressure 142/66 H Pulse Oximetry 97 99 Oxygen Delivery Nasal Cannula Oxygen Flow Rate 1 01/27/25 00:00 01/27/25 04:18 01/27/25 04:21 Temperature Pulse Rate 55 L 64 Respiratory Rate Blood Pressure Pulse Oximetry 98 Oxygen Delivery Oxygen Flow Rate 1 01/27/25 05:52 01/27/25 08:00 01/27/25 08:45 Temperature 97.8 F Pulse Rate 64 68 74 Respiratory Rate 20 Blood Pressure 145/60 H Pulse Oximetry 96 Oxygen Delivery Oxygen Flow Rate 01/27/25 08:45 01/27/25 10:30 01/27/25 12:00 Temperature Pulse Rate 58 L Respiratory Rate Blood Pressure Pulse Oximetry 96 Oxygen Delivery Room Air Room Air Oxygen Flow Rate Intake/Output Intake/Output: Intake & Output 01/24/25 01/25/25 01/26/25 01/27/25 23:59 23:59 23:59 23:59 Intake Total 150 2145 910 850 Output Total 200 1600 1050 350 Balance -50 545 -140 500 Meds/Results Medications: Active Medications Generic Name Dose Route Start Last Admin Trade Name Freq PRN Reason Stop Dose Admin Acetaminophen 650 mg 01/24/25 20:56 01/27/25 04:14 Acetaminophen 325 Mg Tablet PO 650 mg Q6H PRN Administration Mild Pain (1-3) or Fever Hydrocodone Bitart/Acetaminophen 1 tab 01/24/25 20:56 Hydrocodone/Acetaminophen (*Crx) 10-325 Mg Tablet PO Q4H PRN Pain 4-10 Allopurinol 300 mg 01/25/25 09:00 01/27/25 08:44 Allopurinol 300 Mg Tablet PO 300 mg DAILY EMERITA Administration Amlodipine Besylate 10 mg 01/25/25 09:00 01/27/25 08:44 Amlodipine Besylate 10 Mg Tablet PO 10 mg DAILY EMERITA Administration Aripiprazole 5 mg 01/25/25 09:00 01/27/25 08:45 Aripiprazole 5 Mg Tablet PO 5 mg DAILY EMERITA Administration Artificial Tears 1 drop 01/24/25 21:23 Artificial Tears Ophth Soln 15 Ml Bottle EACH EYE Q4H PRN dry eye(s) Aspirin 325 mg 01/25/25 09:00 01/27/25 08:44 Aspirin 325 Mg Tablet PO 325 mg DAILY EMERITA Administration Calcitriol 0.5 mcg 01/25/25 09:00 01/27/25 08:44 Calcitriol 0.25 Mcg Capsule PO 0.5 mcg DAILY EMERITA Administration Citalopram Hydrobromide 10 mg 01/28/25 09:00 Citalopram Hydrobromide 10 Mg Tablet PO DAILY EMERITA Clonazepam 0.5 mg 01/24/25 21:00 01/26/25 20:18 Clonazepam (*Crx) 0.5 Mg Tablet PO 0.5 mg HS EMERITA Administration Dextrose 12.5 gm 01/24/25 18:36 Dextrose 50% 25 Gm/50 Ml Syringe IV PUSH PRN PRN Hypoglycemia Protocol Dicyclomine HCl 10 mg 01/25/25 09:00 01/27/25 12:27 Dicyclomine Hcl 10 Mg Capsule PO 10 mg TID EMERITA Administration Docusate Sodium 100 mg 01/24/25 20:56 Docusate Sodium 100 Mg Capsule PO DAILY PRN Constipation Duloxetine HCl 40 mg 01/25/25 09:00 01/27/25 08:44 Duloxetine Hcl 20 Mg Capsule.Dr PO 40 mg DAILY EMERITA Administration Empagliflozin 25 mg 01/25/25 09:00 01/27/25 08:45 Empagliflozin 25 Mg Tablet BY MOUTH 25 mg DAILY EMERITA Administration Ferrous Sulfate 325 mg 01/25/25 09:00 01/27/25 08:45 Ferrous Sulfate 325 Mg Tablet BY MOUTH 325 mg DAILY EMERITA Administration Folic Acid 1 mg 01/25/25 09:00 01/27/25 08:45 Folic Acid 1 Mg Tablet PO 1 mg DAILY EMERITA Administration Glucagon 1 mg 01/24/25 18:36 Glucagon For Inj 1 Mg Vial IM PRN PRN Hypoglycemia Protocol Glucose 15 gm 01/24/25 18:36 01/25/25 05:48 Glucose Oral Gel 15 Gm Of Glucse In 37.5 Gm Tube PO 15 gm PRN PRN Administration Hypoglycemia Protocol Hydroxychloroquine Sulfate 200 mg 01/25/25 09:00 01/27/25 08:44 Hydroxychloroquine Sulfate 200 Mg Tablet PO 200 mg BID EMERITA Administration Ceftriaxone Sodium 1 gm/ 50 mls @ 100 mls/hr 01/25/25 19:00 01/26/25 18:50 Sodium Chloride IVPB Infused Q24H EMERITA Infusion Dextrose 1,000 mls @ 100 mls/hr 01/24/25 18:36 Dextrose 5% 1,000 Ml IVPB PRN PRN Hypoglycemia Protocol Insulin Aspart 2 - 5 units 01/25/25 12:00 01/27/25 11:56 Insulin Aspart (*Bkc) 100 Units/Ml SUB-Q Not Given TIDWM EMERITA Protocol Losartan Potassium 25 mg 01/25/25 09:00 01/27/25 08:45 Losartan Potassium 25 Mg Tablet PO 25 mg DAILY EMERITA Administration Metoprolol Tartrate 50 mg 01/25/25 09:00 01/27/25 08:45 Metoprolol Tartrate 50 Mg Tab PO 50 mg Q12HR EMERITA Administration Pantoprazole Sodium 40 mg 01/25/25 09:00 01/27/25 08:45 Pantoprazole 40 Mg Tablet PO 40 mg Q12HR EMERITA Administration Perflutren Lipid Microsphere 0 ml 01/24/25 21:01 Perflutren Lipid Microspheres 1.5 Ml Vial Diluted To 10 Ml Total Volume IV PUSH 01/27/25 21:01 ONCE PRN adequate visualization Protocol Polyethylene Glycol 17 gm 01/24/25 20:56 Polyethylene Glycol 3350 17 Gm Powd.Pack PO DAILY PRN Constipation Pregabalin 150 mg 01/25/25 09:00 01/27/25 08:45 Pregabalin (*Crx) 75 Mg Capsule PO 150 mg DAILY EMERITA Administration Primidone 250 mg 01/27/25 21:00 Primidone 250 Mg Tablet PO QHS EMERITA Sucralfate 1 gm 01/25/25 08:00 01/27/25 12:27 Sucralfate 1 Gm Tablet PO 1 gm TIDWM EMERITA Administration Vitamin D 25 mcg 01/25/25 09:00 01/27/25 08:45 Cholecalciferol (Vitamin D3) 25 Mcg (1,000 Units) Tablet PO 25 mcg DAILY EMERITA Administration Radiology Results: ITS Impressions Head CT 01/24/25 16:26 IMPRESSION: 1. No acute intracranial abnormality. Chest X-Ray 01/24/25 16:29 Impression: 1: No acute cardiopulmonary disease. Knee X-Ray 01/24/25 16:31 IMPRESSION: 1. Severe degenerative change in the patellofemoral joint. If symptoms persist or worsen, consider a short-term follow-up study or MRI imaging for further assessment. Abdomen/Pelvis CT 01/24/25 16:[address]: [address] evidence for an acute process in the abdomen or pelvis at this time. 2. Moderate amount of stool. 3. Severe compression fractures of the T12 and L2 vertebral bodies. Correlate clinically. 4.There are a few small reticular and patchy opacities scattered throughout the visualized lungs. ] 5. Cholecystectomy. Brain MRI 01/26/25 09:47 IMPRESSION: 1. Stable moderate nonspecific cerebral white matter disease, which likely represents chronic small vessel ischemic disease. Lumbar Spine MRI 01/26/25 09:49 IMPRESSION: 1. Moderate lumbar spondylosis. 2. 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 Labs Labs: Laboratory Results - last 24 hr 01/26/25 01/26/25 01/27/25 16:35 20:20 05:16 WBC 5.5 RBC 4.09 L Hgb 13.5 Hct 42.4 MCV 103.7 H MCH 33.0 MCHC 31.8 L RDW 12.8 Plt Count 176 MPV 11.0 H Immature Gran % (Auto) 0.2 Neut % (Auto) 44.6 L Lymph % (Auto) 39.3 [place] % (Auto) 10.5 H Eos % (Auto) 4.7 H Baso % (Auto) 0.7 Lymph # (Auto) 2.17 [place] # (Auto) 0.6 Eos # (Auto) 0.3 Baso # (Auto) 0.0 Abs Immat Gran (auto) 0.01 Absolute Neuts (auto) 2.5 Absolute Nucleated RBC 0.000 Nucleated RBC % 0.0 Sodium 138 Potassium 3.7 Chloride 103 Carbon Dioxide 30 Anion Gap 5 BUN 18 H Creatinine 0.73 Estim Creat Clear Calc 57 Estimated GFR > 60 Glucose 112 H POC Capillary Glucose 114 H 103 Calcium 9.6 Total Bilirubin 0.4 AST 156 H ALT 99 H Alkaline Phosphatase 178 H Total Protein 7.2 Albumin 3.6 01/27/25 01/27/25 08:26 11:40 WBC RBC Hgb Hct MCV MCH MCHC RDW Plt Count MPV Immature Gran % (Auto) Neut % (Auto) Lymph % (Auto) [place] % (Auto) Eos % (Auto) Baso % (Auto) Lymph # (Auto) [place] # (Auto) Eos # (Auto) Baso # (Auto) Abs Immat Gran (auto) Absolute Neuts (auto) Absolute Nucleated RBC Nucleated RBC % Sodium Potassium Chloride Carbon Dioxide Anion Gap BUN Creatinine Estim Creat Clear Calc Estimated GFR Glucose POC Capillary Glucose 105 115 H Calcium Total Bilirubin AST ALT Alkaline Phosphatase Total Protein Albumin Quality VTE Prophylaxis VTE prophylaxis: mechanical ordered
--- NOTE | 2025-01-27 17:14 | WPDNEUROPN ---
Progress Note: A&P Assessment and Plan (1) Altered mental status: Qualifiers: Altered mental status type: disorientation Qualified Code(s): R41.0 - Disorientation, unspecified Code(s): R41.82 - Altered mental status, unspecified Status: Acute Plan I called her daughter Charlene felix confirm that primidone is being prescribed for tremor and not for seizures. I will suggest to reduce the dose to 250 mg at bedtime. She is already on pregabalin 150 mg twice a day and Klonopin 0.5 mg HS. The dose of Mysoline may have to be increased once he is more alert. The daughter is concerned about the spine fracture which have he has been known from passed per for which she had kyphoplasty. However if there is any concerns she can be referred to see a neurosurgeon. Subjective Date/time seen: 01/27/25 17:14 Interval history: The patient is 79-year-old with history of with history of change in mental status specifically including lethargy and sleepiness was seen for follow-up. The patient is very sleepy at this time and a with stimulation she barely open her eyes but was unable to converse. It was noted that she has history of multiple falls and she has had a fracture of the T12 or L1 and for which she had kyphoplasty. She has a history of tremor and she is taking Mysoline 250 mg 4 times a day. MRI of the brain was performed which did not show any evidence for new strokes. The patient is on pregabalin 300 mg and primidone 1000 mg in addition Klonopin 0.5 mg at bedtime. There is no history of seizures and primidone was prescribed for tremor. Exam Narrative: The patient excessively drowsy and barely open her eyes unable to hold any useful conversation. Unable to do a proper evaluation of the strength in the arms and legs because she was unable to cooperate at this time. Please refer to the previous examination by Dr. Paul Objective Data Vital Signs Vital Signs: Vital Signs - 24 hr 01/26/25 20:00 01/26/25 20:00 01/26/25 20:18 Temperature Pulse Rate 55 L 58 L Respiratory Rate Blood Pressure Pulse Oximetry 99 Oxygen Delivery Nasal Cannula Oxygen Flow Rate 2 01/26/25 20:55 01/26/25 21:26 01/27/25 00:00 Temperature 97.8 F Pulse Rate 77 97 55 L Respiratory Rate 20 Blood Pressure 142/66 H Pulse Oximetry 97 99 Oxygen Delivery Nasal Cannula Oxygen Flow Rate 1 01/27/25 04:18 01/27/25 04:21 01/27/25 05:52 Temperature 97.8 F Pulse Rate 64 64 Respiratory Rate 20 Blood Pressure 145/60 H Pulse Oximetry 98 96 Oxygen Delivery Oxygen Flow Rate 1 01/27/25 08:00 01/27/25 08:45 01/27/25 08:45 Temperature Pulse Rate 68 74 Respiratory Rate Blood Pressure Pulse Oximetry 96 Oxygen Delivery Room Air Oxygen Flow Rate 01/27/25 10:30 01/27/25 12:00 01/27/25 14:00 Temperature 97.7 F Pulse Rate 58 L 58 L Respiratory Rate 19 Blood Pressure 122/58 L Pulse Oximetry 95 Oxygen Delivery Room Air Oxygen Flow Rate 01/27/25 16:00 Temperature Pulse Rate 55 L Respiratory Rate Blood Pressure Pulse Oximetry Oxygen Delivery Oxygen Flow Rate Intake/Output Intake/Output: Intake & Output 01/24/25 01/25/25 01/26/25 01/27/25 23:59 23:59 23:59 23:59 Intake Total 150 2145 910 850 Output Total 200 1600 1050 350 Balance -50 545 -140 500 Meds/Results Medications: Active Medications Generic Name Dose Route Start Last Admin Trade Name Freq PRN Reason Stop Dose Admin Acetaminophen 650 mg 01/24/25 20:56 01/27/25 04:14 Acetaminophen 325 Mg Tablet PO 650 mg Q6H PRN Administration Mild Pain (1-3) or Fever Hydrocodone Bitart/Acetaminophen 1 tab 01/24/25 20:56 Hydrocodone/Acetaminophen (*Crx) 10-325 Mg Tablet PO Q4H PRN Pain 4-10 Allopurinol 300 mg 01/25/25 09:00 01/27/25 08:44 Allopurinol 300 Mg Tablet PO 300 mg DAILY EMERITA Administration Amlodipine Besylate 10 mg 01/25/25 09:00 01/27/25 08:44 Amlodipine Besylate 10 Mg Tablet PO 10 mg DAILY EMERITA Administration Aripiprazole 5 mg 01/25/25 09:00 01/27/25 08:45 Aripiprazole 5 Mg Tablet PO 5 mg DAILY EMERITA Administration Artificial Tears 1 drop 01/24/25 21:23 Artificial Tears Ophth Soln 15 Ml Bottle EACH EYE Q4H PRN dry eye(s) Aspirin 325 mg 01/25/25 09:00 01/27/25 08:44 Aspirin 325 Mg Tablet PO 325 mg DAILY EMERITA Administration Calcitriol 0.5 mcg 01/25/25 09:00 01/27/25 08:44 Calcitriol 0.25 Mcg Capsule PO 0.5 mcg DAILY EMERITA Administration Citalopram Hydrobromide 10 mg 01/28/25 09:00 Citalopram Hydrobromide 10 Mg Tablet PO DAILY EMERITA Clonazepam 0.5 mg 01/24/25 21:00 01/26/25 20:18 Clonazepam (*Crx) 0.5 Mg Tablet PO 0.5 mg HS EMERITA Administration Dextrose 12.5 gm 01/24/25 18:36 Dextrose 50% 25 Gm/50 Ml Syringe IV PUSH PRN PRN Hypoglycemia Protocol Dicyclomine HCl 10 mg 01/25/25 09:00 01/27/25 16:36 Dicyclomine Hcl 10 Mg Capsule PO 10 mg TID EMERITA Administration Docusate Sodium 100 mg 01/24/25 20:56 Docusate Sodium 100 Mg Capsule PO DAILY PRN Constipation Duloxetine HCl 40 mg 01/25/25 09:00 01/27/25 08:44 Duloxetine Hcl 20 Mg Capsule.Dr PO 40 mg DAILY EMERITA Administration Empagliflozin 25 mg 01/25/25 09:00 01/27/25 08:45 Empagliflozin 25 Mg Tablet BY MOUTH 25 mg DAILY EMERITA Administration Ferrous Sulfate 325 mg 01/25/25 09:00 01/27/25 08:45 Ferrous Sulfate 325 Mg Tablet BY MOUTH 325 mg DAILY EMERITA Administration Folic Acid 1 mg 01/25/25 09:00 01/27/25 08:45 Folic Acid 1 Mg Tablet PO 1 mg DAILY EMERITA Administration Glucagon 1 mg 01/24/25 18:36 Glucagon For Inj 1 Mg Vial IM PRN PRN Hypoglycemia Protocol Glucose 15 gm 01/24/25 18:36 01/25/25 05:48 Glucose Oral Gel 15 Gm Of Glucse In 37.5 Gm Tube PO 15 gm PRN PRN Administration Hypoglycemia Protocol Hydroxychloroquine Sulfate 200 mg 01/25/25 09:00 01/27/25 16:36 Hydroxychloroquine Sulfate 200 Mg Tablet PO 200 mg BID EMERITA Administration Dextrose 1,000 mls @ 100 mls/hr 01/24/25 18:36 Dextrose 5% 1,000 Ml IVPB PRN PRN Hypoglycemia Protocol Insulin Aspart 2 - 5 units 01/25/25 12:00 01/27/25 16:36 Insulin Aspart (*Bkc) 100 Units/Ml SUB-Q Not Given TIDWM EMERITA Protocol Losartan Potassium 25 mg 01/25/25 09:00 01/27/25 08:45 Losartan Potassium 25 Mg Tablet PO 25 mg DAILY EMERITA Administration Metoprolol Tartrate 50 mg 01/25/25 09:00 01/27/25 08:45 Metoprolol Tartrate 50 Mg Tab PO 50 mg Q12HR EMERITA Administration Pantoprazole Sodium 40 mg 01/25/25 09:00 01/27/25 08:45 Pantoprazole 40 Mg Tablet PO 40 mg Q12HR EMERITA Administration Perflutren Lipid Microsphere 0 ml 01/24/25 21:01 Perflutren Lipid Microspheres 1.5 Ml Vial Diluted To 10 Ml Total Volume IV PUSH 01/27/25 21:01 ONCE PRN adequate visualization Protocol Polyethylene Glycol 17 gm 01/24/25 20:56 Polyethylene Glycol 3350 17 Gm Powd.Pack PO DAILY PRN Constipation Pregabalin 150 mg 01/25/25 09:00 01/27/25 08:45 Pregabalin (*Crx) 75 Mg Capsule PO 150 mg DAILY EMERITA Administration Primidone 250 mg 01/27/25 21:00 Primidone 250 Mg Tablet PO QHS EMERITA Sucralfate 1 gm 01/25/25 08:00 01/27/25 16:36 Sucralfate 1 Gm Tablet PO 1 gm TIDWM EMERITA Administration Vitamin D 25 mcg 01/25/25 09:00 01/27/25 08:45 Cholecalciferol (Vitamin D3) 25 Mcg (1,000 Units) Tablet PO 25 mcg DAILY EMERITA Administration Radiology Results: ITS Impressions Head CT 01/24/25 16:26 IMPRESSION: 1. No acute intracranial abnormality. Chest X-Ray 01/24/25 16:29 Impression: 1: No acute cardiopulmonary disease. Knee X-Ray 01/24/25 16:31 IMPRESSION: 1. Severe degenerative change in the patellofemoral joint. If symptoms persist or worsen, consider a short-term follow-up study or MRI imaging for further assessment. Abdomen/Pelvis CT 01/24/25 16:[address]: [address] evidence for an acute process in the abdomen or pelvis at this time. 2. Moderate amount of stool. 3. Severe compression fractures of the T12 and L2 vertebral bodies. Correlate clinically. 4.There are a few small reticular and patchy opacities scattered throughout the visualized lungs. ] 5. Cholecystectomy. Brain MRI 01/26/25 09:47 IMPRESSION: 1. Stable moderate nonspecific cerebral white matter disease, which likely represents chronic small vessel ischemic disease. Lumbar Spine MRI 01/26/25 09:49 IMPRESSION: 1. Moderate lumbar spondylosis. 2. 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 Labs Labs: Laboratory Results - last 24 hr 01/26/25 01/27/25 01/27/25 20:20 05:16 08:26 WBC 5.5 RBC 4.09 L Hgb 13.5 Hct 42.4 MCV 103.7 H MCH 33.0 MCHC 31.8 L RDW 12.8 Plt Count 176 MPV 11.0 H Immature Gran % (Auto) 0.2 Neut % (Auto) 44.6 L Lymph % (Auto) 39.3 [place] % (Auto) 10.5 H Eos % (Auto) 4.7 H Baso % (Auto) 0.7 Lymph # (Auto) 2.17 [place] # (Auto) 0.6 Eos # (Auto) 0.3 Baso # (Auto) 0.0 Abs Immat Gran (auto) 0.01 Absolute Neuts (auto) 2.5 Absolute Nucleated RBC 0.000 Nucleated RBC % 0.0 Sodium 138 Potassium 3.7 Chloride 103 Carbon Dioxide 30 Anion Gap 5 BUN 18 H Creatinine 0.73 Estim Creat Clear Calc 57 Estimated GFR > 60 Glucose 112 H POC Capillary Glucose 103 105 Calcium 9.6 Total Bilirubin 0.4 AST 156 H ALT 99 H Alkaline Phosphatase 178 H Total Protein 7.2 Albumin 3.6 01/27/25 11:40 WBC RBC Hgb Hct MCV MCH MCHC RDW Plt Count MPV Immature Gran % (Auto) Neut % (Auto) Lymph % (Auto) [place] % (Auto) Eos % (Auto) Baso % (Auto) Lymph # (Auto) [place] # (Auto) Eos # (Auto) Baso # (Auto) Abs Immat Gran (auto) Absolute Neuts (auto) Absolute Nucleated RBC Nucleated RBC % Sodium Potassium Chloride Carbon Dioxide Anion Gap BUN Creatinine Estim Creat Clear Calc Estimated GFR Glucose POC Capillary Glucose 115 H Calcium Total Bilirubin AST ALT Alkaline Phosphatase Total Protein Albumin
[2025-01-27] MEDS: clonazePAM (*CRX) 0.5 MG TABLET PO (21:37)
[2025-01-28] VITALS (17 sets, daily range): BP systolic 109–138; BP diastolic 49–54; PULSE 50–90; RESP 12–20; TEMP 35.9–37.9; O2SAT 88–100
[2025-01-28 05:06] LABS: Hematocrit 42.6 % (37.0-47.0); Hemoglobin 14.0 g/dL (12.0-15.0); Immature Granulocyte Percent A 0.3 % (0-0.5); Lymphocytes Absolute Auto 1.42 K/mm3 (0.9-3.2); Mean Corpuscular HGB Conc 32.9 g/dl (32-36); Mean Corpuscular Hemoglobin 32.6 pg (26-34); Mean Corpuscular Volume 99.3 fl (80-100); Nucleated Red Blood Cells Absolute Auto 0.000 K/mm3 (0.0-0.012); Nucleated Red Blood Cells Perc 0.0 % (0.0-0.2); Platelet Count Result 208 k/mm3 (150-375); Red Blood Count 4.29 M/mm3 (4.2-5.4); White Blood Count 9.4 K/mm3 (4.5-10.0)
[2025-01-28 05:30] LABS: Alanine Aminotransferase 163 U/L (6-35); Albumin Level 3.8 g/dL (3.5-5.1); Alkaline Phosphatase 239 U/L (38-126); Anion Gap 6 mmol/L (4-12); Aspartate Amino Transferase 283 U/L (14-36); Bilirubin,Total 0.6 mg/dL (0.2-1.3); Blood Urea Nitrogen 14 mg/dL (7-17); Calcium 9.6 mg/dL (8.4-10.2); Carbon Dioxide 30 mmol/L (22-30); Chloride 99 mmol/L (98-107); Estimated CRCL calculation 70 ml/min; Estimated Glomerular Filt Rate > 60; Glucose 136 mg/dL (65-110); Potassium 3.8 mmol/L (3.4-5.0); Sodium 135 mmol/L (137-145); Total Protein 7.6 g/dL (6.3-8.2)
--- NOTE | 2025-01-28 07:30 | P.PNIM_ITS ---
Progress Note: A&P Assessment and Plan (1) Altered mental status: Qualifiers: Altered mental status type: disorientation Qualified Code(s): R41.0 - Disorientation, unspecified Code(s): R41.82 - Altered mental status, unspecified Status: Acute Assessment and Plan: * Concern for altered mental status, facility reported patient was A&O x1. Arrived A&O x3, somnolent. Improved to baseline this AM. * CT head no acute process * has prior history of CVA with residual R-sided deficits. * UA with concern for infection, management as below * CT mentions reticular opacities, but patient is afebrile without leukocytosis or cough, doubt pneumonia * neuro checks q.6 * ceftriaxone for possible UTI * monitor WBC, clinical improvement * CVA work-up as below * Brain MRI: Stable moderate nonspecific cerebral white matter disease, which likely represents chronic small vessel ischemic disease. * Blood/urine cultures show no growth thus far * Neurology consult, appreciate further recommendations * Reduce Citalopram from 20mg to 10mg daily * Reduce Primidone from QID to TID for at home dosing * Appeared drowsy and more tired today, diaphoretic on exam * Chest CTA to rule PE, EKG, chest x-ray * Does not meet sepsis criteria: * No leukocytosis, tachycardia, tachypnea * Lactic acid 1.0, ammonia WNL (2) Dysarthria: Code(s): R47.1 - Dysarthria and anarthria Status: Acute Assessment and Plan: New dysarthria and slow speech toya that is developed of the last few days, no known last known well or specific onset. Reported history of right-sided deficits secondary to a CVA. Exam significant for dysarthria, slow speech toya, numbness to the right lower extremity, and significant weakness in all extremities. Possible gaze palsy, leftward gaze able to cross midline but cannot go fully to the left. * not candidate for thrombolytics or thrombectomy as she has no clear time frame of symptoms * neurology consulted * brain MRI, lumbar MR, echo w/ bubble w/wo ordered * neuro checks Q6 * PT/OT * ST recommended soft and bite sized (patient's previous diet) * monitor daily labs, check lipid panel and A1C * fall precautions * increased Atorvastatin from 20 mg to 40 mg PO daily * will hold off on starting Plavix as she is on a higher dose of aspirin * continue ASA 325 mg, home dose * Echocardiogram 01/25: EF 65-70%, mildly increased LV thickness, LV diastolic function abnormal, trace MVR, negative bubble study (3) Hospital-acquired pneumonia: Code(s): J18.9 - Pneumonia, unspecified organism; Y95 - Nosocomial condition Status: Acute Assessment and Plan: * CXR: Focal left upper lobe airspace disease suspicious for pneumonia * Risk Factors: Hospital admission * started on HAP tx: Cefepime and vancomycin * Viral PCR: Flu/COVID/RSV pending * Consider ordering legionella, mycoplasma and pneumococcal * supplemental O2 if saturation drops * supportive treatment * trend labs * Monitor vital signs, I&Os, neuro status and patient is a fall risk * Follow WBC, serum electrolytes, temperature curves and cultures * Send sputum cultures if able to receive sample * Gentle IV fluid resuscitation * Chest CTA to rule out pulmonary embolism (4) Compression fracture: Status: Acute Assessment and Plan: * Admit CT with severe compression fractures of T12, L2 * Patient has prior history of compression fractures s/p vertebroplasty, but reporting increased back pain * MRI L-spine shows moderate lumbar spondylosis and chronic burst fractures at T12/L1 * PT/OT - Maximum assist x1, patient consistently requiring cues/repositioning, will benefit from continued rehab * Discussed with the on-call neurosurgeon * As long as patient remains asymptomatic, does not recommend brace * No surgical intervention at this time as this is a chronic issue - can follow up as outpt w/ neurosurgery * Patient can follow-up in the outpatient setting, when she goes back to [facility] the can transfer her to her appointment with Neurosurgery (5) Abnormal urinalysis: Code(s): R82.90 - Unspecified abnormal findings in urine Status: Acute Assessment and Plan: * UA: 2+ glucose, trace ketones, 1+ leuk esterase, 11-20 WBC, no epithelial cells or bacteria * UC, blood cultures NGTD * previous micro reviewed, no previous resistances * started on Ceftriaxone on 01/24 - will discontinue (6) Diabetes mellitus: Qualifiers: Diabetes mellitus complication detail: with polyneuropathy Diabetes mellitus complication status: with neurologic complications Diabetes mellitus parts counterman insulin use: with parts counterman use Diabetes mellitus type: type 2 Qualified Code(s): E11.42 - Type 2 diabetes mellitus with diabetic polyneuropathy; Z79.4 - terminologist (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 Hold Tresiba and metformin. * patient had episode of hypoglycemia 01/25 AM. Lantus stopped. Switch to low dose SSI and monitor. * A1C 6.6% on 11/30/2024 (7) Hyperlipidemia: Qualifiers: Hyperlipidemia type: unspecified Qualified Code(s): E78.5 - Hyperlipidemia, unspecified Code(s): E78.5 - Hyperlipidemia, unspecified Status: Chronic Assessment and Plan: * Due to concern for stroke, increased atorvastatin 20 mg to 40 mg daily (8) Hypertension: Qualifiers: Hypertension type: primary hypertension Qualified Code(s): I10 - Essential (primary) hypertension Code(s): I10 - Essential (primary) hypertension Status: Chronic Assessment and Plan: * Chronic, currently 143/58, stable. * Continue home medications: Amlodipine 10 mg daily, losartan 25 mg daily, metoprolol 50 mg b.i.d. * Monitor (9) Elevated LFTs: Code(s): R79.89 - Other specified abnormal findings of blood chemistry Status: Acute Assessment and Plan: * AST 68, ALT 61, alk phos 105 * Appear chronically elevated * Consider holding statin if worsening Plan DVT Prophylaxis: SCDs Code Status: DNR Dispo: likely back to [facility] Subjective Date/time seen: 01/28/25 07:30 Interval history: 79 y/o F with PMH of DM2 with peripheral neuropathy, chronic pain disorder, hepatitis C, CVA w/residual right sided deficits, LANA noncompliant with CPAP, TIA, anxiety, hyperlipidemia, gout, GERD, and hypertension presents here with altered mental status. 01/28/2025 Patient sitting in bed at time of examination. Nursing staff alerted that the patient had a temperature of 100.2? F and had a drop in oxygen saturation down to 88% on room air. When I discussed with the patient, she was endorsing shortness of breath and mild chest pain as well as a headache. Head CT, chest x-ray and an EKG were ordered. Chest x-ray indicative of left upper lobe pneumonia. Patient will be started on cefepime/vancomycin for HAP. Patient is diaphoretic on exam, also order a chest CTA to rule PE. Review of Systems Review of Systems: All systems reviewed & are unremarkable except as noted in HPI and below Exam Narrative: General: NAD Eyes: EOMI ENT: neck supple Cardiovascular: Regular rate and rhythm Respiratory: Clear to auscultation, respirations even and unlabored on RA Gastrointestinal: Soft, non tender Genitourinary: no suprapubic tenderness Musculoskeletal: No edema, mild midline tenderness to palpation of lumbar spine Skin: warm, dry Neuro: Alert and oriented x3. Cranial nerves II-XII intact. Face symmetric. Speech clear. Strength difficult to assess due to poor effort, some movement against gravity of LUE/LLE, minimal movement against gravity of RUE/RLE. Const: General: comfortable and no acute distress Other: , female, elderly, nontoxic appearance HENMT: Face/Nose/Sinus: Normal nares present Mouth: Yes dry mucous membranes Eyes: General: appearance normal, both eyes and all related structures Sclera: sclerae normal Pupils: Equal, round and reactive pupils present Other: Leftward gaze slightly diminished but able to cross midline. Resp: Effort & Inspection: normal respiratory effort Auscultation: clear to auscultation bilaterally Cardio: Rate: regular rate Rhythm: regular rhythm Other: S1-S2 present without murmur, rub, ectopy GI: Other: Abdomen soft, nondistended. Mild tenderness in the lower quadrants, more so in the suprapubic region. Normoactive bowel sounds in all quadrants. Skin: General skin exam: normal color and no rashes or lesions noted Wounds: no wounds Neuro: Cranial nerves: Yes Equal, round and reactive pupils present Other: RLE numbness, able to produce some muscle contraction to the right lower extremity otherwise no effort made to lift leg off the bed. Some movement against gravity in the left lower extremity but unable to lift off bed. Left arm unable to lift off bed but muscle contraction noted. RUE with mild ataxia, missed nose but able to tap finger correctly. Leftward gaze slightly diminished but able to cross midline. No facial droop. +dysarthria with slow speech toya. A/Ox3, poor situational history given. Extrem: General: normal to inspection Psych: Mental Status: mental status grossly normal Affect: normal affect Other: Fair to poor insight and judgment, pleasant Objective Data Vital Signs Vital Signs: Vital Signs - 24 hr 01/27/25 08:00 01/27/25 08:45 01/27/25 08:45 Temperature Pulse Rate 68 74 Respiratory Rate Blood Pressure Pulse Oximetry 96 Oxygen Delivery Room Air 01/27/25 10:30 01/27/25 12:00 01/27/25 14:00 Temperature 97.7 F Pulse Rate 58 L 58 L Respiratory Rate 19 Blood Pressure 122/58 L Pulse Oximetry 95 Oxygen Delivery Room Air 01/27/25 16:00 01/27/25 20:00 01/27/25 20:52 Temperature 97.9 F Pulse Rate 55 L 60 60 Respiratory Rate 12 Blood Pressure 145/65 H Pulse Oximetry 97 Oxygen Delivery 01/27/25 21:37 01/28/25 00:00 01/28/25 04:00 Temperature Pulse Rate 70 65 87 Respiratory Rate Blood Pressure Pulse Oximetry Oxygen Delivery 01/28/25 04:34 Temperature 99.9 F H Pulse Rate 78 Respiratory Rate 12 Blood Pressure 138/54 L Pulse Oximetry 94 Oxygen Delivery Intake/Output Intake/Output: Intake & Output 01/25/25 01/26/25 01/27/25 01/28/25 23:59 23:59 23:59 23:59 Intake Total 2145 910 1390 300 Output Total 1600 1050 2050 1000 Balance 651 -325 -660 -700 Meds/Results Medications: Active Medications Generic Name Dose Route Start Last Admin Trade Name Freq PRN Reason Stop Dose Admin Acetaminophen 650 mg 01/24/25 20:56 01/27/25 04:14 Acetaminophen 325 Mg Tablet PO 650 mg Q6H PRN Administration Mild Pain (1-3) or Fever Hydrocodone Bitart/Acetaminophen 1 tab 01/24/25 20:56 Hydrocodone/Acetaminophen (*Crx) 10-325 Mg Tablet PO Q4H PRN Pain 4-10 Allopurinol 300 mg 01/25/25 09:00 01/27/25 08:44 Allopurinol 300 Mg Tablet PO 300 mg DAILY EMERITA Administration Amlodipine Besylate 10 mg 01/25/25 09:00 01/27/25 08:44 Amlodipine Besylate 10 Mg Tablet PO 10 mg DAILY EMERITA Administration Aripiprazole 5 mg 01/25/25 09:00 01/27/25 08:45 Aripiprazole 5 Mg Tablet PO 5 mg DAILY EMERITA Administration Artificial Tears 1 drop 01/24/25 21:23 Artificial Tears Ophth Soln 15 Ml Bottle EACH EYE Q4H PRN dry eye(s) Aspirin 325 mg 01/25/25 09:00 01/27/25 08:44 Aspirin 325 Mg Tablet PO 325 mg DAILY EMERITA Administration Calcitriol 0.5 mcg 01/25/25 09:00 01/27/25 08:44 Calcitriol 0.25 Mcg Capsule PO 0.5 mcg DAILY EMERITA Administration Citalopram Hydrobromide 10 mg 01/28/25 09:00 Citalopram Hydrobromide 10 Mg Tablet PO DAILY EMERITA Clonazepam 0.5 mg 01/24/25 21:00 01/27/25 21:37 Clonazepam (*Crx) 0.5 Mg Tablet PO 0.5 mg HS EMERITA Administration Dextrose 12.5 gm 01/24/25 18:36 Dextrose 50% 25 Gm/50 Ml Syringe IV PUSH PRN PRN Hypoglycemia Protocol Dicyclomine HCl 10 mg 01/25/25 09:00 01/27/25 16:36 Dicyclomine Hcl 10 Mg Capsule PO 10 mg TID EMERITA Administration Docusate Sodium 100 mg 01/24/25 20:56 Docusate Sodium 100 Mg Capsule PO DAILY PRN Constipation Duloxetine HCl 40 mg 01/25/25 09:00 01/27/25 08:44 Duloxetine Hcl 20 Mg Capsule.Dr PO 40 mg DAILY EMERITA Administration Empagliflozin 25 mg 01/25/25 09:00 01/27/25 08:45 Empagliflozin 25 Mg Tablet BY MOUTH 25 mg DAILY EMERITA Administration Ferrous Sulfate 325 mg 01/25/25 09:00 01/27/25 08:45 Ferrous Sulfate 325 Mg Tablet BY MOUTH 325 mg DAILY EMERITA Administration Folic Acid 1 mg 01/25/25 09:00 01/27/25 08:45 Folic Acid 1 Mg Tablet PO 1 mg DAILY EMERITA Administration Glucagon 1 mg 01/24/25 18:36 Glucagon For Inj 1 Mg Vial IM PRN PRN Hypoglycemia Protocol Glucose 15 gm 01/24/25 18:36 01/25/25 05:48 Glucose Oral Gel 15 Gm Of Glucse In 37.5 Gm Tube PO 15 gm PRN PRN Administration Hypoglycemia Protocol Hydroxychloroquine Sulfate 200 mg 01/25/25 09:00 01/27/25 16:36 Hydroxychloroquine Sulfate 200 Mg Tablet PO 200 mg BID EMERITA Administration Dextrose 1,000 mls @ 100 mls/hr 01/24/25 18:36 Dextrose 5% 1,000 Ml IVPB PRN PRN Hypoglycemia Protocol Insulin Aspart 2 - 5 units 01/25/25 12:00 01/27/25 16:36 Insulin Aspart (*Bkc) 100 Units/Ml SUB-Q Not Given TIDWM [facility] Protocol Losartan Potassium 25 mg 01/25/25 09:00 01/27/25 08:45 Losartan Potassium 25 Mg Tablet PO 25 mg DAILY EMERITA Administration Metoprolol Tartrate 50 mg 01/25/25 09:00 01/27/25 21:37 Metoprolol Tartrate 50 Mg Tab PO 50 mg Q12HR EMERITA Administration Pantoprazole Sodium 40 mg 01/25/25 09:00 01/27/25 21:37 Pantoprazole 40 Mg Tablet PO 40 mg Q12HR EMERITA Administration Polyethylene Glycol 17 gm 01/24/25 20:56 Polyethylene Glycol 3350 17 Gm Powd.Pack PO DAILY PRN Constipation Pregabalin 150 mg 01/25/25 09:00 01/27/25 08:45 Pregabalin (*Crx) 75 Mg Capsule PO 150 mg DAILY EMERITA Administration Primidone 250 mg 01/27/25 21:00 01/27/25 21:37 Primidone 250 Mg Tablet PO 250 mg QHS EMERITA Administration Sucralfate 1 gm 01/25/25 08:00 01/27/25 16:36 Sucralfate 1 Gm Tablet PO 1 gm TIDWM EMERITA Administration Vitamin D 25 mcg 01/25/25 09:00 01/27/25 08:45 Cholecalciferol (Vitamin D3) 25 Mcg (1,000 Units) Tablet PO 25 mcg DAILY EMERITA Administration Radiology Results: ITS Impressions Head CT 01/24/25 16:26 IMPRESSION: 1. No acute intracranial abnormality. Chest X-Ray 01/24/25 16:29 Impression: 1: No acute cardiopulmonary disease. Knee X-Ray 01/24/25 16:31 IMPRESSION: 1. Severe degenerative change in the patellofemoral joint. If symptoms persist or worsen, consider a short-term follow-up study or MRI imaging for further assessment. Abdomen/Pelvis CT 01/24/25 16:[address]: [address] evidence for an acute process in the abdomen or pelvis at this time. 2. Moderate amount of stool. 3. Severe compression fractures of the T12 and L2 vertebral bodies. Correlate clinically. 4.There are a few small reticular and patchy opacities scattered throughout the visualized lungs. ] 5. Cholecystectomy. Brain MRI 01/26/25 09:47 IMPRESSION: 1. Stable moderate nonspecific cerebral white matter disease, which likely represents chronic small vessel ischemic disease. Lumbar Spine MRI 01/26/25 09:49 IMPRESSION: 1. Moderate lumbar spondylosis. 2. 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 Labs Labs: Laboratory Results - last 24 hr 01/27/25 01/27/25 01/27/25 08:26 11:40 16:35 WBC RBC Hgb Hct MCV MCH MCHC RDW Plt Count MPV Immature Gran % (Auto) Neut % (Auto) Lymph % (Auto) Atkinson % (Auto) Eos % (Auto) Baso % (Auto) Lymph # (Auto) Atkinson # (Auto) Eos # (Auto) Baso # (Auto) Abs Immat Gran (auto) Absolute Neuts (auto) Absolute Nucleated RBC Nucleated RBC % Sodium Potassium Chloride Carbon Dioxide Anion Gap BUN Creatinine Estim Creat Clear Calc Estimated GFR Glucose POC Capillary Glucose 105 115 H 99 Calcium Total Bilirubin AST ALT Alkaline Phosphatase Total Protein Albumin 01/27/25 01/28/25 20:50 04:28 WBC 9.4 RBC 4.29 Hgb 14.0 Hct 42.6 MCV 99.3 MCH 32.6 MCHC 32.9 RDW 12.4 Plt Count 208 MPV 11.5 H Immature Gran % (Auto) 0.3 Neut % (Auto) 76.0 H Lymph % (Auto) 15.2 L Atkinson % (Auto) 6.0 Eos % (Auto) 2.1 Baso % (Auto) 0.4 Lymph # (Auto) 1.42 Atkinson # (Auto) 0.6 Eos # (Auto) 0.2 Baso # (Auto) 0.0 Abs Immat Gran (auto) 0.03 Absolute Neuts (auto) 7.1 H Absolute Nucleated RBC 0.000 Nucleated RBC % 0.0 Sodium 135 L Potassium 3.8 Chloride 99 Carbon Dioxide 30 Anion Gap 6 BUN 14 Creatinine 0.59 L Estim Creat Clear Calc 70 Estimated GFR > 60 Glucose 136 H POC Capillary Glucose 97 Calcium 9.6 Total Bilirubin 0.6 AST 283 H ALT 163 H Alkaline Phosphatase 239 H Total Protein 7.6 Albumin 3.8 Quality VTE Prophylaxis VTE prophylaxis: mechanical ordered
[2025-01-28] MEDS: FOLIC ACID 1 MG TABLET PO (09:14)
[2025-01-28] MEDS: DICYCLOMINE HCL 10 MG CAPSULE PO ×2 (09:14→11:45)
[2025-01-28] MEDS: PREGABALIN (*CRX) 75 MG CAPSULE 150 MG PO (09:14)
[2025-01-28] MEDS: EMPAGLIFLOZIN 25 MG TABLET BY MOUTH (09:14)
[2025-01-28] MEDS: LOSARTAN POTASSIUM 25 MG TABLET PO (09:14)
[2025-01-28] MEDS: METOPROLOL TARTRATE 50 MG TAB PO (09:14)
[2025-01-28] MEDS: FERROUS SULFATE 325 MG TABLET BY MOUTH (09:14)
[2025-01-28] MEDS: HYDROXYCHLOROQUINE SULFATE 200 MG TABLET PO (09:14)
[2025-01-28] MEDS: SUCRALFATE 1 GM TABLET PO ×2 (09:15→11:45)
[2025-01-28] MEDS: CITALOPRAM HYDROBROMIDE 10 MG TABLET PO (09:15)
[2025-01-28] MEDS: ASPIRIN 325 MG TABLET PO (09:15)
[2025-01-28] MEDS: PANTOPRAZOLE 40 MG TABLET PO ×2 (09:15→21:09)
[2025-01-28] MEDS: CHOLECALCIFEROL (VITAMIN D3) 25 MCG (1,000 UNITS) TABLET PO (09:15)
--- NOTE | 2025-01-28 10:06 | PCPTNOTE ---
Attempted to see patient for PT, however patient refused. Patient reported she wanted to eat her breakfast sitting in front of her untouched. RN aware.
--- NOTE | 2025-01-28 11:29 | PCOTNOTE ---
Attempted to see Patient at this time. Patient very lethargic, difficulty staying awake, mumbling with speech and having increased sweating. Vitals taken, has a temperature of 100.2, blood sugar 113, blood pressure 109/49, O2 sats 88%. RN notified and contacting the Dr. Patient unable to participate in services at this time.
[2025-01-28] MEDS: ACETAMINOPHEN 325 MG TABLET 650 MG PO (11:45)
--- NOTE | 2025-01-28 12:39 | ECG_ITS ---
Test Date: 2025-01-28 13:00:42 Measurements Intervals Griffin Rate: 64 P: 58 PA: 167 QRS: 2 QRSD: 102 T: 7 QT: 445 QTc: 460 Interpretive Statements SINUS RHYTHM LOW QRS VOLTAGE IN PRECORDIAL LEADS [QRS DEFLECTION < 1.0 mV IN CHEST LEADS] POSSIBLE ANTERIOR MYOCARDIAL INFARCTION , PROBABLY OLD [30 ms Q WAVE IN V3/V4, OR R < 0.2 mV IN V4] INFERIOR MYOCARDIAL INFARCTION , PROBABLY OLD [40+ ms Q WAVE AND/OR ST/T ABNORMALITY IN II/aVF] Compared to ECG 01/25/2025 06:01:31 Low QRS voltage now present Sinus bradycardia no longer present Myocardial infarct finding still present Electronically Signed On 01-28-2025 20:05:42 CDT by Eddie Arceo M.D.
[2025-01-28 13:26] LABS: Ammonia 13 umol/L (9-30)
[2025-01-28] MEDS: CEFEPIME 2 GM in SODIUM CHLORIDE 0.9% IV 50 ML 100 ML IVPB ×2 (14:19→21:12)
[2025-01-28] MEDS: VANCOMYCIN 2,000 MG/NS 500 ML 2,000 MG/500 ML BAG 250 MG IVPB (14:51)
[2025-01-28 17:40] LABS: Influenza A QL RT-PCR Negative (Negative); Influenza B QL RT-PCR Negative (Negative); RSV RNA, RT-PCR Negative (Negative); SARS-CoV-2 RNA PCR Negative (Negative)
[2025-01-28 17:45] LABS: Procalcitonin 0.1 ng/mL
[2025-01-28 18:14] LABS: MRSA (PCR) NOT DETECTED (NOT DETECTE)
[2025-01-28] MEDS: PRIMIDONE 250 MG TABLET PO (21:12)
[2025-01-29] VITALS (11 sets, daily range): BP systolic 112–146; BP diastolic 52–64; PULSE 53–70; RESP 12–18; TEMP 36.1–36.9; O2SAT 95–100
[2025-01-29] MEDS: CEFEPIME 2 GM in SODIUM CHLORIDE 0.9% IV 50 ML 100 ML IVPB ×3 (05:33→21:32)
[2025-01-29 05:34] LABS: Hematocrit 40.2 % (37.0-47.0); Hemoglobin 12.8 g/dL (12.0-15.0); Immature Granulocyte Percent A 0.2 % (0-0.5); Lymphocytes Absolute Auto 2.09 K/mm3 (0.9-3.2); Mean Corpuscular HGB Conc 31.8 g/dl (32-36); Mean Corpuscular Hemoglobin 33.0 pg (26-34); Mean Corpuscular Volume 103.6 fl (80-100); Nucleated Red Blood Cells Absolute Auto 0.000 K/mm3 (0.0-0.012); Nucleated Red Blood Cells Perc 0.0 % (0.0-0.2); Platelet Count Result 168 k/mm3 (150-375); Red Blood Count 3.88 M/mm3 (4.2-5.4); White Blood Count 6.0 K/mm3 (4.5-10.0)
[2025-01-29 05:58] LABS: Alanine Aminotransferase 129 U/L (6-35); Albumin Level 3.4 g/dL (3.5-5.1); Alkaline Phosphatase 174 U/L (38-126); Anion Gap 5 mmol/L (4-12); Aspartate Amino Transferase 175 U/L (14-36); Bilirubin,Total 0.5 mg/dL (0.2-1.3); Blood Urea Nitrogen 19 mg/dL (7-17); Calcium 9.2 mg/dL (8.4-10.2); Carbon Dioxide 29 mmol/L (22-30); Chloride 102 mmol/L (98-107); Estimated CRCL calculation 65 ml/min; Estimated Glomerular Filt Rate > 60; Glucose 94 mg/dL (65-110); Potassium 3.6 mmol/L (3.4-5.0); Sodium 136 mmol/L (137-145); Total Protein 6.8 g/dL (6.3-8.2)
--- NOTE | 2025-01-29 06:57 | P.PNIM_ITS ---
Progress Note: A&P Assessment and Plan (1) Altered mental status: Qualifiers: Altered mental status type: disorientation Qualified Code(s): R41.0 - Disorientation, unspecified Code(s): R41.82 - Altered mental status, unspecified Status: Acute Assessment and Plan: * Concern for altered mental status, facility reported patient was A&O x1. Arrived A&O x3, somnolent. Improved to baseline this AM. * CT head no acute process * has prior history of CVA with residual R-sided deficits. * UA with concern for infection, management as below * CT mentions reticular opacities, but patient is afebrile without leukocytosis or cough, doubt pneumonia * neuro checks q.6 * ceftriaxone for possible UTI * monitor WBC, clinical improvement * CVA work-up as below * Brain MRI: Stable moderate nonspecific cerebral white matter disease, which likely represents chronic small vessel ischemic disease. * Blood/urine cultures show no growth thus far * Neurology consult, appreciate further recommendations * Reduce Citalopram from 20mg to 10mg daily * Reduce Primidone from QID to TID for at home dosing * 01/29 * CTA negative for PE - groundglass opacities in lingula/lower lobe - compatible with pneumonia * Head CT negative for acute findings * Appears more alert this morning * Continue monitoring cultures, labs, vitals * Continue IV abx tx for HAP - MRSA negative so will deescalate Vanc (2) Dysarthria: Code(s): R47.1 - Dysarthria and anarthria Status: Acute Assessment and Plan: New dysarthria and slow speech toya that is developed of the last few days, no known last known well or specific onset. Reported history of right-sided deficits secondary to a CVA. Exam significant for dysarthria, slow speech toya, numbness to the right lower extremity, and significant weakness in all extremities. Possible gaze palsy, leftward gaze able to cross midline but cannot go fully to the left. * not candidate for thrombolytics or thrombectomy as she has no clear time frame of symptoms * neurology consulted * brain MRI, lumbar MR, echo w/ bubble w/wo ordered * neuro checks Q6 * PT/OT * ST recommended soft and bite sized (patient's previous diet) * monitor daily labs, check lipid panel and A1C * fall precautions * increased Atorvastatin from 20 mg to 40 mg PO daily * will hold off on starting Plavix as she is on a higher dose of aspirin * continue ASA 325 mg, home dose * Echocardiogram 01/25: EF 65-70%, mildly increased LV thickness, LV diastolic function abnormal, trace MVR, negative bubble study (3) Hospital-acquired pneumonia: Code(s): J18.9 - Pneumonia, unspecified organism; Y95 - Nosocomial condition Status: Acute Assessment and Plan: * CXR: Focal left upper lobe airspace disease suspicious for pneumonia * Risk Factors: Hospital admission * started on HAP tx: Cefepime and vancomycin * Viral PCR: Flu/COVID/RSV negative * Consider ordering legionella, mycoplasma and pneumococcal * supplemental O2 if saturation drops * supportive treatment * trend labs * Monitor vital signs, I&Os, neuro status and patient is a fall risk * Follow WBC, serum electrolytes, temperature curves and cultures * Send sputum cultures if able to receive sample * Gentle IV fluid resuscitation * CTA negative for PE - groundglass opacities in lingula/lower lobe - compatible with pneumonia * Continue monitoring cultures, labs, vitals * Continue IV abx tx for HAP - MRSA negative so will deescalate Vanc (4) Compression fracture: Status: Acute Assessment and Plan: * Admit CT with severe compression fractures of T12, L2 * Patient has prior history of compression fractures s/p vertebroplasty, but reporting increased back pain * MRI L-spine shows moderate lumbar spondylosis and chronic burst fractures at T12/L1 * PT/OT - Maximum assist x1, patient consistently requiring cues/repositioning, will benefit from continued rehab * Discussed with the on-call neurosurgeon * As long as patient remains asymptomatic, does not recommend brace * No surgical intervention at this time as this is a chronic issue - can follow up as outpt w/ neurosurgery * Patient can follow-up in the outpatient setting, when she goes back to SNF the can transfer her to her appointment with Neurosurgery (5) Abnormal urinalysis: Code(s): R82.90 - Unspecified abnormal findings in urine Status: Acute Assessment and Plan: * UA: 2+ glucose, trace ketones, 1+ leuk esterase, 11-20 WBC, no epithelial cells or bacteria * UC, blood cultures NGTD * previous micro reviewed, no previous resistances * started on Ceftriaxone on 01/24 - will discontinue (6) Diabetes mellitus: Qualifiers: Diabetes mellitus complication detail: with polyneuropathy Diabetes mellitus complication status: with neurologic complications 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 Hold Tresiba and metformin. * patient had episode of hypoglycemia 01/25 AM. Lantus stopped. Switch to low dose SSI and monitor. * A1C 6.6% on 11/30/2024 (7) Hyperlipidemia: Qualifiers: Hyperlipidemia type: unspecified Qualified Code(s): E78.5 - Hyperlipidemia, unspecified Code(s): E78.5 - Hyperlipidemia, unspecified Status: Chronic Assessment and Plan: * Due to concern for stroke, increased atorvastatin 20 mg to 40 mg daily (8) Hypertension: Qualifiers: Hypertension type: primary hypertension Qualified Code(s): I10 - E ssential (primary) hypertension Code(s): I10 - Essential (primary) hypertension Status: Chronic Assessment and Plan: * Chronic, currently 143/58, stable. * Continue home medications: Amlodipine 10 mg daily, losartan 25 mg daily, metoprolol 50 mg b.i.d. * Monitor (9) Elevated LFTs: Code(s): R79.89 - Other specified abnormal findings of blood chemistry Status: Acute Assessment and Plan: * AST 68, ALT 61, alk phos 105 * Appear chronically elevated * Consider holding statin if worsening Plan DVT Prophylaxis: SCDs Code Status: DNR Dispo: likely back to LTC Subjective Date/time seen: 01/29/25 06:57 Interval history: 79 y/o F with PMH of DM2 with peripheral neuropathy, chronic pain disorder, hepatitis C, CVA w/residual right sided deficits, LANA noncompliant with CPAP, TIA, anxiety, hyperlipidemia, gout, GERD, and hypertension presents here with altered mental status. 01/29/2025 Patient sitting in bed at time of examination. Appears much more alert today, denies any chest pain, SOB, n/v. States that it felt as though one of her pills got stuck in her throat this morning, reports that she was laying down when she took it. Instructed nursing staff to keep her elevated when taking oral medication/during meal times. Remains afebrile, without leukocytosis or a cough. CTA negative for PE but indicative of pneumonia. Will continue tx for HAP. Review of Systems Review of Systems: All systems reviewed & are unremarkable except as noted in HPI and below Exam Narrative: General: NAD Eyes: EOMI ENT: neck supple Cardiovascular: Regular rate and rhythm Respiratory: Clear to auscultation, respirations even and unlabored on RA Gastrointestinal: Soft, non tender Genitourinary: no suprapubic tenderness Musculoskeletal: No edema, mild midline tenderness to palpation of lumbar spine Skin: warm, dry Neuro: Alert and oriented x3. Cranial nerves II-XII intact. Face symmetric. Speech clear. Strength difficult to assess due to poor effort, some movement against gravity of LUE/LLE, minimal movement against gravity of RUE/RLE. Const: General: comfortable and no acute distress Other: , female, elderly, nontoxic appearance HENMT: Face/Nose/Sinus: Normal nares present Mouth: Yes dry mucous membranes Eyes: General: appearance normal, both eyes and all related structures Sclera: sclerae normal Pupils: Equal, round and reactive pupils present Other: Leftward gaze slightly diminished but able to cross midline. Resp: Effort & Inspection: normal respiratory effort Auscultation: clear to auscultation bilaterally Cardio: Rate: regular rate Rhythm: regular rhythm Other: S1-S2 present without murmur, rub, ectopy GI: Other: Abdomen soft, nondistended. Mild tenderness in the lower quadrants, more so in the suprapubic region. Normoactive bowel sounds in all quadrants. Skin: General skin exam: normal color and no rashes or lesions noted Wounds: no wounds Neuro: Cranial nerves: Yes Equal, round and reactive pupils present Other: RLE numbness, able to produce some muscle contraction to the right lower extremity otherwise no effort made to lift leg off the bed. Some movement against gravity in the left lower extremity but unable to lift off bed. Left arm unable to lift off bed but muscle contraction noted. RUE with mild ataxia, missed nose but able to tap finger correctly. Leftward gaze slightly diminished but able to cross midline. No facial droop. +dysarthria with slow speech toya. A/Ox3, poor situational history given. Extrem: General: normal to inspection Psych: Mental Status: mental status grossly normal Affect: normal affect Other: Fair to poor insight and judgment, pleasant Objective Data Vital Signs Vital Signs: Vital Signs - 24 hr 01/28/25 08:00 01/28/25 08:00 01/28/25 09:14 Temperature Pulse Rate 89 90 Respiratory Rate Blood Pressure Pulse Oximetry 93 Oxygen Delivery Room Air Oxygen Flow Rate Fraction of Inspired Oxygen 01/28/25 09:15 01/28/25 11:45 01/28/25 12:00 Temperature 100.2 F H Pulse Rate 62 Respiratory Rate Blood Pressure Pulse Oximetry Oxygen Delivery Room Air Oxygen Flow Rate Fraction of Inspired Oxygen 01/28/25 12:03 01/28/25 12:05 01/28/25 12:10 Temperature 100.2 F H Pulse Rate 66 Respiratory Rate 20 Blood Pressure 109/49 L Pulse Oximetry 88 L 88 L 95 Oxygen Delivery Room Air Nasal Cannula Oxygen Flow Rate 2 Fraction of Inspired Oxygen 01/28/25 12:45 01/28/25 14:00 01/28/25 16:00 Temperature 98.3 F 98.9 F Pulse Rate 60 59 L Respiratory Rate 16 Blood Pressure 127/50 L Pulse Oximetry 98 Oxygen Delivery Oxygen Flow Rate Fraction of Inspired Oxygen 01/28/25 19:36 01/28/25 20:00 01/28/25 20:00 Temperature 96.6 F L Pulse Rate 51 L 50 L 51 L Respiratory Rate 12 12 Blood Pressure 122/52 L Pulse Oximetry 100 100 Oxygen Delivery Nasal Cannula Oxygen Flow Rate 2 Fraction of Inspired Oxygen 01/28/25 21:10 01/28/25 22:01/29/25 00:00 Temperature 97.6 F Pulse Rate 50 L 57 L Respiratory Rate Blood Pressure Pulse Oximetry Oxygen Delivery Oxygen Flow Rate Fraction of Inspired Oxygen 01/29/25 04:00 01/29/25 04:34 Temperature 96.9 F L Pulse Rate 57 L 57 L Respiratory Rate 12 Blood Pressure 112/52 L Pulse Oximetry 100 Oxygen Delivery Oxygen Flow Rate Fraction of Inspired Oxygen Intake/Output Intake/Output: Intake & Output 01/26/25 01/27/25 01/28/25 01/29/25 23:59 23:59 23:59 23:59 Intake Total 910 1390 1300 150 Output Total 1050 2050 1000 550 Balance -140 -660 300 -400 Meds/Results Medications: Active Medications Generic Name Dose Route Start Last Admin Trade Name Freq PRN Reason Stop Dose Admin Acetaminophen 650 mg 01/24/25 20:56 01/28/25 11:45 Acetaminophen 325 Mg Tablet PO 650 mg Q6H PRN Administration Mild Pain (1-3) or Fever Hydrocodone Bitart/Acetaminophen 1 tab 01/24/25 20:56 Hydrocodone/Acetaminophen (*Crx) 10-325 Mg Tablet PO Q4H PRN Pain 4-10 Allopurinol 300 mg 01/25/25 09:00 01/28/25 09:15 Allopurinol 300 Mg Tablet PO 300 mg DAILY EMERITA Administration Amlodipine Besylate 10 mg 01/25/25 09:00 01/28/25 09:15 Amlodipine Besylate 10 Mg Tablet PO 10 mg DAILY EMERITA Administration Aripiprazole 5 mg 01/25/25 09:00 01/28/25 09:15 Aripiprazole 5 Mg Tablet PO 5 mg DAILY EMERITA Administration Artificial Tears 1 drop 01/24/25 21:23 Artificial Tears Ophth Soln 15 Ml Bottle EACH EYE Q4H PRN dry eye(s) Aspirin 325 mg 01/25/25 09:00 01/28/25 09:15 Aspirin 325 Mg Tablet PO 325 mg DAILY EMERITA Administration Calcitriol 0.5 mcg 01/25/25 09:00 01/28/25 09:15 Calcitriol 0.25 Mcg Capsule PO 0.5 mcg DAILY EMERITA Administration Citalopram Hydrobromide 10 mg 01/28/25 09:00 01/28/25 09:15 Citalopram Hydrobromide 10 Mg Tablet PO 10 mg DAILY EMERITA Administration Clonazepam 0.5 mg 01/24/25 21:00 01/28/25 21:11 Clonazepam (*Crx) 0.5 Mg Tablet PO Not Given HS EMERITA Dextrose 12.5 gm 01/24/25 18:36 Dextrose 50% 25 Gm/50 Ml Syringe IV PUSH PRN PRN Hypoglycemia Protocol Dicyclomine HCl 10 mg 01/25/25 09:00 01/28/25 16:17 Dicyclomine Hcl 10 Mg Capsule PO Not Given TID EMERITA Docusate Sodium 100 mg 01/24/25 20:56 Docusate Sodium 100 Mg Capsule PO DAILY PRN Constipation Duloxetine HCl 40 mg 01/25/25 09:00 01/28/25 09:14 Duloxetine Hcl 20 Mg Capsule.Dr PO 40 mg DAILY EMERITA Administration Empagliflozin 25 mg 01/25/25 09:00 01/28/25 09:14 Empagliflozin 25 Mg Tablet BY MOUTH 25 mg DAILY EMERITA Administration Ferrous Sulfate 325 mg 01/25/25 09:00 01/28/25 09:14 Ferrous Sulfate 325 Mg Tablet BY MOUTH 325 mg DAILY EMERITA Administration Folic Acid 1 mg 01/25/25 09:00 01/28/25 09:14 Folic Acid 1 Mg Tablet PO 1 mg DAILY EMERITA Administration Glucagon 1 mg 01/24/25 18:36 Glucagon For Inj 1 Mg Vial IM PRN PRN Hypoglycemia Protocol Glucose 15 gm 01/24/25 18:36 01/25/25 05:48 Glucose Oral Gel 15 Gm Of Glucse In 37.5 Gm Tube PO 15 gm PRN PRN Administration Hypoglycemia Protocol Hydroxychloroquine Sulfate 200 mg 01/25/25 09:00 01/28/25 16:17 Hydroxychloroquine Sulfate 200 Mg Tablet PO Not Given BID EMERITA Dextrose 1,000 mls @ 100 mls/hr 01/24/25 18:36 Dextrose 5% 1,000 Ml IVPB PRN PRN Hypoglycemia Protocol Cefepime HCl 2 gm/ Sodium 50 mls @ 100 mls/hr 01/28/25 14:00 01/29/25 05:33 Chloride IVPB 100 mls/hr Q8H EMERITA Administration Vancomycin HCl 1,500 mg in 500 mls @ 250 mls/hr 01/29/25 09:00 Vancomycin 1,500 Mg/Ns 500 Ml IVPB Q18H EMERITA Insulin Aspart 2 - 5 units 01/25/25 12:00 01/28/25 16:17 Insulin Aspart (*Bkc) 100 Units/Ml SUB-Q Not Given TIDWM [facility] Protocol Losartan Potassium 25 mg 01/25/25 09:00 01/28/25 09:14 Losartan Potassium 25 Mg Tablet PO 25 mg DAILY EMERITA Administration Metoprolol Tartrate 50 mg 01/25/25 09:00 01/28/25 21:10 Metoprolol Tartrate 50 Mg Tab PO Not Given Q12HR EMERITA Pantoprazole Sodium 40 mg 01/25/25 09:00 01/28/25 21:09 Pantoprazole 40 Mg Tablet PO 40 mg Q12HR EMERITA Administration Polyethylene Glycol 17 gm 01/24/25 20:56 Polyethylene Glycol 3350 17 Gm Powd.Pack PO DAILY PRN Constipation Pregabalin 150 mg 01/25/25 09:00 01/28/25 09:14 Pregabalin (*Crx) 75 Mg Capsule PO 150 mg DAILY EMERITA Administration Primidone 250 mg 01/27/25 21:00 01/28/25 21:12 Primidone 250 Mg Tablet PO 250 mg QHS EMERITA Administration Sucralfate 1 gm 01/25/25 08:00 01/28/25 16:17 Sucralfate 1 Gm Tablet PO Not Given TIDWM [facility] Vitamin D 25 mcg 01/25/25 09:00 01/28/25 09:15 Cholecalciferol (Vitamin D3) 25 Mcg (1,000 Units) Tablet PO 25 mcg DAILY EMERITA Administration Radiology Results: ITS Impressions Knee X-Ray 01/24/25 16:31 IMPRESSION: 1. Severe degenerative change in the patellofemoral joint. If symptoms persist or worsen, consider a short-term follow-up study or MRI imaging for further assessment. Abdomen/Pelvis CT 01/24/25 16:[address]: [address] evidence for an acute process in the abdomen or pelvis at this time. 2. Moderate amount of stool. 3. Severe compression fractures of the T12 and L2 vertebral bodies. Correlate clinically. 4.There are a few small reticular and patchy opacities scattered throughout the visualized lungs. ] 5. Cholecystectomy. Brain MRI 01/26/25 09:47 IMPRESSION: 1. Stable moderate nonspecific cerebral white matter disease, which likely represents chronic small vessel ischemic disease. Lumbar Spine MRI 01/26/25 09:49 IMPRESSION: 1. Moderate lumbar spondylosis. 2. 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 Abdomen Ultrasound 01/28/25 09:32 IMPRESSION: 1. Hepatomegaly, with steatosis and/or diffuse hepatocellular disease. 2. Minimal intrahepatic biliary ductal dilatation but not unexpected after cholecystectomy. 3. Mild sclerosis not excluded. Chest X-Ray 01/28/25 13:30 Impression: 1: Focal left upper lobe airspace disease suspicious for pneumonia. Head CT 01/28/25 16:10 IMPRESSION: 1. No acute intracranial hemorrhage. No mass effect. 2. Probable chronic ischemic white matter change. Chest CTA 01/28/25 16:33 IMPRESSION: 1. Groundglass opacities of the lingula and left lower lobe with focal areas of consolidation in the left lower lobe, compatible with pneumonia. 2: Cardiomegaly. 3: No evidence for aortic abnormality or pulmonary embolism. Labs Labs: Laboratory Results - last 24 hr 01/28/25 01/28/25 01/28/25 08:19 11:36 13:08 WBC RBC Hgb Hct MCV MCH MCHC RDW Plt Count MPV Immature Gran % (Auto) Neut % (Auto) Lymph % (Auto) Cass % (Auto) Eos % (Auto) Baso % (Auto) Lymph # (Auto) Cass # (Auto) Eos # (Auto) Baso # (Auto) Abs Immat Gran (auto) Absolute Neuts (auto) Absolute Nucleated RBC Nucleated RBC % Sodium Potassium Chloride Carbon Dioxide Anion Gap BUN Creatinine Estim Creat Clear Calc Estimated GFR Glucose POC Capillary Glucose 131 H 113 H Lactic Acid 1.0 Calcium Total Bilirubin AST ALT Alkaline Phosphatase Ammonia 13 Total Protein Albumin Procalcitonin Nasal MRSA (PCR) Influenza A (RT-PCR) Influenza B (RT-PCR) Legionella Source Legionella Culture Legionella Cult Status RSV (RT-PCR) SARS-CoV-2 RNA (RT-PCR) 01/28/25 01/28/25 01/28/25 16:53 16:59 17:07 WBC RBC Hgb Hct MCV MCH MCHC RDW Plt Count MPV Immature Gran % (Auto) Neut % (Auto) Lymph % (Auto) Cass % (Auto) Eos % (Auto) Baso % (Auto) Lymph # (Auto) Cass # (Auto) Eos # (Auto) Baso # (Auto) Abs Immat Gran (auto) Absolute Neuts (auto) Absolute Nucleated RBC Nucleated RBC % Sodium Potassium Chloride Carbon Dioxide Anion Gap BUN Creatinine Estim Creat Clear Calc Estimated GFR Glucose POC Capillary Glucose 102 Lactic Acid Calcium Total Bilirubin AST ALT Alkaline Phosphatase Ammonia Total Protein Albumin Procalcitonin 0.1 Nasal MRSA (PCR) Not detected Influenza A (RT-PCR) Negative Influenza B (RT-PCR) Negative Legionella Source Cancelled Legionella Culture Cancelled Legionella Cult Status Cancelled RSV (RT-PCR) Negative SARS-CoV-2 RNA (RT-PCR) Negative 01/29/25 05:03 WBC 6.0 RBC 3.88 L Hgb 12.8 Hct 40.2 MCV 103.6 H MCH 33.0 MCHC 31.8 L RDW 12.9 Plt Count 168 MPV 10.8 H Immature Gran % (Auto) 0.2 Neut % (Auto) 51.0 Lymph % (Auto) 35.1 Cass % (Auto) 9.2 H Eos % (Auto) 4.0 Baso % (Auto) 0.5 Lymph # (Auto) 2.09 Cass # (Auto) 0.6 Eos # (Auto) 0.2 Baso # (Auto) 0.0 Abs Immat Gran (auto) 0.01 Absolute Neuts (auto) 3.0 Absolute Nucleated RBC 0.000 Nucleated RBC % 0.0 Sodium 136 L Potassium 3.6 Chloride 102 Carbon Dioxide 29 Anion Gap 5 BUN 19 H Creatinine 0.64 L Estim Creat Clear Calc 65 Estimated GFR > 60 Glucose 94 POC Capillary Glucose Lactic Acid Calcium 9.2 Total Bilirubin 0.5 AST 175 H ALT 129 H Alkaline Phosphatase 174 H Ammonia Total Protein 6.8 Albumin 3.4 L Procalcitonin Nasal MRSA (PCR) Influenza A (RT-PCR) Influenza B (RT-PCR) Legionella Source Legionella Culture Legionella Cult Status RSV (RT-PCR) SARS-CoV-2 RNA (RT-PCR) Quality VTE Prophylaxis VTE prophylaxis: mechanical ordered
[2025-01-29] MEDS: PREGABALIN (*CRX) 75 MG CAPSULE 150 MG PO (10:12)
[2025-01-29] MEDS: ASPIRIN 325 MG TABLET PO (10:12)
[2025-01-29] MEDS: SUCRALFATE 1 GM TABLET PO ×3 (10:12→16:54)
[2025-01-29] MEDS: METOPROLOL TARTRATE 50 MG TAB PO ×2 (10:12→21:31)
[2025-01-29] MEDS: PANTOPRAZOLE 40 MG TABLET PO ×2 (10:13→21:31)
[2025-01-29] MEDS: DICYCLOMINE HCL 10 MG CAPSULE PO ×3 (10:13→16:54)
[2025-01-29] MEDS: CHOLECALCIFEROL (VITAMIN D3) 25 MCG (1,000 UNITS) TABLET PO (10:13)
[2025-01-29] MEDS: FERROUS SULFATE 325 MG TABLET BY MOUTH (10:14)
[2025-01-29] MEDS: LOSARTAN POTASSIUM 25 MG TABLET PO (10:14)
[2025-01-29] MEDS: CITALOPRAM HYDROBROMIDE 10 MG TABLET PO (10:14)
[2025-01-29] MEDS: HYDROXYCHLOROQUINE SULFATE 200 MG TABLET PO ×2 (10:14→16:54)
[2025-01-29] MEDS: FOLIC ACID 1 MG TABLET PO (10:14)
[2025-01-29] MEDS: EMPAGLIFLOZIN 25 MG TABLET BY MOUTH (10:14)
[2025-01-29] MEDS: HYDROcodone/acetaminophen (*CRX) 10-325 MG TABLET 1 TAB PO (21:30)
[2025-01-29] MEDS: PRIMIDONE 250 MG TABLET PO (21:31)
[2025-01-29] MEDS: clonazePAM (*CRX) 0.5 MG TABLET PO (21:31)
[2025-01-30] VITALS (12 sets, daily range): BP systolic 140–157; BP diastolic 51–66; PULSE 45–59; RESP 16; TEMP 36.5–36.8; O2SAT 95–100
[2025-01-30] MEDS: CEFEPIME 2 GM in SODIUM CHLORIDE 0.9% IV 50 ML 100 ML IVPB ×3 (05:42→21:01)
[2025-01-30 05:46] LABS: Hematocrit 38.5 % (37.0-47.0); Hemoglobin 12.6 g/dL (12.0-15.0); Immature Granulocyte Percent A 0.2 % (0-0.5); Lymphocytes Absolute Auto 2.05 K/mm3 (0.9-3.2); Mean Corpuscular HGB Conc 32.7 g/dl (32-36); Mean Corpuscular Hemoglobin 33.0 pg (26-34); Mean Corpuscular Volume 100.8 fl (80-100); Nucleated Red Blood Cells Absolute Auto 0.000 K/mm3 (0.0-0.012); Nucleated Red Blood Cells Perc 0.0 % (0.0-0.2); Platelet Count Result 160 k/mm3 (150-375); Red Blood Count 3.82 M/mm3 (4.2-5.4); White Blood Count 4.6 K/mm3 (4.5-10.0)
[2025-01-30 06:07] LABS: Alanine Aminotransferase 158 U/L (6-35); Albumin Level 3.4 g/dL (3.5-5.1); Alkaline Phosphatase 197 U/L (38-126); Anion Gap 6 mmol/L (4-12); Aspartate Amino Transferase 279 U/L (14-36); Bilirubin,Total 0.5 mg/dL (0.2-1.3); Blood Urea Nitrogen 15 mg/dL (7-17); Calcium 9.6 mg/dL (8.4-10.2); Carbon Dioxide 29 mmol/L (22-30); Chloride 101 mmol/L (98-107); Estimated CRCL calculation 74 ml/min; Estimated Glomerular Filt Rate > 60; Glucose 119 mg/dL (65-110); Potassium 3.6 mmol/L (3.4-5.0); Sodium 136 mmol/L (137-145); Total Protein 6.9 g/dL (6.3-8.2)
--- NOTE | 2025-01-30 07:08 | P.PNIM_ITS ---
Progress Note: A&P Assessment and Plan (1) Altered mental status: Qualifiers: Altered mental status type: disorientation Qualified Code(s): R41.0 - Disorientation, unspecified Code(s): R41.82 - Altered mental status, unspecified Status: Acute Assessment and Plan: * Concern for altered mental status, facility reported patient was A&O x1. Arrived A&O x3, somnolent. Improved to baseline this AM. * CT head no acute process * has prior history of CVA with residual R-sided deficits. * UA with concern for infection, management as below * CT mentions reticular opacities, but patient is afebrile without leukocytosis or cough, doubt pneumonia * neuro checks q.6 * ceftriaxone for possible UTI * monitor WBC, clinical improvement * CVA work-up as below * Brain MRI: Stable moderate nonspecific cerebral white matter disease, which likely represents chronic small vessel ischemic disease. * Blood/urine cultures show no growth thus far * Neurology consult, appreciate further recommendations * Reduce Citalopram from 20mg to 10mg daily * Reduce Primidone from QID to TID for at home dosing * 01/30 * Appears more alert this morning * Continue monitoring cultures, labs, vitals * Continue IV abx tx for HAP - MRSA negative so will deescalate Vancomycin (2) Hospital-acquired pneumonia: Code(s): J18.9 - Pneumonia, unspecified organism; Y95 - Nosocomial condition Status: Acute Assessment and Plan: * CXR: Focal left upper lobe airspace disease suspicious for pneumonia * started on HAP tx: Cefepime and vancomycin * Viral PCR: Flu/COVID/RSV negative * Consider ordering legionella, mycoplasma and pneumococcal * supplemental O2 if saturation drops * Monitor vital signs, I&Os, neuro status and patient is a fall risk * Follow WBC, serum electrolytes, temperature curves and cultures * Sputum culture pending * Gentle IV fluid resuscitation * CTA negative for PE - groundglass opacities in lingula/lower lobe - compatible with pneumonia * Continue monitoring cultures, labs, vitals * Continue IV abx tx for HAP - MRSA negative so will deescalate Vanc (3) Dysarthria: Code(s): R47.1 - Dysarthria and anarthria Status: Acute Assessment and Plan: New dysarthria and slow speech toay that is developed of the last few days, no known last known well or specific onset. Reported history of right-sided deficits secondary to a CVA. Exam significant for dysarthria, slow speech toya, numbness to the right lower extremity, and significant weakness in all extremities. Possible gaze palsy, leftward gaze able to cross midline but cannot go fully to the left. * not candidate for thrombolytics or thrombectomy as she has no clear time frame of symptoms * neurology consulted * brain MRI, lumbar MR, echo w/ bubble w/wo ordered * neuro checks Q6 * PT/OT * ST recommended soft and bite sized (patient's previous diet) * monitor daily labs, check lipid panel and A1C * fall precautions * increased Atorvastatin from 20 mg to 40 mg PO daily * will hold off on starting Plavix as she is on a higher dose of aspirin * continue ASA 325 mg, home dose * Echocardiogram 01/25: EF 65-70%, mildly increased LV thickness, LV diastolic function abnormal, trace MVR, negative bubble study (4) Compression fracture: Status: Acute Assessment and Plan: * Admit CT with severe compression fractures of T12, L2 * Patient has prior history of compression fractures s/p vertebroplasty, but reporting increased back pain * MRI L-spine shows moderate lumbar spondylosis and chronic burst fractures at T12/L1 * PT/OT - Maximum assist x1, patient consistently requiring cues/repositioning, will benefit from continued rehab * Discussed with the on-call neurosurgeon * As long as patient remains asymptomatic, does not recommend brace * No surgical intervention at this time as this is a chronic issue - can follow up as outpt w/ neurosurgery * Patient can follow-up in the outpatient setting, when she goes back to [facility] the can transfer her to her appointment with Neurosurgery (5) Abnormal urinalysis: Code(s): R82.90 - Unspecified abnormal findings in urine Status: Acute Assessment and Plan: * UA: 2+ glucose, trace ketones, 1+ leuk esterase, 11-20 WBC, no epithelial cells or bacteria * UC, blood cultures NGTD * previous micro reviewed, no previous resistances * started on Ceftriaxone on 01/24 - will discontinue (6) Diabetes mellitus: Qualifiers: Diabetes mellitus complication detail: with polyneuropathy Diabetes mellitus complication status: with neurologic complications Diabetes mellitus intermediate project manager insulin use: with intermediate project manager use Diabetes mellitus type: type 2 Qual ified Code(s): E11.42 - Type 2 diabetes mellitus with diabetic polyneuropathy; Z79.4 - 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 Hold Tresiba and metformin. * patient had episode of hypoglycemia 01/25 AM. Lantus stopped. Switch to low dose SSI and monitor. * A1C 6.6% on 11/30/2024 (7) Hyperlipidemia: Qualifiers: Hyperlipidemia type: unspecified Qualified Code(s): E78.5 - Hyperlipidemia, unspecified Code(s): E78.5 - Hyperlipidemia, unspecified Status: Chronic Assessment and Plan: * Due to concern for stroke, increased atorvastatin 20 mg to 40 mg daily (8) Hypertension: Qualifiers: Hypertension type: primary hypertension Qualified Code(s): I10 - Essential (primary) hypertension Code(s): I10 - Essential (primary) hypertension Status: Chronic Assessment and Plan: * Chronic, currently 140/57, stable. * Continue home medications: Amlodipine 10 mg daily, losartan 25 mg daily, metoprolol 50 mg b.i.d. * Monitor (9) Elevated LFTs: Code(s): R79.89 - Other specified abnormal findings of blood chemistry Status: Acute Assessment and Plan: * AST 68, ALT 61, alk phos 105 * Appear chronically elevated * Consider holding statin if worsening Plan DVT Prophylaxis: SCDs Code Status: DNR Dispo: likely back to [facility] Subjective Date/time seen: 01/30/25 07:08 Interval history: 79 y/o F with PMH of DM2 with peripheral neuropathy, chronic pain disorder, hepatitis C, CVA w/residual right sided deficits, LANA noncompliant with CPAP, TIA, anxiety, hyperlipidemia, gout, GERD, and hypertension presents here with altered mental status. 01/30/2025 Patient sitting in bed at time of examination. Appears again much more alert today. Denies any chest pain, shortness of breath, n/v. Remains afebrile, without leukocytosis. Will look to discharge tomorrow. Review of Systems Review of Systems: All systems reviewed & are unremarkable except as noted in HPI and below Exam Narrative: General: NAD Eyes: EOMI ENT: neck supple Cardiovascular: Regular rate and rhythm Respiratory: Clear to auscultation, respirations even and unlabored on RA Gastrointestinal: Soft, non tender Genitourinary: no suprapubic tenderness Musculoskeletal: No edema, mild midline tenderness to palpation of lumbar spine Skin: warm, dry Neuro: Alert and oriented x3. Cranial nerves II-XII intact. Face symmetric. Speech clear. Strength difficult to assess due to poor effort, some movement against gravity of LUE/LLE, minimal movement against gravity of RUE/RLE. Const: General: comfortable and no acute distress Other: , female, elderly, nontoxic appearance HENMT: Face/Nose/Sinus: Normal nares present Mouth: Yes dry mucous membranes Eyes: General: appearance normal, both eyes and all related structures Sclera: sclerae normal Pupils: Equal, round and reactive pupils present Other: Leftward gaze slightly diminished but able to cross midline. Resp: Effort & Inspection: normal respiratory effort Auscultation: clear to auscultation bilaterally Cardio: Rate: regular rate Rhythm: regular rhythm Other: S1-S2 present without murmur, rub, ectopy GI: Other: Abdomen soft, nondistended. Mild tenderness in the lower quadrants, more so in the suprapubic region. Normoactive bowel sounds in all quadrants. Skin: General skin exam: normal color and no rashes or lesions noted Wounds: no wounds Neuro: Cranial nerves: Yes Equal, round and reactive pupils present Other: RLE numbness, able to produce some muscle contraction to the right lower extremity otherwise no effort made to lift leg off the bed. Some movement against gravity in the left lower extremity but unable to lift off bed. Left arm unable to lift off bed but muscle contraction noted. RUE with mild ataxia, missed nose but able to tap finger correctly. Leftward gaze slightly diminished but able to cross midline. No facial droop. +dysarthria with slow speech toya. A/Ox3, poor situational history given. Extrem: General: normal to inspection Psych: Mental Status: mental status grossly normal Affect: normal affect Other: Fair to poor insight and judgment, pleasant Objective Data Vital Signs Vital Signs: Vital Signs - 24 hr 01/29/25 08:00 01/29/25 08:00 01/29/25 10:12 Temperature Pulse Rate 70 70 Respiratory Rate Blood Pressure Pulse Oximetry 98 Oxygen Delivery Nasal Cannula Oxygen Flow Rate 2 Fraction of Inspired Oxygen 01/29/25 12:00 01/29/25 14:00 01/29/25 16:00 Temperature 98.4 F Pulse Rate 66 60 60 Respiratory Rate 16 Blood Pressure 146/64 H Pulse Oximetry 95 Oxygen Delivery Oxygen Flow Rate Fraction of Inspired Oxygen 01/29/25 20:00 01/29/25 20:00 01/29/25 21:28 Temperature 97.9 F Pulse Rate 53 L 60 Respiratory Rate 18 Blood Pressure 144/55 H Pulse Oximetry 97 98 Oxygen Delivery Nasal Cannula Oxygen Flow Rate 2 Fraction of Inspired Oxygen 01/29/25 21:31 01/30/25 00:00 01/30/25 04:00 Temperature Pulse Rate 60 48 L 45 L Respiratory Rate Blood Pressure Pulse Oximetry Oxygen Delivery Oxygen Flow Rate Fraction of Inspired Oxygen 01/30/25 04:52 Temperature 97.7 F Pulse Rate 59 L Respiratory Rate 16 Blood Pressure 140/57 L Pulse Oximetry 100 Oxygen Delivery Oxygen Flow Rate Fraction of Inspired Oxygen Intake/Output Intake/Output: Intake & Output 01/27/25 01/28/25 01/29/25 01/30/25 23:59 23:59 23:59 23:59 Intake Total 1390 1300 2260 350 Output Total 2050 1000 1550 800 Balance -660 300 710 -450 Meds/Results Medications: Active Medications Generic Name Dose Route Start Last Admin Trade Name Freq PRN Reason Stop Dose Admin Acetaminophen 650 mg 01/24/25 20:56 01/28/25 11:45 Acetaminophen 325 Mg Tablet PO 650 mg Q6H PRN Administration Mild Pain (1-3) or Fever Hydrocodone Bitart/Acetaminophen 1 tab 01/24/25 20:56 01/29/25 21:30 Hydrocodone/Acetaminophen (*Crx) 10-325 Mg Tablet PO 1 tab Q4H PRN Administration Pain 4-10 Allopurinol 300 mg 01/25/25 09:00 01/29/25 10:11 Allopurinol 300 Mg Tablet PO 300 mg DAILY EMERITA Administration Amlodipine Besylate 10 mg 01/25/25 09:00 01/29/25 10:13 Amlodipine Besylate 10 Mg Tablet PO 10 mg DAILY EMERITA Administration Aripiprazole 5 mg 01/25/25 09:00 01/29/25 10:13 Aripiprazole 5 Mg Tablet PO 5 mg DAILY EMERITA Administration Artificial Tears 1 drop 01/24/25 21:23 Artificial Tears Ophth Soln 15 Ml Bottle EACH EYE Q4H PRN dry eye(s) Aspirin 325 mg 01/25/25 09:00 01/29/25 10:12 Aspirin 325 Mg Tablet PO 325 mg DAILY EMERITA Administration Calcitriol 0.5 mcg 01/25/25 09:00 01/29/25 10:12 Calcitriol 0.25 Mcg Capsule PO 0.5 mcg DAILY EMERITA Administration Citalopram Hydrobromide 10 mg 01/28/25 09:00 01/29/25 10:14 Citalopram Hydrobromide 10 Mg Tablet PO 10 mg DAILY EMERITA Administration Clonazepam 0.5 mg 01/24/25 21:00 01/29/25 21:31 Clonazepam (*Crx) 0.5 Mg Tablet PO 0.5 mg HS EMERITA Administration Dextrose 12.5 gm 01/24/25 18:36 Dextrose 50% 25 Gm/50 Ml Syringe IV PUSH PRN PRN Hypoglycemia Protocol Dicyclomine HCl 10 mg 01/25/25 09:00 01/29/25 16:54 Dicyclomine Hcl 10 Mg Capsule PO 10 mg TID EMERITA Administration Docusate Sodium 100 mg 01/24/25 20:56 Docusate Sodium 100 Mg Capsule PO DAILY PRN Constipation Duloxetine HCl 40 mg 01/25/25 09:00 01/29/25 10:12 Duloxetine Hcl 20 Mg Capsule.Dr PO 40 mg DAILY EMERITA Administration Empagliflozin 25 mg 01/25/25 09:00 01/29/25 10:14 Empagliflozin 25 Mg Tablet BY MOUTH 25 mg DAILY EMERITA Administration Ferrous Sulfate 325 mg 01/25/25 09:00 01/29/25 10:14 Ferrous Sulfate 325 Mg Tablet BY MOUTH 325 mg DAILY EMERITA Administration Folic Acid 1 mg 01/25/25 09:00 01/29/25 10:14 Folic Acid 1 Mg Tablet PO 1 mg DAILY EMERITA Administration Glucagon 1 mg 01/24/25 18:36 Glucagon For Inj 1 Mg Vial IM PRN PRN Hypoglycemia Protocol Glucose 15 gm 01/24/25 18:36 01/25/25 05:48 Glucose Oral Gel 15 Gm Of Glucse In 37.5 Gm Tube PO 15 gm PRN PRN Administration Hypoglycemia Protocol Hydroxychloroquine Sulfate 200 mg 01/25/25 09:00 01/29/25 16:54 Hydroxychloroquine Sulfate 200 Mg Tablet PO 200 mg BID EMERITA Administration Dextrose 1,000 mls @ 100 mls/hr 01/24/25 18:36 Dextrose 5% 1,000 Ml IVPB PRN PRN Hypoglycemia Protocol Cefepime HCl 2 gm/ Sodium 50 mls @ 100 mls/hr 01/28/25 14:00 01/30/25 05:42 Chloride IVPB 100 mls/hr Q8H EMERITA Administration Insulin Aspart 2 - 5 units 01/25/25 12:00 01/29/25 17:50 Insulin Aspart (*Bkc) 100 Units/Ml SUB-Q Not Given TIDWM EMERITA Protocol Losartan Potassium 25 mg 01/25/25 09:00 01/29/25 10:14 Losartan Potassium 25 Mg Tablet PO 25 mg DAILY EMERITA Administration Metoprolol Tartrate 50 mg 01/25/25 09:00 01/29/25 21:31 Metoprolol Tartrate 50 Mg Tab PO 50 mg Q12HR EMERITA Administration Pantoprazole Sodium 40 mg 01/25/25 09:00 01/29/25 21:31 Pantoprazole 40 Mg Tablet PO 40 mg Q12HR EMERITA Administration Polyethylene Glycol 17 gm 01/24/25 20:56 Polyethylene Glycol 3350 17 Gm Powd.Pack PO DAILY PRN Constipation Pregabalin 150 mg 01/25/25 09:00 01/29/25 10:12 Pregabalin (*Crx) 75 Mg Capsule PO 150 mg DAILY EMERITA Administration Primidone 250 mg 01/27/25 21:00 01/29/25 21:31 Primidone 250 Mg Tablet PO 250 mg QHS EMERITA Administration Sucralfate 1 gm 01/25/25 08:00 01/29/25 16:54 Sucralfate 1 Gm Tablet PO 1 gm TIDWM EMERITA Administration Vitamin D 25 mcg 01/25/25 09:00 01/29/25 10:13 Cholecalciferol (Vitamin D3) 25 Mcg (1,000 Units) Tablet PO 25 mcg DAILY EMERITA Administration Radiology Results: ITS Impressions Knee X-Ray 01/24/25 16:31 IMPRESSION: 1. Severe degenerative change in the patellofemoral joint. If symptoms persist or worsen, consider a short-term follow-up study or MRI imaging for further assessment. Abdomen/Pelvis CT 01/24/25 16:[address]: [address] evidence for an acute process in the abdomen or pelvis at this time. 2. Moderate amount of stool. 3. Severe compression fractures of the T12 and L2 vertebral bodies. Correlate clinically. 4.There are a few small reticular and patchy opacities scattered throughout the visualized lungs. ] 5. Cholecystectomy. Brain MRI 01/26/25 09:47 IMPRESSION: 1. Stable moderate nonspecific cerebral white matter disease, which likely represents chronic small vessel ischemic disease. Lumbar Spine MRI 01/26/25 09:49 IMPRESSION: 1. Moderate lumbar spondylosis. 2. 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 Abdomen Ultrasound 01/28/25 09:32 IMPRESSION: 1. Hepatomegaly, with steatosis and/or diffuse hepatocellular disease. 2. Minimal intrahepatic biliary ductal dilatation but not unexpected after cholecystectomy. 3. Mild sclerosis not excluded. Chest X-Ray 01/28/25 13:30 Impression: 1: Focal left upper lobe airspace disease suspicious for pneumonia. Head CT 01/28/25 16:10 IMPRESSION: 1. No acute intracranial hemorrhage. No mass effect. 2. Probable chronic ischemic white matter change. Chest CTA 01/28/25 16:33 IMPRESSION: 1. Groundglass opacities of the lingula and left lower lobe with focal areas of consolidation in the left lower lobe, compatible with pneumonia. 2: Cardiomegaly. 3: No evidence for aortic abnormality or pulmonary embolism. Labs Labs: Laboratory Results - last 24 hr 01/29/25 01/29/25 01/29/25 08:00 12:25 17:13 WBC RBC Hgb Hct MCV MCH MCHC RDW Plt Count MPV Immature Gran % (Auto) Neut % (Auto) Lymph % (Auto) Hunt % (Auto) Eos % (Auto) Baso % (Auto) Lymph # (Auto) Hunt # (Auto) Eos # (Auto) Baso # (Auto) Abs Immat Gran (auto) Absolute Neuts (auto) Absolute Nucleated RBC Nucleated RBC % Sodium Potassium Chloride Carbon Dioxide Anion Gap BUN Creatinine Estim Creat Clear Calc Estimated GFR Glucose POC Capillary Glucose 109 H 121 H 133 H Calcium Total Bilirubin AST ALT Alkaline Phosphatase Total Protein Albumin 01/29/25 01/30/25 21:31 05:34 WBC 4.6 RBC 3.82 L Hgb 12.6 Hct 38.5 MCV 100.8 H MCH 33.0 MCHC 32.7 RDW 12.6 Plt Count 160 MPV 10.8 H Immature Gran % (Auto) 0.2 Neut % (Auto) 37.7 L Lymph % (Auto) 44.7 H Hunt % (Auto) 10.2 H Eos % (Auto) 6.3 H Baso % (Auto) 0.9 Lymph # (Auto) 2.05 Hunt # (Auto) 0.5 Eos # (Auto) 0.3 Baso # (Auto) 0.0 Abs Immat Gran (auto) 0.01 Absolute Neuts (auto) 1.7 Absolute Nucleated RBC 0.000 Nucleated RBC % 0.0 Sodium 136 L Potassium 3.6 Chloride 101 Carbon Dioxide 29 Anion Gap 6 BUN 15 Creatinine 0.55 L Estim Creat Clear Calc 74 Estimated GFR > 60 Glucose 119 H POC Capillary Glucose 181 H Calcium 9.6 Total Bilirubin 0.5 AST 279 H ALT 158 H Alkaline Phosphatase 197 H Total Protein 6.9 Albumin 3.4 L Quality VTE Prophylaxis VTE prophylaxis: mechanical ordered
[2025-01-30] MEDS: CHOLECALCIFEROL (VITAMIN D3) 25 MCG (1,000 UNITS) TABLET PO (09:38)
[2025-01-30] MEDS: FERROUS SULFATE 325 MG TABLET BY MOUTH (09:38)
[2025-01-30] MEDS: DICYCLOMINE HCL 10 MG CAPSULE PO ×3 (09:38→16:09)
[2025-01-30] MEDS: EMPAGLIFLOZIN 25 MG TABLET BY MOUTH (09:38)
[2025-01-30] MEDS: CITALOPRAM HYDROBROMIDE 10 MG TABLET PO (09:38)
[2025-01-30] MEDS: ASPIRIN 325 MG TABLET PO (09:38)
[2025-01-30] MEDS: HYDROXYCHLOROQUINE SULFATE 200 MG TABLET PO ×2 (09:38→16:09)
[2025-01-30] MEDS: LOSARTAN POTASSIUM 25 MG TABLET PO (09:38)
[2025-01-30] MEDS: FOLIC ACID 1 MG TABLET PO (09:38)
[2025-01-30] MEDS: PREGABALIN (*CRX) 75 MG CAPSULE 150 MG PO (09:38)
[2025-01-30] MEDS: PANTOPRAZOLE 40 MG TABLET PO ×2 (09:39→20:57)
[2025-01-30] MEDS: SUCRALFATE 1 GM TABLET PO ×3 (09:39→16:10)
[2025-01-30] MEDS: ACETAMINOPHEN 325 MG TABLET 650 MG PO (20:56)
[2025-01-30] MEDS: clonazePAM (*CRX) 0.5 MG TABLET PO (20:58)
[2025-01-30] MEDS: METOPROLOL TARTRATE 50 MG TAB PO (20:58)
[2025-01-30] MEDS: PRIMIDONE 250 MG TABLET PO (20:58)
[2025-01-31] VITALS (9 sets, daily range): BP systolic 127–147; BP diastolic 67–83; PULSE 50–64; RESP 18–20; TEMP 36.3–36.8; O2SAT 95–98
[2025-01-31 05:19] LABS: Hematocrit 40.1 % (37.0-47.0); Hemoglobin 13.0 g/dL (12.0-15.0); Immature Granulocyte Percent A 0.2 % (0-0.5); Lymphocytes Absolute Auto 2.04 K/mm3 (0.9-3.2); Mean Corpuscular HGB Conc 32.4 g/dl (32-36); Mean Corpuscular Hemoglobin 32.9 pg (26-34); Mean Corpuscular Volume 101.5 fl (80-100); Nucleated Red Blood Cells Absolute Auto 0.000 K/mm3 (0.0-0.012); Nucleated Red Blood Cells Perc 0.0 % (0.0-0.2); Platelet Count Result 179 k/mm3 (150-375); Red Blood Count 3.95 M/mm3 (4.2-5.4); White Blood Count 4.5 K/mm3 (4.5-10.0)
[2025-01-31] MEDS: CEFEPIME 2 GM in SODIUM CHLORIDE 0.9% IV 50 ML 100 ML IVPB (05:42)
[2025-01-31 05:47] LABS: Alanine Aminotransferase 137 U/L (6-35); Albumin Level 3.5 g/dL (3.5-5.1); Alkaline Phosphatase 194 U/L (38-126); Anion Gap 6 mmol/L (4-12); Aspartate Amino Transferase 171 U/L (14-36); Bilirubin,Total 0.4 mg/dL (0.2-1.3); Blood Urea Nitrogen 15 mg/dL (7-17); Calcium 9.6 mg/dL (8.4-10.2); Carbon Dioxide 30 mmol/L (22-30); Chloride 102 mmol/L (98-107); Estimated CRCL calculation 61 ml/min; Estimated Glomerular Filt Rate > 60; Glucose 126 mg/dL (65-110); Potassium 3.3 mmol/L (3.4-5.0); Sodium 138 mmol/L (137-145); Total Protein 7.1 g/dL (6.3-8.2)
[2025-01-31] MEDS: PANTOPRAZOLE 40 MG TABLET PO (08:50)
[2025-01-31] MEDS: CITALOPRAM HYDROBROMIDE 10 MG TABLET PO (08:50)
[2025-01-31] MEDS: POTASSIUM CHLORIDE 20 MEQ PACKET (FOR LIQUID) PO (08:51)
[2025-01-31] MEDS: FERROUS SULFATE 325 MG TABLET BY MOUTH (08:51)
[2025-01-31] MEDS: EMPAGLIFLOZIN 25 MG TABLET BY MOUTH (08:51)
[2025-01-31] MEDS: LOSARTAN POTASSIUM 25 MG TABLET PO (08:51)
[2025-01-31] MEDS: SUCRALFATE 1 GM TABLET PO ×3 (08:51→17:31)
[2025-01-31] MEDS: CHOLECALCIFEROL (VITAMIN D3) 25 MCG (1,000 UNITS) TABLET PO (08:51)
[2025-01-31] MEDS: PREGABALIN (*CRX) 75 MG CAPSULE 150 MG PO (08:51)
[2025-01-31] MEDS: ASPIRIN 325 MG TABLET PO (08:51)
[2025-01-31] MEDS: METOPROLOL TARTRATE 50 MG TAB PO (08:51)
[2025-01-31] MEDS: FOLIC ACID 1 MG TABLET PO (08:52)
[2025-01-31] MEDS: HYDROXYCHLOROQUINE SULFATE 200 MG TABLET PO ×2 (08:52→17:31)
[2025-01-31] MEDS: DICYCLOMINE HCL 10 MG CAPSULE PO ×3 (08:52→17:31)
[2025-01-31] MEDS: ACETAMINOPHEN 325 MG TABLET 650 MG PO ×2 (08:59→18:50)
--- NOTE | 2025-01-31 10:52 | PCNWS ---
Weekly nutritional screen. Patient is tolerating current diet with adequate intake. No weight loss reported. No nutritional needs at this time.
--- NOTE | 2025-01-31 13:25 | P.DS_ITS ---
DS: Admitting Diagnosis Discharge Date 01/31/2025 Admitting Diagnosis AMS DS: Discharge Diagnosis Discharge Diagnosis (1) Altered mental status: Qualifiers: Altered mental status type: disorientation Qualified Code(s): R41.0 - Disorientation, unspecified Code(s): R41.82 - Altered mental status, unspecified Status: Acute Assessment and Plan: * Concern for altered mental status, facility reported patient was A&O x1. Arrived A&O x3, somnolent. Improved to baseline this AM. * CT head no acute process * has prior history of CVA with residual R-sided deficits. * UA with concern for infection, management as below * CT mentions reticular opacities, but patient is afebrile without leukocytosis or cough, doubt pneumonia * neuro checks q.6 * ceftriaxone for possible UTI * monitor WBC, clinical improvement * CVA work-up as below * Brain MRI: Stable moderate nonspecific cerebral white matter disease, which likely represents chronic small vessel ischemic disease. * Blood/urine cultures show no growth thus far * Neurology consult, appreciate further recommendations * Reduce Citalopram from 20mg to 10mg daily * Reduce Primidone from QID to TID for at home dosing * 01/30 * Appears more alert this morning * Continue monitoring cultures, labs, vitals * Continue IV abx tx for HAP - MRSA negative so will deescalate Vancomycin (2) Hospital-acquired pneumonia: Code(s): J18.9 - Pneumonia, unspecified organism; Y95 - Nosocomial condition Status: Acute Assessment and Plan: * CXR: Focal left upper lobe airspace disease suspicious for pneumonia * started on HAP tx: Cefepime and vancomycin * Viral PCR: Flu/COVID/RSV negative * Consider ordering legionella, mycoplasma and pneumococcal * supplemental O2 if saturation drops * Monitor vital signs, I&Os, neuro status and patient is a fall risk * Follow WBC, serum electrolytes, temperature curves and cultures * Sputum culture pending * Gentle IV fluid resuscitation * CTA negative for PE - groundglass opacities in lingula/lower lobe - compatible with pneumonia * Continue monitoring cultures, labs, vitals * Continue IV abx tx for HAP - MRSA negative so will deescalate Vanc (3) Dysarthria: Code(s): R47.1 - Dysarthria and anarthria Status: Acute Assessment and Plan: New dysarthria and slow speech toya that is developed of the last few days, no known last known well or specific onset. Reported history of right-sided deficits secondary to a CVA. Exam significant for dysarthria, slow speech toya, numbness to the right lower extremity, and significant weakness in all extremities. Possible gaze palsy, leftward gaze able to cross midline but cannot go fully to the left. * not candidate for thrombolytics or thrombectomy as she has no clear time frame of symptoms * neurology consulted * brain MRI, lumbar MR, echo w/ bubble w/wo ordered * neuro checks Q6 * PT/OT * ST recommended soft and bite sized (patient's previous diet) * monitor daily labs, check lipid panel and A1C * fall precautions * increased Atorvastatin from 20 mg to 40 mg PO daily * will hold off on starting Plavix as she is on a higher dose of aspirin * continue ASA 325 mg, home dose * Echocardiogram 01/25: EF 65-70%, mildly increased LV thickness, LV diastolic function abnormal, trace MVR, negative bubble study (4) Compression fracture: Status: Acute Assessment and Plan: * Admit CT with severe compression fractures of T12, L2 * Patient has prior history of compression fractures s/p vertebroplasty, but reporting increased back pain * MRI L-spine shows moderate lumbar spondylosis and chronic burst fractures at 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 * PT/OT - Maximum assist x1, patient consistently requiring cues/repositioning, will benefit from continued rehab * Discussed with the on-call neurosurgeon * As long as patient remains asymptomatic, does not recommend brace * No surgical intervention at this time as this is a chronic issue - can follow up as outpt w/ neurosurgery * Patient can follow-up in the outpatient setting, when she goes back to [facility] the can transfer her to her appointment with Neurosurgery (5) Abnormal urinalysis: Code(s): R82.90 - Unspecified abnormal findings in urine Status: Acute Assessment and Plan: * UA: 2+ glucose, trace ketones, 1+ leuk esterase, 11-20 WBC, no epithelial cells or bacteria * UC, blood cultures NGTD * previous micro reviewed, no previous resistances * started on Ceftriaxone on 01/24 - will discontinue (6) Diabetes mellitus: Qualifiers: Diabetes mellitus complication detail: with polyneuropathy Diabetes mellitus complication status: with neurologic complications 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 Hold Tresiba and metformin. * patient had episode of hypoglycemia 01/25 AM. Lantus stopped. Switch to low dose SSI and monitor. * A1C 6.6% on 11/30/2024 (7) Hyperlipidemia: Qualifiers: Hyperlipidemia type: unspecified Qualified Code(s): E78.5 - Hyperlipidemia, unspecified Code(s): E78.5 - Hyperlipidemia, unspecified Status: Chronic Assessment and Plan: * Due to concern for stroke, increased atorvastatin 20 mg to 40 mg daily (8) Hypertension: Qualifiers: Hypertension type: primary hypertension Qualified Code(s): I10 - Essential (primary) hypertension Code(s): I10 - Essential (primary) hypertension Status: Chronic Assessment and Plan: * Chronic, currently 140/57, stable. * Continue home medications: Amlodipine 10 mg daily, losartan 25 mg daily, metoprolol 50 mg b.i.d. * Monitor (9) Elevated LFTs: Code(s): R79.89 - Other specified abnormal findings of blood chemistry Status: Acute Assessment and Plan: * AST 68, ALT 61, alk phos 105 * Appear chronically elevated * Consider holding statin if worsening Plan DVT Prophylaxis: SCDs Code Status: DNR Dispo: likely back to LTC DS: Summary Hospital Course Reason for hospitalization: AMS Hospital Course: Per HPI: 79 y/o F with PMH of DM2 with peripheral neuropathy, chronic pain disorder, hepatitis C, CVA w/residual right sided deficits, LANA noncompliant with CPAP, TIA, anxiety, hyperlipidemia, gout, GERD, and hypertension presents here with altered mental status. The patient presents here from [facility] on 01/24 for further evaluation of altered mental status. HPI obtained through patient report, EMS report, and chart review. Per EMS, the facility reported that the patient was A&O x1 and has a baseline of A&O x3. Disorientation was noted today at the facility. They also reported she has been recently treated for UTI. Upon evaluation in the emergency department, the patient was found to be A&O x3 but somnolent. The patient currently reports abdominal discomfort, urinary frequency, dysuria, speech changes, and fatigue. She describes the pain as periumbilical, achy, and intermittent. She reports the speech changes have occurred over the last few days. She reports a history of dysphagia. Denies nausea, vomiting, diarrhea, focal weakness, focal numbness, changes in vision. Does not note any dizziness or balance disturbance, however uses a wheelchair and a lift for mobility. She does report a history of a CVA with right-sided deficits. Initial VS at presentation: 97.6? F, HR 58, RR 20, 113/57, and 91% on RA. Now on 2L nasal cannula. ED workup showed: No leukocytosis, no anemia, normal coags, ABG showed a CO2 of 48.0 (previously 47.7 in 2022), no significant electrolyte derangements, creatinine 0.73 and GFR >60, magnesium 1.4, AST 94 and ALT 63 (similar and November and December of 2024), initial troponin negative, procalcitonin 0.1, and UA showed 2+ glucose, trace ketones, 1+ leuk esterase, and 11-[address] showed no acute intracranial abnormality. CXR showed no acute cardiopulmonary disease. Knee XR (R) showed severe degenerative changes in the patellofemoral joint. CT of the abdomen/pelvis showed a her a moderate amount of stool, no evidence of an acute process in the abdomen or pelvis, severe compression fractures of the T12 and L2 vertebral bodies, small reticular and patchy opacities scattered throughout the visualized lungs, and cholecystectomy. Hospital course: Echocardiogram was obtained on 01/25/2025 which showed the following results:\ 1. Left ventricular systolic function is normal, estimated at 65-70. 2. There is mildly increased left ventricular wall thickness. 3. The left ventricular diastolic function is abnormal. 4. Negative bubble study. 5. There is trace mitral valve regurgitation. Upon admission she was found to have a possible urinary tract infection on UA which could have attributed to AMS. Imagine was reassuring and unremarkable for any acute concerns. Blood and urine cultures were drawn but did not yield any bacterial growth. On Neurology was consulted regarding neuropathy/Altered mental status. Neurology made the recommendations to reduce dose of Primidone to 250mg. Upon admission she was A&Ox4 and from time of admission through 01/27 she was slow to respond but remained A&Ox4. On 01/28, nursing staff reported that she was less responsive, diaphoretic. She did not have a fever or tachycardia/tachypnea, but she was complaining of shortness of breath/chest pain. Imaging was ordered to rule out HAP/PE. Chest XR showed Focal left upper lobe airspace disease suspicious for pneumonia. Head CT: No acute intracranial hemorrhage. No mass effect. Probable chronic ischemic white matter change. Chest CTA showed Groundglass opacities of the lingula and left lower lobe with focal areas of consolidation in the left lower lobe, compatible with pneumonia. Cardiomegaly. No evidence for aortic abnormality or pulmonary embolism. Treatment was started for HAP with Cefepime and Vanc until MRSA swab resulted and vanc was discon tinued. She remained afebrile without leukocytosis throughout hospitalization. She remained a&ox4 as well and appeared much more alert and did not have any chest pain or shortness of breath after treatment for HAP was initiated. Lumbar spine MRI showed Chronic burst fractures of T12 and L1 with changes of vertebroplasty. I discussed with the [facility] Neurosugeon who agreed that this is a chronic issue that does not warrant further investigation but recommends a TSLO brace. TSLO brace has been ordered and patient is otherwise hemodynamically stable for discharge with continued antibiotic coverage for the next few days for HAP. Catheter was removed and void trialed without difficulty and pt can be discharged back to [facility] at this time. Status at Discharge Functional status at discharge: uses cane/walker Overall status at discharge: patient is progressing back to baseline Time Spent with Patient Time attestation: Total time spent providing and/or coordinating discharge services: 34 Exam 2 Narrative: General: NAD Eyes: EOMI ENT: neck supple Cardiovascular: Regular rate and rhythm Respiratory: Clear to auscultation, respirations even and unlabored on RA Gastrointestinal: Soft, non tender Genitourinary: no suprapubic tenderness Musculoskeletal: No edema, mild midline tenderness to palpation of lumbar spine Skin: warm, dry Neuro: Alert and oriented x3. Cranial nerves II-XII intact. Face symmetric. Speech clear. Strength difficult to assess due to poor effort, some movement against gravity of LUE/LLE, minimal movement against gravity of RUE/RLE. Const: General: comfortable and no acute distress Other: , female, elderly, nontoxic appearance HENMT: Face/Nose/Sinus: Normal nares present Mouth: Yes dry mucous membranes Eyes: General: appearance normal, both eyes and all related structures Sclera: sclerae normal Pupils: Equal, round and reactive pupils present Other: Leftward gaze slightly diminished but able to cross midline. Resp: Effort & Inspection: normal respiratory effort Auscultation: clear to auscultation bilaterally Cardio: Rate: regular rate Rhythm: regular rhythm Other: S1-S2 present without murmur, rub, ectopy GI: Other: Abdomen soft, nondistended. Mild tenderness in the lower quadrants, more so in the suprapubic region. Normoactive bowel sounds in all quadrants. Skin: General skin exam: normal color and no rashes or lesions noted Wounds: no wounds Neuro: Cranial nerves: Yes Equal, round and reactive pupils present Other: No facial droop. +dysarthria with slow speech toya. A/Ox3, poor situational history given. Extrem: General: normal to inspection Psych: Mental Status: mental status grossly normal Affect: normal affect Other: Fair to poor insight and judgment, pleasant DS: Data Data Completed and Pending Labs on day of discharge: Labs from last 24 hours 01/31/25 01/31/25 01/31/25 11:49 07:58 05:01 WBC 4.5 RBC 3.95 L Hgb 13.0 Hct 40.1 MCV 101.5 H MCH 32.9 MCHC 32.4 RDW 12.6 Plt Count 179 MPV 11.0 H Immature Gran % (Auto) 0.2 Neut % (Auto) 38.4 L Lymph % (Auto) 45.0 H Payne % (Auto) 9.3 H Eos % (Auto) 6.2 H Baso % (Auto) 0.9 Lymph # (Auto) 2.04 Payne # (Auto) 0.4 Eos # (Auto) 0.3 Baso # (Auto) 0.0 Abs Immat Gran (auto) 0.01 Absolute Neuts (auto) 1.7 Absolute Nucleated RBC 0.000 Nucleated RBC % 0.0 Sodium 138 Potassium 3.3 L Chloride 102 Carbon Dioxide 30 Anion Gap 6 BUN 15 Creatinine 0.68 L Estim Creat Clear Calc 61 Estimated GFR > 60 Glucose 126 H POC Capillary Glucose 152 H 117 H Calcium 9.6 Total Bilirubin 0.4 AST 171 H ALT 137 H Alkaline Phosphatase 194 H Total Protein 7.1 Albumin 3.5 01/30/25 01/30/25 01/28/25 20:08 17:28 19:44 WBC RBC Hgb Hct MCV MCH MCHC RDW Plt Count MPV Immature Gran % (Auto) Neut % (Auto) Lymph % (Auto) Payne % (Auto) Eos % (Auto) Baso % (Auto) Lymph # (Auto) Payne # (Auto) Eos # (Auto) Baso # (Auto) Abs Immat Gran (auto) Absolute Neuts (auto) Absolute Nucleated RBC Nucleated RBC % Sodium Potassium Chloride Carbon Dioxide Anion Gap BUN Creatinine Estim Creat Clear Calc Estimated GFR Glucose POC Capillary Glucose 153 H 104 100 Calcium Total Bilirubin AST ALT Alkaline Phosphatase Total Protein Albumin Discharge Plan Discharge Attending physician on discharge: Romina Carter Consulting providers: Aga Walton; Dwayne Coleman; Zay Cruz Discharging Clinician: Zay Cruz Anticipated Discharge Date/Time: 01/31/25 15:57 Patient Disposition: SNF Activity: no straining Diet: diabetic Discharge Instructions: Discharge disposition: [facility] Take medications as prescribed. You will be prescribed Levofloxacin to be taken once daily for the next 4 days. Follow your Diabetic Consistent Carbohydrate diet with soft/bite sized bites. Monitor blood pressures Take caution while standing, rising, or moving Change positions slowly taking a break between each position change If you standing feel dizzy sit back down and take a break Encouraged to continue with yearly vaccinations Return to the emergency department if he developed sudden shortness of breath, chest pain, nausea, vomiting, upset stomach or intractable diarrhea Return to the emergency department if you develop fever greater than 101.5 Follow-up with the primary care physician within 1-2 weeks Thank you for choosing [facility] for your healthcare needs Patient Instructions: Antibiotic Form Patient Language: Indonesian Stand Alone Forms: General Discharge Information Follow-up/Referrals: Yumiko,DOM Juarez [Primary Care Provider, Unknown] Discharge Medications: New levofloxacin 750 mg tablet 750 mg PO DAILY Qty: 4 0RF Continued hydrocodone-acetaminophen 10-325 mg tablet 1 tablet PO Q4H PRN (Reason: pain) folic acid 1 mg tablet 1 mg PO DAILY duloxetine 20 mg capsule,delayed release(DR/EC) 40 mg PO DAILY pregabalin 50 mg capsule 150 mg PO DAILY losartan 25 mg tablet 25 mg PO DAILY primidone 125 mg tablet 250 mg PO QID Artificial Tears (cmc) 1 % drops 1 drp EACH EYE Q4H PRN (Reason: dry eye(s)) cholecalciferol (vitamin D3) 25 mcg (1,000 unit) tablet,chewable 1,000 unit PO DAILY dapagliflozin propanediol [Farxiga] 10 mg tablet 10 mg PO DAILY acetaminophen 325 mg tablet 650 mg PO Q6H PRN (Reason: Mild Pain (1-3) Or Fever) Qty: 30 0RF clonazepam 0.5 mg tablet 0.5 mg PO HS Qty: 90 0RF (DME) FreeStyle Leatha 3 Plus Sensor Device See Rx Instructions .Route Qty: 1 5RF Rx Instructions: Check glucose continuously As directed insulin degludec [Tresiba FlexTouch U-100] 100 unit/mL (3 mL) insulin pen See Rx Instructions .ROUTE .COMPLEX Qty: 15 0RF Dose Instruction: INJECT 18 UNITS SUBCUTANEOUSLY EVERY MORNING Rx Instructions: INJECT 18 UNITS SUBCUTANEOUSLY EVERY MORNING allopurinol 300 mg tablet 300 mg PO DAILY Qty: 90 1RF alpha lipoic acid 200 mg capsule 200 mg PO DAILY Qty: 90 1RF amlodipine 5 mg tablet 10 mg PO DAILY Qty: 180 1RF aripiprazole 5 mg tablet 5 mg PO DAILY Qty: 90 1RF aspirin 325 mg tablet 325 mg PO DAILY Qty: 90 1RF atorvastatin 20 mg tablet 20 mg PO DAILY Qty: 90 1RF calcitriol 0.5 mcg capsule 0.5 mcg PO DAILY Qty: 90 1RF citalopram 20 mg tablet 20 mg PO DAILY Qty: 90 1RF docusate sodium 100 mg capsule 100 mg PO DAILY PRN (Reason: Constipation) Qty: 90 1RF dicyclomine 10 mg capsule 10 mg PO TID Qty: 90 1RF ferrous sulfate 325 mg (65 mg iron) tablet 325 mg PO DAILY Qty: 90 1RF hydroxychloroquine 200 mg tablet 200 mg PO BID Qty: 180 0RF metformin 500 mg tablet extended release 24 hr 500 mg PO BID Qty: 90 1RF metoprolol tartrate 50 mg tablet 50 mg PO BID Qty: 90 1RF omeprazole 40 mg capsule,delayed release(DR/EC) 40 mg PO DAILY Qty: 90 1RF polyethylene glycol 3350 [Miralax] 17 gram powder in packet 17 g PO DAILY PRN (Reason: constipation) Qty: 100 1RF sucralfate 1 gram tablet 1 g PO TIDWM Qty: 90 1RF oxycodone 5 mg Tablet 10 mg PO Q4H PRN (Reason: Pain Rated 7-10) Qty: 24 0RF Discontinued (DME) BD AutoShield Duo Pen Needle 30 gauge x 3/16 needle See Rx Instructions .Route Qty: 100 0RF Rx Instructions: As directed Date of admission: 01/25/25 10:48 Primary Care Provider: Ann Lucas Admitting Provider: Sanket Ingram Attending physician on admission: Sanket Ingram Condition: Stable Quality VTE Prophylaxis VTE prophylaxis: mechanical ordered
== END 2025-01-31 19:14 | DRG 947 ==
LOC: ANHED 17:20 → ANH3MEDSUR 17:58 → ANH2MED 18:41
PROVIDERS: Emergency Medicine; Physician Assistant; Student in an Organized Health Care Education/Training Program; Admitting Provider Internal Medicine; Emergency Provider Emergency Medicine; PCP Physician Assistant; Visit Provider Physician Assistant
DX: R41.82 Altered mental status, unspecified (principal); J18.9 Pneumonia, unspecified organism; Y95 Nosocomial condition; T50.995A Adverse effect of other drugs, medicaments and biological substances, initial encounter; I10 Essential (primary) hypertension; R47.1 Dysarthria and anarthria; R82.90 Unspecified abnormal findings in urine; E11.42 Type 2 diabetes mellitus with diabetic polyneuropathy; E11.649 Type 2 diabetes mellitus with hypoglycemia without coma; E78.5 Hyperlipidemia, unspecified; E83.42 Hypomagnesemia; K21.9 Gastro-esophageal reflux disease without esophagitis; F41.9 Anxiety disorder, unspecified; G47.33 Obstructive sleep apnea (adult) (pediatric); M47.812 Spondylosis without myelopathy or radiculopathy, cervical region; M62.81 Muscle weakness (generalized); G89.29 Other chronic pain; R20.0 Anesthesia of skin; M48.54XG Collapsed vertebra, not elsewhere classified, thoracic region, subsequent encounter for fracture with delayed healing; Z66 Do not resuscitate; R79.89 Other specified abnormal findings of blood chemistry; R25.1 Tremor, unspecified; Z79.4 Long term (current) use of insulin; Z91.198 Patient's noncompliance with other medical treatment and regimen for other reason; Z86.73 Personal history of transient ischemic attack (TIA), and cerebral infarction without residual deficits; X58.XXXD Exposure to other specified factors, subsequent encounter; Z90.49 Acquired absence of other specified parts of digestive tract; Z87.891 Personal history of nicotine dependence; Z86.19 Personal history of other infectious and parasitic diseases
CPT/HCPCS: 36415; 36600; 70450; 70553; 71045; 71275; 72148; 73562; 74177; 76705; 80048; 80053; 80061; 81001; 82140; 82805; 82948; 83036; 83605; 83690; 83735; 84145; 84484; 85018; 85025; 85610; 85730; 87040; 87086; 87449; 87637; 87641; 92526; 92610; 93005; 93306; 96361; 96365; 96366; 96367; 96375; 97110; 97112; 97162; 97166; 97530; 99285; A9270; G0378; J0692; J0696; J1815; J3373; J3475; J7120; Q9967